=== PATIENT | female | born 1955 | race Caucasian/White ===

== ENCOUNTER 2020-05-09 14:17 | Inpatient (IN) | payer OTHER, SELFPAY ==
--- NOTE | 2020-05-09 | CT_ITS ---
EXAMINATION: CT ABDOMEN AND PELVIS WITHOUT CONTRAST CLINICAL INFORMATION: Left lower quadrant pain COMPARISON: Report only MRI lumbar spine 03/02/2007 TECHNIQUE: Multidetector volumetric imaging was performed from the superior aspect of the liver through the pubic symphysis. Sagittal and coronal reformatted images were obtained on the technologist's workstation. This CT examination was performed using dose optimization techniques as appropriate, variously including the following: *Automated exposure control *Adjustment of mA and/or kV according to patient size (this includes techniques or standardized protocols for targeted exams where dose is matched to indication/reason for exam; i.e. extremities or head) *Use of iterative reconstruction technique DLP: 511 mGy-cm FINDINGS: LUNG BASES: The visualized lung bases are unremarkable. LIVER, GALLBLADDER, AND BILIARY TREE: The liver is normal in size, shape, and attenuation. No focal hepatic lesion or biliary ductal dilatation is present. The gallbladder is unremarkable with no evidence of radiopaque gallstones, gallbladder wall thickening, or obvious pericholecystic inflammatory changes. PANCREAS: Unremarkable. SPLEEN: Unremarkable. ADRENAL GLANDS: Unremarkable. KIDNEYS AND URETERS: The kidneys are normal in size, shape, and attenuation. No hydronephrosis, hydroureter, or calculi seen. No perinephric stranding. BLADDER: Empty and cannot be evaluated. GASTROINTESTINAL TRACT: The small and large bowel are unremarkable. The appendix is none seen but there is no evidence of appendicitis. ABDOMINAL WALL: No significant hernia is appreciated. LYMPH NODES: No retroperitoneal lymphadenopathy. VASCULAR: Aortoiliac iliac calcific atherosclerotic plaque is present. No aneurysm is seen. PELVIC VISCERA: Patient is status post hysterectomy. An abnormal adnexal mass is not seen. No free intraperitoneal fluid is present OSSEOUS STRUCTURES: Minimal spondylitic changes present in the spine. There is a compression fracture involving the superior endplate of L2 most likely chronic. This was not described on the 2006 MRI report. No bony destructive lesions are seen. IMPRESSION: Negative study. Cause for the left lower quadrant pain has not been found. Incidental note made of hysterectomy and compression fracture superior endplate L2.
[2020-05-09 17:25] VITALS: BP 157/99; PULSE 90; RESP 22; TEMP 36.9; O2SAT 100; BMI 23.4
--- NOTE | 2020-05-09 17:40 | ED.ABDPAIN ---
HPI - Abdominal Pain General Chief Complaint: Abdominal Pain Stated Complaint: diverticulitis,vomiting,diarrhea Time Seen by Provider: 05/09/20 17:30 Source: patient Mode of arrival: ambulatory History of Present Illness HPI narrative: Patient is a 65-year-old female with a history of diverticulitis in the past. Was on Augmentin for full 10 days. Subsequently had continue pain. Was started 1 day later with Cipro and Flagyl. Patient took the medication for about 4 days and then stop because of diarrhea and worsening pain. Presented to the ED 2 days later. The pain is cramping like. It is over the left side. There is no radiation a comes and go without any specific triggers. No coughing or congestion or upper respiratory symptoms. No diaphoresis. No abdominal surgery in the past. Patient had a colonoscopy done back in 2018 it was grossly okay. No evidence of obstruction no evidence of mass. MD elicited complaint: abdominal pain Onset (ago): day(s) Pain Consistency: intermittent Location: LUQ and LLQ Severity: moderate Quality: cramping Migration to: no migration Exacerbating factors: nothing Relieving factors: nothing Related Data Allergies Allergy/AdvReac Type Severity Reaction Status Date / Time Darvocet-N 100 Allergy Intermediate Hives Verified 05/09/20 17:54 propoxyphene [From DARVON] Allergy Intermediate Hives Verified 05/09/20 17:54 Darvocet A500 Allergy Intermediate Hives Uncoded 05/09/20 17:54 Darvocet-N 50 Allergy Intermediate Hives Uncoded 05/09/20 17:54 Review of Systems Review of Systems Yes all other systems are reviewed and are negative Reports system reviewed and no additional complaints, except as documented Cardiovascular: Reports as per HPI Respiratory: Reports as per HPI and Reports no additional respiratory complaints Gastrointestinal: Reports as per HPI Genitourinary: Reports no additional female genitourinary complaints Musculoskeletal: Reports no additional musculoskeletal complaints Reports system reviewed and no additional complaints, except as documented Psychiatric: Reports no additional psychiatric complaints Endocrine: Reports no additional endocrine complaints Hematologic/Lymphatic: Reports no additional hematologic/lymphatic complaints Allergic/Immunologic: Reports no additional allergic/immunologic complaints Physical Exam Vital Signs and I&O and Narrative: Vital Signs and I&O: Vital Signs Temp 98.4 F 05/09/20 17:25 Pulse 80 05/09/20 18:03 Resp 20 05/09/20 18:03 BP 162/97 H 05/09/20 18:03 Pulse Ox 100 05/09/20 18:03 Intake & Output 05/09/20 05/09/20 05/10/20 06:59 18:59 06:59 Weight 69.853 kg Body Mass Index 23.4 Const: General: cooperative Orientation/consciousness: oriented to person, oriented to place and oriented to time HENMT: Head: Yes normal to inspection Ears: hearing grossly normal bilaterally Eyes: General: appearance normal, both eyes and all related structures Neck: Other: No JVD trachea is midline Neck: Yes normal visual inspection Chest: Other: clear bilaterally to auscultation Chest palpation & inspection: normal inspection of the chest Resp: Effort & Inspection: normal respiratory effort Cardio: Jugular venous distension: no JVD Palpation: normal PMI Rate: regular rate Rhythm: regular rhythm Bruits: no abdominal aortic bruits GI: Inspection: Yes normal to inspection Palpation (GI): No Abdominal aortic bruit present Percussion: Yes normal to percussion Auscultation: normal bowel sounds : General: Yes no CVA tenderness Back/Spine/Pelvis: Back: no CVA tenderness Skin: General skin exam: no rashes or lesions noted Neuro: General: oriented to person, oriented to place and oriented to time Extrem: General: Yes normal to inspection Psych: Appearance: grossly normal MDM - Abdominal Pain MDM Narrative Medical decision making narrative: Patient's electrolytes shows an elevated creatinine. Consistent with some mild dehydration. CT scan of the abdomen did not show any acute pathology. No evidence for diverticulitis. No obstruction no abscess no perforation. Will admit patient for further observation and monitoring. Further hydration. Currently in stable condition. [place] [id number] CT Scan Report Signed Patient: Jj Madison [facility]#: [id number] : 6Acct:[id number] Age/Sex: 65 / FADM Date: 05/09/20 Loc: HO.ED Attending Dr: Ordering Physician: LINDA MILLER MD Date of Service: 05/09/20 Procedure(s): CT abdomen pelvis wo con Accession Number(s): [id number] cc: ~ EXAMINATION: CT ABDOMEN AND PELVIS WITHOUT CONTRAST CLINICAL INFORMATION: Left lower quadrant pain COMPARISON: Report only MRI lumbar spine 03/02/2007 TECHNIQUE: Multidetector volumetric imaging was performed from the superior aspect of the liver through the pubic symphysis. Sagittal and coronal reformatted images were obtained on the technologist's workstation. This CT examination was performed using dose optimization techniques as appropriate, variously including the following: *Automated exposure control *Adjustment of mA and/or kV according to patient size (this includes techniques or standardized protocols for targeted exams where dose is matched to indication/reason for exam; i.e. extremities or head) *Use of iterative reconstruction technique DLP: 511 mGy-cm FINDINGS: LUNG BASES: The visualized lung bases are unremarkable. LIVER, GALLBLADDER, AND BILIARY TREE: The liver is normal in size, shape, and attenuation. No focal hepatic lesion or biliary ductal dilatation is present. The gallbladder is unremarkable with no evidence of radiopaque gallstones, gallbladder wall thickening, or obvious pericholecystic inflammatory changes. PANCREAS: Unremarkable. SPLEEN: Unremarkable. ADRENAL GLANDS: Unremarkable. KIDNEYS AND URETERS: The kidneys are normal in size, shape, and attenuation. No hydronephrosis, hydroureter, or calculi seen. No perinephric stranding. BLADDER: Empty and cannot be evaluated. GASTROINTESTINAL TRACT: The small and large bowel are unremarkable. The appendix is none seen but there is no evidence of appendicitis. ABDOMINAL WALL: No significant hernia is appreciated. LYMPH NODES: No retroperitoneal lymphadenopathy. VASCULAR: Aortoiliac iliac calcific atherosclerotic plaque is present. No aneurysm is seen. PELVIC VISCERA: Patient is status post hysterectomy. An abnormal adnexal mass is not seen. No free intraperitoneal fluid is present OSSEOUS STRUCTURES: Minimal spondylitic changes present in the spine. There is a compression fracture involving the superior endplate of L2 most likely chronic. This was not described on the 2006 MRI report. No bony destructive lesions are seen. IMPRESSION: Negative study. Cause for the left lower quadrant pain has not been found. Incidental note made of hysterectomy and compression fracture superior endplate L2. Dictated By:KEVIN CARRERA MD Signed By:<Electronically signed by KEVIN CARRERA MD in OV>05/09/201914 DD/ 99 TD/TT: [employer] Analyst: JACOBO Differential Diagnosis Differential diagnosis: Likely abdominal pain, aortic dissection, acute appendicitis and diverticulitis Medical Records Attestation: I reviewed the patient's medical records. Lab Data Attestation: I reviewed the patient's lab results. Result diagrams: 05/09/20 17:48 05/09/20 17:48 Labs: Lab Results 05/09/20 05/09/20 05/09/20 Range/Units 17:48 17:48 17:48 WBC 6.9 (4.8-10.8) X10*3/uL RBC 4.34 (4.20-5.50) X10*6/uL Hgb 12.7 (12.0-16.0) g/dl Hct 38.8 (37-47) % MCV 89.4 (80-98) fL MCH 29.3 (27.0-33.0) pg MCHC 32.7 (31.0-35.0) g/dl RDW 15.7 (11.0-16.0) % Plt Count 210 (160-400) X10*3/uL MPV 10.9 (9.4-12.3) fL Immature Gran % (Auto) 0.7 H (0.0-0.4) % Neut % (Auto) 53.8 (45-73) % Lymph % (Auto) 28.1 (20-40) % [place] % (Auto) 14.7 H (2-11) % Eos % (Auto) 2.3 (0-4) % Baso % (Auto) 0.4 (0-2) % Neut # (Auto) 3.7 (2.0-8.3) X10*3/uL Lymph # (Auto) 1.9 (1.2-4.9) X10*3/uL [place] # (Auto) 1.0 (0.1-1.2) X10*3/uL Eos # (Auto) 0.2 (0.0-0.4) X10*3/uL Baso # (Auto) 0.0 (0.0-0.2) X10*3/uL Abs Immat Gran (auto) 0.05 H (0.00-0.03) X10*3/uL Absolute Nucleated RBC 0.000 (0.0-0.012) X10*3/uL Nucleated RBC % (auto) 0.0 (0.0-0.2) /100WBC Hold Blue Top SEE NOTE Sodium 139 (135-145) mmol/L Potassium 4.1 (3.3-5.1) mmol/l Chloride 107 (96-108) mmol/L Carbon Dioxide 21 L (22-29) mmol/L Anion Gap 15 (12-20) BUN 31 H (9-16) mg/dL Creatinine 2.05 H (0.5-1.4) mg/dL Estim Creat Clear Calc 28.0 Estimated GFR 24 Random Glucose 139 H (60-115) mg/dL Calcium 9.6 (8.4-10.2) mg/dL Total Bilirubin 0.6 (0.0-1.0) mg/dL AST 222 H (5-31) U/L ALT 157 H (0-31) U/L Alkaline Phosphatase 108 (39-117) U/L Total Protein 6.8 (6.5-8.0) g/dL Albumin 4.2 (3.5-5.0) g/dL Lipase 42 (8-78) U/L Discharge Plan Discharge Clinical Impression: Acute dehydration, Acute renal insufficiency Patient Disposition: Admitted As Inpatient [facility] Past Medical History Attestation statement: The following information was validated with the patient. Medical History (Updated 05/09/20 @ 19:40 by Linda Miller MD) Hypertension Irritable bowel syndrome Ovarian cyst Surgical History (Updated 05/09/20 @ 17:31 by Mitzy Corrales) History of adenoidectomy History of hysterectomy History of tonsillectomy Hx of appendectomy S/P removal of ovarian cyst Social History Social History Alcohol intake: current Alcohol intake frequency: a few times a month Alcohol type: wine Smoking Status: Former smoker Smoked in Last 30 Days: No Use of substances other than those prescribed or required for medical reasons: No Advance Directives: No Advance Directives Information Provided: No
[2020-05-09 17:53] LABS: MANUAL DIFF FLAG NO
[2020-05-09] MEDS: 0.9 % Sodium Chloride 1,000 ML 999 ML IVCONT (17:55)
[2020-05-09] MEDS: ondansetron HCL 4 MG/2 ML VIAL IVPUSH (17:55)
[2020-05-09 17:58] LABS: Basophils Percent Auto 0.4 % (0-2); Eosinophils Absolute Auto 0.2 X10*3/uL (0.0-0.4); Eosinophils Percent Auto 2.3 % (0-4); Hematocrit 38.8 % (37-47); Hemoglobin 12.7 g/dl (12.0-16.0); Imm Gran Abs Auto 0.05 X10*3/uL (0.00-0.03); Imm Gran Pct Auto 0.7 % (0.0-0.4); Lymphocytes Absolute Auto 1.9 X10*3/uL (1.2-4.9); Lymphocytes Percent Auto 28.1 % (20-40); Mean Corpuscular HGB Conc 32.7 g/dl (31.0-35.0); Mean Corpuscular Hemoglobin 29.3 pg (27.0-33.0); Mean Corpuscular Volume 89.4 fL (80-98); Mean Platelet Volume 10.9 fL (9.4-12.3); Monocytes Percent Auto 14.7 % (2-11); Neutrophils Absolute Auto 3.7 X10*3/uL (2.0-8.3); Neutrophils Percent Auto 53.8 % (45-73); Platelet Count 210 X10*3/uL (160-400); Red Blood Count 4.34 X10*6/uL (4.20-5.50); Red Cell Distribution Width 15.7 % (11.0-16.0); White Blood Count 6.9 X10*3/uL (4.8-10.8)
[2020-05-09] MEDS: HYDROmorphone HCl 0.5 MG/0.5 ML SYRINGE IVPUSH (17:59)
[2020-05-09 18:03] VITALS: BP 162/97; PULSE 80; RESP 20; O2SAT 100
[2020-05-09 18:30] LABS: Alanine Aminotransferase 157 U/L (0-31); Albumin Level 4.2 g/dL (3.5-5.0); Alkaline Phosphatase 108 U/L (39-117); Anion Gap 15 (12-20); Aspartate Amino Transferase 222 U/L (5-31); Bilirubin Total 0.6 mg/dL (0.0-1.0); Blood Urea Nitrogen 31 mg/dL (9-16); Calcium 9.6 mg/dL (8.4-10.2); Carbon Dioxide 21 mmol/L (22-29); Chloride 107 mmol/L (96-108); Estimated Glomerular Filt Rate 24; Glucose Random 139 mg/dL (60-115); Lipase 42 U/L (8-78); Potassium 4.1 mmol/l (3.3-5.1); Sodium 139 mmol/L (135-145); Total Protein 6.8 g/dL (6.5-8.0)
[2020-05-09 20:30] VITALS: BP 154/74; PULSE 74; RESP 16; TEMP 36.8
[2020-05-09 20:35] VITALS: BP 154/74; PULSE 74; RESP 16; TEMP 36.8
[2020-05-09 20:50] LABS: Glucose Urine UA NEG (NEG); Leukocyte Esterase Urine NEG (NEG); Nitrite Urine NEG (NEG); Urine Blood NEG (NEG); Urine Ketones NEG (NEG); Urine Protein NEG (NEG-TRACE)
[2020-05-09 20:51] LABS: Appearance Urine CLEAR; Color Urine YELLOW
[2020-05-09 21:07] LABS: MANUAL DIFF FLAG NO
[2020-05-09 21:08] LABS: Basophils Percent Auto 0.5 % (0-2); Eosinophils Absolute Auto 0.2 X10*3/uL (0.0-0.4); Eosinophils Percent Auto 2.7 % (0-4); Hematocrit 33.5 % (37-47); Hemoglobin 10.9 g/dl (12.0-16.0); Imm Gran Abs Auto 0.04 X10*3/uL (0.00-0.03); Imm Gran Pct Auto 0.6 % (0.0-0.4); Lymphocytes Absolute Auto 1.8 X10*3/uL (1.2-4.9); Lymphocytes Percent Auto 28.9 % (20-40); Mean Corpuscular HGB Conc 32.5 g/dl (31.0-35.0); Mean Corpuscular Hemoglobin 29.1 pg (27.0-33.0); Mean Corpuscular Volume 89.3 fL (80-98); Mean Platelet Volume 10.8 fL (9.4-12.3); Monocytes Percent Auto 15.8 % (2-11); Neutrophils Absolute Auto 3.2 X10*3/uL (2.0-8.3); Neutrophils Percent Auto 51.5 % (45-73); Platelet Count 172 X10*3/uL (160-400); Red Blood Count 3.75 X10*6/uL (4.20-5.50); Red Cell Distribution Width 15.6 % (11.0-16.0); White Blood Count 6.2 X10*3/uL (4.8-10.8)
[2020-05-09] MEDS: 0.9 % Sodium Chloride 1,000 ML 100 ML IVCONT (21:38)
[2020-05-09] MEDS: metroNIDAZOLE/NS 500 MG/100 ML PIGGYBACK 100 MG IV (21:38)
[2020-05-09] MEDS: Enoxaparin Sodium 30 MG/0.3 ML SYRINGE SUBCUT (21:38)
[2020-05-09 22:44] VITALS: BP 155/69; PULSE 75; RESP 19; TEMP 36.8; O2SAT 99
[2020-05-09] MEDS: levoFLOXacin/D5W 750 MG/150 ML PIGGYBACK 100 MG IV (23:00)
[2020-05-09] MEDS: oxyCODONE HCl Immed Release 5 MG TABLET PO (23:00)
[2020-05-09] MEDS: LORazepam 1 MG TABLET PO (23:25)
[2020-05-09 23:56] VITALS: PULSE 64; RESP 19; TEMP 35.7; O2SAT 100
[2020-05-10] VITALS (11 sets, daily range): BP systolic 130–162; BP diastolic 59–89; PULSE 62–77; RESP 18–20; TEMP 36.1–36.7; O2SAT 94–100
[2020-05-10] MEDS: Morphine Sulfate 4 MG/ML CARTRIDGE 3 MG IVPUSH (01:31)
--- NOTE | 2020-05-10 03:20 | PM.IMHP ---
History of Present Illness Date of Service: 05/09/20 Chief Complaint: Abdominal pain this is a 65-year-old female with past medical history of anxiety, and hypertension who presents to the hospital with complaints of abdominal pain. Patient reports that she was recently diagnosed with diverticulitis and treated with Augmentin in the beginning of April. At that time she finished her antibiotic course, but continued to have pain and her administrative and program specialist started her on what appears to be ciprofloxacin and Flagyl. She took the medication for 4 days but her symptoms continued to persist including abdominal pain, diarrhea, nausea. She stopped taking medication about 2 days ago due to the fact that it was making her feel sick. She continues to have pain that is described to be 8/10, left lower quadrant, nonradiating, associated with nausea and vomiting, ribs somewhat relieved with pain medication received in the ED. Patient reports about 1 episode of diarrhea for the past 3 days, nonbloody, watery. No fever or chills. No urinary symptoms. And no lower extremity edema. Ten point review of system otherwise neg labs on arrival are significant for hemoglobin of 12.7, elevated AST of 222, ALT of 157, otherwise unremarkable. Abdominal pelvic CT with no contrast shows negative study. Cause for the left lower quadrant pain has not been found. Incidental note made of hysterectomy and compression fracture superior endplate L2. Patient also has a BUN of 31 with a creatinine of 2.05, a negative UA. Past medical history: Hypertension, anxiety past surgical history: Hysterectomy, tonsillectomy, adenoidectomy, appendectomy Family history: Denies Social history: Comes from home, denies currently using tobacco, drinks alcohol seldomly. No use of illicit drugs Review of Systems Review of Systems: Yes all other systems are reviewed and are negative Neurologic: Reports system reviewed and no additional complaints, except as documented [facility] [place] Medical History Hypertension Irritable bowel syndrome Ovarian cyst Surgical History History of adenoidectomy History of hysterectomy History of tonsillectomy Hx of appendectomy S/P removal of ovarian cyst Social History Alcohol intake: current Alcohol intake frequency: a few times a month Alcohol type: wine Smoking Status: Former smoker Smoked in Last 30 Days: No Use of substances other than those prescribed or required for medical reasons: No Advance Directives: No Advance Directives Information Provided: No Meds Allergies Allergy/AdvReac Type Severity Reaction Status Date / Time Darvocet-N 100 Allergy Intermediate Hives Verified 05/09/20 17:54 propoxyphene [From DARVON] Allergy Intermediate Hives Verified 05/09/20 17:54 Darvocet A500 Allergy Intermediate Hives Uncoded 05/09/20 17:54 Darvocet-N 50 Allergy Intermediate Hives Uncoded 05/09/20 17:54 Home Medications Medication Instructions Recorded Confirmed Type hydrochlorothiazide 1 tab PO DAILY 05/09/20 05/09/20 History lorazepam 1 tab PO BEDTIME 05/09/20 05/09/20 History metoprolol tartrate 1 tab PO DAILY 05/09/20 05/09/20 History omeprazole 1 cap PO DAILY 05/09/20 05/09/20 History Physical Exam Vital Signs and Narrative: Vital Signs: Last Vital Signs Temp 96.3 F L 05/09/20 23:56 Pulse 64 05/09/20 23:56 Resp 19 05/09/20 23:56 BP 155/69 H 05/09/20 22:44 Pulse Ox 100 05/09/20 23:56 Body Mass Index 23.4 Const: General: cooperative and no acute distress Orientation/consciousness: patient oriented x3 Eyes: General: appearance normal, both eyes and all related structures Pupils: Equal, round and reactive pupils present Resp: Effort & Inspection: normal respiratory effort, able to speak in complete sentences and abnormal respiratory pattern Auscultation: clear to auscultation bilaterally Cardio: Rate: regular rate Rhythm: regular rhythm GI: Other: right lower quadrant tenderness, no rebound, no guarding Palpation (GI): Soft to palpation Auscultation: normal bowel sounds Skin: General skin exam: no rashes or lesions noted Neuro: General: patient oriented x3 Cranial nerves: Yes Equal, round and reactive pupils present Cognition (Neuro): normal cognition Extrem: General: Yes normal to inspection and Yes no pedal edema Results Labs Labs: Laboratory Tests 05/09/20 05/09/20 05/09/20 17:48 17:48 17:48 WBC 6.9 RBC 4.34 Hgb 12.7 Hct 38.8 MCV 89.4 MCH 29.3 MCHC 32.7 RDW 15.7 Plt Count 210 MPV 10.9 Immature Gran % (Auto) 0.7 H Neut % (Auto) 53.8 Lymph % (Auto) 28.1 [place] % (Auto) 14.7 H Eos % (Auto) 2.3 Baso % (Auto) 0.4 Neut # (Auto) 3.7 Lymph # (Auto) 1.9 [place] # (Auto) 1.0 Eos # (Auto) 0.2 Baso # (Auto) 0.0 Abs Immat Gran (auto) 0.05 H Absolute Nucleated RBC 0.000 Nucleated RBC % (auto) 0.0 Hold Blue Top SEE NOTE Sodium 139 Potassium 4.1 Chloride 107 Carbon Dioxide 21 L Anion Gap 15 BUN 31 H Creatinine 2.05 H Estim Creat Clear Calc 28.0 Estimated GFR 24 Random Glucose 139 H Calcium 9.6 Total Bilirubin 0.6 AST 222 H ALT 157 H Alkaline Phosphatase 108 Total Protein 6.8 Albumin 4.2 Lipase 42 Urine Color Urine Appearance Urine pH Ur Specific [place] Urine Protein Urine Glucose (UA) Urine Ketones Urine Blood Urine Nitrite Ur Leukocyte Esterase 05/09/20 05/09/20 20:42 21:02 WBC 6.2 RBC 3.75 L Hgb 10.9 L Hct 33.5 L MCV 89.3 MCH 29.1 MCHC 32.5 RDW 15.6 Plt Count 172 MPV 10.8 Immature Gran % (Auto) 0.6 H Neut % (Auto) 51.5 Lymph % (Auto) 28.9 [place] % (Auto) 15.8 H Eos % (Auto) 2.7 Baso % (Auto) 0.5 Neut # (Auto) 3.2 Lymph # (Auto) 1.8 [place] # (Auto) 1.0 Eos # (Auto) 0.2 Baso # (Auto) 0.0 Abs Immat Gran (auto) 0.04 H Absolute Nucleated RBC 0.000 Nucleated RBC % (auto) 0.0 Hold Blue Top Sodium Potassium Chloride Carbon Dioxide Anion Gap BUN Creatinine Estim Creat Clear Calc Estimated GFR Random Glucose Calcium Total Bilirubin AST ALT Alkaline Phosphatase Total Protein Albumin Lipase Urine Color YELLOW Urine Appearance CLEAR Urine pH 5.0 Ur Specific [place] 1.010 Urine Protein NEG Urine Glucose (UA) NEG Urine Ketones NEG Urine Blood NEG Urine Nitrite NEG Ur Leukocyte Esterase NEG Assessment and Plan (1) Diverticulitis: Status: Acute - patient was treated with 2 different courses of antibiotics including Augmentin with no improvement of her symptoms followed by Cipro and Flagyl per patient. CT at this times not showing any evidence of diverticulitis although CT is done without any contrast Due to DIVINA - given her significant left lower quadrant abdominal pain, will continue levofloxacin and Flagyl - will obtain stool culture - [facility] Medicaid - unlikely to have C diff as patient has about 1 episode of diarrhea daily therefore will not send for C diff (2) Abdominal pain: Status: Acute most likely secondary to acute diverticulitis versus IBS pain medication (3) Acute renal insufficiency: Status: Acute it appears the patient has a baseline creatinine function of 1.7, presented to the hospital with a creatinine of 2.05 an elevated BUN of 31. Most likely secondary to dehydration in the setting of diarrhea and vomiting. - Will start patient on IV fluid - follow BMP (4) Irritable bowel syndrome: Status: Acute abdominal pain may be also related to IBS although reports that she has had IV as for many years and these symptoms are different supportive measures (5) Hypertension: Status: Acute stable - hold hydrochlorothiazide in the setting of DIVINA - monitor
[2020-05-10] MEDS: oxyCODONE HCl Immed Release 5 MG TABLET PO ×3 (05:13→20:07)
[2020-05-10] MEDS: metroNIDAZOLE/NS 500 MG/100 ML PIGGYBACK 100 MG IV ×3 (05:14→22:37)
[2020-05-10 08:55] LABS: MANUAL DIFF FLAG NO
[2020-05-10 09:13] LABS: Basophils Percent Auto 0.5 % (0-2); Eosinophils Absolute Auto 0.2 X10*3/uL (0.0-0.4); Eosinophils Percent Auto 3.9 % (0-4); Hematocrit 31.3 % (37-47); Hemoglobin 10.3 g/dl (12.0-16.0); Imm Gran Abs Auto 0.04 X10*3/uL (0.00-0.03); Imm Gran Pct Auto 0.7 % (0.0-0.4); Lymphocytes Absolute Auto 1.9 X10*3/uL (1.2-4.9); Lymphocytes Percent Auto 32.7 % (20-40); Mean Corpuscular HGB Conc 32.9 g/dl (31.0-35.0); Mean Corpuscular Hemoglobin 29.5 pg (27.0-33.0); Mean Corpuscular Volume 89.7 fL (80-98); Mean Platelet Volume 11.2 fL (9.4-12.3); Monocytes Absolute Auto 0.8 X10*3/uL (0.1-1.2); Monocytes Percent Auto 14.9 % (2-11); Neutrophils Absolute Auto 2.7 X10*3/uL (2.0-8.3); Neutrophils Percent Auto 47.3 % (45-73); Platelet Count 163 X10*3/uL (160-400); Red Blood Count 3.49 X10*6/uL (4.20-5.50); Red Cell Distribution Width 15.7 % (11.0-16.0); White Blood Count 5.7 X10*3/uL (4.8-10.8)
[2020-05-10] MEDS: Metoprolol Tartrate 25 MG TABLET PO (09:39)
[2020-05-10] MEDS: Omeprazole 20 MG CAPSULE.DR PO (09:40)
[2020-05-10] MEDS: 0.9 % Sodium Chloride 1,000 ML 100 ML IVCONT ×2 (09:40→20:01)
--- NOTE | 2020-05-10 10:14 | MHC.CM.PN ---
PATIENT LIVES WITH HER SPOUSE AND IS FULLY INDEPENDENT WITH ALL ADLS. NO DME OR VNA SERVICES. SHE IS HOPING TO BE ABLE TO RETURN HOME WITH NO SERVICES. HCP IS SPOUSE AND A COPY IS ON FILE AT HER PRIMARY CARE PHYSICIAN'S OFFICE. COPY REQUESTED. CASE MANAGEMENT FOLLOWING FOR DISCHARGE NEEDS.
--- NOTE | 2020-05-10 13:05 | HO.PM.IMPN ---
Subjective Subjective Date of Service: 05/10/20 Interval History: patient seen and examined at bedside patient reporting abdominal pain Constitutional Constitutional: Reports weakness Gastrointestinal Gastrointestinal: Reports abdominal pain and Reports diarrhea Neurologic Neurologic: Reports weakness Physical Exam Vital Signs and I&O and Narrative: Vital Signs and I&O: Vital Signs Temp 98.1 F 05/10/20 12:00 Pulse 63 05/10/20 12:00 Resp 19 05/10/20 12:00 BP 143/74 H 05/10/20 12:00 Pulse Ox 100 05/10/20 12:00 Intake & Output 05/09/20 05/10/20 05/10/20 18:59 06:59 18:59 Intake Total 1790 / 1790 1000 / 1000 Balance 1790 / 1790 1000 / 1000 Weight 69.853 kg Intake: Intake, Oral Cora unt 440 / 440 Intake, IV Amoun t 1350 / 1350 1000 / 1000 levoFLOXacin/D 5W 750 mg In 150 150 / 150 ml @ 100 mls/h r IV Q48H [facility] Rx# :[id number] metroNIDAZOLE/ NS 500 mg In 100 200 / 200 ml @ 100 mls/h r IV Q8H [facility] Rx#: [id number] 0.9 % Sodium C hloride 1,000 ml 1000 / 1000 1000 / 1000 @ 100 mls/hr I VCONT .Q10H [facility] Rx#:[id number] Other: Number of Unmeas ured Voids 3 Body Mass Index 23.4 Const: General: cooperative and no acute distress Orientation/consciousness: oriented to person, oriented to place, oriented to time and patient oriented x3 HENMT: Head: Yes normal to inspection Ears: hearing grossly normal bilaterally Eyes: General: appearance normal, both eyes and all related structures Pupils: Equal, round and reactive pupils present Neck: Other: No JVD trachea is midline Neck: Yes normal visual inspection Chest: Other: clear bilaterally to auscultation Chest palpation & inspection: normal inspection of the chest Resp: Effort & Inspection: normal respiratory effort, able to speak in complete sentences and abnormal respiratory pattern Auscultation: clear to auscultation bilaterally Cardio: Jugular venous distension: no JVD Palpation: normal PMI Rate: regular rate Rhythm: regular rhythm Bruits: no abdominal aortic bruits GI: Other: right lower quadrant tenderness, no rebound, no guarding Inspection: Yes normal to inspection Palpation (GI): No Abdominal aortic bruit present and Soft to palpation Percussion: Yes normal to percussion Auscultation: normal bowel sounds : General: Yes no CVA tenderness Back/Spine/Pelvis: Back: no CVA tenderness Skin: General skin exam: no rashes or lesions noted Neuro: General: oriented to person, oriented to place, oriented to time and patient oriented x3 Cranial nerves: Yes Equal, round and reactive pupils present Cognition (Neuro): normal cognition Extrem: General: Yes normal to inspection and Yes no pedal edema Psych: Appearance: grossly normal Objective Data Current Medications Generic Name Dose Route Start Last Admin Trade Name Freq PRN Reason Stop Dose Admin Acetaminophen 650 mg 05/09/20 20:18 Acetaminophen 650 Mg Supp.Rect AK Q6H PRN Pain, Mild (Pain Scale 1-3) Enoxaparin Sodium 30 mg 05/09/20 22:00 05/09/20 21:38 Enoxaparin Sodium 30 Mg/0.3 Ml Syringe SUBCUT 30 mg Q24H RAQUEL Administration Sodium Chloride 1,000 mls @ 100 mls/hr 05/09/20 20:30 05/10/20 09:40 Ns IVCONT 100 mls/hr .Q10H RAQUEL Administration Metronidazole 500 mg in 100 mls @ 100 mls/hr 05/09/20 21:00 05/10/20 06:43 Flagyl IV Infused Q8H [facility]QUEL Infusion Levofloxacin 750 mg in 150 mls @ 100 mls/hr 05/09/20 22:00 05/10/20 00:46 Levaquin IV Infused Q48H [facility] Infusion Lorazepam 1 mg 05/09/20 23:00 05/09/20 23:25 Lorazepam 1 Mg Tablet PO 1 mg BEDTIME RAQUEL Administration Metoprolol Tartrate 25 mg 05/10/20 09:00 05/10/20 09:39 Metoprolol Tartrate 25 Mg Tablet PO 25 mg DAILY RAQUEL Administration Protocol Omeprazole 20 mg 05/10/20 09:00 05/10/20 09:40 Omeprazole 20 Mg Capsule.Dr PO 20 mg DAILY RAQUEL Administration Oxycodone HCl 5 mg 05/09/20 20:20 05/10/20 10:57 Oxycodone Hcl Immed Release 5 Mg Tablet PO 5 mg Q6H PRN Administration Pain, Severe (Pain Scale 7-10) Sodium Chloride 2 ml 05/10/20 00:00 05/10/20 09:41 0.9 % Sodium Chloride Flush 3 Ml Syringe IVFLUSH Not Given [facility] Labs CBC & Chem 7: 05/10/20 08:20 05/09/20 17:48 Labs: Laboratory Results - last 24 hr 05/09/20 05/09/20 05/09/20 17:48 17:48 17:48 MCV 89.4 MCH 29.3 MCHC 32.7 RDW 15.7 Plt Count 210 MPV 10.9 Immature Gran % (Auto) 0.7 H Neut % (Auto) 53.8 Lymph % (Auto) 28.1 Heard % (Auto) 14.7 H Eos % (Auto) 2.3 Baso % (Auto) 0.4 Neut # (Auto) 3.7 Lymph # (Auto) 1.9 [place] # (Auto) 1.0 Eos # (Auto) 0.2 Baso # (Auto) 0.0 Abs Immat Gran (auto) 0.05 H Absolute Nucleated RBC 0.000 Nucleated RBC % (auto) 0.0 Hold Blue Top SEE NOTE Anion Gap 15 Estim Creat Clear Calc 28.0 Estimated GFR 24 Random Glucose 139 H Calcium 9.6 Total Bilirubin 0.6 AST 222 H ALT 157 H Alkaline Phosphatase 108 Total Protein 6.8 Albumin 4.2 Lipase 42 Urine Color Urine Appearance Urine pH Ur Specific [place] Urine Protein Urine Glucose (UA) Urine Ketones Urine Blood Urine Nitrite Ur Leukocyte Esterase 05/09/20 05/09/20 05/10/20 20:42 21:02 08:20 MCV 89.3 89.7 MCH 29.1 29.5 MCHC 32.5 32.9 RDW 15.6 15.7 Plt Count 172 163 MPV 10.8 11.2 Immature Gran % (Auto) 0.6 H 0.7 H Neut % (Auto) 51.5 47.3 Lymph % (Auto) 28.9 32.7 [place] % (Auto) 15.8 H 14.9 H Eos % (Auto) 2.7 3.9 Baso % (Auto) 0.5 0.5 Neut # (Auto) 3.2 2.7 Lymph # (Auto) 1.8 1.9 [place]ard # (Auto) 1.0 0.8 Eos # (Auto) 0.2 0.2 Baso # (Auto) 0.0 0.0 Abs Immat Gran (auto) 0.04 H 0.04 H Absolute Nucleated RBC 0.000 0.000 Nucleated RBC % (auto) 0.0 0.0 Hold Blue Top Anion Gap Estim Creat Clear Calc Estimated GFR Random Glucose Calcium Total Bilirubin AST ALT Alkaline Phosphatase Total Protein Albumin Lipase Urine Color YELLOW Urine Appearance CLEAR Urine pH 5.0 Ur Specific [place] 1.010 Urine Protein NEG Urine Glucose (UA) NEG Urine Ketones NEG Urine Blood NEG Urine Nitrite NEG Ur Leukocyte Esterase NEG Assessment and Plan (1) Diverticulitis: Status: Acute (2) Acute renal insufficiency: Status: Acute (3) Acute dehydration: Status: Acute (4) Irritable bowel syndrome: Status: Acute (5) Hypertension: Status: Acute (6) Abdominal pain: Status: Acute Assessment and Plan: Diverticulitis - patient was treated with 2 different courses of antibiotics including Augmentin with no improvement of her symptoms followed by Cipro and Flagyl per patient. continue levofloxacin and Flagyl - supportive management continue clear liquids gastroenterology consult Acute kidney injury baseline creatinine function of 1.7, presented to the hospital with a creatinine of 2.05 an elevated BUN of 31 likely secondary to dehydration in the setting of diarrhea and vomiting. continue IV fluid follow BMP hold hydrochlorothiazide in the setting of DIVINA DVT prophylaxis Lovenox
[2020-05-10] MEDS: Dicyclomine HCl 10 MG CAPSULE 20 MG PO (22:34)
[2020-05-10] MEDS: Zolpidem Tartrate 5 MG TABLET PO (22:35)
[2020-05-10] MEDS: LORazepam 1 MG TABLET PO (22:36)
[2020-05-11 03:39] VITALS: BP 151/74; PULSE 70; RESP 19; TEMP 36.1; O2SAT 99
[2020-05-11] MEDS: oxyCODONE HCl Immed Release 5 MG TABLET PO ×2 (04:30→10:29)
--- NOTE | 2020-05-11 04:45 | CONS_ITS ---
DATE OF SERVICE: 05/10/2020 REASON FOR CONSULTATION: Abdominal pain and diarrhea. HISTORY OF PRESENT ILLNESS: This has been obtained from the patient and the medical record. The patient is a 65-year-old female, well known to me from previous office visits with an underlying history of chronic irritable bowel syndrome and diarrhea. She underwent a completely normal colonoscopy in 2017, that was negative for any polyps and no inflammatory bowel disease. Biopsies throughout the colon were negative for microscopic colitis. She had similar evaluations in 2006. She has been on Lomotil for many, many years. She did have negative laboratories for celiac disease in the past as well. The patient describes that she was diagnosed with a COVID infection at the end of March. She denies any particular respiratory compromise and did have a cough. She was not hospitalized for that. In early April, she began having episodes of left-sided abdominal pain for which she underwent a CAT scan at [facility] that described some very minimal wall thickening of the sigmoid colon and minimal surrounding fat. Based on that, she was treated with Augmentin for possible diverticulitis. She describes having finished that course of antibiotics with only mild improvement in her symptoms. Things were fairly stable until last week when she developed again recurrent left-sided abdominal pain that she describes as quite severe. She was started on Cipro and Flagyl at that point for again presumed diverticulitis. She had to stop the antibiotics after about 4 days due to some vomiting. Due to worsening pain, she came to the ER yesterday and was admitted. She has been afebrile here in the hospital. She has not noticed any hematochezia, melena, hematemesis, no coffee-grounds emesis. She denies any jaundice. She denies any urinary symptoms. Prior to April, she was not having any particular GI symptoms other than her chronic irritable bowel syndrome for which she was using Lomotil between 2 and 4 times daily with good relief. She does not have any previous history of chronic abdominal pain or diverticulitis. Since admission here, she still is having some discomfort, but thinks she is feeling somewhat better. She has been tolerating some food. She has had no vomiting. She denies any known family history of colorectal cancer. She has a nephew with Crohn disease. She does drink wine on the weekends, but denies daily alcohol use. She has not been on any new medications aside from the recent course of antibiotics. MEDICATIONS: At home included: 1. Hydrochlorothiazide. 2. Lorazepam. 3. Metoprolol. 4. Lomotil. 5. She was recently started on omeprazole by her ENT physician. Her medications here in the hospital include: 1. IV Levaquin. 2. IV Flagyl. 3. Lovenox. 4. Acetaminophen. 5. Lorazepam. 6. Omeprazole. 7. Oxycodone. PAST MEDICAL HISTORY: Irritable bowel syndrome with diarrhea. Hypertension. Anxiety. She denies history of PR, diabetes, stroke, lung disease, or renal disease. PAST SURGICAL HISTORY: Surgeries have included complete hysterectomy, appendectomy, and laparoscopy for endometriosis. PAST FAMILY HISTORY: As above. SOCIAL HISTORY: She does not smoke. Alcohol as above. 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 She is . REVIEW OF SYSTEMS: CONSTITUTIONAL: She has been feeling frustrated and mildly anorectic. SKIN: No rash, no pruritus. CARDIAC: No chest pain. PULMONARY: No cough. No hemoptysis. GI: As above. URINARY: No dysuria, no hematuria. NEUROLOGIC: No headache or seizures. PHYSICAL EXAMINATION: GENERAL: The patient is a pleasant, alert, comfortable-appearing female, in no distress. She has been afebrile. SKIN: Warm and dry. Anicteric sclerae. NECK: Supple. CHEST: Clear. CARDIAC: Normal S1 and S2. ABDOMEN: Soft, nondistended. Normal bowel sounds. With distraction, her abdominal exam is completely benign. She does have some tenderness in the left side otherwise. There is no mass, rebound, or guarding. EXTREMITIES: Without edema. LABORATORIES: Her CAT scan of the abdomen and pelvis is described as completely normal. Her liver profile revealed AST 222, ALT 157, total bilirubin 0.6, alkaline phosphatase 108, albumin 4.2. Her CBC from this morning showed hemoglobin 10.3, MCV 90, white blood cell count 5.7, platelet count 162,000. Normal electrolytes. BUN 31, creatinine 2.05. IMPRESSION: Given the patient's clinical history including that of the negative CAT scan presently, very minimal findings on the original CAT scan in early April, and a benign abdominal exam, I do not think diverticulitis is playing a significant, if any, role in her presentation. I do suspect, she has a component of some intestinal spasm in relation to the irritable bowel syndrome. As such, I would recommend a trial of dicyclomine before meals. I think her antibiotics can be stopped by tomorrow. I will continue her diet as tolerated and observe her. Her elevated LFTs do need further evaluation. The CAT scan of the abdomen did include a normal-appearing liver. The AST and ALT are in the ratio of possible alcohol-induced elevations, and I did review this with her. I did advise her to avoid alcohol completely. I shall repeat a liver profile tomorrow along with a PT and INR. I shall also check hepatitis serologies and a complete liver workup at this point. I do notice that she is anemic, and I shall check iron studies, B12 and folate levels. I should also repeat celiac disease laboratories. If stable she can be discharged and I will follow her up in the office. I do not think a repeat colonoscopy is required at this point. This has all been discussed with the patient in detail. MD ALO Ortega/ELDON / [id number] MTDD
[2020-05-11] MEDS: Acetaminophen 325 MG TABLET 650 MG PO (06:36)
[2020-05-11] MEDS: Dicyclomine HCl 10 MG CAPSULE 20 MG PO ×2 (06:36→11:09)
[2020-05-11] MEDS: metroNIDAZOLE/NS 500 MG/100 ML PIGGYBACK 100 MG IV (06:50)
[2020-05-11 07:08] LABS: MANUAL DIFF FLAG NO
[2020-05-11 07:18] LABS: Basophils Percent Auto 0.3 % (0-2); Eosinophils Absolute Auto 0.2 X10*3/uL (0.0-0.4); Eosinophils Percent Auto 3.3 % (0-4); Hematocrit 31.8 % (37-47); Hemoglobin 10.3 g/dl (12.0-16.0); Imm Gran Abs Auto 0.04 X10*3/uL (0.00-0.03); Imm Gran Pct Auto 0.7 % (0.0-0.4); Lymphocytes Absolute Auto 1.7 X10*3/uL (1.2-4.9); Mean Corpuscular HGB Conc 32.4 g/dl (31.0-35.0); Mean Corpuscular Hemoglobin 29.2 pg (27.0-33.0); Mean Corpuscular Volume 90.1 fL (80-98); Mean Platelet Volume 11.2 fL (9.4-12.3); Monocytes Absolute Auto 0.8 X10*3/uL (0.1-1.2); Monocytes Percent Auto 13.8 % (2-11); Neutrophils Percent Auto 51.9 % (45-73); Platelet Count 171 X10*3/uL (160-400); Red Blood Count 3.53 X10*6/uL (4.20-5.50); Red Cell Distribution Width 15.9 % (11.0-16.0); White Blood Count 5.8 X10*3/uL (4.8-10.8)
[2020-05-11 07:22] LABS: Prothrombin Time 12.3 SEC (10.8-13.0)
[2020-05-11] MEDS: 0.9 % Sodium Chloride 1,000 ML 100 ML IVCONT (07:30)
[2020-05-11 08:00] VITALS: BP 147/68; PULSE 66; RESP 19; TEMP 36.7; O2SAT 99
[2020-05-11 08:08] LABS: Alanine Aminotransferase 73 U/L (0-31); Aspartate Amino Transferase 56 U/L (5-31); Bilirubin Direct 0.2 mg/dL (0.0-0.5); Bilirubin Total 0.4 mg/dL (0.0-1.0)
[2020-05-11 08:10] LABS: Creatinine Clr Calc Pharmacy 43.4; Estimated Glomerular Filt Rate 41; Glucose Fasting 93 mg/dL (60-99); Iron 81 mcg/dL (30-160); Percent Iron Saturation 42 % (15-50); Total Iron Binding Capacity 195 mcg/dL (228-428); Unsaturated Iron Binding 114 ug/dL
[2020-05-11 08:22] LABS: Albumin Level 3.2 g/dL (3.5-5.0); Alkaline Phosphatase 71 U/L (39-117); Anion Gap 9 (12-20); Blood Urea Nitrogen 13 mg/dL (9-16); Calcium 8.2 mg/dL (8.4-10.2); Carbon Dioxide 22 mmol/L (22-29); Chloride 115 mmol/L (96-108); Potassium 3.8 mmol/l (3.3-5.1); Sodium 142 mmol/L (135-145)
[2020-05-11 08:26] VITALS: PULSE 66
[2020-05-11] MEDS: Metoprolol Tartrate 25 MG TABLET PO (08:26)
[2020-05-11] MEDS: Omeprazole 20 MG CAPSULE.DR PO (08:26)
--- NOTE | 2020-05-11 11:18 | MHC.CM.PN ---
PATIENT IS RETURNING HOME WITH NO SERVICES. SPOUSE TO TRANSPORT. RN AWARE.
--- NOTE | 2020-05-11 11:52 | P.DS_ITS ---
DS: Providers Provider Date of admission: 05/09/20 20:18 Primary care physician: Thierno Velasquez MD Consults: 05/10/20 13:07 Consult to Gastroenterology Routine Consulting Provider: Haja Smalls Reason for consultation: diverticulitis DS: Diagnosis Discharge Diagnosis (1) Diverticulitis: Status: Acute (2) Acute renal insufficiency: Status: Acute (3) Acute dehydration: Status: Acute (4) Irritable bowel syndrome: Status: Acute (5) Hypertension: Status: Acute (6) Abdominal pain: Status: Acute DS: Summary Hospital Course Hospital Course: 65-year-old female admitted with possible colitis , patient was started on Levaquin and Flagyl, gastroenterology was consulted, Gastroenterology reconciled colitis less likely given CT abdomen sh ows no acute abnormality and no fever and no leukocytosis, reconciled likely irritable bowel syndrome and recommended to hold antibiotic and start dicyclomine, patient's abdominal pain improved patient tolerated regular diet patient was also found to have elevated LFTs likely secondary to alcohol intake, repeat LFTs were trending down , hepatitis panel was pending, patient was stable patient was discharged home on dicyclomine and patient will follow up Gastroenterology Dr. Herbert as outpatient for further workup Time Spent with Patient Time attestation: Total time spent providing and/or coordinating discharge services: Physical Exam Vital Signs and I&O and Narrative: Vital Signs and I&O: Vital Signs Temp 98.1 F 05/11/20 08:00 Pulse 66 05/11/20 08:26 Resp 19 05/11/20 08:00 BP 147/68 H 05/11/20 08:00 Pulse Ox 99 05/11/20 08:00 Intake & Output 05/10/20 05/11/20 05/11/20 18:59 06:59 18:59 Intake Total 1580 / 3680 2100 / 3680 0 / 0 Output Total 4 / 4 Balance 1580 / 3676 2096 / 3676 0 / 0 Urine Output (Aver age ml/kg/hr) 0.00 0.00 Intake: Intake, Oral Cora unt 480 / 480 Intake, IV Amoun t 1100 / 3200 2100 / 3200 0 / 0 metroNIDAZOLE/ NS 500 mg In 100 100 / 200 100 / 200 0 / 0 ml @ 100 mls/h r IV Q8H [facility] Rx#: [id number] 0.9 % Sodium C hloride 1,000 ml 1000 / 3000 2000 / 3000 @ 100 mls/hr I VCONT .Q10H [facility] Rx#:[id number] Output: Output, Urine Am ount Other: Meal Refused No No NPO No Breakfast % Eate n 100% 75% Lunch % Eaten 100% 75% Dinner % Eaten 100% 75% Number of Unmeas ured Voids 2 Urine Bathroom Body Mass Index 23.4 Const: General: cooperative and no acute distress Orientation/consciousness: oriented to person, oriented to place, oriented to time and patient oriented x3 HENMT: Head: Yes normal to inspection Ears: hearing grossly normal bilaterally Eyes: General: appearance normal, both eyes and all related structures Pupils: Equal, round and reactive pupils present Neck: Other: No JVD trachea is midline Neck: Yes normal visual inspection Chest: Other: clear bilaterally to auscultation Chest palpation & inspection: normal inspection of the chest Resp: Effort & Inspection: normal respiratory effort, able to speak in complete sentences and abnormal respiratory pattern Auscultation: clear to auscultation bilaterally Cardio: Jugular venous distension: no JVD Palpation: normal PMI Rate: regular rate Rhythm: regular rhythm Bruits: no abdominal aortic bruits GI: Other: right lower quadrant tenderness, no rebound, no guarding Inspection: Yes normal to inspection Palpation (GI): No Abdominal aortic bruit present and Soft to palpation Percussion: Yes normal to percussion Auscultation: normal bowel sounds : General: Yes no CVA tenderness Back/Spine/Pelvis: Back: no CVA tenderness Skin: General skin exam: no rashes or lesions noted Neuro: General: oriented to person, oriented to place, oriented to time and patient oriented x3 Cranial nerves: Yes Equal, round and reactive pupils present Cognition (Neuro): normal cognition Extrem: General: Yes normal to inspection and Yes no pedal edema Psych: Appearance: grossly normal DS: Data Data Completed and Pending Labs on day of discharge: Labs from last 24 hours 05/11/20 05/11/20 05/11/20 06:41 06:41 06:41 WBC RBC Hgb Hct MCV MCH MCHC RDW Plt Count MPV Immature Gran % (Auto) Neut % (Auto) Lymph % (Auto) [place] % (Auto) Eos % (Auto) Baso % (Auto) Neut # (Auto) Lymph # (Auto) [place] # (Auto) Eos # (Auto) Baso # (Auto) Abs Immat Gran (auto) Absolute Nucleated RBC Nucleated RBC % (auto) PT 12.3 INR 1.0 Sodium 142 Potassium 3.8 Chloride 115 H Carbon Dioxide 22 Anion Gap 9 L BUN 13 D Creatinine 1.32 Estim Creat Clear Calc 43.4 Estimated GFR 41 Fasting Glucose 93 Calcium 8.2 L Iron 81 TIBC 195 L % Saturation 42 Unsat Iron Binding 114 Total Bilirubin 0.4 Direct Bilirubin 0.2 AST 56 H ALT 73 H Alkaline Phosphatase 71 D Total Protein 5.0 L D Albumin 3.2 L D 05/11/20 06:41 WBC 5.8 RBC 3.53 L Hgb 10.3 L Hct 31.8 L MCV 90.1 MCH 29.2 MCHC 32.4 RDW 15.9 Plt Count 171 MPV 11.2 Immature Gran % (Auto) 0.7 H Neut % (Auto) 51.9 Lymph % (Auto) 30.0 [place] % (Auto) 13.8 H Eos % (Auto) 3.3 Baso % (Auto) 0.3 Neut # (Auto) 3.0 Lymph # (Auto) 1.7 [place] # (Auto) 0.8 Eos # (Auto) 0.2 Baso # (Auto) 0.0 Abs Immat Gran (auto) 0.04 H Absolute Nucleated RBC 0.000 Nucleated RBC % (auto) 0.0 PT INR Sodium Potassium Chloride Carbon Dioxide Anion Gap BUN Creatinine Estim Creat Clear Calc Estimated GFR Fasting Glucose Calcium Iron TIBC % Saturation Unsat Iron Binding Total Bilirubin Direct Bilirubin AST ALT Alkaline Phosphatase Total Protein Albumin Discharge Plan Discharge Anticipated Discharge Date/Time: 05/11/20 10:33 Patient Disposition: Home, Self-Care Referrals: Thierno Velasquez MD [Primary Care Provider] - Discharge Medications: New dicyclomine 10 mg Capsule 20 mg PO TIDAC Qty: 30 RF: 0 Continued omeprazole 20 mg capsule,delayed release(DR/EC) 1 cap PO DAILY RF: 0 lorazepam 1 mg tablet 1 tab PO BEDTIME RF: 0 metoprolol tartrate 25 mg tablet 1 tab PO DAILY RF: 0 Discontinued hydrochlorothiazide 25 mg tablet 1 tab PO DAILY RF: 0 Discharge Orders: Discharge Order (Routine); Ordered 05/11/20 Ordered By: Jeremiah Ramos Activity on Discharge: As tolerated Discharge Date/Time: 05/11/20 13:14 Other Ambulatory Orders: Basic Metabolic Panel Random (Routine) Timeframe: 1 Day Facility: [facility] - Location: Laboratory Ordered By: Jeremiah Ramos Visit Report Forms: Patient Portal Discharge page Care Plan Goals: See discharge instru Health Concerns: see discharge instructions Plan of Treatment: see discharge instructions
[2020-05-11 12:00] VITALS: BP 135/63; PULSE 58; RESP 18; TEMP 36.8; O2SAT 100
[2020-05-13 08:10] LABS: HBS Num1 16.41 mIU/mL (0-7.99); ~HepC Num1 0.07 S/CO (0.00-0.79); ~Hepatitis B Surface Antibody REACTIVE (Nonreactive); ~Hepatitis C Antibody Nonreactive (Nonreactive)
[2020-05-13 08:11] LABS: Hepatitis B Core Antibody Nonreactive (Nonreactive); Hepatitis B Surface Antigen Negative (Negative)
[2020-05-13 09:20] LABS: Folate 7.2 ng/mL (> or = 4.0); Vitamin B12 319 pg/mL (200-900)
[2020-05-13 15:26] LABS: Mitochondrial Antibodies NEGATIVE (NEGATIVE)
[2020-05-14 15:26] LABS: Transglutaminase Ab IgG 1 U/mL; Transglutaminase IgA 1 U/mL
[2020-05-14 15:51] LABS: Gliadin Deamidated IgA Ab 3 Units; Gliadin Deamidated IgG Ab 1 Units
[2020-05-15 08:51] LABS: HBc Num1 0.05 S/CO (0.00-0.79); Hepatitis A Antibody IgM 0.54 Index (0-0.79); ~Hepatitis A Antibody IgM Nonreactive (Nonreactive)
[2020-05-15 23:17] LABS: Smooth Muscle Antibody <20 U (<20)
[2020-05-16 13:02] LABS: Endomysial IgA Antibody Negative (Negative)
== END 2020-05-11 13:14 | disposition home or self-care (01) | DRG 254 ==
LOC: HO.ED 20:18 → HO.S3 20:30
PROVIDERS: Internal Medicine; Admitting Provider Internal Medicine; Emergency Provider Emergency Medicine Emergency Medical Services; PCP Internal Medicine; Visit Provider Internal Medicine
DX: K58.9 Irritable bowel syndrome, unspecified (principal); N17.9 Acute kidney failure, unspecified; K57.92 Diverticulitis of intestine, part unspecified, without perforation or abscess without bleeding; F41.9 Anxiety disorder, unspecified; I10 Essential (primary) hypertension; E86.0 Dehydration; Z87.891 Personal history of nicotine dependence; Z79.899 Other long term (current) drug therapy
CPT/HCPCS: 36415; 74176; 80048; 80053; 80076; 81003; 82607; 82746; 83516; 83540; 83690; 85025; 85610; 86038; 86039; 86255; 86256; 86704; 86706; 86709; 86803; 87045; 87046; 87077; 87340; 96361; 96374; 99284; 99285; J1650; J1956; J2270

== ENCOUNTER 2020-05-13 11:34 | Outpatient (REF) | payer OTHER, SELFPAY ==
[2020-05-13 12:42] LABS: Anion Gap 11 (12-20); Blood Urea Nitrogen 13 mg/dL (9-16); Calcium 8.6 mg/dL (8.4-10.2); Carbon Dioxide 24 mmol/L (22-29); Chloride 110 mmol/L (96-108); Estimated Glomerular Filt Rate 38; Glucose Random 98 mg/dL (60-115); Potassium 3.7 mmol/l (3.3-5.1); Sodium 141 mmol/L (135-145)
== END 2020-05-13 11:35 | disposition home or self-care (01) ==
LOC: HO.LAB 11:34
PROVIDERS: Absent Provider Internal Medicine; PCP Internal Medicine; Visit Provider Internal Medicine
DX: Z20.828 Contact with and (suspected) exposure to other viral communicable diseases (principal)
CPT/HCPCS: 36415; 80048; 87635

== ENCOUNTER 2020-06-14 10:05 | Outpatient (REF) | payer OTHER, SELFPAY ==
[2020-06-14 11:40] LABS: Alanine Aminotransferase 46 U/L (0-31); Albumin Level 4.2 g/dL (3.5-5.0); Alkaline Phosphatase 103 U/L (39-117); Aspartate Amino Transferase 43 U/L (5-31); Bilirubin Direct 0.3 mg/dL (0.0-0.5); Bilirubin Total 0.6 mg/dL (0.0-1.0); Total Protein 6.6 g/dL (6.5-8.0)
== END 2020-06-14 10:06 | disposition home or self-care (01) ==
LOC: HO.LAB 10:05
PROVIDERS: PCP Internal Medicine; Visit Provider Internal Medicine
DX: R79.89 Other specified abnormal findings of blood chemistry (principal)
CPT/HCPCS: 80076

== ENCOUNTER 2020-12-11 09:15 | Outpatient (REF) | payer OTHER, SELFPAY ==
[2020-12-11 11:00] LABS: Alanine Aminotransferase 16 U/L (0-31); Albumin Level 3.9 g/dL (3.5-5.0); Alkaline Phosphatase 98 U/L (39-117); Aspartate Amino Transferase 16 U/L (5-31); Bilirubin Direct 0.2 mg/dL (0.0-0.5); Bilirubin Total 0.5 mg/dL (0.0-1.0); Total Protein 6.2 g/dL (6.5-8.0)
== END 2020-12-11 09:16 | disposition home or self-care (01) ==
LOC: HO.LAB 09:15
PROVIDERS: PCP Internal Medicine; Visit Provider Internal Medicine
DX: R79.89 Other specified abnormal findings of blood chemistry (principal)
CPT/HCPCS: 36415; 80076

== ENCOUNTER → 2024-06-09 11:46 | Outpatient (BNV) | payer MEDICARE, SELFPAY | PROVIDERS: Emergency Provider Emergency Medicine Emergency Medical Services; PCP Internal Medicine; Visit Provider Internal Medicine | DX: R07.9 Chest pain, unspecified (principal) | CPT/HCPCS: 93010 ==

== ENCOUNTER 2024-06-09 11:48 | Emergency (ER) | payer MEDICARE, SELFPAY ==
--- NOTE | 2024-06-09 | ECG_ITS ---
Test Reason : chest pain Blood Pressure : / mmHG Vent. Rate : 066 BPM Atrial Rate : 066 BPM P-R Int : 148 ms QRS Dur : 082 ms QT Int : 414 ms P-R-T Axes : 005 029 036 degrees QTc Int : 434 ms Normal sinus rhythm Normal ECG When compared with ECG of 07-SEP-2008 13:39, No significant change was found Referred By: Generic ED Physician Electronically Signed By:JESICA ROSARIO
--- NOTE | ~2024-06-09 | XR_ITS ---
EXAMINATION: XR CHEST CLINICAL INFORMATION: Substernal chest pain. COMPARISON: 09/11/2009. TECHNIQUE: 2 views of the chest were obtained. FINDINGS: Mild pulmonary hyperinflation and hyperlucency. Trace parenchymal scarring in the anterior left lower lobe abutting the major fissure. Lungs otherwise clear. No pneumothorax, consolidation, or effusion. Cardiac, hilar, and mediastinal contours appear normal. Mildly prominent vessels in the hilar regions, similar from the prior exam. No discrete suspicious or acute osseous abnormalities. XR/XR chest 2V IMPRESSION: No active pulmonary disease. Electronically signed by: Jesse Hook MD 06/09/2024 03:19 PM EDT
--- NOTE | ~2024-06-09 | CT_ITS ---
EXAMINATION: CT ANGIOGRAM CHEST CLINICAL INFORMATION: Pleuritic chest pain. Elevated d-dimer. COMPARISON: None available. TECHNIQUE: Multiple axial images were obtained through the chest after the administration of 65 mL of Omnipaque 350 intravenous contrast. Extensive vascular post-processing including two-dimensional and three-dimensional reformatted images were created and reviewed on an independent workstation. This CT examination was performed using dose optimization techniques as appropriate, variously including the following: *Automated exposure control *Adjustment of mA and/or kV according to patient size (this includes techniques or standardized protocols for targeted exams where dose is matched to indication/reason for exam; i.e. extremities or head) *Use of iterative reconstruction technique DLP: 260 mGy-cm FINDINGS: QUALITY OF STUDY/CONTRAST BOLUS: Satisfactory. CHEST: CHEST WALL: No acute abnormality. AXILLA: No axillary lymphadenopathy. PULMONARY ARTERIES: No pulmonary embolism. MEDIASTINUM: Heterogeneous thyroid gland. Prominent right hilar and mediastinal lymph nodes. Great vessels are of normal caliber. Heart size is normal. No pericardial effusion. CORONARY ARTERY CALCIFICATION: Mild. PLEURA: There is no pleural effusion. LUNGS: Bilateral and multifocal groundglass opacities in the bronchovascular distribution. No suspicious pulmonary nodule. Central airways are patent. UPPER ABDOMEN: Unremarkable. OSSEOUS STRUCTURES: No destructive bone lesions. CT/CT angio chest PE protocol IMPRESSION: No evidence of pulmonary embolus. Bilateral multifocal groundglass opacities in a peribronchovascular distribution. This likely represents an acute infectious or inflammatory process. Prominent right hilar and mediastinal lymph nodes are possibly on a reactive basis. VTE: negative Electronically signed by: Tolu Fink MD 06/09/2024 04:54 PM EDT
[2024-06-09 11:56] VITALS: BP 175/77; PULSE 65; RESP 18; TEMP 36.8; O2SAT 100; BMI 23.1
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
[2024-06-09 12:12] LABS: MANUAL DIFF FLAG NO
[2024-06-09 12:14] LABS: Basophils Percent Auto 0.5 % (0-2); Eosinophils Absolute Auto 0.2 X10*3/uL (0.0-0.4); Eosinophils Percent Auto 2.2 % (0-4); Hematocrit 35.3 % (37.0-47.0); Hemoglobin 11.5 g/dl (12.0-16.0); Imm Gran Abs Auto 0.03 X10*3/uL (0.00-0.03); Imm Gran Pct Auto 0.4 % (0.0-0.4); Lymphocytes Absolute Auto 1.8 X10*3/uL (1.2-4.9); Lymphocytes Percent Auto 22.1 % (20-40); Mean Corpuscular HGB Conc 32.6 g/dl (31.0-35.0); Mean Corpuscular Volume 92.2 fL (80.0-98.0); Monocytes Percent Auto 12.7 % (2-11); Neutrophils Percent Auto 62.1 % (45-73); Platelet Count 191 X10*3/uL (160-400); Red Blood Count 3.83 X10*6/uL (4.20-5.50); Red Cell Distribution Width 16.2 % (11.0-16.0); White Blood Count 8.1 X10*3/uL (4.8-10.8)
[2024-06-09 12:21] LABS: INTERNATIONAL NORM RATIO 0.9 (0.9-1.1); Prothrombin Time 10.3 SEC (10.9-12.4)
[2024-06-09 12:28] LABS: Alanine Aminotransferase 37 U/L (0-31); Albumin Level 3.8 g/dL (3.5-5.0); Alkaline Phosphatase 115 U/L (39-117); Anion Gap 9 (12-20); Aspartate Amino Transferase 43 U/L (5-31); Bilirubin Total 0.4 mg/dL (0.0-1.0); Blood Urea Nitrogen 21 mg/dL (9-16); Calcium 9.6 mg/dL (8.4-10.2); Carbon Dioxide 22 mmol/L (22-29); Chloride 115 mmol/L (96-108); Estimated Glomerular Filt Rate 35; Glucose Random 87 mg/dL (60-115); Lipase 29 U/L (8-78); Magnesium 1.6 mg/dL (1.6-2.6); Potassium 4.2 mmol/L (3.3-5.1); Sodium 142 mmol/L (135-145); Total Protein 6.4 g/dL (6.5-8.0)
[2024-06-09 12:36] LABS: Troponin-I High Sensitivity < 2.7 ng/L (<3.5-17.0)
[2024-06-09 12:51] LABS: Influenza A PCR NEGATIVE (Negative); Influenza B PCR NEGATIVE (Negative); Resp Syncy Virus RNA Qual PCR NEGATIVE (Negative); SARS COV2 PCR INHOUSE NEGATIVE (Negative)
[2024-06-09 14:48] LABS: D Dimer High Sensitivity 253 NG/ML
[2024-06-09 15:06] VITALS: BP 182/78; PULSE 63; RESP 16; O2SAT 96
[2024-06-09] MEDS: Morphine Sulfate 4 MG/ML CARTRIDGE IVPUSH ×2 (15:09→16:36)
[2024-06-09] MEDS: ondansetron HCL 4 MG/2 ML VIAL IVPUSH (15:09)
[2024-06-09 15:29] LABS: Troponin-I High Sensitivity < 2.7 ng/L (<3.5-17.0)
[2024-06-09] MEDS: iohexoL 350 MG/ML 100 ML INFUS..BTL IV (16:15)
[2024-06-09 16:30] VITALS: BP 171/84; PULSE 70; RESP 10; TEMP 36.1; O2SAT 100
[2024-06-09] MEDS: 0.9 % Sodium Chloride 1,000 ML 999 ML IV (16:36)
[2024-06-09 16:41] VITALS: BP 173/79; PULSE 67; RESP 16; O2SAT 96
[2024-06-09] MEDS: predniSONE 20 MG TABLET 60 MG PO (17:52)
[2024-06-09] MEDS: Amoxicillin 500 MG CAPSULE 1000 MG PO (17:52)
[2024-06-09] MEDS: Doxycycline Monohydrate 100 MG CAPSULE PO (17:52)
[2024-06-09 18:04] VITALS: BP 162/78; PULSE 69; RESP 18; TEMP 36.9; O2SAT 96
== END 2024-06-09 18:05 | disposition home or self-care (01) ==
PROVIDERS: Physician Assistant Medical; Emergency Provider Emergency Medicine Emergency Medical Services; PCP Internal Medicine
DX: J18.9 Pneumonia, unspecified organism (principal); R07.89 Other chest pain; R07.81 Pleurodynia; R06.02 Shortness of breath; I10 Essential (primary) hypertension; Z79.899 Other long term (current) drug therapy; Z03.818 Encounter for observation for suspected exposure to other biological agents ruled out
CPT/HCPCS: 0241U; 36415; 71046; 71275; 80053; 83690; 83735; 84484; 85025; 85379; 85610; 93005; 96374; 96375; 96376; 99284; J2270; J2405; Q9967

== ENCOUNTER → 2024-06-09 11:59 | Outpatient (BNV) | payer MEDICARE, SELFPAY | PROVIDERS: Emergency Provider Emergency Medicine Emergency Medical Services; PCP Internal Medicine; Visit Provider Radiology Diagnostic Radiology | DX: R07.9 Chest pain, unspecified (principal) | CPT/HCPCS: 71046 ==

== ENCOUNTER 2024-11-16 07:30 | Emergency (ER) | payer MEDICARE, SELFPAY ==
--- NOTE | ~2024-11-16 | XR_ITS ---
EXAMINATION: XR PELVIS 1-2 VIEWS HISTORY: fell on buttock, missing chair 3 days ago, pain COMPARISON: There are no prior studies for comparison. FINDINGS: A single AP view of the pelvis is submitted. Osseous mineralization is normal. There is no fracture or dislocation. The hip and sacroiliac joint spaces are maintained. The soft tissues are unremarkable. XR/XR pelvis 1-2V IMPRESSION: No evidence of fracture of the pelvis. Electronically signed by: Juan Church MD 11/16/2024 09:06 AM EDT
[2024-11-16 07:33] VITALS: BP 134/78; PULSE 81; RESP 16; TEMP 36.1; O2SAT 99; BMI 21.8
--- OUTSIDE RECORDS SUMMARY | 2024-11-16 08:19 | XMS_ITS | Clinical Summary ---
Author Organization [facility] Address [address] [place] [address] Phone Care Team Providers Care Stove Polisher Name Role Phone Thierno Oliver MD Primary Care Provider [phone] Social History Tobacco Use Types Packs/Day Years Used Date Smoking Tobacco: Never Assessed Comments Unknown Sex and Gender Information Value Date Recorded Sex Assigned at Not on file Legal Sex Female 11:39 PM EST Gender Identity Not on file Sexual Orientation Not on file Plan of Treatment Upcoming Encounters Date Type Department Care Team (Late st Contact Info) Description 06/12/2025 9:00 AM EST Appointment [facility] [address] [address] Health Maintenance Due Date Last Done Comments DTaP,Tdap,and Td Vaccines (1 - Tdap) 1975 Pneumococcal Vaccine: 50+ Years (1 of 1 - PCV) 2006 Zoster Vaccines (1 of 2) 2006 Colorectal Cancer Screening: Colonoscopy 07/12/2022 Depression Screening 07/12/2022 Falls Risk Assessment 07/12/2022 Hepatitis C Screening 07/12/2022 Medicare Annual Wellness Visit 07/12/2022 Social Influencers of Health Screening 07/12/2022 COVID-19 Vaccine ( - season) 2024 Influenza Vaccine (Season Ended) 2025 Breast Cancer Screening 06/08/2026 06/08/20 24, 06/07/2023, 06/02/2022, Additional history exists RSV Immunization Adult Patients (1 - 1-dose 75+ series) 2031 Osteoporosis Screening (Bone Density Screening) 05/22/2031 05/22/2021 HIB Vaccines Aged Out No longer eligi ble based on patient's age to complete this topic HPV Vaccines Aged Out No longer eligi ble based on patient's age to complete this topic Hepatitis A Vaccines Aged Out No long er eligible based on patient's age to complete this topic Hepatitis B Vaccines Aged Out No long er eligible based on patient's age to complete this topic IPV Vaccines Aged Out No longer eligi ble based on patient's age to complete this topic MMR Vaccines Aged Out No longer eligi ble based on patient's age to complete this topic Meningococcal ACWY Vaccine Aged Out N o longer eligible based on patient's age to complete this topic Meningococcal B Vaccine Aged Out No l onger eligible based on patient's age to complete this topic RSV Immunization Patients Under 20 months Aged Out No longer eligible based on patient's age to complete this topic Varicella Vaccines Aged Out No longer eligible based on patient's age to complete this topic Procedures Procedure Name Priority Date/Time Associated Diagnosis Comments [facility] SCREENING DIGITAL Routine 06/08/2024 10:52 AM EDT [facility] DEXA AXIAL SKELETON Routine 05/22/2021 2:06 PM EDT Other specified disorders of bone density and structure, multiple sites from Last 3 Months or Most Recently Relevant to Health Maintenance Results * [facility] SCREENING DIGITAL (06/08/2024 10:52 AM EDT) Anatomical Region Laterality Modality Mammography 06/08/2024 10:0 5 AM EDT Narrative 06/08/2024 10:52 AM EDT [facility] Diagnostic Imaging Department [address] [place], [place] [address] Patient: ??CABRERA JACOBO ?/Age/Sex: 1955 - - Unit#: ??[id number] ? Location/Status: ??SPDIMAM/REG CLI ? Mnemonic/Ordering Site: ??DIGSC/SPMAM Ordering Physician: ??THIERNO OLIVER MD [facility] Screening Digital - 06/08/24 - 1022 Report Status:Signed EXAM: ??SCREENING MAMMOGRAPHY, BILATERAL HISTORY: ??SCREENING. ??Family history of breast cancer. COMPARISON: ??06/07/2023, 06/02/2022, 05/22/2021, 04/22/2020 TECHNIQUE: Synthesized CC and MLO projections of each breast. ??Tomosynthesis of each breast in the CC and MLO projections. ADDITIONAL IMAGING: None Computer-aided detection was employed with the iCAD ??profound AI 3-D. TISSUE DENSITY: There are scattered areas of fibroglandular density. (BI-RADS category B) FINDINGS: RIGHT BREAST: No suspicious mass. No suspicious calcification. No distortion. ?? No additional suspicious right breast findings LEFT BREAST: No suspicious mass. No suspicious calcification. No distortion. ?? No additional suspicious left breast findings IMPRESSION: No mammographic evidence of malignancy. No suspicious interval change. A negative mammogram in the presence of a clinically suspicious palpable abnormality does not preclude the possibility of malignancy or alter the indications for biopsy. ASSESSMENT: BI-RADS 1: NEGATIVE RECOMMENDATION(S): 1: Routine screening mammogram BILATERAL in 1 year. Dictating Physician: ??Pebbles ROJAS BRET MD Electronically Signed by: ??Pebbles ROJAS BRET MD Dic Date/Time: ??06/08/24 1045 Sign date/Time: ??06/08/24 1052 Procedure Note Arnold Rojas MD - 06/10/2024 [facility] Diagnostic Imaging Department [address] [place] [address] Patient: CABRERA JACOBO /Age/Sex: 1955 69 - F Unit#: [id number] Location/Status: SPDIMAM/REG CLI Mnemonic/Ordering Site: [facility] Ordering Physician: THIERNO OLIVER MD [facility] Screening Digital - 06/08/24 - 1022 Report Status:Signed EXAM: SCREENING MAMMOGRAPHY, BILATERAL HISTORY: SCREENING. Family history of breast cancer. COMPARISON: 06/07/2023, 06/02/2022, 05/22/2021, 04/22/2020 TECHNIQUE: Synthesized CC and MLO projections of each breast.Tomosynthesis of each breast in the CC and MLO projections. ADDITIONAL IMAGING: None Computer-aided detection was employed with the iCAD profound AI 3-D. TISSUE DENSITY: There are scattered areas of fibroglandular density.(BI-RADS category B) FINDINGS: RIGHT BREAST: No suspicious mass. No suspicious calcification. No distortion. Noadditional suspicious right breast findings LEFT BREAST: No suspicious mass. No suspicious calcification. No distortion. Noadditional suspicious left breast findings IMPRESSION: No mammographic evidence of malignancy. No suspicious interval change. A negative mammogram in the presence of a clinically suspicious palpable abnormality does not preclude the possibility of malignancy or alter the indications for biopsy. ASSESSMENT: BI-RADS 1: NEGATIVE RECOMMENDATION(S): 1: Routine screening mammogram BILATERAL in 1 year. Dictating Physician: Pebbles ROJAS BRET MD Electronically Signed by: Pebbles ROJAS BRET MD Dic Date/Time: 06/08/24 1045 Sign date/Time: 06/08/24 1052 Thierno Oliver MD IMG BI PROCEDURES Final Result * [facility] DEXA AXIAL SKELETON (05/22/2021 2:06 PM EDT) Anatomical Region Laterality Modality Mammography 05/22/2021 1:04 PM EDT Narrative 05/22/2021 2:06 PM EDT [facility] Diagnostic Imaging Department [address] [place], [place] [address] Patient: ??CABRERA JACOBO ?/Age/Sex: 1955 - 66 - F Unit#: ??[id number] ? Location/Status: ??SPDIMAM/REG CLI ? Mnemonic/Ordering Site: ??MAMDEXAAX/SPMAM Ordering Physician: ??DANAY RIVERA MD [facility] Dexa Axial Skeleton - 05/22/21 - [facility] Dexa Axial Skeleton INDICATION: POSTMENOPAUSAL Technique: Bone densitometry was performed utilizing dual energy x-ray absorptiometry (DEXA). The lumbar spine is evaluated in the AP projection at L1 and L2. L3 and L4 were omitted because of endplate sclerosis. The proximal femora are evaluated in the AP projection bilaterally. COMPARISON: 02/24/2016 FINDINGS: AP spine: Bone mineral density: 1.147 gm/cm2 T-score: -0.1 Right femoral neck: Bone mineral density: 0.846 gm/cm2 T-score: -1.4 IMPRESSION: Findings suggesting osteopenia, placing the patient at risk for fracture. Compared with the prior exam there is been a statistically significant 10.3% interval decrease in total mean hip bone mineral density The FRAX result suggests a 10 year probability of major osteoporotic fracture of 14.5 % and hip fracture of 1.5%. 10 year probability of osteoporotic fracture may be lower than FRAX estimate if patient has received treatment. [id number] Dictating Physician: ??AUDELIA PABLO MD Electronically Signed by: ??AUDELIA PABLO MD Dic Date/Time: ??05/22/211404 Sign date/Time: ??05/22/21 140 Procedure Note Audelia Pablo MD - 07/29/2022 [facility] Diagnostic Imaging Department [address] [place] [address] Patient: CABRERA JACOBO Tammy /Age/Sex: 1955 - 66 - F Unit#: [id number] Location/Status: SPDIMA/REG CLI [facility] Ordering Physician: DANAY RIVERA MD [facility] Dexa Axial Skeleton - 05/22/21 - [facility] Dexa Axial Skeleton INDICATION: POSTMENOPAUSAL Technique: Bone densitometry was performed utilizing dual energy x-ray absorptiometry (DEXA). The lumbar spine is evaluated in the AP projectionat L1 and L2. L3 and L4 were omitted because of endplate sclerosis. Theproximal femora are evaluated in the AP projection bilaterally. COMPARISON: 02/24/2016 FINDINGS: AP spine: Bone mineral density: 1.147 gm/cm2 T-score: -0.1 Right femoral neck: Bone mineral density: 0.846 gm/cm2 T-score: -1.4 IMPRESSION: Findings suggesting osteopenia, placing the patient at risk forfracture. Compared with the prior exam there is been a statistically etcfndksvmq31.3% interval decrease in total mean hip bone mineral density The FRAX result suggests a 10 year probability of major osteoporoticfracture of 14.5 % and hip fracture of 1.5%. 10 year probability of osteoporotic fracture may be lower than FRAXestimate if patient has received treatment. [id number] Dictating Physician: AUDELIA PABLO MD Electronically Signed by: AUDELIA PABLO MD Dic Date/Time: 05/22/211404 Sign date/Time: 05/22/211405 Danay Rivera MD IMG BI PROCEDURES Final Result from Last 3 Months or Most Recently Relevant to Health Maintenance Insurance MEDICARE MEDEX Care Teams Stove Polisher Relationship Specialty Start Date End Date Thierno Oliver MD [address] [place] [phone] PCP - General Internal Medicine 06/12/24
--- OUTSIDE RECORDS SUMMARY | 2024-11-16 08:19 | XMS_ITS ---
Author Organization [facility] Address [address] [place] [address] Care Team Providers Care Tail Sawyer Name Role Phone Thierno Velasquez Primary Care Provider Fern Mullins [phone] Encounters Encounter Location Date Provider Diagnosis [address] [address] 07/27/2024 Fern Anderson Plan Of Treatment Next Appt Details Provider Name:Fern coats, 11/27/2024 02:15:00 PM, [address] [place] [address], [phone], Progress Notes * Jj JACOBO MDOB: [birth year] (69 yo F)Acc No.[id number]:07/27/2024 Progress Note Patient:?Jj JACOBO Tammy Provider:?Fern Anderson DPM :1955???Age:69 Y???Sex:Female D ate:07/27/2024 Address:[address] [place] [address] [place] Pcp:Thierno Velasquez Subjective: * Chief Complaints: * ??? * Medical History:? Objective: * Vitals:? Assessment: Plan: * Treatment: * Images: * The named appointment provid er may or may not be the originator of this progress note, and it is not deemed complete until electronically signed by the appointment provider. Sign off status: Pending * Provider:?Fern Anderson DPM Date:?1 09/27/2023 Generated for Christie moreau/Gilberto/Luis Eduardoitting on:?11/16/2024 08:18 AM EDT
--- OUTSIDE RECORDS SUMMARY | 2024-11-16 08:19 | XMS_ITS | Patient Health Record ---
Author Organization [facility] Address [address] [place] [address] Care Team Providers Care Feller Seam Operator Name Role Phone Thierno Velasquez Primary Care Provider Fern Mullins Unavailable [phone] Hoang Yuen Unavailable [phone] Allergies Allergen (clinical drug ingredient) Drug/Non Drug Allergy documented on EMR Reaction Allergy Type Onset Date Status ibuprofen Advil kidney issues Drug Allergy Act samuel Aleve kidney issues Drug Allergy Act samuel sulfamethoxazole / trimethoprim Bactrim large rashes Drug Allergy Active Motrin kidney issues Drug Allergy Act samuel darvocet Unknown Drug Allergy Active Reason For Referral No Information Medications Medication SIG (Take, Route, Frequency, Duration) Notes Start Date End Date Status Metoprolol Tartrate 50 MG 1 tablet with food Orally Twice a day Active hydroCHLOROthiazide 25 MG 1 tablet Orall y Once a day Not-Taking Atenolol 25 MG 1 tablet Orally Once a day Not-Taking LORazepam 1 MG 1 tablet at bedtime as needed Orally Once a day Active Lomotil 2.5-0.025 MG 2 Orally 3 times a day Active Physical Therapy . .dx:achilles tendinitis right with need for us and iontophoresis . 2-3x/week for 3-4 weeks 01/15/2014 Not-Taking Problems Problem Type SNOMED Code ICD Code Onset Dates Problem Status W/U Status Risk Notes Problem Disorder of joint of ankle and/or foot (118610460) Arthritis - Degenerative (719.97) Active confirmed Problem Acquired deformity of joint of big toe (disorder) (959636159) Hallux Limitus (735.8) Active confirmed Problem Achilles bursitis (021677443) Achilles Tendonitis Bursitis (726.71) Active confirmed Problem Pain in limb (08549170) Pain in Limb (729.5) Active confirmed Problem Acquired hammer toe of right foot (8116694805454452) Other hammer toe(s) (acquired), right foot (M20.41) Active confirmed Problem Localized, primary osteoarthritis of the ankle and/or foot (711160886) Arthritis of joint of lesser toe, right (M19.071) Active confirmed Vital Signs Blood pressure diastolic 80 mm Hg 05/16/2024 Height 5 ft 8 in in 05/16/2024 Blood pressure systolic 130 mm Hg 05/16/2024 Weight 144 lbs 05/16/2024 BMI 21.89 kg/m2 05/16/2024 Encounters Encounter Location Date Provider Diagnosis [address] [address] 05/16/2024 Fern Anderson Pain in right toe(s) M79.674 ; Other hammer toe(s) (acquired), right foot M20.41 ; Arthritis of joint of lesser toe, right M19.071 and Subluxation of metatarsophalangeal joint of toe, initial encounter S93.149A [address] [address] 07/24/2024 Fern Anderson [address] [address] 07/25/2024 Fernrobinson Anderson [address] [address] 09/06/2024 Fern Anderson Assessments Encounter Date Diagnosis (ICD Code) Assessment Notes Treatment Notes Treatment Clinical Notes Section Notes 05/16/2024 Pain in right toe(s) (ICD-10 - M79.674) 05/16/2024 Other hammer toe(s) (acquired), right foot (ICD-10 - M20.41) 05/16/2024 Arthritis of joint o f lesser toe, right (ICD-10 - M19.071) 05/16/2024 Subluxation of metatarsophalangeal joint of toe, initial encounter (ICD-10 - S93.149A) Plan Of Treatment Pending Test Test Name Order Date X ray : Foot, right 2V 01/15/2014 X ray : Foot, right 3V 05/16/2024 [id number] Destruction, 1-14 07/30/2014 Next Appt Details Provider Name:Fern coats, 11/27/2024 02:15:00 PM, [address] [place] [address], [phone], Insurance Providers Payer Name Payer Address Payer Phone Subscriber Number Group Number Insured Name Patient Relationship to Insured Coverage Start Date Coverage End Date Medicare National Govt Sv[employer] [address] [place] [address] [id number] Jj Madison Self - patient is the insured [employer] [address] [place] [address] [id number] Jj Madison Self - patient is the insured Medical (General) History Medical History History ICD Code High blood pressure Chicken pox Back pain covid-19 Surgical History Surgery Date(Month/Year) appendectomy tonsillectomy hysterectomy section
--- OUTSIDE RECORDS SUMMARY | 2024-11-16 08:19 | XMS_ITS ---
Author Organization [facility] Address [address] [place] [address] Care Team Providers Care Chocolate Finisher Name Role Phone Thierno Velasquez Primary Care Provider Fern Mullins [phone] REASON FOR VISIT r/s Encounters Encounter Location Date Provider Diagnosis [address] [address] 09/06/2024 Fern Anderson Plan Of Treatment Next Appt Details Provider Name:Fern coats, 11/27/2024 02:15:00 PM, [address] [place] [address], [phone], Progress Notes * Jj JACOBO MDOB: [birth year] (69 yo F)Acc No.[id number]:09/06/2024 Patient:?Jj JACOBO :1955???Age:69 Y???Sex:Female Address:[address] [place] [address] * true * Date:? Generated for Printi ng/Fajasong/eTransmitting on:?11/16/2024 08:18 AM EDT
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
--- OUTSIDE RECORDS SUMMARY | 2024-11-16 08:20 | XMS_ITS ---
Author Organization [facility] Address [address] [place] [phone] Care Team Providers Care Forest Examiner Name Role Phone Thierno Velasquez MD Primary Care Provider UnavailJuan Cardenas [phone] Encounters Encounter Location Date Provider Diagnosis [facility] [address] [place] [phone] 04/27/2024 Juan Herbert Plan Of Treatment No Information Progress Notes * CABRERA JACOBO MDOB: [birth year] (69 yo F)Acc No.[id number]:04/27/2024 Patient:?CABRERA JACOBO :1955???Age:69 Y???Sex:Female Address:[address] [place] [address] * true * Date:? Generated for Christie moreau/Gilberto/eTransmitting on:?11/16/2024 08:20 AM EDT
--- OUTSIDE RECORDS SUMMARY | 2024-11-16 08:20 | XMS_ITS ---
Author Organization [facility] Address [address] [place] [address] Care Team Providers Care Certified Medical Dosimetrist Name Role Phone Thierno Velasquez Primary Care Provider Fern Mullins Unavailable [phone] Allergies Allergen (clinical drug ingredient) Drug/Non Drug [...] . 2-3x/week for 3-4 weeks 01/15/2014 Not-Taking Metoprolol Tartrate 50 MG 1 tablet with food Orally Twice a day Active Encounters Encounter Location Date Provider Diagnosis [facility] [address] [place] [address] 09/07/2024 Fern Anderson Plan Of Treatment Next Appt Details Provider Name:Fern coats, 11/27/2024 02:15:00 PM, [address] [place], [address], Progress Notes * Jj JACOBO OB: [birth year] (69 yo F)Acc No.[id number]:09/07/2024 Progress Note Patient:?Jj JACOBO Provider:?Fern Anderson DPM :1955???Age:69 Y???Sex:Female D ate:09/07/2024 Address:[address] [place], [place] [id number] Pcp:Thierno Velasquez Subjective: * Chief Complaints: * ??? * Medical History:?High blood pressure, Chicken pox, Back pain, Covid-19. * Medications:?Taking Metoprol ol Tartrate 50 MG Tablet 1 tablet with [...] 1 tablet Orally Once a day * Allergies:?darvocet, Advil: kidney issues, Aleve: kidney issues, Motrin: kidney issues, Bactrim: large rashes. Objective: * Vitals:? Assessment: Plan: * Treatment: * Images: * The named appointment provid er may or may not be the originator of this progress note, and it is not deemed complete until electronically signed by the appointment provider. Sign off status: Pending * Provider:?Fern Anderson DPM Date:?0 09/07/2024 Generated for Christie moreau/Gilberto/Nikky on:?11/16/2024 08:20 AM EDT
--- OUTSIDE RECORDS SUMMARY | 2024-11-16 08:20 | XMS_ITS ---
Author Organization [facility] Address [address] [place] [address] Care Team Providers Care Education And Outreach Coordinator Name Role Phone Thierno Velasquez MD Primary Care Provider Juan Haq [phone] REASON FOR VISIT needs lomotil r/f Medications Medication SIG (Take, Route, Frequency, Duration) Notes Start Date End Date Status Diphenoxylate-Atropine 2.5-0.025 MG TAKE 2 TABLETS BY MOUTH THREE TIMES DAILY FOR DIARRHEA Orally Three times every day for diarrhea for 30 days 06/29/2024 Active Encounters Encounter Location Date Provider Diagnosis [facility] [address] [place] [phone] 06/29/2024 Juan Herbert Plan Of Treatment Medication Medication Name Sig Start Date Stop Date Notes Diphenoxylate-Atropine 2.5-0.025 MG TAKE 2 TABLETS BY MOUTH THREE TIMES DAILY FOR DIARRHEA Orally Three times every day for diarrhea for 30 days 06/29/2024 Progress Notes * CABRERA JACOBO MDOB: [birth year] (69 yo F)Acc No.[id number]:06/29/2024 Patient:?CABRERA JACOBO :1955???Age:69 Y???Sex:Female Address:[address] [place] [address] * Refills? Refill Diphenoxylate-Atropine Tablet, 2.5-0.025 MG, Orally, 180 Tablet, TAKE 2 TABLETS BY MOUTH THREE TIMES DAILY FOR DIARRHEA, Three times every day for diarrhea, 30 days, Refills=5 * true * Date:? Generated for Christie moreau/Gilberto/Luis Eduardoitting on:?11/16/2024 08:19 AM EDT
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
--- NOTE | 2024-11-16 08:22 | ED.FALL ---
HPI - Fall General Chief Complaint: Fall Stated Complaint: fall Time Seen by Provider: 11/16/24 08:03 Source: patient Mode of arrival: ambulatory Limitations: no limitations History of Present Illness ED Provider: Alesia Glass PA-C HPI Narrative: Patient seeks medical attention in emergency department today for evaluation of right-sided posterior/external pelvic pain. Three days ago she was attempting to sit down in a chair she muscles saw on the edge according to her account and it caused her to miss the chair falling on her buttocks. She did not hit or fall completely to the ground. She denies any head trauma or associated neck pain. She reports every time that she tries to walk or lay on it directly it hurts her.Patient denies personal history of cancer, IVDU, fevers, chills, night sweats, unintentional wt loss, saddle anesthesia, and change/loss in bladder/ bowel function. Patient had tramadol at home and took this she reports no effect whatsoever she does not want to take Tylenol or Motrin she is requesting stronger pain medication. She denies any pain radiating into her lower extremities. No head trauma or loss of consciousness. She denies any visual changes dizziness or headaches. No abdominal discomfort or shortness of breath no respiratory symptoms. Three years ago she states that she fractured her lower back she is not sure if it ever healed she has not this. Denies any pain with range of motion of her limbs when she is lying down flat. She is able tolerate p.o. fluids and void regularly. 850 am: Patient has nurse attempted to give Valium to help for both and anxiolytics as well as a pain reduce her as she has underlying anxiety due to her pain. She has refused anything but our narcotic medication screaming at nurse and myself. Has ride home. We had a calm conversation regards to pain receptors in addressing multiple concerns all at once. Compromise to give her immediate release morphine tablets instead. Imaging pending. Related Data Home Medications ?Medication ?Instructions ?Recorded ?Confirmed lorazepam 1 mg tablet 1 tab PO BEDTIME 05/09/20 05/09/20 metoprolol tartrate 25 mg tablet 1 tab PO DAILY 05/09/20 05/09/20 omeprazole 20 mg capsule,delayed 1 cap PO DAILY 05/09/20 05/09/20 release Previous Rx's ?Medication ?Instructions ?Recorded dicyclomine 10 mg capsule 20 mg (2 x 10 mg) PO TIDAC #30 caps 05/11/20 amoxicillin 500 mg capsule 1,000 mg (2 x 500 mg) PO TID 5 06/09/24 days #30 caps doxycycline hyclate 100 mg tablet 100 mg PO Q12H 5 days #10 tabs 06/09/24 morphine 15 mg immediate release 15 mg PO Q8H PRN pain #10 tabs 06/09/24 tablet prednisone 20 mg tablet 60 mg (3 x 20 mg) PO DAILY 5 days 06/09/24 #15 tabs Allergies Allergy/AdvReac Type Severity Reaction Status Date / Time Darvocet-N 100 Allergy Intermediate Hives Verified 06/09/24 11:58 propoxyphene [From DARVON] Allergy Intermediate Hives Verified 06/09/24 11:58 sulfamethoxazole Allergy Rash Verified 11/16/24 07:35 [From Bactrim] trimethoprim [From Bactrim] Allergy Rash Verified 11/16/24 07:35 Darvocet A500 Allergy Intermediate Hives Uncoded 06/09/24 11:58 Darvocet-N 50 Allergy Intermediate Hives Uncoded 06/09/24 11:58 PMFSH Past Medical History Medical History Hypertension Irritable bowel syndrome Ovarian cyst Surgical History History of adenoidectomy History of hysterectomy History of tonsillectomy Hx of appendectomy S/P removal of ovarian cyst Social History Social History Alcohol intake: current Alcohol intake frequency: a few times a month Alcohol type: wine Comment: still has headaches Advance Directives: Yes Advance Directives Information Provided: Yes Advance Directives on File: No service: No Current occupational status: previously employed Physical Exam Vital Signs: Vital Signs: Last Vital Signs Temp 97.7 F 11/16/24 09:40 Pulse 60 11/16/24 09:40 Resp 18 11/16/24 09:40 BP 160/80 H 11/16/24 09:40 Pulse Ox 100 11/16/24 09:40 O2 Del Method Room Air 11/16/24 09:40 BMI result Body Mass Index 21.8 Medications Administered Discontinued Medications Generic Name Dose Route Start Last Admin Trade Name David PRN Reason Stop Dose Admin Morphine Sulfate 15 mg 11/16/24 08:49 11/16/24 08:52 Morphine Sulfate Immed Release 15 Mg Tablet PO 11/16/24 08:50 15 mg ONCE ONE Administration Medical Decision Making Medical Decision Making MDM Narrative: Patient presents to ED today for evaluation of right-sided pelvic pain over her iliac crest . MICHELLE is slip and fall directly onto her bottom. This is not work related. H and P as above. Patient is afebrile with stable vitals and well-appearing. ?History and physical as stated above. ?Patient is neurovascular intact . ?X-rays were obtained to further evaluate. At this time no evidence of NVC to warrant further work up/ intervention or consult. They show no acute fractures. ?Patient's symptoms are consistent with a contusion of pelvis. Patient declined non opiate analgesics.?Discussed icing it, elevating and alternating ibuprofen and Tylenol for discomfort. Advised her on the use of Tylenol with tramadol for synergistic effect. She refused to leave the ED without Rx opiate. ?Discussed that there is no significant improvement in the next 1 to 2 weeks to follow-up with an ?orthopedic clinic, information given. Discussed symptomatic treatment with the patient. ?Discussed return precautions. ?Patient verbalized understanding of the above plan and is in agreement with the above plan. ?The patient was discharged home in stable condition with return precautions. Based on patient's behavior and presentation, a concern exists for medication seeking behavior. She has established care with pain management, but I gave her our pain mgt resources just in case. She demonstrated verbal understanding of plan and agreed she ambulated out without any difficulty. Differential Diagnosis Differential Diagnoses: The differential diagnosis associated with the presentation includes Pelvic fracture, hematoma, neurovascular compromise Admission/Observation Consideration of admission/observation: Escalation of care including admission/observation considered Patient would have been admitted to the hospital had her work up had any findings where hospital admission was appropriate and if her clinical presentation warranted hospital admission. Lab Data Patient is not on any anticoagulations labs were not indicated today Independent Interpretation I performed an independent interpretation of an: Plain X-Ray Interpretation: No evidence of fracture or dislocation or pelvic instability Radiology Impression Discussion of test interpretation with radiology: I have reviewed the radiologist's reading. Tests considered The following testing was considered but not selected: See MDM, CT scan of the pelvis not indicated nontender except for over the iliac crest. Low clinical suspicion for occult fracture at this time we will follow up outpatient with Orthopedics Prescription Management I considered prescription management with: Pain Medication Chronic Conditions Patient?s care impacted by: Hypertension Discharge Plan Discharge Clinical Impression: Contusion of pelvis Patient Disposition: Home, Self-Care Instructions: Contusion in Adults (ED) Additional Instructions: You were evaluated for lower back pain of your pelvis imaging so no fracture Your symptoms are consistent with a lower back strain BACK CARE Use Motrin/Advil (ibuprofen) 600 mg every 6 hours. Take this with food. Take this regularly for the next 3-5 days and then as needed. you already have home dose of both morphine as well as tramadol you can take Tylenol synergistically with these. do not take NSAIDs at the same time his tramadol. In addition, You can use Tylenol (acetaminophen) 650 mg every 6 hrs as needed for pain. Do not take more than 3000 mg in one day! Use intermittent heat 4 or 5 times a day, 20 minutes at a time, for a few days. You may use topical therapy such as IcyHot with Lidocaine or Aspercream with Lidocaine, both of which are available over the counter. Do not perform any heavy lifting. Go immediately to the Emergency Department if you develop any increased or uncontrolled pain, numbness, tingling, or weakness of the extremities, difficulty urinating or passing stools. Please see your doctor or an orthopedist if not improving over the next 1-2 weeks. Prescriptions: No Action omeprazole 20 mg capsule,delayed release(DR/EC) 1 cap PO DAILY lorazepam 1 mg tablet 1 tab PO BEDTIME metoprolol tartrate 25 mg tablet 1 tab PO DAILY dicyclomine 10 mg Capsule 20 mg PO TIDAC Qty: 30 0RF amoxicillin 500 mg capsule 1,000 mg PO TID 5 Days Qty: 30 0RF doxycycline hyclate 100 mg tablet 100 mg PO Q12H 5 Days Qty: 10 0RF prednisone 20 mg tablet 60 mg PO DAILY 5 Days Qty: 15 0RF morphine 15 mg tablet 15 mg PO Q8H PRN (Reason: pain) Qty: 10 0RF Rx Instructions: Partial Fill upon patient request. Referrals: [facility] Orthopedic Surgeons [Provider Group] - 1 week [facility] Pain Management [Provider Group] - 1 week Interventions: ED Discharge Assessment Last Done: 11/16/24 09:40 Discharge Date/Time: 11/16/24 09:41 Print Language: Choose Not To Answer
[2024-11-16] MEDS: Morphine Sulfate Immed Release 15 MG TABLET PO (08:52)
--- NOTE | 2024-11-16 09:00 | PC.NURSE ---
Pt was offered valium, pt got very upset stating why are they giving me a muscle relaxer, I need pain medicine, I'm not a drug addict. tearful and stressed. PA notified. medication changed to morphine, PA spoke to patient.
[2024-11-16 09:40] VITALS: BP 160/80; PULSE 60; RESP 18; TEMP 36.5; O2SAT 100
== END 2024-11-16 09:41 | disposition home or self-care (01) ==
PROVIDERS: Emergency Provider Emergency Medicine; PCP Internal Medicine
DX: R10.2 Pelvic and perineal pain (principal); Z79.899 Other long term (current) drug therapy
CPT/HCPCS: 72170; 99283

== ENCOUNTER → 2024-11-16 08:20 | Outpatient (BNV) | payer MEDICARE, SELFPAY | PROVIDERS: Emergency Provider Emergency Medicine; PCP Internal Medicine; Visit Provider Radiology Diagnostic Radiology | DX: S30.91XA Unspecified superficial injury of lower back and pelvis, initial encounter (principal) | CPT/HCPCS: 72170 ==

== ENCOUNTER 2024-11-24 09:20 | Outpatient (AMB) | payer MEDICARE, SELFPAY ==
--- NOTE | 2024-11-24 09:47 | A.SPINEOV_ITS ---
Intake Visit Reasons: chronic back pain Intake Note: Ms. Madison is here today c/o low back pain. MRI done @ [facility]. (disc here) Shoe Planner Required: No Allergies Darvocet-N 100 Allergy (Intermediate, Verified 06/09/24 11:58) Hives propoxyphene [From DARVON] Allergy (Intermediate, Verified 06/09/24 11:58) Hives sulfamethoxazole [From Bactrim] Allergy (Verified 11/16/24 07:35) Rash trimethoprim [From Bactrim] Allergy (Verified 11/16/24 07:35) Rash Darvocet A500 Allergy (Intermediate, Uncoded 06/09/24 11:58) Hives Darvocet-N 50 Allergy (Intermediate, Uncoded 06/09/24 11:58) Hives Assessment & Plan Assessment & Plan (1) Back pain due to injury: Code(s): M54.9 - Dorsalgia, unspecified Category: Medical Plan Dear colleague On 11/24/2024, I saw Jj Madison, self-referred patient for severe right-sided back pain. HPI: This 69-year-old female had a fall that resulted in severe back pain. The symptoms resolved. She had an MRI done on 10/27/2024 for mild but ongoing pain on the right side of the back. She had a 2nd fall after the MRI was done in his now complaining of severe right-sided back pain. She has to lift her right leg up when she goes in the car or in and out of bed. Her sleeps interrupted due to severe pain. She can not walk and can not stand for prolonged period of time due to the pain. PMH: Hypertension Medications: Metoprolol, lorazepam, omeprazole Allergies: Bactrim, amoxicillin Social history: Physical Exam: Pleasant female in obvious agony. He has pain on palpation over the right SI joint region. There is no pain on palpation over the spine. Axial loading produces pain on the right side. They leg raise is negative. Hip exam is normal. Radiological Studies: MRI done at [facility] on 10/27/2024 shows an old mild L2 compression fracture and mild L4-5 degenerative disc disease. No significant nerve compression. Impression/Plan: This patient is suffering from severe right-sided back pain. Differential diagnosis is sacroiliitis or a new compression fracture. I would like to order an MRI of the lumbar spine for comparison and to guide me in clinical decision-making. The patient will return after the MRIs done. Thank you for allowing me to participate in your patients care. total time spent was 50 minutes in counseling ,coordination of plan, personal review of imaging, surgical decision making and subsequent plan Esteban Pickering MD, PhD Spine Fellowship Trained Neurosurgeon Director, [facility] Orders: Orders MR lumbar spine wo con Today M54.9 - Dorsalgia, unspecified Coding Level of Care Code New Pt Level 4 (11881) Diagnoses Back pain due to injury M54.9
--- OUTSIDE RECORDS SUMMARY | 2024-11-24 09:48 | XMS_ITS ---
Author Organization [facility] Address [address] [place] [address] Care Team Providers Care Flatwork Finisher Name Role Phone Thierno Velasquez Primary Care Provider Fern Mullins [phone] REASON FOR VISIT r/s Encounters Encounter Location Date Provider Diagnosis [address] [phone] 09/06/2024 Fern Anderson Plan Of Treatment Next Appt Details Provider Name:Fern coats, 11/27/2024 02:15:00 PM, [address] [place] [address], [phone], Progress Notes * Jj JACOBO MDOB: [birth year] (69 yo F)Acc No.[id number]:09/06/2024 Patient:?Jj JACOBO :1955???Age:69 Y???Sex:Female Address:[address] [place] [id number] * true * Date:? Generated for Printi ng/Fajasong/eTransmitting on:?11/24/2024 09:48 AM EDT
--- OUTSIDE RECORDS SUMMARY | 2024-11-24 09:48 | XMS_ITS | Data Portability ---
Author Organization [place] [facility], Allergy Address [address] [place] [phone] Care Team Providers Care Assistant Finance Director Name Role Phone LUCIA OLIVER Primary Care Provider Assessment Encounter Date Assessment Date Assessment LastModified [...] tissu e No observ ation record ed. [email or web address] [facility] [address], [place], [address], 06/07/2024 14:33:22 Result Notes None recorded. Problems Name Problem SNOMED Code Status Onset Date Resolution Date Notes Provider Name and Address Organization Details Recorded Time Gastroeso phageal reflux disease without esophagit is 496028376 Active 2019 Esophagea l reflux NOS; Note: Date Diagnosed : 05/08/2020 2:21 PM (K21.9) Not Available [facility] 4 02:52:25 Impacted cerumen of bilateral ears 07861052218 11920 Active 2021 Impacted cerumen, bilateral ; Note: Date Diagnosed : 09/29/2021 11:39 AM (H61.23) Not Available [facility] 4 02:52:29 Sensorine ural hearing loss of bilateral ears 521914423 Active 2021 Sensorine ural hearing loss, bilateral ; Note: Date Diagnosed : 09/29/2021 10:09 AM (H90.3) Note: Date Diagnosed : 09/29/2021 10:09 AM (H90.3) Not Available [facility] 4 01:11:15 Sensorine ural hearing loss 39180166 Active 2019 Sensorine ural hearing loss, unilatera l, left ear, with unrestric yeni hearing on the contralat eral side; Note: Date Diagnosed : 0 10:59 AM (H90.42) Not Available [facility] 4 02:52:27 Allergic rhinitis caused by pollen 50839398 Active 2019 Allergic rhinitis due to pollen; Note: Date Diagnosed : 05/08/2020 2:21 PM (J30.1) Not Available [facility] 4 02:52:28 Cough 47955138 Active 2019 Cough; Note: Date Diagnosed : 05/08/2020 2:21 PM (R05) Not Available [facility] 4 02:52:27 Dizziness and giddiness 322100865 Active 2023 Dizziness and giddiness ; Note: Date Diagnosed : 11/16/2023 2:08 PM (R42) Not Available [facility] 4 02:52:25 Thyroid nodule 462164097 Active 2023 NATE ROD MD [address] [facility], [place], [address] , [place] [facility] 4 09:06:07 Problem Notes None recorded. Procedures Surgical History None recorded. Imaging Results Imaging Date Name Status LastModified by Organiz ation Details LastModified Time 03/07/2024 US, head + neck, soft tissue completed [email or web address] [facility] [address], [place], [address], 06/07/2024 14:33:22 Procedure Notes None recorded. Medical Equipment None Reported. Allergies Allergen ID Allergen Name Allergen Category Reaction Reaction Severity Criticality Documentation Date Start Date Code Code System Note Provider Name and Address Organization Details Recorded Time 041227 Acetamino phen / Propoxyph tasha medicatio n hives Not available Not available 12/21/2023 08908 RxNorm React ion: other react ion, Hives ; Not Available [facility] 4 01:19:08 Medications Name Sig [...] mg tablet 07/01 completed Medicati on ID: [id number] B rand Name: metronid azole Se nd Method: E-Prescr ibed Sub s Allowed: subs OK Medic ationGen ericName : metronid azole Not Available Not Available Not Available ciproflox acin 500 mg tablet 07/01 completed Medicati on ID: [id number] B rand Name: ciproflo xacin HCl Send [...] before meals 2020 active Medicati on ID: [id number] D uration Value: 30 Prescri bed By Name: Casey Hernandez MD Brand Name: omeprazo le Send Method: E-Prescr ibed Sub s Allowed: subs OK [facility] : [facility] Not Available Not Available Not Available codeine 10 mg-guaife nesin 100 mg/5 mL oral liquid TAKE 5 ML BY MOUTH EVERY 8 HOURS NEEDED FOR COUGH 06/28 completed Not Available Not Available Not Available hydrochlo rothiazid e 25 mg tablet 06/28 completed Medicati on ID: [id number] B rand Name: hydrochl orothiaz clarisa Send Method: E-Prescr ibed Sub s Allowed: subs OK [facility] hydrochl orothiaz clarisa Not [...] mg capsule 2019 active Medicati on ID: [id number] B rand Name: dicyclom ine Send Method: E-Prescr ibed Sub s Allowed: subs [place] [facility] dicyclom ine Not Available Not Available Not Available escitalop veena 10 mg tablet TAKE 1 TABLET BY MOUTH DAILY active Not Available Not Available No t Available metoprolo l tartrate 25 mg tablet 06/28 completed Medicati on ID: [id number] B rand Name: metoprol ol tartrate Send Method: E-Prescr ibed Sub s Allowed: subs OK Medic ationGen ericName : metoprol ol tartrate Not Available Not Available Not Available Lomotil active Not Available Not Avail able Not Available Vitals Date Recorded Body height Body mass index (BMI) Body weight Provider Name and Address Organization Details Last Updated DateTime 06/28/2024 172.72 cm 21.9 kg/m2 29832.3 g Naheed Geiger [facility] 06/28/2024 08:48:47 Social History None recorded. Functional Status None recorded. Mental Status None recorded. Family History Nothing Reported. Medical History No medical history recorded. Gynecological HistoryNo gynecological history recorded. Obstetrics History GPAL:G 0 P 0 0 0 0 Past Encounters Encounter ID Performer Location Encounter Start Date Encounter Closed Date Diagnosis/Indication Diagnosis SNOMED-CT Code Diagnosis ICD10 Code Diagnosis Note [id number] NATE ROD MD [facility] [address] [phone] 06/28/2024 08:26:36 06/28/2024 09:09:59 Thyroid nodule 916586125 E04.1 Health Concerns Section Related Observation LastModified by Organization Detai ls LastModified Time None Recorded Concern Status LastModified by Organization Details LastModified Time None Recorded Advance Directives Directive None Recorded Payers Encounter Date Sequence Insurance Name Policy Number Policy Cabrales Covered Member ID Cabrales Member ID Guarantor Name 06/28/2024 1 [place] [employer] Jj Madison [id number] 1 Jj Madison 06/28/2024 2 [place] [id number] Jj Madison [id number] Jj Madison Notes Date Note Type [...] #1: 0.4cm Tirads 5 NATE ROD MD [address] [place] [address], [phone], [facility] - [facility] 06/28/2024 10:48:13 OBGyn Episode No OBEpisode recorded.
--- OUTSIDE RECORDS SUMMARY | 2024-11-24 09:48 | XMS_ITS | Encounter Summary ---
Author Organization [facility], Address [address] [place] [address] Phone Care Team Providers Care Monument Setter Helper Name Role Phone Thierno Velasquez MD Primary Care Provider Encounter Details Date Type Department Care Team (Late st Contact Info) Description 10/03/2024 Documentation Only [facility], [address] [place] [address] Opal Vazquez [address] [place] [phone] Social History Tobacco Use Types Packs/Day Years Used Date Smoking Tobacco: Never Alcohol Use Standard Drinks/Week Comments Yes 0 (1 standard drink = 0.6 oz pure alcohol) Alcoholic Drinks/day: Occasional social drink Comments Unknown Sex and Gender Information Value Date Recorded Sex Assigned at Not on file Legal Sex Female 4:33 PM EST Gender Identity Not on file Sexual Orientation Not on file documented as of this encounter Plan of Treatment Upcoming Encounters Date Type Department Care Team (Late st Contact Info) Description 02/27/2025 4:00 PM EDT Office Visit [facility] [address] [place] [address] Jovan Jha MD [address] [place] [address] [place] [address] documented as of this encounter Visit Diagnoses Not on filedocumented in this encounter Care Teams Monument Setter Helper Relationship Specialty Start Date End Date Thierno Velasquez MD [facility] [place] PCP - General 06/13/19 documented as of this encounter
--- OUTSIDE RECORDS SUMMARY | 2024-11-24 09:48 | XMS_ITS | Clinical Summary ---
Author Organization [facility] Address [address] [place] [address] Phone Care Team Providers Care Film Splicer Name Role Phone Thierno Oliver MD Primary Care Provider [phone] Social History Tobacco Use Types Packs/Day Years [...] AM EST [facility]ointment [facility] [address] [address] Health Maintenance Due Date Last [...] Procedure Name Priority Date/Time Associated Diagnosis Comments [facility] SCREENING DIGITAL Routine 06/08/2024 10:52 AM EDT [facility] DEXA AXIAL SKELETON Routine 05/22/2021 2:06 PM EDT Other specified disorders of bone density and structure, multiple sites from Last 3 Months or Most Recently Relevant to Health Maintenance Results * [facility] SCREENING DIGITAL (06/08/2024 10:52 AM EDT) Anatomical Region Laterality Modality Mammography 06/08/2024 10:0 5 AM EDT Narrative 06/08/2024 10:52 AM EDT [facility] Diagnostic Imaging Department [address] [place], [place] [id number] Patient: ??CABRERA JACOBO ?/Age/Sex: 1955 - - Unit#: ??[id number] ? Location/Status: ??SPDIMAM/REG CLI ? Mnemonic/Ordering Site: [...] Procedure Note Arnold Rojas MD - 06/10/2024 [facility] Diagnostic Imaging Department [address] [place] [address] Patient: CABRERA JACOBO /Age/Sex: 1955 69 - F Unit#: [id number] Location/Status: SPDIMAM/REG CLI Mnemonic/Ordering Site: [facility] Ordering Physician: THIERNO OLIVER MD [...] MD IMG BI PROCEDURES Final Result * [facility] DEXA AXIAL SKELETON (05/22/2021 2:06 PM EDT) Anatomical Region Laterality Modality Mammography 05/22/2021 1:04 PM EDT Narrative 05/22/2021 2:06 PM EDT [facility] Diagnostic Imaging Department [address] [place], [place] [address] Patient: ??CABRERA JACOBO ?/Age/Sex: 1955 - 66 - F Unit#: ??[id number] ? Location/Status: ??SPDIMAM/REG CLI ? Mnemonic/Ordering Site: ??[facility]/SPMAM Ordering Physician: ??DANAY RIVERA MD [facility] Dexa Axial Skeleton - 05/22/21 - [facility] Dexa Axial Skeleton INDICATION: POSTMENOPAUSAL Technique: Bone [...] FRAX estimate if patient has received treatment. [id number] Dictating Physician: ??AUDELIA PABLO MD Electronically Signed by: ??AUDELIA PABLO MD Dic Date/Time: ??05/22/211404 Sign date/Time: ??05/22/21 140 Procedure Note Audelia Pablo MD - 07/29/2022 [facility] Diagnostic Imaging Department [address] [place] [address] Patient: CABRERA JACOBO Tammy /Age/Sex: 1955 - 66 - F Unit#: [id number] Location/Status: SPDIMA/REG CLI Mnemonic[facility] Ordering Physician: DANAY RIVERA MD [facility] Dexa Axial Skeleton - 05/22/21 - [facility] Dexa Axial Skeleton INDICATION: POSTMENOPAUSAL Technique: Bone [...] prior exam there is been a statistically infmsqxhbux19.3% interval decrease in total mean hip bone mineral density The FRAX result suggests a 10 year probability of major osteoporoticfracture of 14.5 % and hip fracture of 1.5%. 10 year probability of osteoporotic fracture may be lower than FRAXestimate if patient has received treatment. [id number] Dictating Physician: AUDELIA PABLO MD Electronically Signed by: AUDELIA PABLO MD Dic Date/Time: 05/22/211404 Sign date/Time: 05/22/211405 Danay Rivera MD IMG BI PROCEDURES Final Result from Last 3 Months or Most Recently Relevant to Health Maintenance Insurance MEDICARE MEDEX Care Teams Film Splicer Relationship Specialty Start Date End Date Thierno Oliver MD [address] [place] [phone] PCP - General Internal Medicine 06/12/24
--- OUTSIDE RECORDS SUMMARY | 2024-11-24 09:48 | XMS_ITS ---
Author Organization [facility] Address [address] [place] [address] Care Team Providers Care Edi Analyst Name Role Phone Thierno Velasquez MD Primary Care Provider Juan Haq [phone] REASON FOR VISIT needs lomotil r/f Medications Medication SIG (Take, Route, Frequency, Duration) Notes Start Date End Date Status Diphenoxylate-Atropine 2.5-0.025 MG TAKE 2 TABLETS BY MOUTH THREE TIMES DAILY FOR DIARRHEA Orally Three times every day for diarrhea for 30 days 06/29/2024 Active Encounters Encounter Location Date Provider Diagnosis [facility] [address] [place] [address] 06/29/2024 Juan Herbert Plan Of Treatment Medication Medication Name Sig Start Date Stop Date Notes Diphenoxylate-Atropine 2.5-0.025 MG TAKE 2 TABLETS BY MOUTH THREE TIMES DAILY FOR DIARRHEA Orally Three times every day for diarrhea for 30 days 06/29/2024 Progress Notes * CABRERA JACOBO MDOB: [birth year] (69 yo F)Acc No.[id number]:06/29/2024 Patient:?CABRERA JACOBO :1955???Age:69 Y???Sex:Female Address:[address] [place] [address] * Refills? Refill Diphenoxylate-Atropine Tablet, 2.5-0.025 MG, Orally, 180 Tablet, TAKE 2 TABLETS BY MOUTH THREE TIMES DAILY FOR DIARRHEA, Three times every day for diarrhea, 30 days, Refills=5 * true * Date:? Generated for Christie moreau/Gilberto/Luis Eduardoitting on:?11/24/2024 09:48 AM EDT
--- OUTSIDE RECORDS SUMMARY | 2024-11-24 09:48 | XMS_ITS | Encounter Summary ---
Author Organization [facility], Address [address] [place] [address] Phone Care Team Providers Care Acetylene Torch Solderer Name Role Phone Thierno Velasquez MD Primary Care Provider [phone] Encounter Details Date Type Department Care Team (Late Contact Info) Description 04/03/2024 Documentation Only [facility], [address] [place] [address] Isa Villatoro [address] [place] [phone] Social History Tobacco Use Types Packs/Day Years [...] Visit [facility] - [facility] [place] [facility] [address] [place] [address] Jovan Jha MD [address] [place] [address] [place] [address] documented as of this encounter Visit Diagnoses Not on filedocumented in this encounter Care Teams Acetylene Torch Solderer Relationship Specialty Start Date End Date Thierno Velasquez MD [facility] [place] PCP - General 06/13/19 documented as of this encounter
--- OUTSIDE RECORDS SUMMARY | 2024-11-24 09:48 | XMS_ITS ---
Author Organization [facility] Address [address] [place] [address] Care Team Providers Care Quiller Machine Fixer Name Role Phone Thierno Velasquez Primary Care Provider Fern Mullins [phone] Encounters Encounter Location Date Provider Diagnosis [address] [address] 07/27/2024 Fern Anderson Plan Of Treatment Next Appt Details Provider Name:Fern coats, 11/27/2024 02:15:00 PM, [address] [place] [address], [phone], Progress Notes * Jj JACOBO MDOB: [birth year] (69 yo F)Acc No.[id number]:07/27/2024 Progress Note Patient:?Jj JACOBO Provider:?Fern Anderson DPM :1955???Age:69 Y???Sex:Female D ate:07/27/2024 Address:[address] [place] [address] [place] Pcp:Thierno Velasquez Subjective: * Chief Complaints: * [...] Date:?1 09/27/2023 Generated for Christie moreau/Gilberto/Luis Eduardoitting on:?11/24/2024 09:48 AM EDT
--- OUTSIDE RECORDS SUMMARY | 2024-11-24 09:48 | XMS_ITS | Patient Health Record ---
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) Active confirmed Problem Achilles bursitis (948140185) Achilles Tendonitis Bursitis (726.71) Active confirmed Problem Pain in limb (82130711) Pain in Limb (729.5) Active confirmed Problem Acquired hammer toe of right foot (1188994634444796) Other hammer toe(s) (acquired), right foot (M20.41) Active confirmed Problem Localized, primary osteoarthritis of the ankle and/or foot (754042820) Arthritis of joint of lesser toe, right (M19.071) Active confirmed Vital Signs Blood pressure diastolic 80 mm Hg 05/16/2024 Height 5 ft 8 in in 05/16/2024 Blood pressure systolic 130 mm Hg 05/16/2024 Weight 144 lbs 05/16/2024 BMI 21.89 kg/m2 05/16/2024 Encounters Encounter Location Date Provider Diagnosis [address] [address] 05/16/2024 Fern Anderson Pain in right toe(s) M79.674 ; Other hammer toe(s) (acquired), right foot M20.41 ; Arthritis of joint of lesser toe, right M19.071 and Subluxation of metatarsophalangeal joint of toe, initial encounter S93.149A [address] [address] 07/24/2024 Fern Anderson [address] [address] 07/25/2024 Fernrobinson Anderson [address] [address] 09/06/2024 Fern Anderson Assessments Encounter Date Diagnosis [...] X ray : Foot, right 3V 05/16/2024 [address]1015-Eaeh Destruction, 1-14 07/30/2014 Next Appt Details Provider Name:Fern coats, 11/27/2024 02:15:00 PM, [address] [place] [address], [phone], Insurance Providers Payer Name Payer Address Payer Phone Subscriber Number Group Number Insured Name Patient Relationship to Insured Coverage Start Date Coverage End Date Medicare National Govt S[employer] [address] [place] [address] [id number] Jj Madison Self - patient is the insured Med[employer] Blue Shield [address] [place] [address] [phone] [id number] Jj Madison Self - patient is the insured Medical (General) History Medical History History ICD Code High blood pressure Chicken pox Back pain covid-19 Surgical History Surgery Date(Month/Year) appendectomy tonsillectomy hysterectomy section
--- OUTSIDE RECORDS SUMMARY | 2024-11-24 09:48 | XMS_ITS | Encounter Summary ---
Author Organization [facility], Address [address] [place] [address] Phone Care Team Providers Care Tie Up Worker Name Role Phone Thierno Velasquez MD Primary Care Provider [phone] Encounter Details Date Type Department Care Team (Late Contact Info) Description 02/16/2023 Documentation Only [facility], [address] [place] [address] Jovan Jha MD [address] [place] [address] [place] [address] Social History Tobacco Use Types Packs/Day Years [...] Visit [facility] - [facility] [address] [place] [address] Jovan Jha MD [address] [place] [address] [place] [address] documented as of this encounter Visit Diagnoses Not on filedocumented in this encounter Care Teams Tie Up Worker Relationship Specialty Start Date End Date Thierno Velasquez MD [facility] [place], [place] PCP - General 06/13/19 documented as of this encounter
--- OUTSIDE RECORDS SUMMARY | 2024-11-24 09:49 | XMS_ITS ---
Author Organization [facility] Address [address] [place] [address] Care Team Providers Care Restaurant Recruiter Name Role Phone Thierno Velasquez Primary Care Provider Fern Mullins Unavailable [phone] Allergies Allergen (clinical drug ingredient) Drug/Non Drug [...] Active Encounters Encounter Location Date Provider Diagnosis [facility] [address] [place] [address] 09/07/2024 Fern Anderson Plan Of Treatment Next Appt Details Provider Name:Fern coats, 11/27/2024 02:15:00 PM, [address] [place], [address], Progress Notes * Jj JACOBO OB: [birth year] (69 yo F)Acc No.[id number]:09/07/2024 Progress Note Patient:?Jj JACOBO Provider:?Fern Anderson DPM :1955???Age:69 Y???Sex:Female D ate:09/07/2024 Address:[address] [place], [place] [phone] Pcp:Thierno Velasquez Subjective: * Chief Complaints: * [...] DPM Date:?0 09/07/2024 Generated for Christie moreau/Gilberto/Nikky on:?11/24/2024 09:49 AM EDT
--- OUTSIDE RECORDS SUMMARY | 2024-11-24 09:49 | XMS_ITS | Encounter Summary ---
Author Organization [facility], Address [address] [place] [address] Phone Care Team Providers Care Air Dispatcher Name Role Phone Thierno Velasquez MD Primary Care Provider [phone] Encounter Details Date Type Department Care Team (Late st Contact Info) Description 09/19/2024 Documentation Only [facility], [address] [place] [address] Opal Vazquez [address] [place] [phone] Social History Tobacco Use Types Packs/Day Years [...] Visit [facility] - [facility] [place] [facility] [address] [place] [address] Jovan Jha MD [address] [place] [address] [place] [address] documented as of this encounter Visit Diagnoses Not on filedocumented in this encounter Care Teams Air Dispatcher Relationship Specialty Start Date End Date Thierno Velasquez MD [facility] [place] PCP - General 06/13/19 documented as of this encounter
--- OUTSIDE RECORDS SUMMARY | 2024-11-24 09:49 | XMS_ITS | Patient Health Record ---
Author Organization [facility] Address [address] [place] [address] Care Team Providers Care Track Maintainer Name Role Phone Thierno Velasquez MD Primary Care Provider Juan Haq [phone] Allergies Allergen (clinical drug ingredient) Drug/Non Drug [...] Problem Status W/U Status Risk Notes Problem 1553868 Diverticulitis o f large intestine without perforation or abscess without bleeding (K57.32) Active confirmed Problem 669663776 Encounter for screening for malignant neoplasm of colon (Z12.11) Active confirmed Problem 948381752 Irritable bowel syndrome with diarrhea (K58.0) Active confirmed Problem 474649922 Diverticulitis (K57.92) Active confirmed Problem 455300680 Elevated liver function tests (R79.89) Active confirmed Problem Left lower quadrant pain (977677458) Left lower quadrant abdominal pain (R10.32) Active confirmed Vital Signs Blood pressure diastolic 001 mm Hg 08/31/2024 Height 67.5 in 08/31/2024 Blood pressure systolic 001 mm Hg 08/31/2024 Weight 143 lbs 08/31/2024 BMI 22.06 kg/m2 08/31/2024 Encounters Encounter Location Date Provider Diagnosis [facility] [address] [place] [address] 08/31/2024 Juan Herbert Irritable bowel syndrome with diarrhea K58.0 and Encounter for screening for malignant neoplasm of colon Z12.11 [facility] [address] [place] [address] 12/27/2023 Juan Herbert [facility] [address] [place] [address] 04/27/2024 Juan Herbert [facility] [address] [place] [address] 06/29/2024 Juan Herbert Assessments Encounter Date Diagnosis [...] Test Test Name Order Date LIVER PROFILE 05/12/2020 LIVER PROFILE 06/19/2020 CELIAC PANEL #10 02/16/2018 Future Test Test Name Order Date COLONOSCOPY 02/16/2018 Insurance Providers Payer Name Payer Address Payer Phone Subscriber Number Group Number Insured Name Patient Relationship to Insured Coverage Start Date Coverage End Date MEDICARE OF [place] [address] [place] [address] [id number] CABRERA JACOBO Self - patient is the insured MEDEX ATTN CLAIMS [address] [place] [phone] [id number] CABRERA JACOBO Self - patient is the insured Medical (General) History Medical History History ICD Code IBS with predominantly diarr hea--uses Lomotil TID--negative labs for celiac disease in 2006 and in 05/2020 Denies LA,DM,CVA,Lung disease,renal dise ase HTN Colonoscopy in 2006 was negative--normal biopsies from TI and colon Neg. colonoscopy in 04/2018--neg. colon b iopsies for microscopic colitis Very mild changes of possibl e Sigmoid diverticulitis on the CT scan in 04/2020 at [facility]-treated with outpt Augmentin with some improvement. She was subsequently admitted to [facility] in early May for left sided abdominal pain--her CT scan at that time was normal. She was treated with a brief course of antibiotics but did seem to improve with the addition of dicyclomine. Elevated LFT's in Fall 2019 during her admission at [facility]- AST was 222 and the ALT was [...] Stress and anxiety Surgical History Surgery Date(Month/Year) [facility] Laparoscopy for endometriosis
--- OUTSIDE RECORDS SUMMARY | 2024-11-24 09:49 | XMS_ITS | Clinical Summary ---
Author Organization [facility], Address [address] [facility] [address] [place] [address] Phone Care Team Providers Care Station Cook Name Role Phone Thierno Velasquez MD Primary Care Provider [phone] Allergies Active Allergy Reactions Criticality Noted Date Comments Amoxicillin-Pot Clavulanate 03/21/2024 Ibuprofen Other (see comments) 02/22/2020 Other reaction(s): SEVERE GI UPSET Propoxyphene 06/29/2020 hives Medications metoprolol succinate XL (TOPROL-XL) 50 MG 24 hr tablet Take 1 tablet by mouth 1 (one) time each day Active LORazepam (ATIVAN) 1 MG tablet Take 1 tablet by mouth at bed time Active diphenoxylate-a tropine (Lomotil) 2.5-0.025 MG per tablet Take 2 tablets by mouth 3 (three) times a day Active omeprazole (PriLOSEC) [address] capsule Take 20 mg by mouth 1 (one) time each day Do not crush or chew. Active dicyclomine (BENTYL) 10 MG capsule Take 10 mg by mouth 4 (four) times a day (before meals and nightly) Active escitalopram (LEXAPRO) 10 MG tablet Take 10 mg by mouth 1 (one) time each day 01/31/2024 Active traMADol (ULTRAM) 50 MG tablet Take 50 mg by mouth 08/13/2023 Active Active Problems Problem Noted Date Diagnosed Date Chronic kidney disease stage 3B 02/16/2023 Overview (02/16/2023): Per chart review meeting GFR criteria Hyperkalemia 02/17/2022 Essential (primary) hypertension 03/05/2020 Stage 3b chronic kidney disease 02/22/2020 Overview (08/12/2020): Update for Diagnosis Load Resolved Problems Problem Noted Date Diagnosed Date Resolved Date Urinary tract infection 10/15/2020 11/0 04/2021 Hyperlipidemia 02/22/2020 06/17/2021 Serum creatinine above reference range 02/22/2020 06/17/2021 Chronic kidney disease due to hypertension 02/22/2020 06/17/2021 Encounters Date Type Department Care Team Description 10/03/2024 Documentation Only [facility] [address] [place] [address] George, Opal 10/03/2024 Documentation Only [facility] [address] [place] [address] George, Opal 10/03/2024 Documentation Only [facility] [address] [place] [address] George, Opal 10/02/2024 Office Communication [facility] - [address] [place] [address] Lubna Valentin 09/19/2024 2:00 PM EST Office Visit [facility] - [place] [address] [place] [address] Jovan Jha MD Stage 3b chronic kidney disease (HCC) (Primary Dx); Essential (primary) hypertension 09/19/2024 Documentation Only [facility] [address] [place] [address] George, Opal 09/19/2024 Documentation Only [facility] [address] [place] [address] George, Opal 09/19/2024 Documentation Only [facility] [address] [place] [address] Opal Vazquez 09/19/2024 Documentation Only [facility], [address] [place] [address] Opal Vazquez 09/19/2024 Documentation Only [facility], [address] [place] [phone] Opal Vazquez from Last 3 Months Immunizations Immunization Administration Dates Next Due Influenza Whole 05/08/2020 Influenza, MDCK, PF, Quadrivalent 05/08/2020 Influenza, Unspecified 05/24/2021,2018,05/01/2019, 8,03/09/2018,08/08/2017,06/17/2017, 016,05/22/2013 Jon SARS-COV-2 07/29/2021,11/13/2020 Shingrix 07/27/2018,05/25/2018 Tdap 08/09/2015 Zoster 06/25/2016 Family History Medical History Relation Comments Cancer Mother Cancer of ovary / lung Hypertension Mother Cancer Sibling Cancer of breast Relation Status Comments Father Unknown Mother Unknown Sibling Social History Tobacco Use Types Packs/Day Years Used Date Smoking Tobacco: Never Alcohol Use Standard Drinks/Week Comments Yes 0 (1 standard drink = 0.6 oz pure alcohol) Alcoholic Drinks/day: Occasional social drink Comments Unknown Sex and Gender Information Value Date Recorded Sex Assigned at Not on file Legal Sex Female 4:33 PM EST Gender Identity Not on file Sexual Orientation Not on file Last Filed Vital Signs Vital Sign Reading Time Taken Comments Blood Pressure 112/68 03/16/2019 12:02 PM EDT Pulse 74 03/16/2019 12:02 PM EDT Temperature - - Respiratory Rate 16 03/16/2019 12:02 PM EDT Oxygen Saturation - - Inhaled Oxygen Concentration - - Weight 70.8 kg (156 lb) 03/16/2019 12:02 PM EDT Height 171 cm (5' 7.32 ) 03/16/2019 12:02 PM EDT Body Mass Index 24.2 03/16/2019 12:02 PM EDT Plan of Treatment Upcoming Encounters Date Type Department Care Team (Late st Contact Info) Description 02/27/2025 4:00 PM EDT Office Visit [facility] [place] [address] [place] [address] Jovan Jha MD [address] [facility] [place] [address] Health Maintenance Due Date Last Done Comments Breast Cancer Screening 1955 Pneumococcal Vaccine: 50+ Years (1 of 2 - PCV) 1975 Colorectal Cancer Screening: Annual FOBT 2005 Colorectal Cancer Screening: Colonoscopy 2005 Colorectal Cancer Screening: Sigmoidoscopy 2005 Influenza Vaccine (Season Ended) 2025 05/24/2021, 05/08/2020, 05/08/2020, Additional history exists Hepatitis B Vaccine Aged Out No longe r eligible based on patient's age to complete this topic Procedures Procedure Name Priority Date/Time Associated Diagnosis Comments RENAL FUNCTION PANEL Routine 09/18/2024 9:35 AM EST from Last 3 Months Results * (ABNORMAL) Renal Function Panel (09/18/2024 9:35 AM EST) Glucose 86 70 - 99 mg/dL [facility] BUN 23 8 - 27 mg/dL [facility] Creatinine 1.59(H) 0.57 - 1.00 mg/dL [facility] eGFR CKD-EPI CR 2020 35(L) >59 mL/min/1.7 3 [facility] BUN/Creatinine Ratio 14 12 - 28 [facility] Sodium 142 134 - 144 mmol/L [facility] Potassium 4.3 3.5 - 5.2 mmol/L [facility] Chloride 106 96 - 106 mmol/L [facility] Bicarbonate (CO2) 20 20 - 29 mmol/L [facility] Calcium 9.4 8.7 - 10.3 mg/dL [facility] Albumin 4.3 3.9 - 4.9 g/dL [facility] Phosphorus 3.1 3.0 - 4.3 mg/dL [facility] 09/18/2024 9:35 AM EST 09/18/2024 Jovan Jha MD LAB BLOOD ORDERABLES Final Resul t [facility] [address] [place] [address] from Last 3 Months Insurance Medicare [facility] Care Teams Station Cook Relationship Specialty Start Date End Date Thierno Velasquez MD [facility] [place] [facility] - General 06/13/19
--- OUTSIDE RECORDS SUMMARY | 2024-11-24 09:49 | XMS_ITS | Encounter Summary ---
Author Organization [facility], Address [address] [place] [address] Phone Care Team Providers Care Commercial Loan Reviewer Name Role Phone Thierno Velasquez MD Primary Care Provider [phone] Encounter Details Date Type Department Care Team (Late st Contact Info) Description 09/19/2024 Documentation Only [facility], [address] [place] [address] Opal Vazquez [address] [place] [phone] Social History Tobacco Use Types Packs/Day Years [...] Visit [facility] - [facility] Lacho [facility] Jesus Bert [address] [place] [address] Jovan Jha MD [address] [place] [address] [place] [address] documented as of this encounter Visit Diagnoses Not on filedocumented in this encounter Care Teams Commercial Loan Reviewer Relationship Specialty Start Date End Date Thierno Velasquez MD [facility] [place] PCP - General 06/13/19 documented as of this encounter
--- OUTSIDE RECORDS SUMMARY | 2024-11-24 09:49 | XMS_ITS | Encounter Summary ---
Author Organization [facility], Address [address] [place] [address] Phone Care Team Providers Care Field Marketing Team Leader Name Role Phone Thierno Velasquez MD Primary Care Provider [phone] Encounter Details Date Type Department Care Team (Late st Contact Info) Description 10/03/2024 Documentation Only [facility], [address] [place] [address] Opal Vazquez [address] [place] [phone] Social History Tobacco Use Types Packs/Day Years [...] Visit [facility] [place] - [facility] Lacho [facility] Jesus Bert [address] [place] [address] Jovan Jha MD [address] [place] [address] [place] [address] documented as of this encounter Visit Diagnoses Not on filedocumented in this encounter Care Teams Field Marketing Team Leader Relationship Specialty Start Date End Date Thierno Velasquez MD [facility] [place] PCP - General 06/13/19 documented as of this encounter
--- OUTSIDE RECORDS SUMMARY | 2024-11-24 09:49 | XMS_ITS | Encounter Summary ---
Author Organization [facility], Address [address] [place] [address] Phone Care Team Providers Care Receiving Room Clerk Name Role Phone Thierno Velasquez MD Primary Care Provider [phone] Encounter Details Date Type Department Care Team (Late st Contact Info) Description 09/19/2024 Documentation Only [facility], [address] [place] [address] Opal Vazquez [address] [place] [phone] Social History Tobacco Use Types Packs/Day Years [...] Visit [facility] - [facility] Lacho [facility] Jesus Bert [address] [place] [address] Jovan Jha MD [address] [place] [address] [place] [address] documented as of this encounter Visit Diagnoses Not on filedocumented in this encounter Care Teams Receiving Room Clerk Relationship Specialty Start Date End Date Thierno Velasquez MD [facility] [place] PCP - General 06/13/19 documented as of this encounter
--- OUTSIDE RECORDS SUMMARY | 2024-11-24 09:49 | XMS_ITS | Encounter Summary ---
Author Organization [facility], Address [address] [place] [address] Phone Care Team Providers Care Transplant Nurse Practitioner Name Role Phone Thierno Velasquez MD Primary Care Provider [phone] Encounter Details Date Type Department Care Team (Late st Contact Info) Description 10/03/2024 Documentation Only [facility] [place], [address] [place] [place] [address] Opal Vazquez [address] [place] [phone] Social History Tobacco Use Types Packs/Day Years [...] Visit [facility] - [facility] Lacho [facility] Jesus [address] [place] [address] Jovan Jha MD [address] [place] [address] [place] [address] documented as of this encounter Visit Diagnoses Not on filedocumented in this encounter Care Teams Transplant Nurse Practitioner Relationship Specialty Start Date End Date Thierno Velasquez MD [facility] [place] PCP - General 06/13/19 documented as of this encounter
--- OUTSIDE RECORDS SUMMARY | 2024-11-24 09:49 | XMS_ITS | Encounter Summary ---
Author Organization [facility] [place], Address [address] [place] [address] Phone Care Team Providers Care Change Control Specialist Name Role Phone Thierno Velasquez MD Primary Care Provider [phone] Encounter Details Date Type Department Care Team (Late st Contact Info) Description 09/19/2024 Documentation Only [facility], [address] [place] [address] Opal Vazquez [address] [place] [phone] Social History Tobacco Use Types Packs/Day Years [...] Visit [facility] [place] - [facility] Lacho [facility] Jesus Bert [address] [place] [address] Jovan Jha MD [address] [place] [address] [place] [address] documented as of this encounter Visit Diagnoses Not on filedocumented in this encounter Care Teams Change Control Specialist Relationship Specialty Start Date End Date Thierno Velasquez MD [facility] [place] PCP - General 06/13/19 documented as of this encounter
--- OUTSIDE RECORDS SUMMARY | 2024-11-24 09:49 | XMS_ITS | Encounter Summary ---
Author Organization [facility] [place], Address [address] [place] [address] Phone Care Team Providers Care Artificial Log Machine Operator Name Role Phone Thierno Velasquez MD Primary Care Provider [phone] Encounter Details Date Type Department Care Team (Late Contact Info) Description 04/20/2024 Documentation Only [facility], [address] [place] [address] [place] [address] [place] [phone] Social History Tobacco Use Types Packs/Day Years [...] Visit [facility] [place] - [facility] L[address] [facility] [address] [place] [address] Jovan Jha MD [address] [place] [address] [place] [address] documented as of this encounter Visit Diagnoses Not on filedocumented in this encounter Care Teams Artificial Log Machine Operator Relationship Specialty Start Date End Date Thierno Velasquez MD [facility] [place] PCP - General 06/13/19 documented as of this encounter
--- OUTSIDE RECORDS SUMMARY | 2024-11-24 09:49 | XMS_ITS ---
Author Organization [facility] Address [address] [place] [address] Care Team Providers Care Aircraft Maintenance Engineer Name Role Phone Thierno Velasquez MD Primary Care Provider UnavailJuan Cardenas [phone] Encounters Encounter Location Date Provider Diagnosis [facility] [address] [place] [address] 04/27/2024 Juan Herbert Plan Of Treatment No Information Progress Notes * CABRERA JACOBO MDOB: [birth year] (69 yo F)Acc No.[id number]:04/27/2024 Patient:?CABRERA JACOBO :1955???Age:69 Y???Sex:Female Address:[address] [place] [address] * true * Date:? Generated for Christie moreau/Gilberto/eTransmitting on:?11/24/2024 09:49 AM EDT
--- OUTSIDE RECORDS SUMMARY | 2024-11-24 09:49 | XMS_ITS | Encounter Summary ---
Author Organization [facility] [place], Address [address] [place] [address] Phone Care Team Providers Care Systems Engineering Manager Name Role Phone Thierno Velasquez MD Primary Care Provider [phone] Encounter Details Date Type Department Care Team (Late st Contact Info) Description 09/19/2024 Documentation Only [facility], [address] [place] [address] Opal Vazquez [address] [place] [phone] Social History Tobacco Use Types Packs/Day Years [...] Visit [facility] [place] - [facility] Lacho [facility] Jesus Bert [address] [place] [address] Jovan Jha MD [address] [place] [address] [place] [address] documented as of this encounter Visit Diagnoses Not on filedocumented in this encounter Care Teams Systems Engineering Manager Relationship Specialty Start Date End Date Thierno Velasquez MD [facility] [place] PCP - General 06/13/19 documented as of this encounter
--- OUTSIDE RECORDS SUMMARY | 2024-11-24 09:50 | XMS_ITS ---
Author Organization [facility] Address [address] [place] [address] Care Team Providers Care Burn Out Scarfing Operator Name Role Phone Thierno Velasquez MD Primary Care Provider Juan Haq [phone] Allergies Allergen (clinical drug ingredient) Drug/Non Drug [...] 08/31/2024 Encounters Encounter Location Date Provider Diagnosis [facility] [address] [facility] [address] [place] [address] 08/31/2024 Juan Herbert Irritable bowel syndrome with [...] CABRERA JACOBO MDOB: [birth year] (69 yo F)Acc No.[id number]:08/31/2024 Progress Notes Patient:?CABRERA JACOBO Provider:?Juan Herbert MD :1955???Age:69 Y???Sex:Female D ate:08/31/2024 Address:[address] [place], [place] [address] Pcp:Thierno Velasquez MD Subjective: * Chief Complaints: [...] (0 point),?Points?3,?Interpretation?Positive.?Miscellaneous:?Marital status: . 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 ???No smoking. She describes a previous history [...] Procedure Codes:?3017F COLOR ECTAL CA SCREEN DOC [id number] TOBACCO [id number] BP SCR NOT PRFRM REC REASON NOS * Preventive Medicine:? ??Urinary Incontinence:?Urinary Incontinence?Assessment:?Absent,?Plan of care documented:?No, reason not specified.? ??Screenings:?Fall Risk Screening?Fall Risk Assessment:?No falls in the past year,?Screening:?No falls in the past year,?Plan of Care:?Not documented, no reason specified.? * Follow Up:?prn * * Sign off status: Completed true * Provider:?Juan Herbert MD Date:? 025 Generated for Christie moreau/Gilberto/Luis Eduardoitting on:?11/24/2024 09:49 AM EDT History and Physical Notes * [...]
== END 2024-11-24 10:21 | disposition home or self-care (01) ==
LOC: HO.HNS 09:20
PROVIDERS: PCP Internal Medicine; Referring Provider Internal Medicine; Visit Provider Neurological Surgery
DX: M54.9 Dorsalgia, unspecified (principal)
CPT/HCPCS: 99204

== ENCOUNTER → 2024-11-24 09:20 | Outpatient (BNVA) | payer MEDICARE, SELFPAY | PROVIDERS: PCP Internal Medicine; Referring Provider Internal Medicine; Visit Provider Neurological Surgery | DX: M54.9 Dorsalgia, unspecified (principal) | CPT/HCPCS: 99202 ==

== ENCOUNTER → 2024-11-29 07:13 | Outpatient (BNV) | payer MEDICARE, SELFPAY | PROVIDERS: PCP Internal Medicine; Visit Provider Radiology Diagnostic Radiology | DX: M48.062 Spinal stenosis, lumbar region with neurogenic claudication (principal); S32.010A Wedge compression fracture of first lumbar vertebra, initial encounter for closed fracture | CPT/HCPCS: 72148 ==

== ENCOUNTER 2024-11-29 07:18 | Outpatient (REF) | payer MEDICARE, SELFPAY ==
--- NOTE | ~2024-11-29 | MR_ITS ---
EXAMINATION: MR LUMBAR SPINE WITHOUT CONTRAST CLINICAL INFORMATION: Dorsalgia, unspecified. COMPARISON: March 02, 2007 demonstrated mild spondylosis L4-5. TECHNIQUE: MRI of the lumbar spine was obtained using routine sequences without contrast. FINDINGS: Last rib-bearing vertebra labeled T12. Bone marrow inhomogeneity throughout the axial skeleton and the partially included bony pelvis. There is hyperintense bone marrow STIR signal involving the vertebral body and to a lesser extent pedicles of L1 with a 40% volume loss of the anterior superior endplate. No retropulsion.. There is mild hyperintense bone marrow STIR signal in the anterior inferior endplate of T11 and anterior superior endplate of T12. Multilevel marginal osteophyte formation and disc desiccation. There is a grade 1 retrolisthesis L2-3 and L4-5. There is a grade 1 anterolisthesis L3-4. The conus medullaris ends at inferior endplate of L1 with normal signal. T11-12: No disc herniation. No neuroforamina stenosis. T12-L1: Broad-based disc bulging. Facet joint and ligamentum flavum hypertrophy. No compression upon neural elements. L1-2: Broad-based disc bulging. Facet joint and ligamentum flavum hypertrophy. Reduced AP diameter of the thecal sac and the neural foramina. No compression upon neural elements. L2-3: Broad-based disc bulging. Facet joint and ligamentum flavum hypertrophy. Reduced AP diameter of the thecal sac abutting the L3 nerve roots on the lateral recesses. L3-4: Broad-based disc bulging. Facet joint and ligamentum flavum hypertrophy. Reduced AP diameter of the thecal sac abutting the L4 nerve roots on the lateral recesses. No neuroforamina stenosis. L4-5: Broad-based disc bulging. Facet joint and ligamentum flavum hypertrophy. Central spinal canal stenosis encroaching the L5 nerve roots on the lateral recesses and the neural elements of the thecal sac. Bilateral neuroforamina narrowing, left greater than the right side. L5-S1: Broad-based disc bulging. Facet joint hypertrophy. No compression upon neural elements. Fatty atrophy of the lower lumbar muscles from L3 to sacrum. No prevertebral compartment hematoma or masses. Bilateral multifocal different sizes hyperintense T2 cystic lesions throughout the kidneys. There is renal cortical thinning involving mostly the left kidney. No hydronephrosis. MR/MR lumbar spine wo con IMPRESSION: Acute compression fracture deformity representing 40% volume loss at L1 without retropulsion. Consider osteoporosis versus a lymphoproliferative disorder versus malignancy. Multilevel lumbar spondylosis resulting in central spinal canal stenosis encroaching posterior compressing the neural elements of the thecal sac at L4-5. Electronically signed by: Stu Brdaley MD 11/29/2024 08:11 AM EDT
== END 2024-11-29 07:19 | disposition home or self-care (01) ==
LOC: HO.MRI 07:18
PROVIDERS: PCP Internal Medicine; Visit Provider Neurological Surgery
DX: M54.9 Dorsalgia, unspecified (principal)
CPT/HCPCS: 72148

== ENCOUNTER 2024-12-15 12:49 | Outpatient (AMB) | payer MEDICARE, SELFPAY ==
--- OUTSIDE RECORDS SUMMARY | 2024-12-15 12:54 | XMS_ITS | Encounter Summary ---
Author Organization [facility], Address [address] [place] [address] Phone Care Team Providers Care Honing Machine Try Out Setter Name Role Phone Thierno Velasquez MD Primary Care Provider [phone] Encounter Details Date Type Department Care Team (Late st Contact Info) Description 09/19/2024 Documentation Only [facility], [address] [place] [address] Opal Vazquez [address] [place] [phone] Social History Tobacco Use Types Packs/Day Years [...] Visit [facility] - [facility] Lacho [facility] Jesus Bert [address] [place] [address] Jovan Jha MD [address] [place] [address] [place] [address] documented as of this encounter Visit Diagnoses Not on filedocumented in this encounter Care Teams Honing Machine Try Out Setter Relationship Specialty Start Date End Date Thierno Velasquez MD [facility] [place] PCP - General 06/13/19 documented as of this encounter
--- OUTSIDE RECORDS SUMMARY | 2024-12-15 12:54 | XMS_ITS | Data Portability ---
Author Organization [place] [facility] Address [address] [place] [address] Care Team Providers Care Foam Rubber Mixer Name Role Phone LUCIA OLIVER Primary Care [...] tissu e No observ ation record ed. [email or web address] [facility] [address], [place], [address], 06/07/2024 14:33:22 Result Notes None recorded. Problems Name Problem SNOMED Code Status Onset Date Resolution Date Notes Provider Name and Address Organization Details Recorded Time Gastroeso phageal reflux disease without esophagit is 022455285 Active 2019 Esophagea l reflux NOS; Note: Date Diagnosed : 05/08/2020 2:21 PM (K21.9) Not Available [facility] 4 02:52:25 Impacted cerumen of bilateral ears 85548240342 98677 Active 2021 Impacted cerumen, bilateral ; Note: Date Diagnosed : 09/29/2021 11:39 AM (H61.23) Not Available [facility] 4 02:52:29 Sensorine ural hearing loss of bilateral ears 165739470 Active 2021 Sensorine ural hearing loss, bilateral ; Note: Date Diagnosed : 09/29/2021 10:09 AM (H90.3) Note: Date Diagnosed : 09/29/2021 10:09 AM (H90.3) Not Available [facility] 4 01:11:15 Sensorine ural hearing loss 58126619 Active 2019 Sensorine ural hearing loss, unilatera l, left ear, with unrestric yeni hearing on the contralat eral side; Note: Date Diagnosed : 0 10:59 AM (H90.42) Not Available [facility] 4 02:52:27 Allergic rhinitis caused by pollen 95575434 Active 2019 Allergic rhinitis due to pollen; Note: Date Diagnosed : 05/08/2020 2:21 PM (J30.1) Not Available [facility] 4 02:52:28 Cough 00563920 Active 2019 Cough; Note: Date Diagnosed : 05/08/2020 2:21 PM (R05) Not Available [facility] 4 02:52:27 Dizziness and giddiness 753858919 Active 2023 Dizziness and giddiness ; Note: Date Diagnosed : 11/16/2023 2:08 PM (R42) Not Available [facility] 4 02:52:25 Thyroid nodule 752861161 Active 2023 NATE ROD MD [address] [facility], [place], [address] , [place] [facility] 4 09:06:07 Problem Notes None recorded. Procedures Surgical History None recorded. Imaging Results Imaging Date Name Status LastModified by Organiz ation Details LastModified Time 03/07/2024 US, head + neck, soft tissue completed [id number] [facility] [address], [place], [address], 06/07/2024 14:33:22 Procedure Notes None recorded. Medical Equipment None Reported. Allergies Allergen ID Allergen Name Allergen Category Reaction Reaction Severity Criticality Documentation Date Start Date Code Code System Note Provider Name and Address Organization Details Recorded Time 954077 Acetamino phen / Propoxyph tasha medicatio n hives Not available Not available 12/21/2023 88862 RxNorm React ion: other react ion, Hives ; Not Available [facility] 4 01:19:08 Medications Name Sig Start Date [...] mg tablet 07/01 completed Medicati on ID: 065249 B rand Name: metronid azole Se nd Method: E-Prescr ibed Sub s Allowed: subs OK Medic ationGen ericName : metronid azole Not Available Not Available Not Available ciproflox acin 500 mg tablet 07/01 completed Medicati on ID: 889483 B rand Name: ciproflo xacin HCl Send [...] before meals 2020 active Medicati on ID: 127912 D uration Value: 30 Prescri bed By Name: Casey Hernandez MD Brand Name: omeprazo le Send Method: E-Prescr ibed Sub s Allowed: subs OK [facility] omepraz[facility] Not Available Not Available Not Available codeine 10 mg-guaife nesin 100 mg/5 mL oral liquid TAKE 5 ML BY MOUTH EVERY 8 HOURS NEEDED FOR COUGH 06/28 completed Not Available Not Available Not Available hydrochlo rothiazid e 25 mg tablet 06/28 completed Medicati on ID: 801888 B rand Name: hydrochl orothiaz clarisa Send Method: E-Prescr ibed Sub s Allowed: subs OK [facility] : hydrochl orothiaz clarisa Not Available [...] mg capsule 2019 active Medicati on ID: 699341 B rand Name: dicyclom ine Send Method: E-Prescr ibed Sub s Allowed: subs OK [facility] : dicyclom ine Not Available Not Available Not Available escitalop veena 10 mg tablet TAKE 1 TABLET BY MOUTH DAILY active Not Available Not Available No t Available metoprolo l tartrate 25 mg tablet 06/28 completed Medicati on ID: [id number] B rand Name: metoprol ol tartrate Send Method: E-Prescr ibed Sub s Allowed: subs OK Medic ationGen ericName : metoprol ol tartrate Not Available Not Available Not Available Lomotil active Not Available Not Avail able Not Available Vitals Date Recorded Body height Body mass index (BMI) Body weight Provider Name and Address Organization Details Last Updated DateTime 06/28/2024 172.72 cm 21.9 kg/m2 44248.3 g Naheed Geiger [facility] 06/28/2024 08:48:47 Social History None recorded. Functional Status None recorded. Mental Status None recorded. Family History Nothing Reported. Medical History No medical history recorded. Gynecological HistoryNo gynecological history recorded. Obstetrics History GPAL:G 0 P 0 0 0 0 Past Encounters Encounter ID Performer Location Encounter Start Date Encounter Closed Date Diagnosis/Indication Diagnosis SNOMED-CT Code Diagnosis ICD10 Code Diagnosis Note [id number] NATE ROD MD [facility] [address] [phone] 06/28/2024 08:26:36 06/28/2024 09:09:59 Thyroid nodule 972284141 E04.1 Health Concerns Section Related Observation LastModified by Organization Detai ls LastModified Time None Recorded Concern Status LastModified by Organization Details LastModified Time None Recorded Advance Directives Directive None Recorded Payers Insurance Date Sequence Insurance Name Policy Number Policy Cabrales Covered Member ID Cabrales Member ID Guarantor Name 06/28/2024 1 [place] [employer] Jj Madison [id number] Jj Madison 07/26/2024 2 [place] [id number] Jj Madison [id number] Jj Madison Notes Date Note Type [...] #1: 0.4cm Tirads 5 NATE ROD MD [address] [place] [address], [id number], [facility] 06/28/2024 10:48:13 OBGyn Episode No OBEpisode recorded.
--- OUTSIDE RECORDS SUMMARY | 2024-12-15 12:54 | XMS_ITS | Encounter Summary ---
Author Organization [facility] [place], Address [address] [place] [address] Phone Care Team Providers Care Building Maintenance Custodian Name Role Phone Thierno Velasquez MD Primary Care Provider [phone] Encounter Details Date Type Department Care Team (Late Contact Info) Description 04/03/2024 Documentation Only [facility] [place], [address] [place] [address] Isa Villatoro [address] [place] [phone] Social History Tobacco Use Types Packs/Day Years [...] Visit [facility] [place] - [facility] Lacho [facility] [address] [place] [address] Jovan Jha MD [address] [place] [address] [place] [address] documented as of this encounter Visit Diagnoses Not on filedocumented in this encounter Care Teams Building Maintenance Custodian Relationship Specialty Start Date End Date Thierno Velasquez MD [facility] [place] PCP - General 06/13/19 documented as of this encounter
--- OUTSIDE RECORDS SUMMARY | 2024-12-15 12:54 | XMS_ITS | Encounter Summary ---
Author Organization [facility], Address [address] [place] [address] Phone Care Team Providers Care Medical Territory Manager Name Role Phone Thierno Velasquez MD Primary Care Provider [phone] Encounter Details Date Type Department Care Team (Late st Contact Info) Description 10/03/2024 Documentation Only [facility], [address] [place] [address] Opal Vazquez [address] [place] [phone] Social History Tobacco Use Types Packs/Day Years [...] Visit [facility] [place] - [facility] Lacho [facility] Jesus [address] [place] [address] Jovan Jha MD [address] [place] [address] [place] [address] documented as of this encounter Visit Diagnoses Not on filedocumented in this encounter Care Teams Medical Territory Manager Relationship Specialty Start Date End Date Thierno Velasquez MD [facility] [place] PCP - General 06/13/19 documented as of this encounter
--- OUTSIDE RECORDS SUMMARY | 2024-12-15 12:54 | XMS_ITS | Encounter Summary ---
Author Organization [facility], Address [address] [place] [address] Phone Care Team Providers Care Food Broker Name Role Phone Thierno Velasquez MD Primary Care Provider [phone] Encounter Details Date Type Department Care Team (Late Contact Info) Description 02/16/2023 Documentation Only [facility], [address] [place] [address] Jovan Jha MD [address] [place] [address] Dr. [place] [address] Social History Tobacco Use Types [...] Visit [facility] - [facility] [address] [place] [address] Jovan Jha MD [address] [place] [address] [place] [address] documented as of this encounter Visit Diagnoses Not on filedocumented in this encounter Care Teams Food Broker Relationship Specialty Start Date End Date Thierno Velasquez MD [facility] [place] PCP - General 06/13/19 documented as of this encounter
--- OUTSIDE RECORDS SUMMARY | 2024-12-15 12:54 | XMS_ITS | Encounter Summary ---
Author Organization [facility], Address [address] [place] [address] Phone Care Team Providers Care Tile Designer Name Role Phone Thierno Velasquez MD Primary Care Provider [phone] Encounter Details Date Type Department Care Team (Late st Contact Info) Description 10/03/2024 Documentation Only [facility], [address] [place] [address] Opal Vazquez [address] [place] [phone] Social History Tobacco Use Types Packs/Day Years [...] Visit [facility] - [facility] [place] [facility] Jesus Bert [address] [place] [phone] Jovan Jha MD [address] [place] [address] [place] [address] documented as of this encounter Visit Diagnoses Not on filedocumented in this encounter Care Teams Tile Designer Relationship Specialty Start Date End Date Thierno Velasquez MD [facility] [place] PCP - General 06/13/19 documented as of this encounter
--- OUTSIDE RECORDS SUMMARY | 2024-12-15 12:54 | XMS_ITS | Encounter Summary ---
Author Organization [facility], Address [address] [place] [address] Phone Care Team Providers Care Uke Operator Name Role Phone Thierno Velasquez MD Primary Care Provider [phone] Encounter Details Date Type Department Care Team (Late Contact Info) Description 04/20/2024 Documentation Only [facility], [address] [place] [address] [place] [address] [place] [phone] Social History Tobacco Use Types Packs/Day Years [...] Visit [facility] - [facility] [address] [facility] [address] [place] [address] Jovan Jha MD [address] [place] [address] [place] [address] documented as of this encounter Visit Diagnoses Not on filedocumented in this encounter Care Teams Uke Operator Relationship Specialty Start Date End Date Thierno Velasquez MD [facility] [place] PCP - General 06/13/19 documented as of this encounter
--- OUTSIDE RECORDS SUMMARY | 2024-12-15 12:54 | XMS_ITS | Encounter Summary ---
Author Organization [facility], Address [address] [place] [address] Phone Care Team Providers Care Environmental Field Technician Name Role Phone Thierno Velasquez MD Primary Care Provider [phone] Encounter Details Date Type Department Care Team (Late st Contact Info) Description 09/19/2024 Documentation Only [facility], [address] [place] [address] Opal Vazquez [address] [place] [phone] Social History Tobacco Use Types Packs/Day Years [...] Visit [facility] - [facility] [place] [facility] Jesus Bert [address] [place] [address] Jovan Jha MD [address] [place] [address] [place] [address] documented as of this encounter Visit Diagnoses Not on filedocumented in this encounter Care Teams Environmental Field Technician Relationship Specialty Start Date End Date Thierno Velasquez MD [facility] [place] PCP - General 06/13/19 documented as of this encounter
--- OUTSIDE RECORDS SUMMARY | 2024-12-15 12:54 | XMS_ITS | Continuity of Care Document ---
Author Organization [facility] lt Address [address] [place] [address]- Care Team Providers Care Crown And Bridge Technician Name Role Phone Ron LEE, Thierno Cervantes Primary Care Physician Encounter [facility] Date(s): 11/13/24 - 12/13/24 [facility] [address] [place] [address]- Encounter Type: Triage Allergies, Adverse Reactions, Alerts Substance Criticality Severity Reaction Reaction Severity Status Motrin SEVERE GI UPSET Acti ve Augmentin Active Darvocet A500 1 Acti ve Bactrim DS rash Active 1hives Immunizations Given and Recorded Vaccine Date Status Refusal Reason influenza virus vaccine, inactivated 05/10/23 George rded influenza virus vaccine, inactivated 06/09/22 Give n influenza virus vaccine, inactivated 05/24/21 George rded influenza virus vaccine, inactivated 05/01/19 George rded influenza virus vaccine, inactivated 05/25/18 George rded influenza virus vaccine, inactivated 03/09/18 George rded influenza virus vaccine, inactivated 1 08/08/17 Re corded influenza virus vaccine, inactivated 06/17/17 George rded influenza virus vaccine, inactivated 06/25/16 George rded influenza virus vaccine, inactivated 05/22/13 George rded pneumococcal 20-valent conjugate vaccine 2 01/22/23 Given SARS-CoV-2 (COVID-19) Ad26 vaccine 07/29/21 Record ed SARS-CoV-2 (COVID-19) Ad26 vaccine 11/13/20 Record ed Influenza Virus Vaccine (oldterm) 05/08/20 Recorde d zoster vaccine, inactivated 07/27/18 Recorded zoster vaccine, inactivated 05/25/18 Recorded Zoster Vaccine Live 06/25/16 Recorded tetanus/diphtheria/pertussis, acel(Tdap) 3 08/09/15 Recorded 1Location History: DR PABLO 2Result Comment: [facility]-[id number] 3Location History: DR PABLO Medications calcitonin 200 iu/inh nasal spray 1 sprays, Nares, Both, Daily, # 3.7 mL, 0 Refills, Maintenance, 11/21/24 2:49:00 PM EDT, [place], [id number], Partial fill upon patient request if the prescription is for a schedule II opioid drug., 174, cm, 11/20/24 12:37:00 EDT, Height, 65.9, kg, 04/11/24 9:00:00 EDT, Dry Weight Start Date: 11/21/24 Status: Ordered Quantity: 3.7 Unit: mL Repeat number: 1 lidocaine 5% topical film See Instructions, apply to back twice daily. Remove patch after 12 hours., # 30 patch, 0 Refills, Maintenance, 11/17/24 1:23:00 PM EDT, [facility] #[id number], Partial fill upon patient request if the prescription is for a schedule II opioid drug., apply to back twice daily. Remove patch after 12 hours., 174, cm, 09/18/24 8:52:00 EST, Height, 65.9, kg, 04/11/24 9:00:00 EDT, Dry Weight Start Date: 11/17/24 Status: Ordered Quantity: 30.0 Unit: patch Repeat number: 1 LORazepam 1 mg oral tablet 1 tablet = 1 mg, By Mouth, Daily, # 28 tablet, 2 Refills, Maintenance, 12/06/24 5:09:00 PM EDT, [facility] #[id number], Partial fill upon patient request if the prescription is for a schedule II opioid drug., 174, cm, 11/22/24 10:36:00 EDT, Height, 65.9, kg, 04/11/24 9:00:00 EDT, Dry Weight Start Date: 12/06/24 Status: Ordered Quantity: 28.0 Unit: tablet Repeat number: 3 metoprolol 50 mg oral tablet, extended release 50 mg, 1, tablet, By Mouth, Daily, # 90 tablet, Refills 3, Tot. Refills 3, Maintenance, 08/11/24 7:38:00 AM EST, Route to Pharmacy Electronically, [facility] #[id number], Partial fill upon patientrequest if the prescription is for a schedule II opioid drug., 174, cm, 06/13/24 10:51:00 EST, Height, 65.9, kg, 04/11/24 9:00:00 EDT, Dry Weight Start Date: 08/11/24 Status: Ordered Quantity: 90.0 Unit: tablet Repeat number: 4 omeprazole 20 mg oral enteric coated capsule 1 capsule = 20 mg, By Mouth, Daily, # 30 capsule, 0 Refills, Maintenance, 05/14/20 10:17:00 AM EDT, EC Capsule Start Date: 05/14/20 Status: Ordered Quantity: 30.0 Unit: capsule Repeat number: 1 oxyCODONE 15 mg oral tablet 1 tablet = 15 mg, By Mouth, 2 times a day, # 14 tablet, 0 Refills, Maintenance, 11/24/24 1:40:00 PM EDT, [facility] #[id number], Partial fill upon patient request if the prescription is for a schedule II opioid drug., 174, cm, 11/22/24 10:36:00 EDT, Height, 65.9, kg, 04/11/24 9:00:00 EDT, Dry Weight Start Date: 11/24/24 Status: Ordered Quantity: 14.0 Unit: tablet Repeat number: 1 oxyCODONE 15 mg oral tablet 1 tablet = 15 mg, By Mouth, 2 times a day, # 10 tablet, 0 Refills, Maintenance, 11/20/24 1:00:00 PM EDT, [facility] #[id number], Partial fill upon patient request if the prescription is for a schedule II opioid drug., 174, cm, 11/20/24 12:37:00 EDT, Height, 65.9, kg, 04/11/24 9:00:00 EDT, Dry Weight Start Date: 11/20/24 Status: Ordered Quantity: 10.0 Unit: tablet Repeat number: 1 traMADol 50 mg oral tablet 2 tablet = 100 mg, By Mouth, Every 12 hours, PRN for pain, # 120 tablet, 1 Refills, Maintenance, 11/13/24 10:20:00 AM EDT, [place], [facility] #[id number], Partial fill upon patient request if the prescription is for a schedule II opioid drug., 174, cm, 09/18/24 8:52:00 EST, Height, 65.9, kg, 04/11/24 9:00:00 EDT, Dry Weight Start Date: 11/13/24 Status: Ordered Quantity: 120.0 Unit: tablet Repeat number: 2 Problem List Condition Confirmation Course Effective Dates Status H ealth Status Informant Abdominal pain Confirmed Active Allergic rhinitis Confirmed Active Atrophic vaginitis Confirmed Active Chronic cough Confirmed Active Chronic kidney disease, stage 3b 1 Confirmed Active Compression fracture of L3 vertebra with delayed healing Confirmed Active COVID-19 virus infection Confirmed Active Diverticulitis Confirmed Active Dermatitis Confirmed Active GERD (gastroesophageal reflux disease) Confirmed Active H/O Malignant melanoma Confirmed Active History of colonoscopy Confirmed Active HTN (hypertension) Confirmed Active Insomnia Confirmed Active IBS (irritable bowel syndrome) Confirmed Active Martínez's disease 2 Confirmed Active Pain in left knee Confirmed Active Liver function test abnormality 3 Confirmed Active Actinic keratoses Confirmed Active Osteopenia Confirmed Active Weakness of pelvic floor Confirmed Active Peptic ulcer disease Confirmed Active Recurrent UTI Confirmed Active 1Per chart review meeting GFR criteria 2HEADACHE 3INCREASSED LFT Social History Social History Type Response Smoking Status Never (less than 100 in lifetime) entered on: 07/06/18 Sex Female Sex Representation Female (finding) Patient Care team information Care Team Personnel Name: Opal Vazquez Position: [facility] Outreach Member Role: Lifetime Consulting Physician Name: Thierno Velasquez MD Position: [facility] Physician - Primary Care Member Role: PCP Address: [address] [place] [id number] Telecom: Care Team Related Persons Name: BARON DONNELL Insurance Providers Guarantor name: CABRERA JACOBO Health Plan Information #: 1 Payer: MEDICARE PART B OUTPT Member Number: NA Policy Number: NA Group Number: NA Health Plan Information #: 2 Payer: MEDEX Member Number: NA Policy Number: NA Group Number: NA
--- OUTSIDE RECORDS SUMMARY | 2024-12-15 12:54 | XMS_ITS | Encounter Summary ---
Author Organization [facility], Address [address] [place] [address] Phone Care Team Providers Care Clinical Appeals Specialist Name Role Phone Thierno Velasquez MD Primary Care Provider [phone] Encounter Details Date Type Department Care Team (Late st Contact Info) Description 09/19/2024 Documentation Only [facility], [address] [place] [address] Opal Vazquez [address] [place] [phone] Social History Tobacco Use Types Packs/Day Years [...] [facility] - [facility] Jesus Bert [address] [place] [address] Jovan Jha MD [address] [place] [address] [place] [address] documented as of this encounter Visit Diagnoses Not on filedocumented in this encounter Care Teams Clinical Appeals Specialist Relationship Specialty Start Date End Date Thierno Velasquez MD [facility] [place] PCP - General 06/13/19 documented as of this encounter
--- OUTSIDE RECORDS SUMMARY | 2024-12-15 12:54 | XMS_ITS | Encounter Summary ---
Author Organization [facility], Address [address] [place] [address] Phone Care Team Providers Care Bankruptcy Assistant Name Role Phone Thierno Velasquez MD Primary Care Provider [phone] Encounter Details Date Type Department Care Team (Late st Contact Info) Description 10/03/2024 Documentation Only [facility], [address] [place] [address] Opal Vazquez [address] [place] [phone] Social History Tobacco Use Types Packs/Day Years [...] Visit [facility] - [facility] [place] Jesus Bert [address] [place] [address] Jovan Jha MD [address] [place] [address] [place] [address] documented as of this encounter Visit Diagnoses Not on filedocumented in this encounter Care Teams Bankruptcy Assistant Relationship Specialty Start Date End Date Thierno Velasquez MD [facility] [place] PCP - General 06/13/19 documented as of this encounter
--- OUTSIDE RECORDS SUMMARY | 2024-12-15 12:54 | XMS_ITS | Encounter Summary ---
Author Organization [facility], Address [address] [place] [address] Phone Care Team Providers Care Batch Plant Supervisor Name Role Phone Thierno Velasquez MD Primary Care Provider [phone] Encounter Details Date Type Department Care Team (Late st Contact Info) Description 09/19/2024 Documentation Only [facility], [address] [place] [address] Opal Vazquez [address] [place] [phone] Social History Tobacco Use Types Packs/Day Years [...] Visit [facility] - [facility] [place] [facility] Jesus Bert [address] [place] [address] Jovan Jha MD [address] [place] [address] [place] [address] documented as of this encounter Visit Diagnoses Not on filedocumented in this encounter Care Teams Batch Plant Supervisor Relationship Specialty Start Date End Date Thierno Velasquez MD [facility] [place] PCP - General 06/13/19 documented as of this encounter
--- OUTSIDE RECORDS SUMMARY | 2024-12-15 12:54 | XMS_ITS | Clinical Summary ---
Author Organization [facility] Address [address] [place] [address] Phone Care Team Providers Care Bearing Ring Assembler Name Role Phone Thierno Oliver MD Primary Care Provider [phone] Social History Tobacco Use Types Packs/Day Years [...] AM EST Appointment [facility] [address] [address] Health Maintenance Due Date Last [...] Procedure Name Priority Date/Time Associated Diagnosis Comments [facility] SCREENING DIGITAL Routine 06/08/2024 10:52 AM EDT [facility] DEXA AXIAL SKELETON Routine 05/22/2021 2:06 PM EDT Other specified disorders of bone density and structure, multiple sites from Last 3 Months or Most Recently Relevant to Health Maintenance Results * [facility] SCREENING DIGITAL (06/08/2024 10:52 AM EDT) Anatomical Region Laterality Modality Mammography 06/08/2024 10:0 5 AM EDT Narrative 06/08/2024 10:52 AM EDT [facility] Diagnostic Imaging Department [address] [place], [place] [id number] Patient: ??CABRERA JACOBO ?/Age/Sex: 1955 - - Unit#: ??[id number] ? Location/Status: ??SPDIMAM/REG CLI ? Mnemonic/Ordering Site: [...] Sign date/Time: ??06/08/24 1052 Procedure Note Arnold Rojsa MD - 06/10/2024 [facility] Diagnostic Imaging Department [address] [place] [address] Patient: CABRERA JACOBO /Age/Sex: 1955 69 - F Unit#: [id number] Location/Status: SPDIMAM/REG CLI Mnemonic/Ordering Site: [facility] Ordering Physician: THIERNO OLIVER MD Froy [...] MD IMG BI PROCEDURES Final Result * [facility] DEXA AXIAL SKELETON (05/22/2021 2:06 PM EDT) Anatomical Region Laterality Modality Mammography 05/22/2021 1:04 PM EDT Narrative 05/22/2021 2:06 PM EDT [facility] Diagnostic Imaging Department [address] [place], [place] [address] Patient: ??CABRERA JACOBO ?/Age/Sex: 1955 - 66 - F Unit#: ??[id number] ? Location/Status: ??SPDIMAM/REG CLI ? Mnemonic/Ordering Site: ??MAMDEXAAX/SPMAM Ordering Physician: ??DANAY RIVERA MD [facility] Dexa Axial Skeleton - 05/22/21 - [facility] Dexa Axial Skeleton INDICATION: POSTMENOPAUSAL [...] FRAX estimate if patient has received treatment. [id number] Dictating Physician: ??AUDELIA PABLO MD Electronically Signed by: ??AUDELIA PABLO MD Dic Date/Time: ??05/22/211404 Sign date/Time: ??05/22/21 140 Procedure Note Audelia Pablo MD - 07/29/2022 [facility] Diagnostic Imaging Department [address] [place] [id number] Patient: CABRERA JACOBO Tammy /Age/Sex: 1955 - 66 - F Unit#: [id number] Location/Status: SPDIMA/REG CLI Mnemonic[facility] Ordering Physician: DANAY RIVERA MD [facility] Dexa Axial Skeleton - 05/22/21 - [facility] Dexa Axial Skeleton INDICATION: POSTMENOPAUSAL [...] prior exam there is been a statistically nnnmtrucjil63.3% interval decrease in total mean hip bone mineral density The FRAX result suggests a 10 year probability of major osteoporoticfracture of 14.5 % and hip fracture of 1.5%. 10 year probability of osteoporotic fracture may be lower than FRAXestimate if patient has received treatment. [id number] Dictating Physician: AUDELIA PABLO MD Electronically Signed by: AUDELIA PABLO MD Dic Date/Time: 05/22/211404 Sign date/Time: 05/22/211405 Danay Rivera MD IMG BI PROCEDURES Final Result from Last 3 Months or Most Recently Relevant to Health Maintenance Insurance MEDICARE MEDEX Care Teams Bearing Ring Assembler Relationship Specialty Start Date End Date Thierno Oliver MD [address] [place] [phone] PCP - General Internal Medicine 06/12/24
--- OUTSIDE RECORDS SUMMARY | 2024-12-15 12:54 | XMS_ITS | Clinical Summary ---
Author Organization [facility], Address [address] [facility] [address] 1 [place] [address] Phone Care Team Providers Care Command Post Craftsman Name Role Phone Thierno Velasquez MD Primary Care Provider [phone] Allergies Active Allergy Reactions Criticality Noted Date [...] Only [facility] [address] [place] [address] George, Opal 10/03/2024 Documentation Only [facility] [address] [place] [address] George, Opal 10/03/2024 Documentation Only [facility] [address] [place] [address] George, Opal 10/02/2024 Office Communication [facility] - [address] [place] [address] Lubna Valentin 09/19/2024 2:00 PM EST Office Visit [facility] [place] - [place] [address] [place] [address] Jovan Jha MD Stage 3b chronic kidney disease (HCC) (Primary Dx); Essential (primary) hypertension 09/19/2024 Documentation Only [facility] [address] [place] [address] George, Opal 09/19/2024 Documentation Only [facility] [address] [place] [address] George, Opal 09/19/2024 Documentation Only [facility] [address] [place] [address] Opal Vazquez 09/19/2024 Documentation Only [facility] [place], [address] [place] [address] Opal Vazquez 09/19/2024 Documentation Only [facility] [place], [address] [place] [address] Opal Vazquez from Last 3 Months Immunizations [...] Visit [facility] [place] - [facility] [place] [address] Bert [address] [facility] [place] [address] Jovan Jha MD [address] [facility] [place] [address] Health Maintenance Due Date Last Done [...] Glucose 86 70 - 99 mg/dL [facility] BUN 23 8 - 27 mg/dL [facility] Creatinine 1.59(H) 0.57 - 1.00 mg/dL [facility] eGFR CKD-EPI CR 2020 35(L) >59 mL/min/1.7 3 [facility] BUN/Creatinine Ratio 14 12 - 28 [facility] Sodium 142 134 - 144 mmol/L [facility] Potassium 4.3 3.5 - 5.2 mmol/L [facility] Chloride 106 96 - 106 mmol/L [facility] Bicarbonate (CO2) 20 20 - 29 mmol/L [facility] Calcium 9.4 8.7 - 10.3 mg/dL [facility] Albumin 4.3 3.9 - 4.9 g/dL [facility] Phosphorus 3.1 3.0 - 4.3 mg/dL [facility] 09/18/2024 9:35 AM EST 09/18/2024 Jovan Jha MD LAB BLOOD ORDERABLES Final Resul t [facility] [address] [place] [address] from Last 3 Months Insurance Medicare [facility] Care Teams Command Post Craftsman Relationship Specialty Start Date End Date Thierno Velasquez MD [facility] [place] [facility] - General 06/13/19
--- OUTSIDE RECORDS SUMMARY | 2024-12-15 12:54 | XMS_ITS | Encounter Summary ---
Author Organization [facility], Address [address] [place] [address] Phone Care Team Providers Care Yardage Control Operator Forming Name Role Phone Thierno Velasquez MD Primary Care Provider [phone] Encounter Details Date Type Department Care Team (Late st Contact Info) Description 09/19/2024 Documentation Only [facility], [address] [place] [address] Opal Vazquez [address] [place] [phone] Social History Tobacco Use Types Packs/Day Years [...] Visit [facility] [place] - [facility] [place] [facility] Jesus Bert [address] [place] [address] Jovan Jha MD [address] [place] [address] [place] [address] documented as of this encounter Visit Diagnoses Not on filedocumented in this encounter Care Teams Yardage Control Operator Forming Relationship Specialty Start Date End Date Thierno Velasquez MD [facility] [place] PCP - General 06/13/19 documented as of this encounter
--- NOTE | 2024-12-15 13:25 | HO.SPINEOV ---
Intake Visit Reasons: Discuss MRI Results and possible surgery Intake Note: Ms. Madison is here today to discuss her MRI results and possible surgical options. Hand Spray Operator Required: No Allergies Darvocet-N 100 Allergy (Intermediate, Verified 06/09/24 11:58) Hives propoxyphene [From DARVON] Allergy (Intermediate, Verified 06/09/24 11:58) Hives sulfamethoxazole [From Bactrim] Allergy (Verified 11/16/24 07:35) Rash trimethoprim [From Bactrim] Allergy (Verified 11/16/24 07:35) Rash Darvocet A500 Allergy (Intermediate, Uncoded 06/09/24 11:58) Hives Darvocet-N 50 Allergy (Intermediate, Uncoded 06/09/24 11:58) Hives Assessment & Plan Assessment & Plan (1) Compression fracture of L1 lumbar vertebra: Code(s): S32.010A - Wedge compression fracture of first lumbar vertebra, initial encounter for closed fracture Category: Medical Qualifiers: Fracture healing: with routine healing Plan: Dear colleague, On 12/15/2024, I saw for follow-up Jj Madison. She presented with severe right-sided back pain that prompted an MRI. The MRI was done on 11/29/2024 and shows an acute L1 compression fracture. In the meantime, the pain has significantly improved. I reviewed the MRI imaging with the patient and showed her fracture. A standing x-ray today shows a 20% height loss. No clinically relevant deformity. I told her to avoid strenuous activities for 3 months until the fracture is healed. She is clinically progressing as expected and therefore does not need an intervention such as kyphoplasty. She will return to my office as needed. I spent 20 minutes in his consult to review imaging and discussing plan of care. Esteban Pickering MD, PhD Spine Fellowship Trained Neurosurgeon Director, [facility] [employer] Orders: Orders XR lumbar spine 2-3V Today S32.010A - Wedge compression fracture of first lumbar vertebra, initial encounter for closed fracture Coding Level of Care Code Est Pt Level 3 (91238) Diagnoses Compression fracture of L1 lumbar vertebra S32.010A Fracture healing: with routine healing
== END 2024-12-15 14:19 | disposition home or self-care (01) ==
LOC: HO.HNS 12:49
PROVIDERS: PCP Internal Medicine; Visit Provider Neurological Surgery
DX: S32.010A Wedge compression fracture of first lumbar vertebra, initial encounter for closed fracture (principal)
CPT/HCPCS: 99213

== ENCOUNTER 2024-12-15 12:49 | Outpatient (REF) | payer MEDICARE, SELFPAY ==
--- NOTE | ~2024-12-15 | XR_ITS ---
EXAMINATION: XR LUMBOSACRAL SPINE CLINICAL INFORMATION: S32.010A - Wedge compression fracture of first lumbar vertebra, initial ... COMPARISON: Correlated to MRI dated November 29, 2024 demonstrated 40% volume loss with a compression fracture at L1. TECHNIQUE: AP and lateral views, lumbar spine. FINDINGS: There is a superior endplate compression deformity with mild sclerosis resulting in 40% volume loss without retropulsion at L1. Superior endplate compression deformity representing 20% volume loss without retropulsion at L2. Multilevel marginal osteophyte formation and endplate sclerosis. No gross malalignment. S-shaped curvature of the thoracolumbar spine. Vascular calcifications, aorta. XR/XR lumbar spine 2-3V IMPRESSION: Subacute compression fracture at L1. Subacute to old compression fracture at L2. Electronically signed by: Stu Bradley MD 12/15/2024 02:29 PM EDT
--- OUTSIDE RECORDS SUMMARY | 2024-12-15 13:39 | XMS_ITS | Patient Health Record ---
Author Organization [facility] [place] Address [address] [place] [address] Care Team Providers Care Parts Counterman Name Role Phone Thierno Velasquez Primary Care Provider Fern Mullins Unavailable [phone] Hoang Yuen Unavailable [phone] Allergies Allergen (clinical drug ingredient) Drug/Non Drug [...] Duration) Notes Start Date End Date Status Vitamin D Active Atenolol 25 MG 1 tablet Orally Once a day Not-Taking Metoprolol Tartrate 50 MG 1 tablet with food Orally Twice a day Active Augmentin Active Nasal [place] Active hydroCHLOROthiazide 25 MG 1 tablet Orall y Once a day Not-Taking Physical Therapy . .dx:achilles tendinitis right with need for us and iontophoresis . 2-3x/week for 3-4 weeks 01/15/2014 Not-Taking Lomotil 2.5-0.025 MG 2 Orally 3 times a day Active LORazepam 1 MG 1 tablet at bedtime as needed Orally Once a day Active Social History Tobacco Use: Social History Observation Description Date Details (start date - stop date) Never Smoker NA - NA Tobacco Control (Standard) Question Answer Notes Tobacco use: Nonsmoker Additional Findings: Tobacco non-user Current no nsmoker AUDIT-C (Standard) Question Answer Notes Did you have a drink containing alcohol in the p ast year? No Points 0 Interpretation Negative Problems Problem Type SNOMED Code ICD Code Onset Dates Problem Status W/U Status Risk Notes Problem Disorder of joint of ankle and/or foot (775339321) Arthritis - Degenerative (719.97) Active confirmed Problem Acquired deformity of joint of big toe (disorder) (020913918) Hallux Limitus (735.8) Active confirmed Problem Achilles bursitis (199800576) Achilles Tendonitis Bursitis (726.71) Active confirmed Problem Pain in limb (29932871) Pain in Limb (729.5) Active confirmed Problem Acquired hammer toe of right foot (9965186060614836) Other hammer toe(s) (acquired), right foot (M20.41) Active confirmed Problem Localized, primary osteoarthritis of the ankle and/or foot (524116618) Arthritis of joint of lesser toe, right (M19.071) Active confirmed Vital Signs Blood pressure diastolic 70 mm Hg 11/27/2024 Height 5 ft 8 in in 11/27/2024 Blood pressure systolic 130 mm Hg 11/27/2024 Weight 144 lbs 11/27/2024 BMI 21.89 kg/m2 11/27/2024 Encounters Encounter Location Date Provider Diagnosis [address] [address] 05/16/2024 Fern Anderson Pain in right toe(s) M79.674 ; Other hammer toe(s) (acquired), right foot M20.41 ; Arthritis of joint of lesser toe, right M19.071 and Subluxation of metatarsophalangeal joint of toe, initial encounter S93.149A [address] [address] 11/27/2024 Fern Anderson Pain in right toe(s) M79.674 ; Other hammer toe(s) (acquired), right foot M20.41 ; Arthritis of joint of lesser toe, right M19.071 and Subluxation of metatarsophalangeal joint of toe, initial encounter S93.149A [address] [address] 07/24/2024 Fern Anderson [address] [address] 07/25/2024 Fern Anderson [facility] [address] [place] [address] 09/06/2024 Fern Anderson [facility] [address] [place] [address] 11/27/2024 Fern Anderson Assessments Encounter Date Diagnosis (ICD Code) Assessment Notes Treatment Notes Treatment Clinical Notes Section Notes 05/16/2024 Pain in right toe(s) (ICD-10 - M79.674) 11/27/2024 Pain in right toe(s) (ICD-10 - M79.674) 11/27/2024 Other hammer toe(s) (acquired), right foot (ICD-10 - M20.41) 05/16/2024 Other hammer toe(s) (acquired), right foot (ICD-10 - M20.41) 05/16/2024 Arthritis of joint o f lesser toe, right (ICD-10 - M19.071) 11/27/2024 Arthritis of joint o f lesser toe, right (ICD-10 - M19.071) 11/27/2024 Subluxation of metatarsophalangeal joint of toe, initial encounter (ICD-10 - S93.149A) 05/16/2024 Subluxation of metatarsophalangeal joint of toe, initial encounter (ICD-10 - S93.149A) Plan Of Treatment Pending Test Test Name Order Date X ray : Foot, right 2V 01/15/2014 X ray : Foot, right 3V 05/16/2024 [id number] Destruction, 1-14 07/30/2014 Insurance Providers Payer Name Payer Address Payer Phone Subscriber Number Group Number Insured Name Patient Relationship to Insured Coverage Start Date Coverage End Date Medicare [employer] [address] [place] [address] [id number] Jj Madison Self - patient is the insured [employer] [address] [place] [address] [phone] [id number] Jj Madison Self - patient is the insured Medical (General) History Medical History History ICD Code High blood pressure Chicken pox Back pain covid-19 Surgical History Surgery Date(Month/Year) appendectomy tonsillectomy hysterectomy section
--- OUTSIDE RECORDS SUMMARY | 2024-12-15 13:39 | XMS_ITS | Encounter Summary ---
Author Organization [facility], Address [address] [place] [address] Phone Care Team Providers Care Diagnostic Medical Sonographer Name Role Phone Thierno Velasquez MD Primary Care Provider [phone] Encounter Details Date Type Department Care Team (Late Contact Info) Description 04/03/2024 Documentation Only [facility], [address] [place] [address] Isa Villatoro [address] [place] [phone] Social History Tobacco Use Types Packs/Day Years [...] Visit [facility] - [facility] [address] [place] [address] Jovan Jha MD [address] [place] [address] [place] [address] documented as of this encounter Visit Diagnoses Not on filedocumented in this encounter Care Teams Diagnostic Medical Sonographer Relationship Specialty Start Date End Date Thierno Velasquez MD [facility] [place] PCP - General 06/13/19 documented as of this encounter
--- OUTSIDE RECORDS SUMMARY | 2024-12-15 13:39 | XMS_ITS ---
Author Organization [facility] Address [address] [place] [address] Care Team Providers Care Clam Digger Name Role Phone Thierno Velasquez Primary Care Provider Fern Mullins [phone] REASON FOR VISIT sx booking process Encounters Encounter Location Date Provider Diagnosis [facility] [address] [place] [address] 11/27/2024 Fern Anderson Plan Of Treatment No Information Progress Notes * Jj JACOBO MDOB: [birth year] (69 yo F)Acc No.[id number]:11/27/2024 Patient:?DONNELLDenzelJj M :1955???Age:69 Y???Sex:Female Address:[address] [place] [id number] * true * Date:? Generated for Lianei lizzeth/Gilberto/eTransmitting on:?12/15/2024 01:39 PM EDT
--- OUTSIDE RECORDS SUMMARY | 2024-12-15 13:40 | XMS_ITS | Encounter Summary ---
Author Organization [facility], Address [address] [place] [address] Phone Care Team Providers Care Scoop Operator Name Role Phone Thierno Velasquez MD Primary Care Provider [phone] Encounter Details Date Type Department Care Team (Late Contact Info) Description 02/16/2023 Documentation Only [facility], [address] [place] [address] Jovan Jha MD [address] [place] [address] [place] [address] Social History Tobacco Use Types [...] Visit [facility] - [facility] [address] [place] [address] Jovan Jha MD [address] [place] [address] [place] [address] documented as of this encounter Visit Diagnoses Not on filedocumented in this encounter Care Teams Scoop Operator Relationship Specialty Start Date End Date Thierno Velasquez MD [facility] [place] PCP - General 06/13/19 documented as of this encounter
--- OUTSIDE RECORDS SUMMARY | 2024-12-15 13:40 | XMS_ITS ---
[facility] Organization [facility] Address [address] [place] [address] Care Team Providers Care Molding Engineer Name Role Phone Thierno Velasquez Primary Care Provider Fern Mullins Unavailable [phone] Allergies Allergen (clinical drug ingredient) Drug/Non Drug Allergy documented on EMR Reaction Allergy Type Onset Date Status ibuprofen Advil kidney issues Drug Allergy Act samuel Aleve kidney issues Drug Allergy Act samuel sulfamethoxazole / trimethoprim Bactrim large rashes Drug Allergy Active Motrin kidney issues Drug Allergy Act samuel darvocet Unknown Drug Allergy Active REASON FOR VISIT Painful Toe(s) Medications Medication SIG (Take, Route, Frequency, Duration) Notes Start Date End Date Status Vitamin D Active Atenolol 25 MG 1 tablet Orally Once a day Not-Taking Augmentin Active Nasal Escalon Active hydroCHLOROthiazide 25 MG 1 tablet Orall y Once a day Not-Taking Metoprolol Tartrate 50 MG 1 tablet with food Orally Twice a day Active Physical Therapy . .dx:achilles [...] ast year? No Points 0 Interpretation Negative Vital Signs Height 5 ft 8 in in 11/27/2024 Weight 144 lbs 11/27/2024 BMI 21.89 kg/m2 11/27/2024 Blood pressure systolic 130 mm Hg 11/28/19 25 Blood pressure diastolic 70 mm Hg 025 Encounters Encounter Location Date Provider Diagnosis [facility] [place] [address] [place] [address] 11/27/2024 Fern Anderson Pain in right toe(s) M79.674 ; Other hammer toe(s) (acquired), right foot M20.41 ; Arthritis of joint of lesser toe, right M19.071 and Subluxation of metatarsophalangeal joint of toe, initial encounter S93.149A Assessments Encounter Date Diagnosis (ICD Code) Assessment Notes Treatment Notes Treatment Clinical Notes Section Notes 11/27/2024 Pain in right toe(s) (ICD-10 - M79.674) 11/27/2024 Other hammer toe(s) (acquired), right foot (ICD-10 - M20.41) 11/27/2024 Arthritis of joint o f lesser toe, right (ICD-10 - M19.071) 11/27/2024 Subluxation of metatarsophalangeal joint of toe, initial encounter (ICD-10 - S93.149A) Plan Of Treatment Next Appt Details Follow Up: prn, Reason: Pre op Procedure Notes * Category Sub-Category Detail Notes Keratoma Treatment Parring or Cutting o f Benign Hyperkeratotic Lesion(s) 2 Lesions - The Benign hyperkeratotic lesions, as described above were pared, and/or cut utilizing a sterile 15 blade, tissue nippers, and/or dremel Progress Notes * Jj JACOBO MDOB: [birth year] (69 yo F)Acc No.[id number]:11/27/2024 Progress Note Patient:?Jj JACOBO Provider:?Fern Anderson DPM :1955???Age:69 Y???Sex:Female D ate:11/27/2024 Address:[address] [place], [place] [id number] Pcp:Thierno Velasquez Subjective: * Chief Complaints: * ???Painful Toe(s) * HPI: ???Toe pain:?Nature:?tenderness.?Location:?Right foot, second toe.?Duration:?several months.?Course:?worse.?Aggravated by:?any pressure, shoes.?Treatments:?rest/alter normal daily activity, change in shoes, spacers, toe splinting.?Misc:?Patient state the second toe rubbing the hallux has become intolerable. She used multiple spacers, changed shoes, and began wearing off the shelf orthotics.? * ROS:?General/Constitutional:?Nausea?denies.?Vomiting?denies.?Hunger Thirst?denies.?Loss appetite?denies.?Chills?denies.?Fatigue?denies.?Fever?denies.?Night Sweats?denies.?Unexplained weight loss?denies.?Unexplained weight gain?denies.?HEENTM:?Dentures?denies.?Dizziness?denies.?Glasses/contacts?admits.?Retinopathy?de nies.?Blurred/double vision?denies.?TMJ?denies.?Discharge/drainage?denies.?Implants?denies.?Sore throat?denies.?Dental implants?admits.?Hard of hearing ?denies.?Difficulty chewing/swallowing/speaking?denies.?Nose bleeds?denies.?Sore mouth?denies.?Respiratory:?On Oxygen?denies.?Pneumonia/pleurisy?denies.?Bronchitis?denies.?Emphysema?denies.?C oughing?denies.?Cough blood?denies.?Shortness of breath?denies.?Wheezing?denies.?Cardiovascular:?Pacemaker?denies.?MVP?denies.?WPW?denies.?CHF?denies.?Heart attack?denies.?Septal defect?denies.?Rapid beat?denies.?Chest pain ?denies.?Atrial Fib.?denies.?Murmur/Palpitations?denies.?Gastrointestinal:?Hemorrhoids?denies.?Stomach/Abdominal pain?denies.?Dark blood stool?denies.?Irritable bowel ?denies.?Constipation?denies.?Diarrhea?admits.?Hematology:?Swelling?denies.?Clots?denies.?Varicose Veins?denies.?Bruising?denies.?Bleeding problem?denies.?Genitourinary:?Blood urine?denies.?Frequent/Painfu/urination/bladder control?denies.?Kidney stones?denies.?Infection (UTI)?denies.?Nephropathy?denies.?sex trans dis (STD)?denies.?Prostate?denies.?Musculoskeletal:?Hammertoes?admits.?Bunions?denies.?Back Pain?denies.?Muscle Cramps/ Resting?denies.?Muscle cramps / walking?denies.?Generalized aches and pains?denies.?Weakness?denies.?Integ.:?Zendejas?denies.?Scars?denies.?Corns/calluses?admits.?Ingrown nails?denies.?Painful nails?denies.?Open Sores?denies.?Rashes?denies.?Neurologic:?Difficulty sleeping?denies.?Brain disorder?denies.?Numbness?denies.?Balance trouble?denies.?Confusion?denies.?Fainting/blackouts?denies.?Tingling?denies.?Tr emors?denies.? * Medical History:? * Surgical History:?appendecto my tonsillectomy hysterectomy section * Hospitalization/Major Diagno stic Procedure:?Denies Past Hospitalization * Family History:?Mother: dece ased, diagnosed with Unspecified essential hypertension.?Father: , diagnosed with Other malignant neoplasm of unspecified site.?Siblings: foot problems, cancer, diagnosed with Unspecified essential hypertension.? * Social History:?Tobacco Use:?Tobacco Control (Standard)?Tobacco use:?Nonsmoker ?Additional Findings: Tobacco non-user?Current nonsmoker ???Drugs/Alcohol:?Drugs?Have you used drugs other than those for medical reasons in the past 12 months??No ???Miscellaneous:?Caffeine: yes, Soda, frequency:. ?Children: yes, 2 (twins). ?Exercise: no. ?Marital status: . 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 ???Drug/Alcohol:?AUDIT-C (Standard)?Did you have a drink containing alcohol in the past year??No ?Points?0 ?Interpretation?Negative * Medications:?TakingVitamin D Nasal Escalon Augmentin Metoprolol Tartrate 50 MG Tablet 1 tablet with food Orally Twice a day LORazepam 1 MG Tablet 1 tablet at bedtime as needed Orally Once a day Lomotil 2.5-0.025 MG Tablet 2 Orally 3 times a day Taking Vitamin D Taking Nasal Escalon Taking Augmentin Taking Metoprolol Tartrate 50 MG Tablet 1 tablet with food Orally Twice a day Taking LORazepam 1 MG Tablet 1 tablet at bedtime as needed Orally Once a day Taking Lomotil 2.5-0.025 MG Tablet 2 Orally 3 times a day Not-Taking/PRNPhysical Therapy . . .dx:achilles tendinitis right with need for us and iontophoresis . 2-3x/week hydroCHLOROthiazide 25 MG Tablet 1 tablet Orally Once a day Atenolol 25 MG Tablet 1 tablet Orally Once a day Medication List reviewed and reconciled with the patientNot-Taking/PRN Physical Therapy . . .dx:achilles tendinitis right with need for us and iontophoresis . 2-3x/week Not-Taking/PRN hydroCHLOROthiazide 25 MG Tablet 1 tablet Orally Once a day Not-Taking/PRN Atenolol 25 MG Tablet 1 tablet Orally Once a day Medication List reviewed and reconciled with the patient * Allergies:?darvocetAdvil: ki dnmikey issuesAleve: kidney issuesMotrin: kidney issuesBactrim: large rashesyes[Allergies Verified] Objective: * Vitals:?Ht:5 ft 8 in, Wt:144 , BMI:21.89, Shoe size:10, BP:130/70mm Hg, Ht-cm: 172.72 cm, Wt-k.32 kg. * Examination: ???General Examination: ?GENERAL APPEARANCE:?Reveals a pleasant, alert, well nourished, well- developed, well hydrated individual, who demonstrates proper attention to hygiene/body habitus, and is in no acute distress , Pt serves as own historian for office visit today.?Orthopedic: ?MUSCLE STRENGTH:?5/5 all groups in a symmetrical fashion , B/L.?DIGITAL DEFORMITIES:?Digital contracture, PIPJ, 2-5 B/L, incompl-reducible with WB, or to push-up test,?Elongated 2nd toe(s) B/L.?Hammer Toes: ?INSPECTION:?callus/ bursal formation over the distal interphalangeal joint of second digit, medially as digit is abutting the proximal phalanx of the hallux. Callus/ bursa is tender to the touch. No underlying ulceration upon debridement.? Hyperkeratotic lesion to the lateral aspect of the hallucal proximal phalanx, upon debridement, no underlying ulceration.?Vascular: ?DORSALIS PEDIS PULSE:?2/4 , B/L.?POSTERIOR TIBIAL PULSE:?2/4 , B/L.?CAPILLARY REFILL:?< 3 seconds , all digits B/L.?TEMPERATURE GRADIENT:?within normal limits.?EDEMA:?none.?Neurological: ?SENSORY:?Neurological exam reveals intact sensorium, pain sensation normal, vibration sensation intact, pinprick sensation is normal in the lower extremities, Pt denies, anesthesia, burning, paresthesia, tingling, B/L.?MOTOR STRENGTH:?motor is grossly normal .? Assessment: * Assessment: 1.?Pain in right toe(s) - M7 9.674 (Primary)???2.?Other hammer toe(s) (acquired), right foot - M20.41???3.?Arthritis of joint of lesser toe, right - M19.071???4.?Subluxation of metatarsophalangeal joint of toe, initial encounter - S93.149A??? Plan: * Treatment: * Procedures:?Keratoma Treatment:?Parring or Cutting of Benign Hyperkeratotic Lesion(s)?2 Lesions - The Benign hyperkeratotic lesions, as described above were pared, and/or cut utilizing a sterile 15 blade, tissue nippers, and/or dremel .? * Procedure Codes:? * Preventive Medicine:? ??Counseling:?Discussion:?-13: Office or other outpatient visit for the evaluation and management of an established patient, which required a medically appropriate history and/or examination and LOW level of DECISION MAKING for: 1 STABLE ACUTE UNCOMPLICATED PROBLEM, 2 OR MORE MINOR PROBLEMS, OR 1 STABLE CHRONIC PROBLEM, THAT POSE(S) A LOW RISK FOR MORBIDITY/MORTALITY. The visit on the day of the encounter encompassed interpreting the data and educating the patient as to the nature of their condition, treatment options available according to their individual PMH, meds, allergies, and overall health/living conditions, as well as any potential risks or complications that may occur from a failure to adhere to, and participate in, the recommended course of therapy. The discussion included a complete verbal, and/or written explanation of the examination results, any x-rays taken, the proposed diagnosis, and outline of the treatment plan. A schedule for future care needs was also explained. The patient verbalized an understanding of the instructions at this time and agreed to be an active participant in their treatment. If the patient should think of any questions or concerns after the visit, I have encouraged the patient to call the office.?Digital Surgery:?Digital surgery was discussed with the patient, including the risks of surgery(below), vs not having surgery (persistent pain, deformity, risk for skin ulceration/infection, loss of toe), the potential surg complications, the anesthesia, and the usual post-op course. No guarentees were given. We discussed the potential procedure complications including, but not limited to: pain, swelling, bleeding, scarring, numbness, infection, delayed/non healing, floppy/unstable/shorthened toe, recurrence, failure of the procedure, overcorrection leading to plantarflexed/downward positioned toe, recurrence, need for further surgery, as well as the possibility for loss of the toe itself. We discussed the use of local anesthesia, and the usual post-op course for healing. No guarentees were given. The patient verbally indicated a full understanding of the above conversation, and any other of their questions were answered to their satisfaction. Alternatives to the procedure were also discussed, including conservative care. I also discussed the usual post-operative course and gave no guarantees regarding outcome. We specifically discussed an exostosis excision of the middle phalanx as the hammertoe itself does not cause her any pain and would require a larger incision/recovery time. , The patient would like to procede with surgical treatment , The patient will obtain preoperative labs as well as medical clearance for surgery and anesthesia, The patient was made aware to stop any/all blood thinning meds (including fish oil and any OTC ASA) at least a week prior to surg, The Pt was made aware of the fact that driving may not be able to be performed during a portion of the post-op period , The patient was also made aware not to utilize any smoking tobacco products at least a month prior to surgery and for three months post procedure in order to facilitate bone and soft tissue healing.?Digital Treatment:?HT- I explained to the patient the possible etiologies of Hammertoes, including genetics/foot type/shoegear/activity level/exercise routine and the risks/benefits of all the different treatment options for their pain including: No treatment at all, Rest, Ice, New/supportive/wider/deeper Shoegear, Digital Padding/Strapping/Taping/Bracing/Gel protective sleeves, Foot/Ankle AFO Bracing, Stretching exercises, Deep Tissue Massage, Arch support/shoe inserts with splay metatarsal padding, and Custom orthoses. I insisted that any digital devices be removed daily and not worn overnight for safety. The patient is to carefully examine the toes daily for any skin irritation while using any splinting or padding device. The advantages and disadvantages of each option were discussed and the patients questions re: shoegear, padding, custom vs prefabricated inserts, activity level, and consistency in home treatment regimens for optimal success were answered to their verbally confirmed satisfaction.?Shoe Gear Counseling:?The patient and I reviewed the types of shoes they should be wearing. My recommendation included obtaining a well-fitted shoe with a good supportive, non-foldable nor twistable sole, plenty of toe/room for the forefoot, and proper arch support. Based on todays examination, I recommended the patient look for new shoes, by having their feet professionally measured. We discussed that generally the best time of the day for a shoe fitting is the afternoon. Different shoes types and brands to best match the patients occupation and vocation were discussed. Specific brand selection will be up to the patient, their individual foot condition/deformities, and fit. The patient and I reviewed the standard new shoe break in period by wearing them for a few hours a day while checking for redness or sores as wear time is increased. The patient verbally confirmed to understanding the information discussed.? * Follow Up:?prn (Reason: Pre op) * Images: * Sign off status: Completed true * Provider:?Fern Anderson DPM Date:?0 11/27/2024 Generated for Christie moreau/Gilberto/Nikky on:?12/15/2024 01:39 PM EDT History and Physical Notes * HPI (History of Present Illness) Category Sub-Category Detail Notes Category Not es Toe pain Nature: tenderness Location: Right foot, second t oe Duration: several months Course: worse Aggravated by: any pressure, shoes Treatments: rest/alter normal da jarod activity, change in shoes, spacers, toe splinting Misc: Patient state the se cond toe rubbing the hallux has become intolerable. She used multiple spacers, changed shoes, and began wearing off the shelf orthotics Examination Category Sub-Category Detail Notes Category Not es Hammer Toes INSPECTION: callus/ bursal f ormation over the distal interphalangeal joint of second digit, medially as digit is abutting the proximal phalanx of the hallux. Callus/ bursa is tender to the touch. No underlying ulceration upon debridement. Hyperkeratotic lesion to the lateral aspect of the hallucal proximal phalanx, upon debridement, no underlying ulceration Neurological MOTOR STRENGTH: motor is grossly normal SENSORY: Neurological exam re veals intact sensorium, pain sensation normal, vibration sensation intact, pinprick sensation is normal in the lower extremities, Pt denies, anesthesia, burning, paresthesia, tingling, B/L Orthopedic DIGITAL DEFORMITIES: Digital con tracture, PIPJ, 2-5 B/L, incompl- reducible with WB, or to push-up test, Elongated 2nd toe(s) B/L MUSCLE STRENGTH: 5/5 all groups in a symmetrical fashion , B/L Vascular DORSALIS PEDIS PULSE: 2/4 , B/L EDEMA: none CAPILLARY REFILL: < 3 seconds , all di gits B/L TEMPERATURE GRADIENT: within normal limi ts POSTERIOR TIBIAL PULSE: 2/4 , B/L General Examination GENERAL APPEARANCE: Reveals a pleasant, alert, well nourished, well-developed, well hydrated individual, who demonstrates proper attention to hygiene/body habitus, and is in no acute distress , Pt serves as own historian for office visit today
--- OUTSIDE RECORDS SUMMARY | 2024-12-15 13:40 | XMS_ITS | Encounter Summary ---
Author Organization [facility], Address [address] [place] [address] Phone Care Team Providers Care Emergency Service Restorer Name Role Phone Thierno Velasquez MD Primary Care Provider [phone] Encounter Details Date Type Department Care Team (Late st Contact Info) Description 10/03/2024 Documentation Only [facility], [address] [place] [address] Opal Vazquez [address] [place] [phone] Social History Tobacco Use Types Packs/Day Years [...] Visit [facility] - [facility] [address] [place] [address] Jovan Jha MD [address] [place] [address] [place] [address] documented as of this encounter Visit Diagnoses Not on filedocumented in this encounter Care Teams Emergency Service Restorer Relationship Specialty Start Date End Date Thierno Velasquez MD [facility] [place] PCP - General 06/13/19 documented as of this encounter
--- OUTSIDE RECORDS SUMMARY | 2024-12-15 13:41 | XMS_ITS | Encounter Summary ---
Author Organization [facility], Address [address] [place] [address] Phone Care Team Providers Care Examination Supervisor Name Role Phone Thierno Velasquez MD Primary Care Provider [phone] Encounter Details Date Type Department Care Team (Late st Contact Info) Description 09/19/2024 Documentation Only [facility], [address] [place] [address] Opal Vazquez [address] [place] [phone] Social History Tobacco Use Types Packs/Day Years [...] Visit [facility] - [facility] [address] [place] [address] Jovan Jha MD [address] [place] [address] [place] [address] documented as of this encounter Visit Diagnoses Not on filedocumented in this encounter Care Teams Examination Supervisor Relationship Specialty Start Date End Date Thierno Velasquez MD [facility] [place] PCP - General 06/13/19 documented as of this encounter
--- OUTSIDE RECORDS SUMMARY | 2024-12-15 13:41 | XMS_ITS | Encounter Summary ---
Author Organization [facility], Address [address] [place] [address] Phone Care Team Providers Care Pump Rebuilder Name Role Phone Thierno Velasquez MD Primary Care Provider [phone] Encounter Details Date Type Department Care Team (Late st Contact Info) Description 09/19/2024 Documentation Only [facility], [address] [place] [address] Opal Vazquez [address] [place] [phone] Social History Tobacco Use Types Packs/Day Years [...] Visit [facility] - [facility] [address] [place] [address] Jovan Jha MD [address] [place] [address] [place] [address] documented as of this encounter Visit Diagnoses Not on filedocumented in this encounter Care Teams Pump Rebuilder Relationship Specialty Start Date End Date Thierno Velasquez MD [facility] [place] PCP - General 06/13/19 documented as of this encounter
--- OUTSIDE RECORDS SUMMARY | 2024-12-15 13:41 | XMS_ITS | Encounter Summary ---
Author Organization [facility], Address [address] [place] [address] Phone Care Team Providers Care Senior Architectural Designer Name Role Phone Thierno Velasquez MD Primary Care Provider [phone] Encounter Details Date Type Department Care Team (Late st Contact Info) Description 10/03/2024 Documentation Only [facility], [address] [place] [address] Opal Vazquez [address] [place] [phone] Social History Tobacco Use Types Packs/Day Years [...] Visit [facility] - [facility] [address] [place] [address] Jovan Jha MD [address] [place] [address] [place] [address] documented as of this encounter Visit Diagnoses Not on filedocumented in this encounter Care Teams Senior Architectural Designer Relationship Specialty Start Date End Date Thierno Velasquez MD [facility] [place] PCP - General 06/13/19 documented as of this encounter
--- OUTSIDE RECORDS SUMMARY | 2024-12-15 13:41 | XMS_ITS | Encounter Summary ---
Author Organization [facility], Address [address] [place] [address] Phone Care Team Providers Care Metals Sales Representative Name Role Phone Thierno Velasquez MD Primary Care Provider [phone] Encounter Details Date Type Department Care Team (Late st Contact Info) Description 09/19/2024 Documentation Only [facility], [address] [place] [address] Opal Vazquez [address] [place] [phone] Social History Tobacco Use Types Packs/Day Years [...] Visit [facility] - [facility] [address] [place] [address] Jovan Jha MD [address] [place] [address] [place] [address] documented as of this encounter Visit Diagnoses Not on filedocumented in this encounter Care Teams Metals Sales Representative Relationship Specialty Start Date End Date Thierno Velasquez MD [facility] [place] PCP - General 06/13/19 documented as of this encounter
--- OUTSIDE RECORDS SUMMARY | 2024-12-15 13:41 | XMS_ITS | Clinical Summary ---
Author Organization [facility], Address [address] [facility] [address] [place] [address] Phone Care Team Providers Care Visitor Use Assistant Name Role Phone Thierno Velasquez MD Primary Care Provider [phone] Allergies Active Allergy Reactions Criticality Noted Date [...] Only [facility] [address] [place] [address] George, Opal 10/03/2024 Documentation Only [facility] [address] [place] [address] George, Opal 10/03/2024 Documentation Only [facility] [address] [place] [address] George, Opal 10/02/2024 Office Communication [facility] - [address] [place] [address] Lubna Valentin 09/19/2024 2:00 PM EST Office Visit [facility] - [place] [address] [place] [address] Jovan Jha MD Stage 3b chronic kidney disease (HCC) (Primary Dx); Essential (primary) hypertension 09/19/2024 Documentation Only [facility] [address] [place] [address] George, Opal 09/19/2024 Documentation Only [facility] [address] [place] [address] George, Opal 09/19/2024 Documentation Only [facility] [address] [place] [address] Opal Vazquez 09/19/2024 Documentation Only [facility], [address] [place] [address] Opal Vazquez 09/19/2024 Documentation Only [facility], [address] [place] [phone] Opal Vazquez from Last 3 Months Immunizations [...] Visit [facility] - [facility] [place] [address] [facility] [place] [address] Jovan Jha MD [address] [place] [address] Health Maintenance Due Date Last Done [...] Glucose 86 70 - 99 mg/dL [facility] BUN 23 8 - 27 mg/dL [facility] Creatinine 1.59(H) 0.57 - 1.00 mg/dL [facility] eGFR CKD-EPI CR 2020 35(L) >59 mL/min/1.7 3 [facility] BUN/Creatinine Ratio 14 12 - 28 [facility] Sodium 142 134 - 144 mmol/L [facility] Potassium 4.3 3.5 - 5.2 mmol/L [facility] Chloride 106 96 - 106 mmol/L [facility] Bicarbonate (CO2) 20 20 - 29 mmol/L [facility] Calcium 9.4 8.7 - 10.3 mg/dL [facility] Albumin 4.3 3.9 - 4.9 g/dL [facility] Phosphorus 3.1 3.0 - 4.3 mg/dL [facility] 09/18/2024 9:35 AM EST 09/18/2024 Jovan Jha MD LAB BLOOD ORDERABLES Final Resul t [facility] [address] [place] [address] from Last 3 Months Insurance Medicare [facility] Care Teams Visitor Use Assistant Relationship Specialty Start Date End Date Thierno Velasquez MD [facility] [place] [place] [facility] - General 06/13/19
--- OUTSIDE RECORDS SUMMARY | 2024-12-15 13:41 | XMS_ITS | Encounter Summary ---
Author Organization [facility], Address [address] [place] [address] Phone Care Team Providers Care Mother Repairer Name Role Phone Thierno Velasquez MD Primary Care Provider [phone] Encounter Details Date Type Department Care Team (Late st Contact Info) Description 09/19/2024 Documentation Only [facility], [address] [place] [address] Opal Vazquez [address] [place] [phone] Social History Tobacco Use Types Packs/Day Years [...] Visit [facility] - [facility] [place] [facility] [address] [place] [address] Jovan Jha MD [address] [place] [address] [place] [address] documented as of this encounter Visit Diagnoses Not on filedocumented in this encounter Care Teams Mother Repairer Relationship Specialty Start Date End Date Thierno Velasquez MD [facility] [place] PCP - General 06/13/19 documented as of this encounter
--- OUTSIDE RECORDS SUMMARY | 2024-12-15 13:41 | XMS_ITS | Encounter Summary ---
Author Organization [facility], Address [address] [place] [address] Phone Care Team Providers Care Loan Underwriter Name Role Phone Thierno Velasquez MD Primary Care Provider [phone] Encounter Details Date Type Department Care Team (Late st Contact Info) Description 10/03/2024 Documentation Only [facility], [address] [place] [place] [address] Opal Vazquez [address] [place] [phone] Social History Tobacco Use Types Packs/Day Years [...] Visit [facility] - [facility] [place] [facility] [address] [place] [address] Jovan Jha MD [address] [place] [address] [place] [address] documented as of this encounter Visit Diagnoses Not on filedocumented in this encounter Care Teams Loan Underwriter Relationship Specialty Start Date End Date Thierno Velasquez MD [facility] [place] PCP - General 06/13/19 documented as of this encounter
--- OUTSIDE RECORDS SUMMARY | 2024-12-15 13:41 | XMS_ITS | Encounter Summary ---
Author Organization [facility], Address [address] [place] [address] Phone Care Team Providers Care Furrier Apprentice Name Role Phone Thierno Velasquez MD Primary Care Provider [phone] Encounter Details Date Type Department Care Team (Late Contact Info) Description 04/20/2024 Documentation Only [facility], [address] [place] [address] [place] [address] [place] [phone] Social History Tobacco Use Types Packs/Day Years [...] Visit [facility] - [facility] [address] [facility] [address] [place] [address] Jovan Jha MD [address] [place] [address] [place] [address] documented as of this encounter Visit Diagnoses Not on filedocumented in this encounter Care Teams Furrier Apprentice Relationship Specialty Start Date End Date Thierno Velasquez MD [facility] [place] PCP - General 06/13/19 documented as of this encounter
--- OUTSIDE RECORDS SUMMARY | 2024-12-15 13:41 | XMS_ITS | Encounter Summary ---
Author Organization [facility] [place], Address [address] [place] [address] Phone Care Team Providers Care Roofing Laborer Name Role Phone Thierno Velasquez MD Primary Care Provider Encounter Details Date Type Department Care Team (Late st Contact Info) Description 09/19/2024 Documentation Only [facility] [place], [address] [place] [address] Opal Vazquez [address] [place] [phone] Social History Tobacco Use Types Packs/Day Years [...] Visit [facility] [place] - [facility] [place] [facility] [address] [place] [address] Jovan Jha MD [address] [place] [address] [place] [address] documented as of this encounter Visit Diagnoses Not on filedocumented in this encounter Care Teams Roofing Laborer Relationship Specialty Start Date End Date Thierno Velasquez MD [facility] [place] PCP - General 06/13/19 documented as of this encounter
--- OUTSIDE RECORDS SUMMARY | 2024-12-15 13:41 | XMS_ITS ---
Author Organization [facility] Address [address] [place] [address] Care Team Providers Care Label Tacker Name Role Phone Thierno Velasquez Primary Care Provider Fern Mullins [phone] Allergies Allergen (clinical drug ingredient) Drug/Non Drug [...] Active Encounters Encounter Location Date Provider Diagnosis [facility] [address] [place] [address] 09/07/2024 Fern Anderson Plan Of Treatment No Information Progress Notes * Jj JACOBO MDOB: [birth year] (69 yo F)Acc No.[id number]:09/07/2024 Progress Note Patient:?DONNELL Jj Munoz Provider:?Fern Anderson DPM :1955???Age:69 Y???Sex:Female D ate:09/07/2024 Address:[address] [id number] Pcp:Thierno Velasquez Subjective: * Chief Complaints: * [...] Anderson DPM Date:?0 09/07/2024 Generated for Christie moreau/Gilberto/Bradleysmitting on:?12/15/2024 01:41 PM EDT
--- OUTSIDE RECORDS SUMMARY | 2024-12-15 13:41 | XMS_ITS | Patient Health Record ---
Author Organization [facility] Address [address] [place] [address] Care Team Providers Care Flour Broker Name Role Phone Thierno Velasquez MD Primary Care Provider Juan Haq [phone] Allergies Allergen (clinical drug ingredient) Drug/Non Drug [...] Problem Status W/U Status Risk Notes Problem [id number] Diverticulitis o f large intestine without perforation or abscess without bleeding (K57.32) Active confirmed Problem 133011346 Encounter for screening for malignant neoplasm of colon (Z12.11) Active confirmed Problem 398197490 Irritable bowel syndrome with diarrhea (K58.0) Active confirmed Problem 869570535 Diverticulitis (K57.92) Active confirmed Problem 947177666 Elevated liver function tests (R79.89) Active confirmed Problem Left lower quadrant pain (407979762) Left lower quadrant abdominal pain (R10.32) Active confirmed Vital Signs Blood pressure diastolic 001 mm Hg 08/31/2024 Height 67.5 in 08/31/2024 Blood pressure systolic 001 mm Hg 08/31/2024 Weight 143 lbs 08/31/2024 BMI 22.06 kg/m2 08/31/2024 Encounters Encounter Location Date [facility] [address] [place] [address] 08/31/2024 Juan Herbert Irritable bowel syndrome with diarrhea K58.0 and Encounter for screening for malignant neoplasm of colon Z12.11 [facility] [address] [place] [address] 12/27/2023 Juan Herbert [facility] [address] [place] [address] 04/27/2024 Juan Herbert [facility] [address] [place] [address] 06/29/2024 Juan Herbert Assessments Encounter Date Diagnosis [...] Date MEDICARE OF [place] [address] [place] [address] [id number] CABRERA JACOBO Self - patient is the insured [employer] ATT[employer] CLAIMS [address] [place] [address] [id number] CABRERA JACOBO Self - patient is the insured Medical (General) History Medical History History ICD Code IBS with predominantly diarr hea--uses Lomotil TID--negative labs for celiac disease in 2006 and in 05/2020 Denies AR,DM,CVA,Lung disease,renal dise ase HTN Colonoscopy in 2006 was negative--normal biopsies from TI and colon Neg. colonoscopy in 04/2018--neg. colon b iopsies for microscopic colitis Very mild changes of possibl e Sigmoid diverticulitis on the CT scan in 04/2020 at [facility]-treated with outpt Augmentin with some improvement. She was subsequently admitted to [facility] in early May for left sided abdominal pain--her CT scan at that time was normal. She was treated with a brief course of antibiotics but did seem to improve with the addition of dicyclomine. Elevated LFT's in Fall 2019 during her admission at [facility]- AST was 222 and the ALT was [...] Stress and anxiety Surgical History Surgery Date(Month/Year) [facility] Laparoscopy for endometriosis
--- OUTSIDE RECORDS SUMMARY | 2024-12-15 13:42 | XMS_ITS ---
Author Organization [facility] Address [address] [place] [address] Care Team Providers Care Application Assistant Name Role Phone Thierno Velasquez MD Primary Care Provider Juan Haq [phone] Allergies Allergen (clinical drug ingredient) Drug/Non Drug [...] 08/31/2024 Encounters Encounter Location Date Provider Diagnosis [facility] [address] [facility] [address] [place] [address] 08/31/2024 Juan Herbert Irritable bowel syndrome with [...] CABRERA JACOBO MDOB: [birth year] (69 yo F)Acc No.[id number]:08/31/2024 Progress Notes Patient:?CABRERA JACOBO Provider:?Juan Herbert MD :1955???Age:69 Y???Sex:Female D ate:08/31/2024 Address:[address] [place], [place] [id number] Pcp:Thierno Velasquez MD Subjective: * Chief Complaints: [...] (0 point),?Points?3,?Interpretation?Positive.?Miscellaneous:?Marital status: . 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 ???No smoking. She describes a previous history [...] Procedure Codes:?3017F COLOR ECTAL CA SCREEN DOC [id number] TOBACCO [id number] BP SCR NOT PRFRM REC REASON NOS * Preventive Medicine:? ??Urinary Incontinence:?Urinary Incontinence?Assessment:?Absent,?Plan of care documented:?No, reason not specified.? ??Screenings:?Fall Risk Screening?Fall Risk Assessment:?No falls in the past year,?Screening:?No falls in the past year,?Plan of Care:?Not documented, no reason specified.? * Follow Up:?prn * * Sign off status: Completed true * Provider:?Juan Herbert MD Date:? 025 Generated for Christie moreau/Gilberto/Luis Eduardoitting on:?12/15/2024 01:42 PM EDT History and Physical Notes * [...]
== END 2024-12-15 12:50 | disposition home or self-care (01) ==
LOC: HO.HOSX 12:49
PROVIDERS: PCP Internal Medicine; Visit Provider Neurological Surgery
DX: S32.010A Wedge compression fracture of first lumbar vertebra, initial encounter for closed fracture (principal)
CPT/HCPCS: 72100; 99212

== ENCOUNTER → 2024-12-15 14:02 | Outpatient (BNV) | payer MEDICARE, SELFPAY | PROVIDERS: PCP Internal Medicine; Visit Provider Radiology Diagnostic Radiology | DX: S32.010A Wedge compression fracture of first lumbar vertebra, initial encounter for closed fracture (principal) | CPT/HCPCS: 72100 ==

== ENCOUNTER 2025-06-01 14:59 | Inpatient (IN) | payer MEDICARE, SELFPAY ==
--- OUTSIDE RECORDS SUMMARY | 2020-06-29 13:25 | XMS_ITS | Encounter Summary ---
Author Organization [facility] Address [address] [place] [phone] Phone Care Team Providers Care Tube Room Supervisor Name Role Phone Thierno Velasquez MD Primary Care Provider + Encounter Details Date Type Department Care Team (Late st Contact Info) Description 06/29/2020 12:25 PM EST Hospital Encounter [facility] [address] [place] [phone] Jus Ocasio PA [address] [place] [phone] [email or web address] Social History Tobacco Use Types Packs/Day [...] indeterminate superior endplate compression deformity of the [id number]. 2.No displaced fracture or traumatic malalignment. ATTESTATION: Toño, Zi Rachel as teaching physician, have reviewed theimages for this case and if necessary edited the report originally createdby Kuldeep Cortez. us Jus REAVES IMG XR SPINE Final Resul t documented in this encounter Visit Diagnoses Not on filedocumented in this encounter Care Teams Tube Room Supervisor Relationship Specialty Start Date End Date Thierno Velasquez MD PCP - General Internal Medicine 06/29/20 documented as of this encounter Additional Source Comments The information contained in this document represents components of the legal health record. It is not the complete legal health record.[facility]
--- OUTSIDE RECORDS SUMMARY | 2020-06-29 13:30 | XMS_ITS | Encounter Summary ---
Author Organization [facility] Address [address] [place] [phone] Phone Care Team Providers Care Registration Rep Name Role Phone Thierno Velasquez MD Primary Care Provider + Encounter Details Date Type Department Care Team (Late st Contact Info) Description 06/29/2020 12:30 PM EST Hospital Encounter [facility] [address] [place] [phone] Jus Ocasio PA [address] [place] [phone] [email or web address] Social History Tobacco Use Types Packs/Day [...] on filedocumented in this encounter Care Teams Registration Rep Relationship Specialty Start Date End Date Thierno Vleasquez MD PCP - General Internal Medicine 06/29/20 documented as of this encounter Additional Source Comments The information contained in this document represents components of the legal health record. It is not the complete legal health record.[facility]
--- OUTSIDE RECORDS SUMMARY | 2024-04-27 05:00 | XMS_ITS ---
Author Organization [facility] Address [address] [place] [phone] Care Team Providers Care Office Technology Instructor Name Role Phone Ron LEE, Thierno Primary Care Provider Juan Haq [phone] REASON FOR VISIT Patient presents today for IBS Encounters Encounter Location Date Provider Diagnosis [facility] [address] [place] [phone] 04/27/2024 Juan Herbert Plan Of Treatment No Information Progress Notes * CABRERA JACOBO MDOB: [birth year] (70 yo F)Acc No.[id number]:04/27/2024 Progress Notes Patient: CABRERA PRESLEY Provider: Pancho Herbert MD :1955 A ge:69 Y S ex:Female Date:04/27/2024 Address:[address] [place], [place] [phone] Pcp:Thierno Vleasquez MD Subjective: * Chief Complaints: * 1 . Patient presents today for IBS. * Medical History: Objective: * Vitals: Assessment: Plan: * Treatment: * * The named appointment provid er may or may not be the originator of this progress note, and it is not deemed complete until electronically signed by the appointment provider. Sign off status: Pending * Provider: Pancho Herbert MD Date: 0 04/27/2024 Generated for Printi ng/Faxing/eTransmitting on: 05:35 PM EDT
--- OUTSIDE RECORDS SUMMARY | 2024-06-26 10:00 | XMS_ITS ---
Author Organization [facility] Address [address] [place] [address] Care Team Providers Care Research And Development Director Name Role Phone Thierno Velasquez Primary Care Provider UnavailFern Matos Unavailable [phone] Hoang Yuen Unavailable [phone] REASON FOR VISIT r/s for sooner apt Encounters Encounter Location Date Provider Diagnosis [facility] [address] [place] [address] 06/26/2024 Hoang Yuen Plan Of Treatment No Information Progress Notes * Jj JACOBO MDOB: [birth year] (70 yo F)Acc No.[id number]:06/26/2024 Progress Notes Patient: Jj PRESLEY Provider: Juanjo Yuen DPM :1955 A ge:69 Y S ex:Female Date:06/26/2024 Address:[address] [place], [place] [id number] Pcp:Thierno Velasquez Subjective: * Chief Complaints: * [...] Date: 08/26/2023 Generated for Christie moreau/Gilberto/eTransmitting on: 05:35 PM EDT
--- OUTSIDE RECORDS SUMMARY | 2024-07-24 05:15 | XMS_ITS ---
Author Organization [facility] Address [address] [place] [address] Care Team Providers Care Assembly Riveter Name Role Phone Thierno Velasquez Primary Care Provider Fern Mullins [phone] Encounters Encounter Location Date Provider Diagnosis [address] [address] 07/24/2024 Fern Anderson Plan Of Treatment No Information Progress Notes * Denzel JACOBOele MDOB: [birth year] (70 yo F)Acc No.[id number]:07/24/2024 Progress Note Patient: Jj PRESLEY Provider: Charles Anderson DPM :1955 A ge:69 Y S ex:Female Date:07/24/2024 Address:[address] [place], [place] [id number] Pcp:Thierno Velasquez Subjective: * Chief Complaints: * * Medical History: Objective: * Vitals: Assessment: Plan: * Treatment: * Images: * The named appointment provid er may or may not be the originator of this progress note, and it is not deemed complete until electronically signed by the appointment provider. Sign off status: Pending * Provider: Charles Anderson DPM Date: 09/24/2023 Generated for Christie ng/Fajasong/eTransmitting on: 05:34 PM EDT
--- OUTSIDE RECORDS SUMMARY | 2024-07-27 12:00 | XMS_ITS ---
Author Organization [facility] Address [address] [place] [address] Care Team Providers Care Editor City Name Role Phone Thierno Velasquez Primary Care Provider Fern Mullins [phone] Encounters Encounter Location Date Provider Diagnosis [address] [address] 07/27/2024 Fern Anderson Plan Of Treatment No Information Progress Notes * Denzel JACOBOele MDOB: [birth year] (70 yo F)Acc No.[id number]:07/27/2024 Progress Note Patient: Jj PRESLEY Provider: Charles Anderson DPM :1955 A ge:69 Y S ex:Female Date:07/27/2024 Address:[address] [place], [place] [phone] Pcp:Thierno Velasquez Subjective: * Chief Complaints: * * Medical History: Objective: * Vitals: Assessment: Plan: * Treatment: * Images: * The named appointment provid er may or may not be the originator of this progress note, and it is not deemed complete until electronically signed by the appointment provider. Sign off status: Pending * Provider: Charles Anderson DPM Date: 09/27/2023 Generated for Christie ng/Fajasong/eTransmitting on: 05:34 PM EDT
--- OUTSIDE RECORDS SUMMARY | 2024-09-07 06:45 | XMS_ITS ---
Author Organization [facility] Address [address] [place] [address] Care Team Providers Care Electric Clock Mechanic Name Role Phone Thierno Velasquez Primary Care Provider Fern Mullins [phone] Allergies Allergen (clinical drug ingredient) Drug/Non Drug [...] Active Encounters Encounter Location Date Provider Diagnosis [facility] [address] [place] [address] 09/07/2024 Fern Anderson Plan Of Treatment No Information Progress Notes * Jj JACOBO MDOB: [birth year] (70 yo F)Acc No.[id number]:09/07/2024 Progress Note Patient: Jj PRESLEY Provider: Charles Anderson DPM :1955 A ge:69 Y S ex:Female Date:09/07/2024 Address:[address] [facility] Pcp:Thierno Velasquez Subjective: * Chief Complaints: * [...] 0 09/07/2024 Generated for Christie moreau/Gilberto/Nikky on: 05:35 PM EDT
--- NOTE | ~2025-06-01 | CT_ITS ---
CLINICAL HISTORY: LLQ tenderness Exam: Contrast-enhanced CT abdomen and pelvis with multiplanar reformats. Comparison: None. Findings: CT abdomen: Lung bases are clear. Liver is free of gross focal lesions and ductal dilatation. Gallbladder is unremarkable. Spleen is unremarkable. Pancreas and adrenal glands appear unremarkable. Kidneys reveal a small left renal mid to lower pole cyst measuring up to 16 mm (4; 219, -5 Hounsfield units), and right renal mid to upper pole cyst measuring 14 mm (4; 206, 0 Hounsfield units). Kidneys otherwise unremarkable. No urolithiasis or hydroureteronephrosis. No free intraperitoneal fluid or retroperitoneal masses or adenopathy. Abdominal aorta is normal caliber with [id number] calcific atherosclerosis. Bowel loops reveal no abnormal wall thickening or distention. The appendix is not definitively delineated, however, there is no CT evidence of appendicitis. No significant diverticular disease. CT pelvis: Uterus is surgically absent. Urinary bladder is nondistended. No pelvic masses, fluid or adenopathy. Osseous structures reveal no destructive osseous lesions. There are remote appearing anterior compression deformities at L1 and L2, without fracture lines or paravertebral stranding to suggest acute/subacute fractures. Impression: 1. No acute abnormality or CT explanation for left lower quadrant tenderness. Specifically, no CT evidence of diverticulitis. This document has been electronically signed by: Karan Romero MD on 06/01/2025 18:50:50
--- NOTE | 2025-06-01 15:22 | ED.ABDPAIN ---
HPI - Abdominal Pain General Chief Complaint: Abdominal Pain Stated Complaint: L Lower ABD Pain, Diarrhea Time Seen by Provider: 06/01/25 17:51 Source: patient, RN notes reviewed, old records reviewed and other ([facility] records) Mode of arrival: ambulatory Limitations: no limitations History of Present Illness ED Provider: Girish HPI narrative: Patient is a 70-year-old female with history of CKD stage IIIB, IBS, diverticulitis, GERD, HTN, malignant melanoma, insomnia, peptic ulcer disease presenting to the emergency department with complaint of left-sided abdominal pain for the past few weeks which suddenly worsened today. She reports that she has been having diarrhea but this is not abnormal for her IBS. Reports nausea with 1 episode of vomiting. Reports emesis was nonbloody, nonbilious. Denies fevers. Denies dysuria, frequency or other urinary symptoms. States she thinks she was admitted for diverticulitis in the past. Denies hematochezia or melena. Does report recent 6 lb weight loss. Reports decreased p.o. intake due to pain and nausea. MD elicited complaint: abdominal pain Related Data Home Medications ?Medication ?Instructions ?Recorded ?Confirmed lorazepam 1 mg tablet 1 tab PO BEDTIME 05/09/20 05/09/20 metoprolol tartrate 25 mg tablet 1 tab PO DAILY 05/09/20 05/09/20 omeprazole 20 mg capsule,delayed 1 cap PO DAILY 05/09/20 05/09/20 release Previous Rx's ?Medication ?Instructions ?Recorded dicyclomine 10 mg capsule 20 mg (2 x 10 mg) PO TIDAC #30 caps 05/11/20 amoxicillin 500 mg capsule 1,000 mg (2 x 500 mg) PO TID 5 06/09/24 days #30 caps doxycycline hyclate 100 mg tablet 100 mg PO Q12H 5 days #10 tabs 06/09/24 morphine 15 mg immediate release 15 mg PO Q8H PRN pain #10 tabs 06/09/24 tablet prednisone 20 mg tablet 60 mg (3 x 20 mg) PO DAILY 5 days 06/09/24 #15 tabs Allergies Allergy/AdvReac Type Severity Reaction Status Date / Time Darvocet-N 100 Allergy Intermediate Hives Verified 06/01/25 15:28 propoxyphene (From DARVON) Allergy Intermediate Hives Verified 06/01/25 15:28 sulfamethoxazole (From Allergy Rash Verified 06/01/25 15:28 Bactrim) trimethoprim (From Bactrim) Allergy Rash Verified 06/01/25 15:28 ibuprofen AdvReac Unknown Verified 06/01/25 15:29 Darvocet A500 Allergy Intermediate Hives Uncoded 06/09/24 11:58 Darvocet-N 50 Allergy Intermediate Hives Uncoded 06/09/24 11:58 Review of Systems Review of Systems as per hpi Yes all other systems are reviewed and are negative Constitutional: Reports as per HPI [facility] Past Medical History Medical History Hypertension Irritable bowel syndrome Ovarian cyst Surgical History History of adenoidectomy History of hysterectomy History of tonsillectomy Hx of appendectomy S/P removal of ovarian cyst Social History Social History Alcohol intake: current Alcohol intake frequency: holidays/special occasions only Alcohol type: wine Comment: still has headaches Smoked in Last 30 Days: No Use of substances other than those prescribed or required for medical reasons: No Advance Directives: Yes Advance Directives Information Provided: Yes Advance Directives on File: No service: No Current occupational status: previously employed Physical Exam ED Vital Signs: Vital Signs - 24 hr 06/01/25 15:26 06/01/25 17:32 06/01/25 18:49 Temperature 97.8 F 98.4 F Pulse Rate 64 64 Respiratory Rate 18 14 14 Blood Pressure 187/85 H 172/91 H Pulse Oximetry 100 97 Oxygen Delivery Method Room Air Room Air 06/01/25 20:49 Temperature 98.4 F Pulse Rate 60 Respiratory Rate 18 Blood Pressure 193/85 H Pulse Oximetry 98 Oxygen Delivery Method Room Air BMI result Body Mass Index 20.7 Vital signs have been reviewed and appear to be correct. Blood pressure normal. Heart rate normal. Respiratory rate normal. Temperature normal. Oxygen saturation normal. Const General: cooperative, healthy appearing and no acute distress Orientation/consciousness: oriented to person, oriented to place, oriented to time and patient oriented x3 Limitations: no limitations HENMT Head: Yes normocephalic and Yes atraumatic Ears: external ears normal General nose exam: Normal external nose present Face and sinus: Yes face symmetric Mouth: oropharynx normal and moist mucous membranes Throat: Yes uvula midline Eyes Pupils: Equal, round and reactive pupils present Neck Neck: Yes normal visual inspection and Yes supple Resp Effort & Inspection: normal respiratory effort and able to speak in complete sentences Auscultation: clear to auscultation bilaterally Cardio Rate: regular rate Rhythm: regular rhythm Heart sounds: S1 normal heart sound present and S2 normal heart sound present GI Palpation (GI): Soft to palpation, Tenderness to palpation present (GI) in the LLQ and in the LUQ, no guarding and No Rebound tenderness present Auscultation: normoactive bowel sounds General: Yes no CVA tenderness Back/Spine/Pelvis Back: no CVA tenderness Skin General skin exam: elasticity normal and turgor normal Neuro General: oriented to person, oriented to place, oriented to time, patient oriented x3, moves all extremities, no focal motor deficits and CN's II-XI intact bilaterally Cranial nerves: Yes Equal, round and reactive pupils present Cognition (Neuro): normal cognition Extrem General: Yes full ROM, Yes no pedal edema and Yes no calf tenderness Psych Mental Status: mental status grossly normal Affect: Anxious affect present Thought process: Normal thought process present Course Course Course Narrative: Juliana Diaz FOLDER STITCHER OPERATOR 06/01 1525 This is a rapid medical exam. Deferred additional HPI, ROS, PE to primary provider. 70 yo female with history of CKD, IBS here with left sided abdominal pain, diarrhea. Will obtain labs, UA VSS Medical Decision Making Medical Decision Making MDM Narrative: Patient is a 70-year-old female with history of CKD stage IIIB, IBS, diverticulitis, GERD, HTN, malignant melanoma, insomnia, peptic ulcer disease presenting to the emergency department with complaint of left-sided abdominal pain for the past few weeks which suddenly worsened today. On exam patient is awake, A+Ox3, VS WNL, afebrile, normal neurological exam without focal deficits, physical exam findings as above. Given reported symptoms and physical exam findings, initial differential includes but is not limited to diverticulitis, abscess, perforation, IBS, UTI/pyelonephritis, obstructing ureteral calculi. Labs notable for elevated BUN/creatinine, elevated alk phos, . Non constrast CT A/P notable for no evidence of diverticulitis, abscess, perforation. My interpretation is in agreement with the radiologist's interpretation. Case discussed with Dr. Arcos who also examined patient. He recommends repeat CMP, VBG and lactic. Repeat labs without significant change, normal lactic, VBG unremarkable. Lab Data 06/01/25 15:35 06/01/25 20:13 Labs: Lab Results 06/01/25 06/01/25 06/01/25 Range/Units 15:34 15:35 17:42 WBC 6.9 (4.8-10.8) X10*3/uL RBC 3.90 L (4.20-5.50) X10*6/uL Hgb 11.6 L (12.0-16.0) g/dl Hct 36.1 L (37.0-47.0) % MCV 92.6 (80.0-98.0) fL MCH 29.7 (27.0-33.0) pg MCHC 32.1 (31.0-35.0) g/dl RDW 16.6 H (11.0-16.0) % Plt Count 181 (160-400) X10*3/uL MPV 11.1 (9.4-12.3) fL Immature Gran % (Auto) 1.5 H (0.0-0.4) % Neut % (Auto) 49.6 (45-73) % Lymph % (Auto) 35.0 (20-40) % [place] % (Auto) 11.6 H (2-11) % Eos % (Auto) 1.9 (0-4) % Baso % (Auto) 0.4 (0-2) % Lymph # (Auto) 2.4 (1.2-4.9) X10*3/uL [place] # (Auto) 0.8 (0.1-1.2) X10*3/uL Eos # (Auto) 0.1 (0.0-0.4) X10*3/uL Baso # (Auto) 0.0 (0.0-0.2) X10*3/uL Abs Immat Gran (auto) 0.10 H (0.00-0.03) X10*3/uL Absolute Neuts (auto) 3.4 (2.0-8.3) x10*3/uL Absolute Nucleated RBC 0.000 (0.0-0.012) X10*3/uL Nucleated RBC % (auto) 0.0 (0.0-0.2) /100WBC VBG pH (7.32-7.43) VBG pCO2 mmHg VBG pO2 mmHg VBG HCO3 (22-26) mmol/L VBG O2 Saturation % VBG Base Excess mmol/L Sodium 140 (135-145) mmol/L Potassium 4.5 (3.3-5.1) mmol/L Chloride 112 H (96-108) mmol/L Carbon Dioxide 18 L (22-29) mmol/L Anion Gap 15 (12-20) BUN 23 H (9-16) mg/dL Creatinine 2.52 H (0.5-1.4) mg/dL Estim Creat Clear Calc 20.5 Estimated GFR 19 Random Glucose 72 (60-115) mg/dL Lactic Acid (0.5-2.0) mmol/L Calcium 8.8 D (8.4-10.2) mg/dL Total Bilirubin 0.4 (0.0-1.0) mg/dL Direct Bilirubin 0.1 (0.0-0.5) mg/dL AST 45 H (5-31) U/L ALT 89 H (0-31) U/L Alkaline Phosphatase 397 H (39-117) U/L Total Protein 6.3 L (6.5-8.0) g/dL Albumin 3.6 (3.5-5.0) g/dL Lipase 24 (8-78) U/L Urine Color Yellow Urine Appearance Clear Urine pH 5.5 (5.0-9.0) Ur Specific [place] 1.010 (1.005-1.025) Urine Protein Negative (Neg-Trace) mg/dL Urine Glucose (UA) Negative (Negative) mg/dL Urine Ketones Negative (Negative) mg/dL Urine Blood Negative (Negative) Urine Nitrite Negative (Negative) Ur Leukocyte Esterase Trace H (Negative) Urine RBC 0-2 (0-2) /HPF Urine WBC 0-5 (0-5) /HPF Ur Squamous Epith Cells 0-2 (0-2) /HPF Urine Bacteria None Seen (None Seen) Hyaline Casts 0-2 (0-2) /LPF 06/01/25 06/01/25 Range/Units 20:13 20:19 WBC (4.8-10.8) X10*3/uL RBC (4.20-5.50) X10*6/uL Hgb (12.0-16.0) g/dl Hct (37.0-47.0) % MCV (80.0-98.0) fL MCH (27.0-33.0) pg MCHC (31.0-35.0) g/dl RDW (11.0-16.0) % Plt Count (160-400) X10*3/uL MPV (9.4-12.3) fL Immature Gran % (Auto) (0.0-0.4) % Neut % (Auto) (45-73) % Lymph % (Auto) (20-40) % [place] % (Auto) (2-11) % Eos % (Auto) (0-4) % Baso % (Auto) (0-2) % Lymph # (Auto) (1.2-4.9) X10*3/uL [place] # (Auto) (0.1-1.2) X10*3/uL Eos # (Auto) (0.0-0.4) X10*3/uL Baso # (Auto) (0.0-0.2) X10*3/uL Abs Immat Gran (auto) (0.00-0.03) X10*3/uL Absolute Neuts (auto) (2.0-8.3) x10*3/uL Absolute Nucleated RBC (0.0-0.012) X10*3/uL Nucleated RBC % (auto) (0.0-0.2) /100WBC VBG pH 7.39 (7.32-7.43) VBG pCO2 34 mmHg VBG pO2 37 mmHg VBG HCO3 21 L (22-26) mmol/L VBG O2 Saturation 51.0 % VBG Base Excess -2.9 mmol/L Sodium 141 (135-145) mmol/L Potassium 4.6 (3.3-5.1) mmol/L Chloride 113 H (96-108) mmol/L Carbon Dioxide 18 L (22-29) mmol/L Anion Gap 15 (12-20) BUN 24 H (9-16) mg/dL Creatinine 2.27 H (0.5-1.4) mg/dL Estim Creat Clear Calc 22.8 Estimated GFR 21 Random Glucose 76 (60-115) mg/dL Lactic Acid 1.0 (0.5-2.0) mmol/L Calcium 9.0 (8.4-10.2) mg/dL Total Bilirubin 0.5 (0.0-1.0) mg/dL Direct Bilirubin (0.0-0.5) mg/dL AST 43 H (5-31) U/L ALT 77 H (0-31) U/L Alkaline Phosphatase 356 H (39-117) U/L Total Protein 5.8 L (6.5-8.0) g/dL Albumin 3.4 L (3.5-5.0) g/dL Lipase (8-78) U/L Urine Color Urine Appearance Urine pH (5.0-9.0) Ur Specific [place] (1.005-1.025) Urine Protein (Neg-Trace) mg/dL Urine Glucose (UA) (Negative) mg/dL Urine Ketones (Negative) mg/dL Urine Blood (Negative) Urine Nitrite (Negative) Ur Leukocyte Esterase (Negative) Urine RBC (0-2) /HPF Urine WBC (0-5) /HPF Ur Squamous Epith Cells (0-2) /HPF Urine Bacteria (None Seen) Hyaline Casts (0-2) /LPF Medications Administered Discontinued Medications Generic Name Dose Route Start Last Admin Trade Name Freq PRN Reason Stop Dose Admin Lactated Ringer's 1,000 mls @ 999 mls/hr 06/01/25 18:00 06/01/25 19:08 Lr IV 06/01/25 19:00 Infused .Q1H1M RAQUEL Infusion Morphine Sulfate 5 mg 06/01/25 18:18 06/01/25 18:49 Morphine Sulfate 10 Mg/Ml Cartridge IVPUSH 06/01/25 18:19 5 mg ONCE ONE Administration Protocol Ondansetron HCl 4 mg 06/01/25 18:18 06/01/25 18:49 Ondansetron Hcl 4 Mg/2 Ml Vial IVPUSH 06/01/25 18:19 4 mg ONCE ONE Administration Discharge Plan Discharge Clinical Impression: DIVINA (acute kidney injury), Intractable abdominal pain Patient Disposition: Admitted As Inpatient
[2025-06-01 15:26] VITALS: BP 187/85; PULSE 64; RESP 18; TEMP 36.6; O2SAT 100; BMI 20.7
[2025-06-01 15:39] LABS: MANUAL DIFF FLAG NO
[2025-06-01 15:40] LABS: Hematocrit 36.1 % (37.0-47.0); Hemoglobin 11.6 g/dl (12.0-16.0); Imm Gran Abs Auto 0.10 X10*3/uL (0.00-0.03); Imm Gran Pct Auto 1.5 % (0.0-0.4); Lymphocytes Absolute Auto 2.4 X10*3/uL (1.2-4.9); Mean Corpuscular HGB Conc 32.1 g/dl (31.0-35.0); Mean Corpuscular Hemoglobin 29.7 pg (27.0-33.0); Mean Corpuscular Volume 92.6 fL (80.0-98.0); NRBC Abs Auto 0.000 X10*3/uL (0.0-0.012); NRBC Pct Auto 0.0 /100WBC (0.0-0.2); Platelet Count 181 X10*3/uL (160-400); Red Blood Count 3.90 X10*6/uL (4.20-5.50); White Blood Count 6.9 X10*3/uL (4.8-10.8)
[2025-06-01 16:00] LABS: Alanine Aminotransferase 89 U/L (0-31); Albumin Level 3.6 g/dL (3.5-5.0); Alkaline Phosphatase 397 U/L (39-117); Anion Gap 15 (12-20); Aspartate Amino Transferase 45 U/L (5-31); Blood Urea Nitrogen 23 mg/dL (9-16); Calcium 8.8 mg/dL (8.4-10.2); Carbon Dioxide 18 mmol/L (22-29); Chloride 112 mmol/L (96-108); Creatinine Clr Calc Pharmacy 20.5; Estimated Glomerular Filt Rate 19; Lipase 24 U/L (8-78); Potassium 4.5 mmol/L (3.3-5.1); Sodium 140 mmol/L (135-145); Total Protein 6.3 g/dL (6.5-8.0)
[2025-06-01 17:32] VITALS: BP 172/91; PULSE 64; RESP 14; TEMP 36.9; O2SAT 97
--- OUTSIDE RECORDS SUMMARY | 2025-06-01 17:34 | XMS_ITS | Clinical Summary ---
Author Organization [facility] Address [address] [place] [id number] Phone Care Team Providers Care Learning Disabilities Specialist Name Role Phone Thierno Velasqeuz MD Primary Care Provider + Allergies Active Allergy Reactions Criticality Noted Date Comments Amoxicillin-Pot Clavulanate Diarrhea 02/08/20 24 Propoxyphene N-Acetaminophen 020 Ibuprofen Other (See Comments) 02/22/2020 Medications metoprolol tartrate (LOPRESSOR) 25 MG tablet Take 25 mg by mouth 2 (two) times a day. 05/24/2020 Active omeprazole (PRILOSEC) 20 MG capsule TK 1 C PO QD 1 HOUR B MEALS 05/08/2020 Active LORazepam (ATIVAN) 1 MG tablet TK 1 T PO D HS 06/03/2020 Active escitalopram oxalate (LEXAPRO) 10 MG tablet Take 10 mg by mouth. 01/31/2024 Active estradioL (ESTRACE) 0.01 % (0.1 mg/gram) vaginal cream Place 1 g vaginally. 02/14/2024 Active metoprolol succinate (TOPROL-XL) 50 MG 24 hr tablet Take 50 mg by mouth daily. Active traMADoL (ULTRAM) 50 mg tablet Take 50 mg by mouth. 08/13/2023 Active Active Problems Problem Noted Date Diagnosed Date Actinic keratoses 05/16/2023 05/16/2023 Allergic rhinitis 05/16/2023 05/16/2023 Chronic cough 05/16/2023 05/16/2023 Focal choroiditis and chorioretinitis, juxtapapi llary 05/16/2023 05/16/2023 Overview (05/16/2023): HEADACHE Eczema 05/16/2023 05/16/2023 Diverticulitis 05/16/2023 05/16/2023 Compression fracture of L3 vertebra with delayed healing 05/16/2023 05/16/2023 GERD (gastroesophageal reflux disease) 3 05/16/2023 H/O Malignant melanoma 05/16/2023 Osteopenia 05/16/2023 05/16/2023 IBS (irritable bowel syndrome) 05/16/2023 1 Peptic ulcer disease 05/16/2023 05/16/2023 Essential (primary) hypertension 03/05/2020 05/16/2023 Stage 3b chronic kidney disease 02/22/2020 05/16/2023 Overview (05/16/2023): Update for Diagnosis Load Per chart review meeting GFR criteria Per chart review meeting GFR criteria Immunizations Immunization Administration Dates Next Due INFLUENZA, SPLIT VIRUS, TRIVALENT PF 06/25/2016 INFLUENZA, SPLIT VIRUS, TRIV ALENT W/ PRESERVATIVE IM 03/09/2018,05/22/2013 Influenza Quadrivalent Adjuv anted Preservative Free IM 05/24/2021 Influenza Quadrivalent MDCK Preservative Free IM 05/08/2020,05/01/2019,06/17/2017 Influenza Quadrivalent Preservative Free IM 05/09 Tdap 08/09/2015 Zoster live 06/25/2016 Zoster recombinant 07/27/2018,05/25/2018 Social History Tobacco Use Types Packs/Day Years Used Date Smoking Tobacco: Never Smokeless Tobacco: Never Tobacco Cessation:Counseling Given: Not Answered Education Answer Date Recorded Are you interested [...] Sign Reading Time Taken Comments Blood Pressure 139/84 03/30/2024 12:57 PM EDT Pulse 68 03/30/2024 12:57 PM EDT Temperature 36.7 C (98 F) 03/30/2024 12:57 PM EDT Respiratory Rate 18 03/30/2024 12:57 PM EDT Oxygen Saturation 99% 03/30/2024 12:57 PM EDT Inhaled Oxygen Concentration - - Weight 70.3 kg (155 lb) 05/16/2023 10:45 AM EDT Height 172.7 cm (5' 8 ) 05/16/2023 10:45 AM EDT Body Mass Index 23.57 05/16/2023 10:45 AM EDT Plan of Treatment Health Maintenance Due Date Last Done Comments LIPID PANEL 1956 DEPRESSION SCREENING 1968 HEPATITIS C SCREENING 1974 MAMMOGRAM 1996 COLOGUARD 2001 COLONOSCOPY 2001 COLORECTAL CANCER SCREENING 2001 FIT TEST 2001 FOBT 2001 SIGMOIDOSCOPY 2001 VIRTUAL COLONOSCOPY 2001 PNEUMOCOCCAL VACCINES (50+ years) (1 of 1 - PCV) 2006 OSTEOPOROSIS SCREENING INITIAL (ONE-TIME) 2021 BLOOD PRESSURE 09/30/2024 03/30/2024 INFLUENZA VACCINE (#1) 2025 , 05/08/2020, 05/01/2019, Additional history exists COVID-19 VACCINE (2 - season) 2025 11/13/2020 Adult Td,Tdap Booster 08/09/2025 08/09/2015 RSV VACCINE (1 - 1-dose 75+ series) 2031 ZOSTER VACCINES Completed 07/27/2018, 05/09, 06/25/2016 SMOKING STATUS SCREENING (Once After 26 Yrs) Completed 03/30/2024 HEPATITIS A VACCINES Aged Out No long er eligible based on patient's age to complete this topic HIB VACCINES Aged Out No longer eligi ble based on patient's age to complete this topic MENINGOCOCCAL VACCINES (ACWY) Aged Out No longer eligible based on patient's age to complete this topic MENINGOCOCCAL VACCINES (B) Aged Out N o longer eligible based on patient's age to complete this topic Medical Devices Not on file Insurance [facility] Member Subscriber Plan / Payer (Ef fective 2019-Present) Name:Jj Madison Relation to Subscriber:Self Name:Jj Madison Payer ID:Not on file Type:O Address: [address] MEDEX SUPPLEMENT MEDICARE PART A & B [facility] H[facility] [employer] MEDEX SUPPLEMENT MEDICARE PART A & B [facility] HMO [facility] HMO [facility] Address: [address] [address] [facility] Address: [address] [address] [employer] MEDEX SUPPLEMENT MEDICARE PART A & B [address] [place], [place] [id number] [facility] Address: [address] [address] [facility] Address: [address] [address] [employer] MEDEX SUPPLEMENT MEDICARE PART A & B [facility] HMO [facility] Address: [address] [place] [address] MEDEX SUPPLEMENT MEDICARE PART A & B [facility] HMO [facility] Address: [facility] [address] [place] [address] [employer] [employer] MEDEX SUPPLEMENT MEDICARE PART A & B Care Teams Learning Disabilities Specialist Relationship Specialty Start Date End Date Thierno Velasquez MD PCP - General Internal Medicine 06/29/20 Additional Source Comments The information contained in this document represents components of the legal health record. It is not the complete legal health record.[facility]
--- OUTSIDE RECORDS SUMMARY | 2025-06-01 17:34 | XMS_ITS | Encounter Summary ---
Author Organization [facility], Address [address] [place] [address] Phone Care Team Providers Care Recruiting Internship Name Role Phone Thierno Velasquez MD Primary Care Provider [phone] Encounter Details Date Type Department Care Team (Late st Contact Info) Description 09/19/2024 Documentation Only [facility], [address] [address] Opal Vazquez [address] [place] [phone] Social History Tobacco Use Types Packs/Day Years [...] Care Team (Late st Contact Info) Description 09/04/2025 2:30 PM EST Office Visit [facility] - [facility] [address] [place] [address] Jovan Jha MD [address] [place] [address] [place] [address] documented as of this encounter Visit Diagnoses Not on filedocumented in this encounter Care Teams Recruiting Internship Relationship Specialty Start Date End Date Thierno Velasquez MD [facility] [address] PCP - General 06/13/19 documented as of this encounter
--- OUTSIDE RECORDS SUMMARY | 2025-06-01 17:34 | XMS_ITS | Encounter Summary ---
Author Organization [facility], Address [address] [place] [address] Phone Care Team Providers Care Break Out Man Name Role Phone Thierno Velasquez MD Primary Care Provider [phone] Encounter Details Date Type Department Care Team (Late st Contact Info) Description 09/19/2024 Documentation Only [facility], [address] [address] Opal Vazquez [address] [place] [phone] Social History Tobacco Use Types Packs/Day Years [...] Visit [facility] - [facility] [address] [place] [address] Jovan Jha MD [address] [place] [address] [place] [address] documented as of this encounter Visit Diagnoses Not on filedocumented in this encounter Care Teams Break Out Man Relationship Specialty Start Date End Date Thierno Velasquez MD [facility] [place] PCP - General 06/13/19 documented as of this encounter
--- OUTSIDE RECORDS SUMMARY | 2025-06-01 17:34 | XMS_ITS | Clinical Summary ---
Author Organization [facility] Address [address] [place] [address] Phone Care Team Providers Care Binding Cementer French Cord Name Role Phone Thierno Oliver MD Primary Care Provider [phone] Social History Tobacco Use Types Packs/Day Years [...] AM EST Appointment [facility] [address] [address] Health Maintenance Due Date Last Done Comments Colorectal Cancer Screening: Colonoscopy 1955 DTaP,Tdap,and Td Vaccines (1 - Tdap) 1975 Pneumococcal Vaccine: 50+ Years (1 of 1 - PCV) 2006 Zoster Vaccines (1 of 2) 2006 Falls Risk Assessment 07/12/2022 Hepatitis C Screening 07/12/2022 Medicare Annual Wellness Visit 07/12/2022 Social Influencers of Health Screening 07/12/2022 Depression Screening 08/09/2024 COVID-19 Vaccine ( - season) 2025 Influenza Vaccine (#1) 2025 Breast Cancer Screening 06/08/2026 06/08/20 24, [...] Procedure Name Priority Date/Time Associated Diagnosis Comments [facility] SCREENING DIGITAL Routine 06/08/2024 10:52 AM EDT [facility] DEXA AXIAL SKELETON Routine 05/22/2021 2:06 PM EDT Other specified disorders of bone density and structure, multiple sites from Last 3 Months or Most Recently Relevant to Health Maintenance Results * [facility] SCREENING DIGITAL (06/08/2024 10:52 AM EDT) Anatomical Region Laterality Modality Mammography 06/08/2024 10:0 5 AM EDT Narrative 06/08/2024 10:[address] [facility] Diagnostic Imaging Department [address] [place], [place] [address] Patient: CABRERA JACOBO D.O.B./Age/Sex: 1955 - 69 - F Unit#: [id number] [facility] Ordering Physician: THIERNO OLIVER MD [place] Screening Digital - 06/08/24 - 1022 Report Status:Signed EXAM: SCREENING MAMMOGRAPHY, BILATERAL HISTORY: SCREENING. Family history of breast cancer. COMPARISON: 06/07/2023, 06/02/2022, 05/22/2021, 04/22/2020 TECHNIQUE: Synthesized CC and MLO projections of each breast. Tomosynthesis of each breast in the CC and MLO projections. ADDITIONAL IMAGING: None Computer-aided detection was employed with the [employer] AI 3-D. TISSUE DENSITY: There are scattered areas of fibroglandular density. (BI-RADS category B) FINDINGS: RIGHT BREAST: No suspicious mass. No suspicious calcification. No distortion. No additional suspicious right breast findings LEFT BREAST: No suspicious mass. No suspicious calcification. No distortion. No additional suspicious left breast findings IMPRESSION: [...] Date/Time: 06/08/24 1045 Sign date/Time: 06/08/24 1052 Procedure Note Arnold Rojas MD - 06/10/2024 [facility] Diagnostic Imaging Department [address] [place] [address] Patient: CABRERA JACOBO /Age/Sex: 1955 69 - F Unit#: [id number] Location/Status: SPDIMAM/REG CLI Mnemonic/Ordering Site: [facility] Ordering Physician: THIERNO OLIVER MD [facility] Screening Digital - 06/08/24 - 1022 Report Status:Signed EXAM: SCREENING MAMMOGRAPHY, BILATERAL HISTORY: SCREENING. Family history of breast cancer. COMPARISON: 06/07/2023, 06/02/2022, 05/22/2021, 04/22/2020 TECHNIQUE: Synthesized CC and MLO projections of each breast.Tomosynthesis of each breast in the CC and MLO projections. ADDITIONAL IMAGING: None Computer-aided detection was employed with the [employer] AI 3-D. TISSUE DENSITY: There are scattered [...] MD IMG BI PROCEDURES Final Result * [facility] DEXA AXIAL SKELETON (05/22/2021 2:06 PM EDT) Anatomical Region Laterality Modality Mammography 05/22/2021 1:04 PM EDT Narrative 05/22/2021 2:[address] [facility] Diagnostic Imaging Department [address] [place] [address] Patient: CABRERA JACOBO Tammy /Age/Sex: 1955 - 66 - F Unit#: [id number] Location/Status: SPDIMA/REG CLI Mnemonic[facility] Ordering Physician: DANAY RIVERA MD [facility] Dexa Axial Skeleton - 05/22/21 - [facility] Dexa Axial Skeleton INDICATION: POSTMENOPAUSAL Technique: [...] FRAX estimate if patient has received treatment. [id number] Dictating Physician: AUDELIA PABLO MD Electronically Signed by: AUDELIA PABLO MD Dic Date/Time: 05/22/21 140 Sign date/Time: 05/22/211405 Procedure Note Audelia Pablo MD - 07/29/2022 [facility] Diagnostic Imaging Department [address] [place], [place] [address] Patient: CABRERA JACOBO Tammy /Age/Sex: 1955 - 66 - F Unit#: [id number] Location/Status: [facility] CLI Mnemonic[facility] Ordering Physician: DANAY RIVERA MD [facility] Dexa Axial Skeleton - 05/22/21 - [facility] Dexa Axial Skeleton INDICATION: POSTMENOPAUSAL Technique: [...] prior exam there is been a statistically bvusbvqrdxi20.3% interval decrease in total mean hip bone mineral density The FRAX result suggests a 10 year probability of major osteoporoticfracture of 14.5 % and hip fracture of 1.5%. 10 year probability of osteoporotic fracture may be lower than FRAXestimate if patient has received treatment. [id number] Dictating Physician: AUDELIA PABLO MD Electronically Signed by: AUDELIA PABLO MD Dic Date/Time: 05/22/21 140 Sign date/Time: 05/22/211405 Danay Rivera MD IMG BI PROCEDURES Final Result from Last 3 Months or Most Recently Relevant to Health Maintenance Insurance MEDICARE MEDEX Care Teams Binding Cementer French Cord Relationship Specialty Start Date End Date Thierno Oliver MD [address] [place] [id number] PCP - General Internal Medicine 06/12/24
--- OUTSIDE RECORDS SUMMARY | 2025-06-01 17:34 | XMS_ITS | Encounter Summary ---
Author Organization [facility], Address [address] [place] [address] Phone Care Team Providers Care Ballistics Tester Name Role Phone Thierno Velasquez MD Primary Care Provider [phone] Encounter Details Date Type Department Care Team (Late st Contact Info) Description 10/03/2024 Documentation Only [facility], [address] [address] Opal Vazquez [address] [place] [phone] Social History Tobacco Use Types Packs/Day Years [...] Visit [facility] - [facility] L[address] [facility] [address] [place] [address] Jovan Jha MD [address] [place] [address] [place] [address] documented as of this encounter Visit Diagnoses Not on filedocumented in this encounter Care Teams Ballistics Tester Relationship Specialty Start Date End Date Thierno Velasquez MD [facility] [place] PCP - General 06/13/19 documented as of this encounter
--- OUTSIDE RECORDS SUMMARY | 2025-06-01 17:34 | XMS_ITS | Patient Health Record ---
Author Organization [facility] Address [address] [place] [address] Care Team Providers Care Jailer Name Role Phone Thierno Velasquez MD Primary Care Provider Juan Haq [phone] Allergies Allergen (clinical drug ingredient) Drug/Non Drug [...] DIARRHEA Orally Three times every day for diarrhea; Duration: 30 days 01/21/2025 Active Cholestyramine 4 GM/DOSE 1 scoop Orally [...] Problem Status W/U Status Risk Notes Problem Diverticulitis of colon (141158215) Diverticulitis of large intestine without perforation or abscess without bleeding (K57.32) Active confirmed Problem Screening for malignant neoplasm of colon (183079167) Encounter for screening for malignant neoplasm of colon (Z12.11) Active confirmed Problem Irritable bowel syndrome with diarrhea (060421160) Irritable bowel syndrome with diarrhea (K58.0) Active confirmed Problem Diverticulitis (96006059) Diverticulitis (K57.92) Active confirmed Problem Elevated liver enzymes level (599492491) Elevated liver function tests (R79.89) Active confirmed Problem Left lower quadrant pain (811844992) Left lower quadrant abdominal pain (R10.32) Active confirmed Vital Signs Blood pressure diastolic 001 mm Hg 08/31/2024 Height 67.5 in 08/31/2024 Blood pressure systolic 001 mm Hg 08/31/2024 Weight 143 lbs 08/31/2024 BMI 22.06 kg/m2 08/31/2024 Encounters Encounter Location Date Provider Diagnosis [facility] [address] [place] [address] 08/31/2024 Juan Herbert Irritable bowel syndrome with diarrhea K58.0 and Encounter for screening for malignant neoplasm of colon Z12.11 [facility] [address] [place] [address] 06/29/2024 Juan Herbert [facility] [address] [place] [address] 01/19/2025 Juan Herbert [facility] [address] [place] [address] 05/22/2025 Juan Herbert Assessments Encounter Date Diagnosis (ICD [...] Date MEDICARE OF [place] [address] [place] [address] [id number] CABRERA JACOBO Self - patient is the insured MED[employer] ATTN CLAIMS [address] [place] [address] [id number] CABRERA JACOBO Self - patient is the insured Medical (General) History Medical History History ICD Code IBS with predominantly diarr hea--uses Lomotil TID--negative labs for celiac disease in 2006 and in 05/2020 Denies TX,DM,CVA,Lung disease,renal dise ase HTN Colonoscopy in 2006 was negative--normal biopsies from TI and colon Neg. colonoscopy in 04/2018--neg. colon b iopsies for microscopic colitis Very mild changes of possibl e Sigmoid diverticulitis on the CT scan in 04/2020 at [facility]-treated with outpt Augmentin with some improvement. She was subsequently admitted to [facility] in early May for left sided abdominal pain--her CT scan at that time was normal. She was treated with a brief course of antibiotics but did seem to improve with the addition of dicyclomine. Elevated LFT's in Fall 2019 during her admission at [facility]- AST was 222 and [...] Stress and anxiety Surgical History Surgery Date(Month/Year) NOÉ Tavia Laparoscopy for endometriosis
--- OUTSIDE RECORDS SUMMARY | 2025-06-01 17:34 | XMS_ITS | Encounter Summary ---
Author Organization [facility], Address [address] [place] [address] Phone Care Team Providers Care Principal Account Clerk Name Role Phone Thierno Velasquez MD Primary Care Provider [phone] Encounter Details Date Type Department Care Team (Late st Contact Info) Description 10/03/2024 Documentation Only [facility], [address] [place] [address] Opal Vazquez [address] [place] [phone] Social History Tobacco Use Types Packs/Day Years [...] Visit [facility] - [facility] Lacho [facility] [address] [place] [address] Jovan Jha MD [address] [place] [address] [place] [address] documented as of this encounter Visit Diagnoses Not on filedocumented in this encounter Care Teams Principal Account Clerk Relationship Specialty Start Date End Date Thierno Velasquez MD [facility] [place] PCP - General 06/13/19 documented as of this encounter
--- OUTSIDE RECORDS SUMMARY | 2025-06-01 17:34 | XMS_ITS | Encounter Summary ---
Author Organization [facility], Address [address] [place] [address] Phone Care Team Providers Care Finished Cigar Maker Name Role Phone Thierno Velasquez MD Primary Care Provider [phone] Encounter Details Date Type Department Care Team (Late st Contact Info) Description 09/19/2024 Documentation Only [facility], [address] [place] [address] Opal Vazquez [address] [place] [phone] Social History Tobacco Use Types Packs/Day Years [...] Visit [facility] - [facility] Lacho [facility] [address] [place] [address] Jovan Jha MD [address] [place] [address] [place] [address] documented as of this encounter Visit Diagnoses Not on filedocumented in this encounter Care Teams Finished Cigar Maker Relationship Specialty Start Date End Date Thierno Velasquez MD [facility] [place] PCP - General 06/13/19 documented as of this encounter
--- OUTSIDE RECORDS SUMMARY | 2025-06-01 17:34 | XMS_ITS | Encounter Summary ---
Author Organization [facility], Address [address] [place] [address] Phone Care Team Providers Care Lodge Sales Associate Name Role Phone Thierno Velasquez MD Primary Care Provider Encounter Details Date Type Department Care Team (Late st Contact Info) Description 09/19/2024 Documentation Only [facility], [address] [place] [place] [address] Opal Vazquez [address] [place] [phone] Social History Tobacco Use Types Packs/Day Years [...] Visit [facility] - [facility] [address]acho [facility] [address] [place] [address] Jovan Jha MD [address] [place] [address] [place] [address] documented as of this encounter Visit Diagnoses Not on filedocumented in this encounter Care Teams Lodge Sales Associate Relationship Specialty Start Date End Date Thierno Velasquez MD [facility] [place] PCP - General 06/13/19 documented as of this encounter
--- OUTSIDE RECORDS SUMMARY | 2025-06-01 17:34 | XMS_ITS | Encounter Summary ---
Author Organization [facility], Address [address] [place] [address] Phone Care Team Providers Care Offal Baler Name Role Phone Thierno Velasquez MD Primary Care Provider [phone] Encounter Details Date Type Department Care Team (Late Contact Info) Description 04/20/2024 Documentation Only [facility], [address] [place] [address] [place] [address] [place] [phone] Social History Tobacco Use Types Packs/Day Years [...] Visit [facility] - [facility] [address] [place] [address] Jovan Jha MD [address] [place] [address] [place] [address] documented as of this encounter Visit Diagnoses Not on filedocumented in this encounter Care Teams Offal Baler Relationship Specialty Start Date End Date Thierno Velasquez MD [facility] [place] PCP - General 06/13/19 documented as of this encounter
--- OUTSIDE RECORDS SUMMARY | 2025-06-01 17:34 | XMS_ITS | Encounter Summary ---
Author Organization [facility], Address [address] [place] [address] Phone Care Team Providers Care Ladle Liner Name Role Phone Thierno Velasquez MD Primary Care Provider [phone] Encounter Details Date Type Department Care Team (Late st Contact Info) Description 09/19/2024 Documentation Only [facility], [address] [place] [address] Opal Vazquez [address] [place] [phone] Social History Tobacco Use Types Packs/Day Years [...] Visit [facility] - [facility] [address] [place] [address] Jovan Jha MD [address] [place] [address] [place] [address] documented as of this encounter Visit Diagnoses Not on filedocumented in this encounter Care Teams Ladle Liner Relationship Specialty Start Date End Date Thierno Velasquez MD [facility] [place] PCP - General 06/13/19 documented as of this encounter
--- OUTSIDE RECORDS SUMMARY | 2025-06-01 17:35 | XMS_ITS | Clinical Summary ---
Author Organization [facility], Address [address] [facility] [address] [place] [address] Phone Care Team Providers Care Cordwood Cutter Helper Name Role Phone Thierno Velasquez MD Primary Care Provider [phone] Allergies Active Allergy Reactions Criticality Noted Date [...] Active Problems Problem Noted Date Diagnosed Date Prerenal azotemia 02/27/2025 Chronic kidney disease stage 3B 02/16/2023 Overview [...] Encounters Date Type Department Care Team Description 03/26/2025 Orders Only [facility], - Nicole Dos Santos [address] [place] [address] Jovan Jha MD from Last 3 Months Immunizations Immunization Administration [...] Visit [facility] - [facility] [place] [address] [facility] [place] [address] Jovan Jha MD [address] [facility] [place] [address] Health Maintenance Due Date Last Done Comments Breast Cancer Screening 1955 Pneumococcal Vaccine: 50+ Years (1 of 2 - PCV) 1975 Colorectal Cancer Screening: Annual FOBT 2005 Colorectal Cancer Screening: Colonoscopy 2005 Colorectal Cancer Screening: Sigmoidoscopy 2005 Influenza Vaccine (#1) 2025 , 05/08/2020, 05/08/2020, Additional history exists Hepatitis B Vaccine Aged Out No longe r eligible based on patient's age to complete this topic Procedures Procedure Name Priority Date/Time Associated Diagnosis Comments RENAL FUNCTION PANEL Routine 03/19/2025 10:24 AM EDT Stage 3b chronic kidney disease (HCC) from Last 3 Months Results * (ABNORMAL) Renal Function Panel (03/19/2025 10:24 AM EDT) Glucose 85 70 - 99 mg/dL [facility] BUN 24 8 - 27 mg/dL [facility] Creatinine 1.81(H) 0.57 - 1.00 mg/dL [facility] eGFR CKD-EPI CR 2020 30(L) >59 mL/min/1.7 3 [facility] BUN/Creatinine Ratio 13 12 - 28 [facility] Sodium 142 134 - 144 mmol/L [facility] Potassium 5.0 3.5 - 5.2 mmol/L [facility] Chloride 106 96 - 106 mmol/L [facility] Bicarbonate (CO2) 18(L) 20 - 29 mmol/L [facility] Calcium 9.6 8.7 - 10.3 mg/dL [facility] Albumin 4.4 3.9 - 4.9 g/dL [facility] Phosphorus 3.7 3.0 - 4.3 mg/dL [facility] Blood Venous blood / Unknown 03/19/2025 10:24 AM EDT 03/19/2025 us Jovan Jha MD LAB BLOOD ORDERABLES Final Resul t [facility] [address] [place] [address] from Last 3 Months Insurance Medicare [facility] Care Teams Cordwood Cutter Helper Relationship Specialty Start Date End Date Thierno Velasquez MD [facility] [place] PCP - General 06/13/19
--- OUTSIDE RECORDS SUMMARY | 2025-06-01 17:35 | XMS_ITS | Data Portability ---
Author Organization [place] - [facility], Allergy Address [address] [place] [address] Care Team Providers Care Pc Network Technician Name Role Phone LUCIA OLIVER Primary Care Provider [phone] Assessment Encounter Date Assessment Date Assessment LastModified [...] Details Last Modified Time Details Appointments None recorded. Lab None recorded. Referral None recorded. Procedures None recorded. Surgeries None recorded. Imaging US, thyroid 024 025 [id number] [facility] [place], [address], [place], [address], 13:30:03 Medication Orders None recorded. Patient TargetsNo targets recorded. Patient InstructionsNo instructions recorded. Reason for Referral None Reported. Results Created Date Observation Date Name Description Value Unit Range Abnormal Flag Note LastModifiedBy Organization Detail LastModifiedTime 05/31/20 24 03/07/2024 US, head + neck, soft tissu e No observ ation record ed. [email or web address] [facility] [address], [place], [address], 06/07/2024 14:33:22 Result Notes None recorded. Problems Name Problem SNOMED Code Status Onset Date Resolution Date Notes Provider Name and Address Organization Details Recorded Time Gastroeso phageal reflux disease without esophagit is 713510350 Active 2019 Esophagea l reflux NOS; Note: Date Diagnosed : 05/08/2020 2:21 PM (K21.9) Not Available [facility] 4 02:52:25 Allergic rhinitis caused by pollen 08754973 Active 2019 Allergic rhinitis due to pollen; Note: Date Diagnosed : 05/08/2020 2:21 PM (J30.1) Not Available [facility] 4 02:52:28 Cough 30678786 Active 2019 Cough; Note: Date Diagnosed : 05/08/2020 2:21 PM (R05) Not Available [facility] 4 02:52:27 Sensorine ural hearing loss 76133448 Active 2019 Sensorine ural hearing loss, unilatera l, left ear, with unrestric yeni hearing on the contralat eral side; Note: Date Diagnosed : 0 10:59 AM (H90.42) Not Available [facility] 4 02:52:27 Impacted cerumen of bilateral ears 57136048973 91167 Active 2021 Impacted cerumen, bilateral ; Note: Date Diagnosed : 09/29/2021 11:39 AM (H61.23) Not Available [facility] 4 02:52:29 Sensorine ural hearing loss of bilateral ears 334141419 Active 2021 Sensorine ural hearing loss, bilateral ; Note: Date Diagnosed : 09/29/2021 10:09 AM (H90.3) Note: Date Diagnosed : 09/29/2021 10:09 AM (H90.3) Not Available [facility] 4 01:11:15 Dizziness and giddiness 174886628 Active 2023 Dizziness and giddiness ; Note: Date Diagnosed : 11/16/2023 2:08 PM (R42) Not Available [facility] 4 02:52:25 Thyroid nodule 129978462 Active 2023 NATE ROD MD [address] [place] [address], [facility] [place], [address] , [facility] - [facility] 4 09:06:07 Problem Notes None recorded. Medical Equipment None Reported. Allergies Allergen ID Allergen Name Allergen Category Reaction Reaction Severity Criticality Documentation Date Start Date Code Code System Note Provider Name and Address Organization Details Recorded Time 718544 Acetamino phen / Propoxyph tasha medicatio n hives Not available Not available 12/21/2023 06500 RxNorm React ion: other react ion, Hives ; Not Available [facility] 4 01:19:08 Medications Name Sig [...] mg tablet 07/01 completed Medicati on ID: [id number] B rand Name: metronid azole Se nd Method: E-Prescr ibed Sub s Allowed: subs OK Medic ationGen ericName : metronid azole Not Available Not Available Not Available ciproflox acin 500 mg tablet 07/01 completed Medicati on ID: 008632 B rand Name: ciproflo xacin HCl Send [...] before meals 2020 active Medicati on ID: [id number] D uration Value: 30 Prescri bed By Name: Casey Hernandez MD Brand Name: omeprazo le Send Method: E-Prescr ibed Sub s Allowed: subs OK Medic ationGen ericName : omeprazo le Not Available Not Available Not Available codeine 10 mg-guaife nesin 100 mg/5 mL oral liquid TAKE 5 ML BY MOUTH EVERY 8 HOURS NEEDED FOR COUGH 06/28 completed Not Available Not Available Not Available hydrochlo rothiazid e 25 mg tablet 06/28 completed Medicati on ID: 356409 B rand Name: hydrochl orothiaz clarisa Send Method: E-Prescr ibed Sub s Allowed: subs OK Medic ationGen ericName : hydrochl orothiaz clarisa Not Available [...] mg capsule 2019 active Medicati on ID: 704377 B rand Name: dicyclom ine Send Method: E-Prescr ibed Sub s Allowed: subs OK Medic ationGen ericName : dicyclom ine Not Available Not Available Not Available escitalop veena 10 mg tablet TAKE 1 TABLET BY MOUTH DAILY active Not Available Not Available No t Available metoprolo l tartrate 25 mg tablet 06/28 completed Medicati on ID: [id number] B rand Name: metoprol ol tartrate Send Method: E-Prescr ibed Sub s Allowed: subs OK Medic ationGen ericName : metoprol ol tartrate Not Available Not Available Not Available Lomotil active Not Available Not Avail able Not Available Vitals Date Recorded Body height Body mass index (BMI) Body weight Provider Name and Address Organization Details Last Updated DateTime 06/28/2024 172.72 cm 21.9 kg/m2 86381.3 g Naheed Geiger [facility] 06/28/2024 08:48:47 Social History None recorded. Functional Status None recorded. Mental Status None recorded. Family History Nothing Reported. Medical History No medical history recorded. Gynecological HistoryNo gynecological history recorded. Obstetrics History GPAL:G 0 P 0 0 0 0 Past Encounters Encounter ID Performer Location Encounter Start Date Encounter Closed Date Diagnosis/Indication Diagnosis SNOMED-CT Code Diagnosis ICD10 Code Diagnosis IMO Codes Diagnosis Note [id number] NATE ROD MD [facility] [address] [address] 06/28/2024 08:26:36 06/28/2024 09:09:59 Thyroid nodule 525550112 E04.1 Health Concerns Section Related Observation LastModified by Organization Detai ls LastModified Time None Recorded Concern Status LastModified by Organization Details LastModified Time None Recorded Advance Directives Directive None Recorded Payers Insurance Date Sequence Insurance Name Policy Number Policy Cabrales Covered Member ID Cabrales Member ID Guarantor Name 06/28/2024 1 [place] [employer] Jj Madison [id number] Jj Madison 07/26/2024 2 [place] [id number] Jj Madison [id number] Jj Madison Notes Date Note Type Note Provider Name and Address Organization Details Recorded Time 06/28/2024 text/html ROS as noted in the HPI This is a 69-year-old woman who presents [...] #1: 0.4cm Tirads 5 NATE ROD MD [address] [place] [address], [place], [address], [place] [facility] 06/28/2024 10:48:13 OBGyn Episode No OBEpisode recorded.
--- OUTSIDE RECORDS SUMMARY | 2025-06-01 17:35 | XMS_ITS | Encounter Summary ---
Author Organization [facility], Address [address] [place] [address] Phone Care Team Providers Care Linux Systems Administrator Name Role Phone Thierno Velasquez MD Primary Care Provider [phone] Encounter Details Date Type Department Care Team (Late st Contact Info) Description 10/03/2024 Documentation Only [facility], [address] [place] [address] Opal Vazquez [address] [place] [phone] Social History Tobacco Use Types Packs/Day Years [...] Visit [facility] - [facility] [place] [facility] [address] [place] [address] Jovan Jha MD [address] [place] [address] [place] [address] documented as of this encounter Visit Diagnoses Not on filedocumented in this encounter Care Teams Linux Systems Administrator Relationship Specialty Start Date End Date Thierno Velasquez MD [facility] [place] PCP - General 06/13/19 documented as of this encounter
--- OUTSIDE RECORDS SUMMARY | 2025-06-01 17:35 | XMS_ITS | Encounter Summary ---
Author Organization [facility], Address [address] [place] [address] Phone Care Team Providers Care Full Decator Operator Name Role Phone Thierno Velasquez MD Primary Care Provider [phone] Encounter Details Date Type Department Care Team (Late Contact Info) Description 04/03/2024 Documentation Only [facility], [address] [place] [address] Isa Villatoro [address] [place] [phone] Social History Tobacco Use Types Packs/Day Years [...] Visit [facility] - [facility] [place] [facility] [address] [facility] [place] [address] Jovan Jha MD [address] [place] [address] [place] [address] documented as of this encounter Visit Diagnoses Not on filedocumented in this encounter Care Teams Full Decator Operator Relationship Specialty Start Date End Date Thierno Velasquez MD [facility] [place] PCP - General 06/13/19 documented as of this encounter
--- OUTSIDE RECORDS SUMMARY | 2025-06-01 17:36 | XMS_ITS | Encounter Summary ---
Author Organization [facility], Address [address] [place] [address] Phone Care Team Providers Care Shading Painter Name Role Phone Thierno Velasquez MD Primary Care Provider [phone] Encounter Details Date Type Department Care Team (Late Contact Info) Description 02/16/2023 Documentation Only [facility], [address] [place] [place] [phone] Jovan Jha MD [address] [place] [address] [place] [address] Social History Tobacco Use Types [...] Visit [facility] - [facility] [place] [facility] [address] [place] [address] Jovan Jha MD [address] [place] [address] [place] [address] documented as of this encounter Visit Diagnoses Not on filedocumented in this encounter Care Teams Shading Painter Relationship Specialty Start Date End Date Thierno Velasquez MD [facility] [place] PCP - General 06/13/19 documented as of this encounter
--- OUTSIDE RECORDS SUMMARY | 2025-06-01 17:36 | XMS_ITS | Patient Health Record ---
Author Organization [facility] Address [address] [place] [address] Care Team Providers Care Rod Buster Helper Name Role Phone Thierno Velasquez Primary Care Provider Fern Mullins Unavailable [phone] Hoang Yuen Unavailable [phone] Allergies Allergen (clinical drug ingredient) Drug/Non Drug [...] Twice a day Active Augmentin Active Nasal Johnson Active hydroCHLOROthiazide 25 MG 1 tablet Orall y Once a day Not-Taking Physical Therapy . .dx:achilles tendinitis right with need for us and iontophoresis . 2-3x/week; Duration: 3-4 weeks 01/15/2014 Not-Taking Lomotil 2.5-0.025 MG [...] Disorder of joint of ankle and/or foot (343096103) Arthritis - Degenerative (719.97) Active confirmed Problem Acquired deformity of joint of big toe (disorder) (226662158) Hallux Limitus (735.8) Active confirmed Problem Achilles bursitis (083097471) Achilles Tendonitis Bursitis (726.71) Active confirmed Problem Pain in limb (52244330) Pain in Limb (729.5) Active confirmed Problem Acquired hammer toe of right foot (1050111150856306) Other hammer toe(s) (acquired), right foot (M20.41) Active confirmed Problem Localized, primary osteoarthritis of the ankle and/or foot (771198537) Arthritis of joint of lesser toe, right (M19.071) Active confirmed Vital Signs Blood pressure diastolic 70 mm Hg 11/27/2024 Height 5 ft 8 in in 11/27/2024 Blood pressure systolic 130 mm Hg 11/27/2024 Weight 144 lbs 11/27/2024 BMI 21.89 kg/m2 11/27/2024 Encounters Encounter Location Date Provider Diagnosis [address] [address] 11/27/2024 Fern Anderson Pain in right toe(s) M79.674 ; Other hammer toe(s) (acquired), right foot M20.41 ; Arthritis of joint of lesser toe, right M19.071 and Subluxation of metatarsophalangeal joint of toe, [facility] [address] 07/24/2024 Fern Anderson [address] [address] 07/25/2024 Fern Anderson [address] [address] 09/06/2024 Fern Anderson [address] [address] 11/27/2024 Fern Anderson Assessments Encounter Date Diagnosis [...] X ray : Foot, right 3V 05/16/2024 [address]oud Destruction, 1-14 07/30/2014 Insurance Providers Payer Name Payer Address Payer Phone Subscriber Number Group Number Insured Name Patient Relationship to Insured Coverage Start Date Coverage End Date Medicare National [employer] [address] [facility] [place] [address] [id number] Jj Madison Self - patient is the insured [employer] [address] [place] [address] [id number] Jj Madison Self - patient is the insured Medical (General) History Medical History History ICD Code High blood pressure Chicken pox Back pain covid-19 Surgical History Surgery Date(Month/Year) appendectomy tonsillectomy hysterectomy section
[2025-06-01 17:53] LABS: Appearance Urine Clear; Glucose Urine UA Negative (Negative); PH 5.5 (5.0-9.0); Specific Gravity - Urine 1.010 (1.005-1.025); UMIC TRIGGER UACC YES
[2025-06-01] MEDS: Lactated Ringers 1,000 ML 999 ML IV (18:02)
[2025-06-01 18:49] VITALS: RESP 14
--- NOTE | 2025-06-01 19:35 | PC.NURSE ---
spoke with patient- sts that pain has improved to 4/10- pt sts that she is not leaving until someone finds out what is wrong with me allowed pt to vent frustrations. pt goes on the say that there is something wrong, i dont want to be here, but I'm at my breaking point. SAMANTHA Preciado notified via [employer].
--- NOTE | 2025-06-01 20:08 | PC.NURSE ---
t/w was informed by staff nurse icu resource team that pt is disgusted and hasn't been seen for hours . t/w last rounded on pt at 1935, where pt reported improvement in pain to 4/10. Pt demanding to see provider. FLASH OVEN OPERATOR notified.
[2025-06-01 20:23] LABS: VBG HCO3 21 mmol/L (22-26); VBG O2 % Saturation 51.0 %
[2025-06-01 20:24] LABS: Venous Blood Gas Refer to POC result
[2025-06-01 20:34] LABS: Alanine Aminotransferase 77 U/L (0-31); Albumin Level 3.4 g/dL (3.5-5.0); Alkaline Phosphatase 356 U/L (39-117); Anion Gap 15 (12-20); Aspartate Amino Transferase 43 U/L (5-31); Blood Urea Nitrogen 24 mg/dL (9-16); Calcium 9.0 mg/dL (8.4-10.2); Carbon Dioxide 18 mmol/L (22-29); Chloride 113 mmol/L (96-108); Creatinine Clr Calc Pharmacy 22.8; Estimated Glomerular Filt Rate 21; Potassium 4.6 mmol/L (3.3-5.1); Sodium 141 mmol/L (135-145); Total Protein 5.8 g/dL (6.5-8.0)
[2025-06-01 20:49] VITALS: BP 193/85; PULSE 60; RESP 18; TEMP 36.9; O2SAT 98
--- NOTE | 2025-06-01 21:30 | PHA.MEDREC ---
Addendum entered by Aimee Salinas RPh 06/01/25 21:47: MED REC REVIEWED BY [facility] Original Note: Pharmacy Consult ? Medication Reconciliation Pharmacy has completed the medication reconciliation. Spoke with pt and she confirmed her medications. Pt no longer taking Escitalopram and states she only took 3 doses and starting experiencing weird side effects and stopped that med.
--- NOTE | 2025-06-01 21:48 | PM.IMHP ---
History of Present Illness Date of Service: 06/01/25 Attending physician on admission: Senthil Peña Chief Complaint: abd pain Patient is a 70-year-old female with a past medical history significant for IBS-D, hypertension, compression fracture, CKD 3B, diverticulosis, GERD, melanoma and PUD, who presented to the ED due to 9/10 left-sided abdominal pain for the past few weeks that has been worsening. Patient reports that her pain has improved slightly since arriving in his now 7/10. At 1 point her pain was down to 4/10. She is unable to describe the pain as sharp, burning, dull but reports this is constant. She has had associated nausea and 1 episode of bilious vomiting. She denies any blood in the stool reports baseline IBS however reports that she has had significant a more diarrhea and has been withholding food because of it. She has lost about 6 lb in the past week. She also reports that she is not hydrating as well. She feels fatigued and is very concerned about her pain and weight loss. The pain is on the entire left side of her abdomen, does not radiate to the back, does not worsen with lying down. No history of pancreatitis and denies frequent alcohol use. Review of Systems Constitutional: Constitutional: Denies body ache(s), Denies chills, Reports fatigue, Denies fever(s) and Denies headache(s) Eyes: Eyes: Denies change in vision ENT: Denies headache(s), Denies nasal congestion and Denies sore throat Cardiovascular: Cardiovascular: Denies chest pain, Denies rapid heart rate, Denies leg edema, Denies lightheadedness and Denies dyspnea Respiratory: Respiratory: Denies chest congestion, Denies cough, Denies dyspnea and Denies wheezing Gastrointestinal: Gastrointestinal: Reports as per HPI Genitourinary: Genitourinary: Denies difficulty voiding, Denies dysuria and Denies urinary urgency Musculoskeletal: Musculoskeletal: Denies myalgias Integumentary/Breasts: Skin/Breast: Denies rash Neurologic: Denies confusion and Denies headache(s) Psychiatric: Psychiatric: Denies confusion Endocrine: Endocrine: Reports fatigue Hematologic/Lymphatic: Hematologic/Lymphatic: Denies easy bleeding and Denies easy bruising Allergic/Immunologic: Allergic/Immunologic: Denies wheezing [facility] Medical History (Updated 06/01/25 @ 22:13 by Agnieszka Quijano PA-C) Melanoma PUD (peptic ulcer disease) GERD (gastroesophageal reflux disease) Diverticulosis Stage 3b chronic kidney disease (CKD) Compression fracture of L1 lumbar vertebra Ovarian cyst Irritable bowel syndrome Hypertension Functional capacity: independent ambulation Surgical History History of hysterectomy S/P removal of ovarian cyst Hx of appendectomy History of adenoidectomy History of tonsillectomy Social History Alcohol intake: current Alcohol intake frequency: holidays/special occasions only Alcohol type: wine Comment: still has headaches Smoked in Last 30 Days: No Use of substances other than those prescribed or required for medical reasons: No Advance Directives: Yes Advance Directives Information Provided: Yes Advance Directives on File: No service: No Current occupational status: previously employed Narrative: Social occasional alcohol, no tobacco Meds Allergies Allergy/AdvReac Type Severity Reaction Status Date / Time Darvocet-N 100 Allergy Intermediate Hives Verified 06/01/25 15:28 propoxyphene (From DARVON) Allergy Intermediate Hives Verified 06/01/25 15:28 sulfamethoxazole (From Allergy Rash Verified 06/01/25 15:28 Bactrim) trimethoprim (From Bactrim) Allergy Rash Verified 06/01/25 15:28 ibuprofen AdvReac Unknown Verified 06/01/25 15:29 Darvocet A500 Allergy Intermediate Hives Uncoded 06/09/24 11:58 Darvocet-N 50 Allergy Intermediate Hives Uncoded 06/09/24 11:58 Active Medications: Current Medications Acetaminophen (Acetaminophen 325 Mg Tablet) 650 mg PO Q6H PRN PRN Reason: Pain, Mild 1-3,fever,headache Calcium Carbonate (Calcium Carbonate 750 Mg Tab.Chew) 750 mg PO Q4H PRN PRN Reason: Heartburn Enoxaparin Sodium (Enoxaparin Sodium 30 Mg/0.3 Ml Syringe) 30 mg SUBCUT Q24H RAQUEL Hydromorphone HCl (Hydromorphone Hcl 1 Mg/Ml Syringe) 0.5 mg IVPUSH Q4H PRN; Protocol PRN Reason: Pain, Severe (Pain Scale 7-10) Lactated Ringer's (Lr) 1,000 mls @ 100 mls/hr IVCONT .Q10H [facility] Magnesium Hydroxide (Milk Of Magnesia 30 Ml Oral.Susp) 30 ml PO DAILY PRN PRN Reason: Constipation Melatonin (Melatonin 3 Mg Tablet) 6 mg PO BEDTIME PRN PRN Reason: Insomnia Ondansetron HCl (Ondansetron Hcl 4 Mg/2 Ml Vial) 4 mg IVPUSH Q8H PRN PRN Reason: Nausea and Vomiting Oxycodone HCl (Oxycodone Hcl Immed Release 5 Mg Tablet) 5 mg PO Q6H PRN PRN Reason: Pain, Moderate(Pain Scale 4-6) Sodium Chloride (0.9 % Sodium Chloride Flush 3 Ml Syringe) 3 ml IVFLUSH QSHIFT [facility] Home Medications ?Medication ?Instructions ?Recorded ?Confirmed ?Last Taken ?Type lorazepam 1 mg tablet 1 tab PO BEDTIME 05/09/20 06/01/25 05/31/25 History omeprazole 20 mg capsule,delayed 20 mg PO DAILY@0630 PRN Acid Reflux 05/09/20 06/01/25 05/09/20 History release calcitonin (salmon) 200 1 spray intranasal DAILY 06/01/25 06/01/25 06/01/25 History unit/actuation nasal spray cholecalciferol (vitamin D3) 25 25 mcg PO DAILY 06/01/25 06/01/25 06/01/25 History mcg (1,000 unit) tablet (Vitamin D3) diphenoxylate-atropine 2.5 2 tab PO TID diarrhea 06/01/25 06/01/25 06/01/25 History mg-0.025 mg tablet metoprolol succinate 50 mg 50 mg PO DAILY 06/01/25 06/01/25 06/01/25 History tablet,extended release 24 hr tramadol 50 mg tablet 100 mg PO Q12H PRN pain 06/01/25 06/01/25 06/01/25 History Physical Exam Vital Signs and Narrative: Vital Signs: Last Vital Signs Temp 98.4 F 06/01/25 20:49 Pulse 60 06/01/25 20:49 Resp 18 06/01/25 20:49 BP 193/85 H 06/01/25 20:49 Pulse Ox 98 06/01/25 20:49 O2 Del Method Room Air 06/01/25 20:49 BMI result Body Mass Index 20.7 General: AOx3, no acute distress Resp: CTA bilaterally CVS: S1, S2, RRR GI: hypoactive BS, tender L side, more in LUQ, no distention Skin: Warm, dry Neuro: Cranial nerves II-XII grossly intact bilaterally. Motor grossly intact bilaterally Extremities: No pitting edema Psych: Appropriate affect Const: General: No confusion Orientation/consciousness: No confusion Neuro: General: No confusion Results Labs 06/01/25 15:35 06/01/25 20:13 Labs: Laboratory Results - last 24 hr 06/01/25 06/01/25 06/01/25 15:34 15:35 17:42 MCV 92.6 MCH 29.7 MCHC 32.1 RDW 16.6 H Plt Count 181 MPV 11.1 Immature Gran % (Auto) 1.5 H Neut % (Auto) 49.6 Lymph % (Auto) 35.0 [place] % (Auto) 11.6 H Eos % (Auto) 1.9 Baso % (Auto) 0.4 Lymph # (Auto) 2.4 [place] # (Auto) 0.8 Eos # (Auto) 0.1 Baso # (Auto) 0.0 Abs Immat Gran (auto) 0.10 H Absolute Neuts (auto) 3.4 Absolute Nucleated RBC 0.000 Nucleated RBC % (auto) 0.0 VBG pH VBG pCO2 VBG pO2 VBG HCO3 VBG O2 Saturation VBG Base Excess Anion Gap 15 Estim Creat Clear Calc 20.5 Estimated GFR 19 Random Glucose 72 Lactic Acid Calcium 8.8 D Total Bilirubin 0.4 Direct Bilirubin 0.1 AST 45 H ALT 89 H Alkaline Phosphatase 397 H Total Protein 6.3 L Albumin 3.6 Lipase 24 Urine Color Yellow Urine Appearance Clear Urine pH 5.5 Ur Specific [place] 1.010 Urine Protein Negative Urine Glucose (UA) Negative Urine Ketones Negative Urine Blood Negative Urine Nitrite Negative Ur Leukocyte Esterase Trace H Urine RBC 0-2 Urine WBC 0-5 Ur Squamous Epith Cells 0-2 Urine Bacteria None Seen Hyaline Casts 0-2 06/01/25 06/01/25 20:13 20:19 MCV MCH MCHC RDW Plt Count MPV Immature Gran % (Auto) Neut % (Auto) Lymph % (Auto) [place] % (Auto) Eos % (Auto) Baso % (Auto) Lymph # (Auto) [place] # (Auto) Eos # (Auto) Baso # (Auto) Abs Immat Gran (auto) Absolute Neuts (auto) Absolute Nucleated RBC Nucleated RBC % (auto) VBG pH 7.39 VBG pCO2 34 VBG pO2 37 VBG HCO3 21 L VBG O2 Saturation 51.0 VBG Base Excess -2.9 Anion Gap 15 Estim Creat Clear Calc 22.8 Estimated GFR 21 Random Glucose 76 Lactic Acid 1.0 Calcium 9.0 Total Bilirubin 0.5 Direct Bilirubin AST 43 H ALT 77 H Alkaline Phosphatase 356 H Total Protein 5.8 L Albumin 3.4 L Lipase Urine Color Urine Appearance Urine pH Ur Specific [place] Urine Protein Urine Glucose (UA) Urine Ketones Urine Blood Urine Nitrite Ur Leukocyte Esterase Urine RBC Urine WBC Ur Squamous Epith Cells Urine Bacteria Hyaline Casts Assessment and Plan (1) Intractable abdominal pain: Status: Acute (2) Diarrhea: Status: Acute (3) Weight loss, unintentional: Status: Acute (4) Elevated alkaline phosphatase level: Status: Acute (5) Acute kidney injury superimposed on CKD: Status: Acute Plan Patient is a 70-year-old female with a past medical history significant for IBS-D, hypertension, compression fracture, CKD 3B, diverticulosis, GERD, melanoma and PUD, who presented to the ED due to 9/10 left-sided abdominal pain for the past few weeks that has been worsening. Intractable abdominal pain with diarrhea, unintentional weight loss and elevated alk-phos - cdiff and GI panel - pain management - MRI abdomen with and without contrast in a.m. - GI consult, Dr. Herbert pt - follow CBC and CMP - NPO after midnight for MRI, clear liquid diet after DIVINA on CKD 3B, likely due to dehydration - IVF - monitor cr - avoid nephrotoxins when possible HTN - metoprolol GERD - PPI IBS-D, significantly worse than baseline per pt - hold lomotil pending stool testing full code VTE prophy: lovenox Patient with a terminal pain with diarrhea, unintentional weight loss and elevated Altace, complicated by DIVINA on CKD, likely secondary to dehydration, requiring admission for at least 2 midnight stay for further evaluation, pain management and IV fluids. Quality Stroke Does the patient have a stroke diagnosis?: No VTE Prior VTE?: No VTE Risk Level:: Medical - moderate - high VTE Device Contraindication: Treatment Not Indicated VTE Drug Contraindication: N/A - Med Ordered
[2025-06-01] MEDS: Lactated Ringers 1,000 ML 100 ML IVCONT (22:23)
[2025-06-01 22:37] VITALS: BP 186/69; PULSE 62; RESP 20; O2SAT 98
--- NOTE | 2025-06-01 22:47 | PC.NURSE ---
pt resting comfortably at this time. refused lovenox injection, states she walks and wont be here for long so does not need it. pt medicated per par for pain 03/18.
[2025-06-01 23:34] VITALS: BP 156/79; PULSE 72; RESP 18; O2SAT 97
[2025-06-02] VITALS (7 sets, daily range): BP systolic 129–187; BP diastolic 66–83; PULSE 58–88; RESP 16–20; TEMP 36.3–36.6; O2SAT 96–99
[2025-06-02 06:08] LABS: MANUAL DIFF FLAG NO
[2025-06-02 06:15] LABS: Hematocrit 31.2 % (37.0-47.0); Hemoglobin 9.9 g/dl (12.0-16.0); Imm Gran Abs Auto 0.07 X10*3/uL (0.00-0.03); Imm Gran Pct Auto 1.1 % (0.0-0.4); Lymphocytes Absolute Auto 2.6 X10*3/uL (1.2-4.9); Mean Corpuscular HGB Conc 31.7 g/dl (31.0-35.0); Mean Corpuscular Hemoglobin 29.3 pg (27.0-33.0); Mean Corpuscular Volume 92.3 fL (80.0-98.0); NRBC Abs Auto 0.000 X10*3/uL (0.0-0.012); NRBC Pct Auto 0.0 /100WBC (0.0-0.2); Platelet Count 139 X10*3/uL (160-400); Red Blood Count 3.38 X10*6/uL (4.20-5.50); White Blood Count 6.5 X10*3/uL (4.8-10.8)
[2025-06-02 06:31] LABS: Alanine Aminotransferase 57 U/L (0-31); Albumin Level 2.8 g/dL (3.5-5.0); Alkaline Phosphatase 288 U/L (39-117); Anion Gap 11 (12-20); Aspartate Amino Transferase 30 U/L (5-31); Blood Urea Nitrogen 22 mg/dL (9-16); Calcium 8.3 mg/dL (8.4-10.2); Carbon Dioxide 20 mmol/L (22-29); Chloride 113 mmol/L (96-108); Creatinine Clr Calc Pharmacy 24.3; Estimated Glomerular Filt Rate 23; Potassium 4.4 mmol/L (3.3-5.1); Sodium 140 mmol/L (135-145); Total Protein 4.8 g/dL (6.5-8.0)
--- NOTE | 2025-06-02 07:29 | PM.GICN ---
History of Present Illness Data of Consult Service Date: 06/02/25 Requesting physician: Agnieszka Quijano Primary Care Provider: Thierno Velasquez MD HPI Reason for consult: Intractable abd pain, elevated alk phos, weight loss 70 YF with IBS-D, hypertension, compression fracture, CKD 3B, diverticulosis, GERD, melanoma and PUD, seen at [facility] ED on 06/01/25 with 9/10 left-sided abdominal pain for the past few weeks that has been worsening. After arrival in the ED, patient reported improvement in pain to 7/10 and down to 4/10. Pt has a long hx of IBS with diarrhea and takes Lomotil 2 tab sometimes upt 3 times a day. She was diagnosed with COVID infection in 03/2020 and left sided abd pain started a month later Pt can have intermittent episodes of abd pain (can occur a few times a day and resolve without treatment) Pt denies association of abd pain with meals. Pt notes pain improves when she applies deep pressure to the area of pain and using a heating pad. She is unable to describe the pain as sharp, burning, dull. She has had associated nausea and 1 episode of bilious vomiting on 05/28/25. Pt admitted to a hx of IBS with diarrhea and has noted worsening diarrhea (with upto 5 loose BMs within an hour) and has been withholding food because of it. She denied any blood in the stool Patient denies recent travel, antibiotic use or sick contacts prior to worsening of her diarrhea. Pt denies association of diarrhea with milk products. She takes Omeprazole prn for intermittent heartburn. She has lost about 6 lb in the past week (from 142 to 136 lbs). She also reports that she is not hydrating as well. She feels fatigued and is very concerned about her pain and weight loss. The pain is on the entire left side of her abdomen, does not radiate to the back, does not worsen with lying down. No history of pancreatitis and denies frequent alcohol use. Pt reports she was prescribed Lexipro last week and stopped after 3 days due to side effects. Pt denies smoking and drinks alcohol socially. 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 She lives with her and son and has 3 children FAMILY HISTORY: Pt's Dad had multiple bowel resections and of prostate cancer. Nephew has Crohn's disease 06/01/[address] SCAN SHOWED: 1. No acute abnormality or CT explanation for left lower quadrant tenderness. Specifically, no CT evidence of diverticulitis. PAST GI HISTORY BY REVIEW OF MEDICAL RECORDS: 2020 PATIENT WAS HOSPITALIZED AT [facility] WITH THE ABDOMINAL PAIN AND WAS SEEN BY DR. WEBSTER: The patient describes that she was diagnosed with a COVID infection at the end of March. She denies any particular respiratory compromise and did have a cough. She was not hospitalized for that. In early April, she began having episodes of left-sided abdominal pain for which she underwent a CAT scan at [facility] that described some very minimal wall thickening of the sigmoid colon and minimal surrounding fat. Based on that, she was treated with Augmentin for possible diverticulitis. She describes having finished that course of antibiotics with only mild improvement in her symptoms. Things were fairly stable until last week when she developed again recurrent left-sided abdominal pain that she describes as quite severe. She was started on Cipro and Flagyl at that point for again presumed diverticulitis. She had to stop the antibiotics after about 4 days due to some vomiting. Due to worsening pain, she came to the ER yesterday and was admitted. Prior to April, she was not having any particular GI symptoms other than her chronic irritable bowel syndrome for which she was using Lomotil between 2 and 4 times daily with good relief. She does not have any previous history of chronic abdominal pain or diverticulitis. Since admission here, she still is having some discomfort, but thinks she is feeling somewhat better. She has been tolerating some food. She has had no vomiting. She does drink wine on the weekends, but denies daily alcohol use. She has not been on any new medications aside from the recent course of antibiotics. Serologies for celiac sprue and ep A, B and C were negative in the past. 04/2018 patient had a colonoscopy by Dr. Webster which showed sigmoid diverticulosis and hemorrhoids. Random biopsies were obtained for right and left colon which were normal. [facility] Past Medical History Medical History (Updated 06/02/25 @ 11:34 by Haja Smalls MD) Melanoma PUD (peptic ulcer disease) GERD (gastroesophageal reflux disease) Diverticulosis Stage 3b chronic kidney disease (CKD) Compression fracture of L1 lumbar vertebra Ovarian cyst Irritable bowel syndrome Hypertension Surgical History Surgical History History of hysterectomy S/P removal of ovarian cyst Hx of appendectomy History of adenoidectomy History of tonsillectomy Social History Social History Household Members: Spouse Housing: House Alcohol intake: current Alcohol intake frequency: holidays/special occasions only Alcohol type: wine Comment: still has headaches Patient Tobacco Use Status: Never used Tobacco Advance Directives Date on File: 06/02/25 service: No Current occupational status: previously employed Meds Allergies Allergy/AdvReac Type Severity Reaction Status Date / Time Darvocet-N 100 Allergy Intermediate Hives Verified 06/01/25 15:28 propoxyphene (From DARVON) Allergy Intermediate Hives Verified 06/01/25 15:28 sulfamethoxazole (From Allergy Rash Verified 06/01/25 15:28 Bactrim) trimethoprim (From Bactrim) Allergy Rash Verified 06/01/25 15:28 ibuprofen AdvReac Unknown Verified 06/01/25 15:29 Darvocet A500 Allergy Intermediate Hives Uncoded 06/09/24 11:58 Darvocet-N 50 Allergy Intermediate Hives Uncoded 06/09/24 11:58 Active Medications: Current Medications Acetaminophen (Acetaminophen 325 Mg Tablet) 650 mg PO Q6H PRN PRN Reason: Pain, Mild 1-3,fever,headache Calcium Carbonate (Calcium Carbonate 750 Mg Tab.Chew) 750 mg PO Q4H PRN PRN Reason: Heartburn Enoxaparin Sodium (Enoxaparin Sodium 30 Mg/0.3 Ml Syringe) 30 mg SUBCUT Q24H RAQUEL Last Admin: 06/01/25 22:11 Dose: Not Given Hydromorphone HCl (Hydromorphone Hcl 1 Mg/Ml Syringe) 0.5 mg IVPUSH Q4H PRN; Protocol PRN Reason: Pain, Severe (Pain Scale 7-10) Last Admin: 06/01/25 22:23 Dose: 0.5 mg Lactated Ringer's (Lr) 1,000 mls @ 100 mls/hr IVCONT .Q10H [facility]QU[facility] Last Admin: 06/01/25 22:23 Dose: 100 mls/hr Lorazepam (Lorazepam 1 Mg Tablet) 1 mg PO BEDTIME [facility] Last Admin: 06/01/25 22:23 Dose: 1 mg Magnesium Hydroxide (Milk Of Magnesia 30 Ml Oral.Susp) 30 ml PO DAILY PRN PRN Reason: Constipation Melatonin (Melatonin 3 Mg Tablet) 6 mg PO BEDTIME PRN PRN Reason: Insomnia Last Admin: 06/02/25 00:40 Dose: 6 mg Metoprolol Succinate (Metoprolol Succinate Er 50 Mg Tab.Er.24h) 50 mg PO DAILY [facility]; Protocol Omeprazole (Omeprazole 20 Mg Capsule.Dr) 20 mg PO DAILY@0630 PRN PRN Reason: Acid Reflux Ondansetron HCl (Ondansetron Hcl 4 Mg/2 Ml Vial) 4 mg IVPUSH Q8H PRN PRN Reason: Nausea and Vomiting Oxycodone HCl (Oxycodone Hcl Immed Release 5 Mg Tablet) 5 mg PO Q6H PRN PRN Reason: Pain, Moderate(Pain Scale 4-6) Sodium Chloride (0.9 % Sodium Chloride Flush 3 Ml Syringe) 3 ml IVFLUSH [facility]. [facility] Last Admin: 06/02/25 01:32 Dose: Not Given Vitamin D (Cholecalciferol (Vitamin D3) 25 Mcg Tablet) 25 mcg PO DAILY [facility] Home Medications ?Medication ?Instructions ?Recorded ?Confirmed ?Last Taken ?Type lorazepam 1 mg tablet 1 tab PO BEDTIME 05/09/20 06/01/25 05/31/25 History omeprazole 20 mg capsule,delayed 20 mg PO DAILY@0630 PRN Acid Reflux 05/09/20 06/01/25 05/09/20 History release calcitonin (salmon) 200 1 spray intranasal DAILY 06/01/25 06/01/25 06/01/25 History unit/actuation nasal spray cholecalciferol (vitamin D3) 25 25 mcg PO DAILY 06/01/25 06/01/25 06/01/25 History mcg (1,000 unit) tablet (Vitamin D3) diphenoxylate-atropine 2.5 2 tab PO TID diarrhea 06/01/25 06/01/25 06/01/25 History mg-0.025 mg tablet metoprolol succinate 50 mg 50 mg PO DAILY 06/01/25 06/01/25 06/01/25 History tablet,extended release 24 hr tramadol 50 mg tablet 100 mg PO Q12H PRN pain 06/01/25 06/01/25 06/01/25 History Physical Exam Vital Signs: Vital Signs: Last Vital Signs Temp 98 F 06/02/25 07:06 Pulse 80 06/02/25 07:06 Resp 16 06/02/25 07:06 BP 131/66 06/02/25 07:06 Pulse Ox 99 06/02/25 07:06 O2 Del Method Room Air 06/02/25 07:06 BMI result Body Mass Index 20.7 Const: General: healthy appearing and no acute distress Nutritional Appearance: average body habitus Orientation/consciousness: patient oriented x3 Limitations: no limitations HEENT: Head: Yes normal to inspection Ears: hearing grossly normal bilaterally Mouth: Normal oral and palatal mucosa present Eyes: Sclerae: sclerae normal Pupils: Equal, round and reactive pupils present Neck: Neck: Yes normal visual inspection Chest: Chest palpation & inspection: normal inspection of the chest Resp: Effort & Inspection: normal respiratory effort Auscultation: clear to auscultation bilaterally Cardio: Palpation: normal PMI Rate: regular rate Rhythm: regular rhythm Heart sounds: S1 normal heart sound present, S2 normal heart sound present and no murmurs GI: Palpation (GI): Soft to palpation, nontender and No hepatosplenomegaly present Auscultation: normal bowel sounds Rectal Exam - Female: deferred Skin: General skin exam: no rashes or lesions noted Neuro: General: patient oriented x3, gait normal and moves all extremities Cranial nerves: Yes Equal, round and reactive pupils present Psych: Appearance: grossly normal Mental Status: mental status grossly normal Results Labs 06/02/25 05:40 06/02/25 05:40 Labs: Short CBC 06/01/25 06/02/25 Range/Units 15:35 05:40 WBC 6.9 6.5 (4.8-10.8) X10*3/uL Hgb 11.6 L 9.9 L (12.0-16.0) g/dl Hct 36.1 L 31.2 L (37.0-47.0) % Plt Count 181 139 L (160-400) X10*3/uL BMP 06/01/25 06/01/25 06/02/25 15:34 20:13 05:40 Sodium 140 141 140 Potassium 4.5 4.6 4.4 Chloride 112 H 113 H 113 H Carbon Dioxide 18 L 18 L 20 L BUN 23 H 24 H 22 H Creatinine 2.52 H 2.27 H 2.13 H Calcium 8.8 D 9.0 8.3 L D Liver Function 06/01/25 06/01/25 06/02/25 Range/Units 15:34 20:13 05:40 Total Bilirubin 0.4 0.5 0.5 (0.0-1.0) mg/dL Direct Bilirubin 0.1 (0.0-0.5) mg/dL AST 45 H 43 H 30 (5-31) U/L ALT 89 H 77 H 57 H (0-31) U/L Alkaline Phosphatase 397 H 356 H 288 H (39-117) U/L Albumin 3.6 3.4 L 2.8 L (3.5-5.0) g/dL Urine 06/01/25 Range/Units 17:42 Urine Color Yellow Urine Appearance Clear Urine pH 5.5 (5.0-9.0) Ur Specific [place] 1.010 (1.005-1.025) Urine Protein Negative (Neg-Trace) mg/dL Urine Glucose (UA) Negative (Negative) mg/dL Assessment and Plan (1) Intractable abdominal pain: Status: Acute (2) Irritable bowel syndrome: Status: Acute (3) Elevated LFTs: Status: Acute Plan 70 YF with IBS-D, hypertension, compression fracture, CKD 3B, diverticulosis, GERD, melanoma and PUD admitted to [facility] on 06/01/25 with 9/10 worsening left-sided abdominal pain, diarrhea and wt loss She has lost about 6 lb in the past week. She also reports that she is not hydrating as well. She feels fatigued and is very frustrated due to lack of a clear diagnosis about the source of her pain and weight loss. Labs showed acute on chronic anemia, elevated creatinine and LFTs (AST 45, ALT 89 and AP 397) and normal lipase FU LFTs today improved to AST 30, ALT 57 and AP 288 Left sided abdominal pain and worsening diarrhea - ? viral/bacterial gastroenteritis, IBD, ischemic colitis due to dehydration or referred pain associated with compression L1 fracture Abd CT was negative for diverticulitis. Elevated LFTs with predominent increase in AP - ? viral hepatitis, PBC or related to medications RECOMMENDATIONS: 1. Agree with IV PPI, antiemetics and pain medications 2. Await results of stool cultures and C Diff 3. Check CRP, IBD serologies and fecal calprotectin - order placed 4. Iron studies, Vitamin B12 and folate for evaluation of anemia - order placed. 5. Hep serologies, AMA, ASMA, SPEP and LIVAN for evaluation of elevated LFTs - order placed 6. [place] of Dicyclomine with meals for abdominal pain 6. CT enterography of 06/04/25 if pain does not resolve FU with Dr Webster on 06/04/25 Procedures Date of Service Date of Service: 06/02/25
[2025-06-02] MEDS: Metoprolol Succinate ER 50 MG TAB.ER.24H PO (08:24)
[2025-06-02] MEDS: Lactated Ringers 1,000 ML 100 ML IVCONT ×2 (08:24→17:33)
--- NOTE | 2025-06-02 12:02 | HO.PM.IMPN ---
Subjective Subjective Date of Service: 06/02/25 Interval History: Abdominal pain improved with pain management No nausea and vomiting since last Wednesday and Wednesday Continues to have diarrhea No lightheadedness or dizziness Review of Systems Review of Systems: Yes all other systems are reviewed and are negative Physical Exam Exam: Exam: General: AOx3, no acute distress Resp: CTA bilaterally CVS: S1, S2, RRR GI: +BS, soft, no distention. Left-sided tenderness Skin: Warm, dry Neuro: Cranial nerves II-XII grossly intact bilaterally. Motor grossly intact bilaterally Extremities: No edema Psych: Appropriate affect Vital Signs: Vital Signs: Last Vital Signs Temp 98 F 06/02/25 07:06 Pulse 80 06/02/25 08:24 Resp 16 06/02/25 07:06 BP 131/66 06/02/25 08:24 Pulse Ox 99 06/02/25 07:06 O2 Del Method Room Air 06/02/25 07:06 BMI result Body Mass Index 20.7 Objective Data Active Medications Acetaminophen (Acetaminophen 325 Mg Tablet) 650 mg PO Q6H PRN PRN Reason: Pain, Mild 1-3,fever,headache Calcium Carbonate (Calcium Carbonate 750 Mg Tab.Chew) 750 mg PO Q4H PRN PRN Reason: Heartburn Enoxaparin Sodium (Enoxaparin Sodium 30 Mg/0.3 Ml Syringe) 30 mg SUBCUT Q24H [facility] Last Admin: 06/01/25 22:11 Dose: Not Given Documented By: LEYLA Non-Admin Reason: Patient Refused Hydromorphone HCl (Hydromorphone Hcl 1 Mg/Ml Syringe) 0.5 mg IVPUSH Q4H PRN; Protocol PRN Reason: Pain, Severe (Pain Scale 7-10) Last Admin: 06/02/25 08:24 Dose: 0.5 mg Documented By: ALAN Lactated Ringer's (Lr) 1,000 mls @ 100 mls/hr IVCONT .Q10H [facility]QUEL Last Admin: 06/02/25 08:24 Dose: 100 mls/hr Documented By: ALAN Lorazepam (Lorazepam 1 Mg Tablet) 1 mg PO BEDTIME [facility] Last Admin: 06/01/25 22:23 Dose: 1 mg Documented By: LEYLA Magnesium Hydroxide (Milk Of Magnesia 30 Ml Oral.Susp) 30 ml PO DAILY PRN PRN Reason: Constipation Melatonin (Melatonin 3 Mg Tablet) 6 mg PO BEDTIME PRN PRN Reason: Insomnia Last Admin: 06/02/25 00:40 Dose: 6 mg Documented By: AMALIA Metoprolol Succinate (Metoprolol Succinate Er 50 Mg Tab.Er.24h) 50 mg PO DAILY [facility]; Protocol Last Admin: 06/02/25 08:24 Dose: 50 mg Documented By: ALAN Omeprazole (Omeprazole 20 Mg Capsule.Dr) 20 mg PO DAILY@0630 PRN PRN Reason: Acid Reflux Ondansetron HCl (Ondansetron Hcl 4 Mg/2 Ml Vial) 4 mg IVPUSH Q8H PRN PRN Reason: Nausea and Vomiting Oxycodone HCl (Oxycodone Hcl Immed Release 5 Mg Tablet) 5 mg PO Q6H PRN PRN Reason: Pain, Moderate(Pain Scale 4-6) Sodium Chloride (0.9 % Sodium Chloride Flush 3 Ml Syringe) 3 ml IVFLUSH QSHIFT [facility] Last Admin: 06/02/25 08:17 Dose: Not Given Documented By: ALAN Non-Admin Reason: IV Running Vitamin D (Cholecalciferol (Vitamin D3) 25 Mcg Tablet) 25 mcg PO DAILY [facility] Last Admin: 06/02/25 08:24 Dose: 25 mcg Documented By: ALAN Labs 06/02/25 05:40 06/02/25 05:40 Labs: Laboratory Results - last 24 hr 06/01/25 06/01/25 06/01/25 15:34 15:35 17:42 MCV 92.6 MCH 29.7 MCHC 32.1 RDW 16.6 H Plt Count 181 MPV 11.1 Immature Gran % (Auto) 1.5 H Neut % (Auto) 49.6 Lymph % (Auto) 35.0 [place] % (Auto) 11.6 H Eos % (Auto) 1.9 Baso % (Auto) 0.4 Lymph # (Auto) 2.4 [place] # (Auto) 0.8 Eos # (Auto) 0.1 Baso # (Auto) 0.0 Abs Immat Gran (auto) 0.10 H Absolute Neuts (auto) 3.4 Absolute Nucleated RBC 0.000 Nucleated RBC % (auto) 0.0 VBG pH VBG pCO2 VBG pO2 VBG HCO3 VBG O2 Saturation VBG Base Excess Anion Gap 15 Estim Creat Clear Calc 20.5 Estimated GFR 19 Random Glucose 72 Lactic Acid Calcium 8.8 D Total Bilirubin 0.4 Direct Bilirubin 0.1 AST 45 H ALT 89 H Alkaline Phosphatase 397 H Total Protein 6.3 L Albumin 3.6 Lipase 24 Urine Color Yellow Urine Appearance Clear Urine pH 5.5 Ur Specific [place] 1.010 Urine Protein Negative Urine Glucose (UA) Negative Urine Ketones Negative Urine Blood Negative Urine Nitrite Negative Ur Leukocyte Esterase Trace H Urine RBC 0-2 Urine WBC 0-5 Ur Squamous Epith Cells 0-2 Urine Bacteria None Seen Hyaline Casts 0-2 06/01/25 06/01/25 06/02/25 20:13 20:19 05:40 MCV 92.3 MCH 29.3 MCHC 31.7 RDW 16.6 H Plt Count 139 L MPV 10.8 Immature Gran % (Auto) 1.1 H Neut % (Auto) 45.8 Lymph % (Auto) 40.0 [place] % (Auto) 10.6 Eos % (Auto) 2.0 Baso % (Auto) 0.5 Lymph # (Auto) 2.6 [place] # (Auto) 0.7 Eos # (Auto) 0.1 Baso # (Auto) 0.0 Abs Immat Gran (auto) 0.07 H Absolute Neuts (auto) 3.0 Absolute Nucleated RBC 0.000 Nucleated RBC % (auto) 0.0 VBG pH 7.39 VBG pCO2 34 VBG pO2 37 VBG HCO3 21 L VBG O2 Saturation 51.0 VBG Base Excess -2.9 Anion Gap 15 11 L Estim Creat Clear Calc 22.8 24.3 Estimated GFR 21 23 Random Glucose 76 71 Lactic Acid 1.0 Calcium 9.0 8.3 L D Total Bilirubin 0.5 0.5 Direct Bilirubin AST 43 H 30 ALT 77 H 57 H Alkaline Phosphatase 356 H 288 H Total Protein 5.8 L 4.8 L Albumin 3.4 L 2.8 L Lipase Urine Color Urine Appearance Urine pH Ur Specific [place] Urine Protein Urine Glucose (UA) Urine Ketones Urine Blood Urine Nitrite Ur Leukocyte Esterase Urine RBC Urine WBC Ur Squamous Epith Cells Urine Bacteria Hyaline Casts Assessment and Plan (1) DIVINA (acute kidney injury): Status: Acute Plan Patient is a 70-year-old female with a past medical history significant for IBS-D, hypertension, compression fracture, CKD 3B, diverticulosis, GERD, melanoma and PUD, who presented to the ED due to 9/10 left-sided abdominal pain for the past few weeks that has been worsening. Intractable abdominal pain with diarrhea, unintentional weight loss and elevated alk-phos - unclear etiology: CT of abd/pelvis negative for acute abnormality - LFTs downtrending this morning - pain management - GI consult, Dr. Herbert pt - cdiff and GI panel - CRP, IBD serologies, fecal calprotectin - hep serologies, AMA, ASMA, SPEP, and LIVAN to evaluate for LFTs - CT enterography on 06/04/2025 if pain does not resolve - follow CBC and CMP - full liquid diet for now, advance as tolerated DIVINA on CKD 3B - likely due to dehydration from GI losses and reduced p.o. intake - creatinine improvin.52-->2.13 - IVF - monitor cr - avoid nephrotoxins when possible Anemia - unclear etiology: no active bleeding noted or reported - IV PPI for now - check iron, b12, folate - monitor cbc HTN - metoprolol GERD - PPI IBS-D, significantly worse than baseline per pt - hold lomotil pending stool testing full code VTE prophy: lovenox Pt will require continued hospitalization for treatment of DIVINA with IVF and monitoring of creatinine, as well as symptomatic treatment and additional workup of abdominal pain with analgesics and additional testing.. Quality Stroke Does the patient have a stroke diagnosis?: No VTE Prior VTE?: No VTE Risk Level:: Medical - moderate - high VTE Device Contraindication: Treatment Not Indicated VTE Drug Contraindication: N/A - Med Ordered
--- NOTE | 2025-06-02 14:55 | MHC.CM.PN ---
IMM 06/02/25, EMR REVIEWED PT W/DIVINA/NV, CM MET W/PT WHO REPORTS SHE LIVES W/HER , IS FULLY INDEP W/CARE, DENIES USE OF DME/SERVICE, PT'S GOAL FOR DC IS HOME NO SERVICES. PCP ON FILE VERIFIED, PT REPORTS HER HCP IS , COPY HAS BEEN REQUESTED.
[2025-06-02 16:02] LABS: CDiff Gene PCR NEGATIVE (Negative)
[2025-06-03 03:13] VITALS: BP 159/73; PULSE 63; RESP 16; TEMP 36.2; O2SAT 98
[2025-06-03] MEDS: Lactated Ringers 1,000 ML 100 ML IVCONT ×2 (03:16→13:58)
[2025-06-03 06:23] LABS: MANUAL DIFF FLAG NO
[2025-06-03 06:27] LABS: Hematocrit 29.8 % (37.0-47.0); Hemoglobin 9.5 g/dl (12.0-16.0); Imm Gran Abs Auto 0.04 X10*3/uL (0.00-0.03); Imm Gran Pct Auto 0.8 % (0.0-0.4); Lymphocytes Absolute Auto 1.5 X10*3/uL (1.2-4.9); Mean Corpuscular HGB Conc 31.9 g/dl (31.0-35.0); Mean Corpuscular Hemoglobin 29.7 pg (27.0-33.0); Mean Corpuscular Volume 93.1 fL (80.0-98.0); NRBC Abs Auto 0.000 X10*3/uL (0.0-0.012); NRBC Pct Auto 0.0 /100WBC (0.0-0.2); Platelet Count 140 X10*3/uL (160-400); Red Blood Count 3.20 X10*6/uL (4.20-5.50); White Blood Count 5.0 X10*3/uL (4.8-10.8)
[2025-06-03 06:50] LABS: Alanine Aminotransferase 44 U/L (0-31); Albumin Level 2.7 g/dL (3.5-5.0); Alkaline Phosphatase 266 U/L (39-117); Anion Gap 11 (12-20); Aspartate Amino Transferase 24 U/L (5-31); Blood Urea Nitrogen 15 mg/dL (9-16); Calcium 8.3 mg/dL (8.4-10.2); Carbon Dioxide 23 mmol/L (22-29); Chloride 114 mmol/L (96-108); Creatinine Clr Calc Pharmacy 27.8; Estimated Glomerular Filt Rate 27; Iron 64 mcg/dL (30-160); Percent Iron Saturation 40 % (15-50); Potassium 4.4 mmol/L (3.3-5.1); Sodium 144 mmol/L (135-145); Total Iron Binding Capacity 159 mcg/dL (228-428); Total Protein 4.8 g/dL (6.5-8.0); Unsaturated Iron Binding 95 ug/dL
[2025-06-03 07:04] LABS: Ferritin 513 ng/mL (10-250)
[2025-06-03 07:09] VITALS: BP 148/77; PULSE 64; RESP 15; TEMP 36.6; O2SAT 100
[2025-06-03 07:14] LABS: Folate 7.5 ng/mL (> or = 4.0); Vitamin B12 419 pg/mL (200-900)
[2025-06-03] MEDS: Metoprolol Succinate ER 50 MG TAB.ER.24H PO (08:16)
[2025-06-03 09:51] LABS: E. coli EAEC Not Detected (Not Detect.); E. coli EPEC Not Detected (Not Detect.); E. coli ETEC Not Detected (Not Detect.); E. coli STEC Not Detected (Not Detect.); Shigella sp./EIEC Not Detected (Not Detect.)
--- NOTE | 2025-06-03 11:34 | P.PNIM_ITS ---
Subjective Subjective Date of Service: 06/03/25 Interval History: When episode of diarrhea yesterday [place] better overnight and tolerated solid diet this morning However diarrhea and abdominal pain returned before lunch Pt tested positive for norovirus Will scale back diet to clears and put on precautions Review of Systems Review of Systems: Yes all other systems are reviewed and are negative Physical Exam 2 Exam: Exam: General: AOx3, looks uncomfortable Resp: CTA bilaterally CVS: S1, S2, RRR GI: +BS, no distention. Diffuse abd tenderness Skin: Warm, dry Neuro: Cranial nerves II-XII grossly intact bilaterally. Motor grossly intact bilaterally Extremities: No edema Psych: Appropriate affect Vital Signs: Vital Signs: Last Vital Signs Temp 97.9 F 06/03/25 07:09 Pulse 64 06/03/25 07:09 Resp 15 06/03/25 07:09 BP 148/77 H 06/03/25 07:09 Pulse Ox 100 06/03/25 07:09 O2 Del Method Room Air 06/03/25 07:09 BMI result Body Mass Index 20.7 Objective Data Active Medications Acetaminophen (Acetaminophen 325 Mg Tablet) 650 mg PO Q6H PRN PRN Reason: Pain, Mild 1-3,fever,headache Calcium Carbonate (Calcium Carbonate 750 Mg Tab.Chew) 750 mg PO Q4H PRN PRN Reason: Heartburn Dicyclomine HCl (Dicyclomine Hcl 10 Mg Capsule) 10 mg PO QIDACHS [facility] Last Admin: 06/03/25 11:01 Dose: 10 mg Documented By: DANNY Enoxaparin Sodium (Enoxaparin Sodium 30 Mg/0.3 Ml Syringe) 30 mg SUBCUT Q24H [facility] Last Admin: 06/02/25 21:00 Dose: Not Given Documented By: AMALIA Non-Admin Reason: Patient Refused Hydromorphone HCl (Hydromorphone Hcl 1 Mg/Ml Syringe) 0.5 mg IVPUSH Q4H PRN; Protocol PRN Reason: Pain, Severe (Pain Scale 7-10) Last Admin: 06/03/25 11:01 Dose: 0.5 mg Documented By: DANNY Lactated Ringer's (Lr) 1,000 mls @ 75 mls/hr IVCONT .[id number] [facility] Last Admin: 06/03/25 03:16 Dose: 100 mls/hr Documented By: AMALIA Lorazepam (Lorazepam 1 Mg Tablet) 1 mg PO BEDTIME [facility] Last Admin: 06/02/25 20:55 Dose: 1 mg Documented By: AMALIA Magnesium Hydroxide (Milk Of Magnesia 30 Ml Oral.Susp) 30 ml PO DAILY PRN PRN Reason: Constipation Melatonin (Melatonin 3 Mg Tablet) 6 mg PO BEDTIME PRN PRN Reason: Insomnia Last Admin: 06/02/25 20:57 Dose: 6 mg Documented By: AMALIA Metoprolol Succinate (Metoprolol Succinate Er 50 Mg Tab.Er.24h) 50 mg PO DAILY [facility]; Protocol Last Admin: 06/03/25 08:16 Dose: 50 mg Documented By: DANNY Omeprazole (Omeprazole 20 Mg Capsule.Dr) 20 mg PO DAILY@0630 PRN PRN Reason: Acid Reflux Ondansetron HCl (Ondansetron Hcl 4 Mg/2 Ml Vial) 4 mg IVPUSH Q8H PRN PRN Reason: Nausea and Vomiting Last Admin: 06/03/25 11:01 Dose: 4 mg Documented By: DANNY Oxycodone HCl (Oxycodone Hcl Immed Release 5 Mg Tablet) 5 mg PO Q6H PRN PRN Reason: Pain, Moderate(Pain Scale 4-6) Sodium Chloride (0.9 % Sodium Chloride Flush 3 Ml Syringe) 3 ml IVFLUSH QSHIFT [facility] Last Admin: 06/03/25 08:17 Dose: Not Given Documented By: DANNY Non-Admin Reason: IV Running Vitamin D (Cholecalciferol (Vitamin D3) 25 Mcg Tablet) 25 mcg PO DAILY [facility] Last Admin: 06/03/25 08:16 Dose: 25 mcg Documented By: DANNY Labs 06/03/25 05:36 06/03/25 05:36 Labs: Laboratory Results - last 24 hr 06/02/25 06/03/25 13:30 05:36 MCV 93.1 MCH 29.7 MCHC 31.9 RDW 16.5 H Plt Count 140 L MPV 10.6 Immature Gran % (Auto) 0.8 H Neut % (Auto) 55.9 Lymph % (Auto) 29.2 [place] % (Auto) 11.3 H Eos % (Auto) 2.4 Baso % (Auto) 0.4 Lymph # (Auto) 1.5 [place] # (Auto) 0.6 Eos # (Auto) 0.1 Baso # (Auto) 0.0 Abs Immat Gran (auto) 0.04 H Absolute Neuts (auto) 2.8 Absolute Nucleated RBC 0.000 Nucleated RBC % (auto) 0.0 Anion Gap 11 L Estim Creat Clear Calc 27.8 Estimated GFR 27 Random Glucose 92 Calcium 8.3 L Iron 64 TIBC 159 L % Saturation 40 Unsat Iron Binding 95 Ferritin 513 H Total Bilirubin 0.5 AST 24 ALT 44 H Alkaline Phosphatase 266 H C-Reactive Protein 0.39 Total Protein 4.8 L Albumin 2.7 L Vitamin B12 419 Folate 7.5 Stl C. cayetanensis PCR Not Detected Stool Rotavirus A PCR Not Detected Stl Adenov F 40/41 PCR Not Detected Stool Astrovirus (PCR) Not Detected Stool Campylobacter PCR Not Detected Stool Cryptosporidium PCR Not Detected Stl Sh Tox Pr E STEC PCR Not Detected Stool E coli O157 PCR Not applicable Stl Enterotoxigenic E PCR Not Detected Stool EPEC (PCR) Not Detected Stool EAEC (PCR) Not Detected Stl E. histolytica PCR Not Detected Stool Giardia Lamblia PCR Not Detected Stl P. shigelloides PCR Not Detected Stool Salmonella PCR Not Detected Stool Sapovirus (PCR) Not Detected Stl Shigella/EIEC PCR Not Detected St Y.enterocolitica PCR Not Detected Stool Vibrio (PCR) Not Detected Stl Vibrio cholerae PCR Not Detected Stl Norovirus GI/GII PCR Detected A C. difficile Tox B Gene NEGATIVE Assessment and Plan (1) Gastroenteritis due to norovirus: Status: Acute (2) DIVINA (acute kidney injury): Status: Acute Plan Patient is a 70-year-old female with a past medical history significant for IBS- D, hypertension, compression fracture, CKD 3B, diverticulosis, GERD, melanoma and PUD, who presented to the ED due to 9/10 left-sided abdominal pain for the past few weeks that has been worsening. Acute gastroenteritis secondary to norovirus - pt with intractable abdominal pain with diarrhea; stool studies today positive for norovirus - CT of abd/pelvis negative for acute abnormality - LFTs downtrending - pain management - GI consult, Dr. Herbert pt - cdiff negative - CRP, IBD serologies, fecal calprotectin pending; f/u outpatient - hep serologies, AMA, ASMA, SPEP, and LIVAN to evaluate for LFTs; f/u outpatient - does not need CT enterography on 06/04/2025 as source of abd pain and diarrhea now found - follow CBC and CMP - scale diet back to clear liquid diet DIVINA on CKD 3B - likely due to dehydration from GI losses and reduced p.o. intake - creatinine improvin.52-->1.86 - continue IVF for now as pt's diarrhea has returned - monitor cr - avoid nephrotoxins when possible Anemia - unclear etiology: no active bleeding noted or reported - b12 and folate WNL - stable since admission, monitor cbc HTN - metoprolol GERD - PPI IBS-D, significantly worse than baseline per pt - hold lomotil pending stool testing full code VTE prophy: lovenox Pt will require continued hospitalization for treatment of DIVINA with IVF and monitoring of creatinine, as well as symptomatic treatment for norovirus gastroenteritis. Quality Stroke Does the patient have a stroke diagnosis?: No VTE Prior VTE?: No VTE Risk Level:: Medical - moderate - high VTE Device Contraindication: Treatment Not Indicated VTE Drug Contraindication: N/A - Med Ordered
[2025-06-03 15:50] VITALS: BP 143/68; PULSE 70; RESP 18; TEMP 36.6; O2SAT 98
[2025-06-03 19:41] VITALS: PULSE 72; RESP 18; TEMP 36.2; O2SAT 99
[2025-06-03 20:45] VITALS: BP 183/76; PULSE 60
[2025-06-03] MEDS: oxyCODONE HCl Immed Release 5 MG TABLET PO (20:47)
[2025-06-03 21:15] VITALS: BP 121/64; PULSE 69
[2025-06-04] MEDS: 0.9 % Sodium Chloride Flush 3 ML SYRINGE IVFLUSH (02:33)
[2025-06-04] MEDS: Lactated Ringers 1,000 ML 100 ML IVCONT (02:35)
[2025-06-04 03:46] VITALS: BP 123/62; PULSE 63; RESP 16; TEMP 36.4; O2SAT 100
[2025-06-04 03:52] LABS: HBS Num1 10.69 mIU/mL (0-7.99); HBc Num1 0.11 S/CO (0.00-0.79); HBsAGNum1 0.32 S/CO (0.00-0.99); Hepatitis B Surface Antigen Negative (Negative); ~HepC Num1 0.06 S/CO (0.00-0.79); ~Hepatitis C Antibody Nonreactive (Nonreactive)
[2025-06-04 04:38] LABS: HBS Num2 10.04 mIU/mL (0-7.99); HBS Num3 10.23 mIU/mL (0-7.99); ~Hepatitis B Surface Antibody GRAYZONE (Nonreactive)
[2025-06-04 06:12] LABS: MANUAL DIFF FLAG NO
[2025-06-04 06:24] LABS: Hematocrit 30.3 % (37.0-47.0); Hemoglobin 9.7 g/dl (12.0-16.0); Imm Gran Abs Auto 0.04 X10*3/uL (0.00-0.03); Imm Gran Pct Auto 0.7 % (0.0-0.4); Lymphocytes Absolute Auto 1.9 X10*3/uL (1.2-4.9); Mean Corpuscular HGB Conc 32.0 g/dl (31.0-35.0); Mean Corpuscular Hemoglobin 29.7 pg (27.0-33.0); Mean Corpuscular Volume 92.7 fL (80.0-98.0); NRBC Abs Auto 0.000 X10*3/uL (0.0-0.012); NRBC Pct Auto 0.0 /100WBC (0.0-0.2); Platelet Count 133 X10*3/uL (160-400); Red Blood Count 3.27 X10*6/uL (4.20-5.50); White Blood Count 5.8 X10*3/uL (4.8-10.8)
[2025-06-04 06:40] LABS: Alanine Aminotransferase 36 U/L (0-31); Albumin Level 2.7 g/dL (3.5-5.0); Alkaline Phosphatase 230 U/L (39-117); Anion Gap 10 (12-20); Aspartate Amino Transferase 23 U/L (5-31); Blood Urea Nitrogen 12 mg/dL (9-16); Calcium 8.1 mg/dL (8.4-10.2); Carbon Dioxide 24 mmol/L (22-29); Chloride 114 mmol/L (96-108); Creatinine Clr Calc Pharmacy 30.1; Estimated Glomerular Filt Rate 29; Potassium 4.2 mmol/L (3.3-5.1); Sodium 144 mmol/L (135-145); Total Protein 4.6 g/dL (6.5-8.0)
--- NOTE | 2025-06-04 07:35 | HO.PM.IMPN ---
Subjective Subjective Date of Service: 06/04/25 Interval History: When episode of diarrhea yesterday [place] better overnight and tolerated solid diet this morning However diarrhea and abdominal pain returned before lunch Pt tested positive for norovirus Will scale back diet to clears and put on precautions Review of Systems Review of Systems: Yes all other systems are reviewed and are negative Physical Exam Exam: Exam: General: AOx3, looks uncomfortable Resp: CTA bilaterally CVS: S1, S2, RRR GI: +BS, no distention. Diffuse abd tenderness Skin: Warm, dry Neuro: Cranial nerves II-XII grossly intact bilaterally. Motor grossly intact bilaterally Extremities: No edema Psych: Appropriate affect Vital Signs: Vital Signs: Last Vital Signs Temp 97.6 F 06/04/25 03:46 Pulse 63 06/04/25 03:46 Resp 16 06/04/25 03:46 BP 123/62 06/04/25 03:46 Pulse Ox 100 06/04/25 03:46 O2 Del Method Room Air 06/04/25 03:46 BMI result Body Mass Index 20.7 Objective Data Active Medications Acetaminophen (Acetaminophen 325 Mg Tablet) 650 mg PO Q6H PRN PRN Reason: Pain, Mild 1-3,fever,headache Last Admin: 06/04/25 06:30 Dose: 650 mg Documented By: NICOL Calcium Carbonate (Calcium Carbonate 750 Mg Tab.Chew) 750 mg PO Q4H PRN PRN Reason: Heartburn Dicyclomine HCl (Dicyclomine Hcl 10 Mg Capsule) 10 mg PO QIDACHS [facility] Last Admin: 06/04/25 06:33 Dose: 10 mg Documented By: NICOL Enoxaparin Sodium (Enoxaparin Sodium 30 Mg/0.3 Ml Syringe) 30 mg SUBCUT Q24H [facility] Last Admin: 06/03/25 20:50 Dose: Not Given Documented By: MADAI Non-Admin Reason: Patient Refused Hydromorphone HCl (Hydromorphone Hcl 1 Mg/Ml Syringe) 0.5 mg IVPUSH Q4H PRN; Protocol PRN Reason: Pain, Severe (Pain Scale 7-10) Last Admin: 06/03/25 11:01 Dose: 0.5 mg Documented By: DANNY Lactated Ringer's (Lr) 1,000 mls @ 75 mls/hr IVCONT .[id number] [facility] Last Admin: 06/04/25 02:35 Dose: 100 mls/hr Documented By: MADAI Lorazepam (Lorazepam 1 Mg Tablet) 1 mg PO BEDTIME [facility] Last Admin: 06/03/25 20:47 Dose: 1 mg Documented By: MADAI Magnesium Hydroxide (Milk Of Magnesia 30 Ml Oral.Susp) 30 ml PO DAILY PRN PRN Reason: Constipation Melatonin (Melatonin 3 Mg Tablet) 6 mg PO BEDTIME PRN PRN Reason: Insomnia Last Admin: 06/03/25 21:00 Dose: 6 mg Documented By: MADAI Metoprolol Succinate (Metoprolol Succinate Er 50 Mg Tab.Er.24h) 50 mg PO DAILY [facility]; Protocol Last Admin: 06/03/25 08:16 Dose: 50 mg Documented By: DANNY Omeprazole (Omeprazole 20 Mg Capsule.Dr) 20 mg PO DAILY@0630 PRN PRN Reason: Acid Reflux Ondansetron HCl (Ondansetron Hcl 4 Mg/2 Ml Vial) 4 mg IVPUSH Q8H PRN PRN Reason: Nausea and Vomiting Last Admin: 06/03/25 20:55 Dose: 4 mg Documented By: MADAI Oxycodone HCl (Oxycodone Hcl Immed Release 5 Mg Tablet) 5 mg PO Q6H PRN PRN Reason: Pain, Moderate(Pain Scale 4-6) Last Admin: 06/03/25 20:47 Dose: 5 mg Documented By: MADAI Sodium Chloride (0.9 % Sodium Chloride Flush 3 Ml Syringe) 3 ml IVFLUSH QSHIFT [facility] Last Admin: 06/04/25 02:33 Dose: 3 ml Documented By: MADAI Vitamin D (Cholecalciferol (Vitamin D3) 25 Mcg Tablet) 25 mcg PO DAILY [facility] Last Admin: 06/03/25 08:16 Dose: 25 mcg Documented By: DANNY Labs 06/04/25 05:55 06/04/25 05:55 Labs: Laboratory Results - last 24 hr 06/02/25 06/03/25 06/04/25 13:30 05:36 05:55 MCV 92.7 MCH 29.7 MCHC 32.0 RDW 16.6 H Plt Count 133 L MPV 10.2 Immature Gran % (Auto) 0.7 H Neut % (Auto) 51.7 Lymph % (Auto) 32.8 [place] % (Auto) 11.9 H Eos % (Auto) 2.6 Baso % (Auto) 0.3 Lymph # (Auto) 1.9 [place] # (Auto) 0.7 Eos # (Auto) 0.2 Baso # (Auto) 0.0 Abs Immat Gran (auto) 0.04 H Absolute Neuts (auto) 3.0 Absolute Nucleated RBC 0.000 Nucleated RBC % (auto) 0.0 Anion Gap 10 L Estim Creat Clear Calc 30.1 Estimated GFR 29 Random Glucose 88 Calcium 8.1 L Total Bilirubin 0.4 AST 23 ALT 36 H Alkaline Phosphatase 230 H Total Protein 4.6 L Albumin 2.7 L Stl C. cayetanensis PCR Not Detected Stool Rotavirus A PCR Not Detected Stl Adenov F 40/41 PCR Not Detected Stool Astrovirus (PCR) Not Detected Stool Campylobacter PCR Not Detected Stool Cryptosporidium PCR Not Detected Stl Sh Tox Pr E STEC PCR Not Detected Stool E coli O157 PCR Not applicable Stl Enterotoxigenic E PCR Not Detected Stool EPEC (PCR) Not Detected Stool EAEC (PCR) Not Detected Stl E. histolytica PCR Not Detected Stool Giardia Lamblia PCR Not Detected Stl P. shigelloides PCR Not Detected Stool Salmonella PCR Not Detected Stool Sapovirus (PCR) Not Detected Stl Shigella/EIEC PCR Not Detected St Y.enterocolitica PCR Not Detected Stool Vibrio (PCR) Not Detected Stl Vibrio cholerae PCR Not Detected Stl Norovirus GI/GII PCR Detected A Hep Bs Antigen Negative Hep Bs Antibody GRAYZONE Hep B Core Total Ab Nonreactive Hepatitis C Ab (EIA) Nonreactive Assessment and Plan (1) Gastroenteritis due to norovirus: Status: Acute (2) DIVINA (acute kidney injury): Status: Acute Plan Patient is a 70-year-old female with a past medical history significant for IBS-D, hypertension, compression fracture, CKD 3B, diverticulosis, GERD, melanoma and PUD, who presented to the ED due to 9/10 left-sided abdominal pain for the past few weeks that has been worsening. Acute gastroenteritis secondary to norovirus - pt with intractable abdominal pain with diarrhea; stool studies today positive for norovirus - CT of abd/pelvis negative for acute abnormality - LFTs downtrending - pain management - GI consult, Dr. Herbert pt - cdiff negative - CRP, IBD serologies, fecal calprotectin pending; f/u outpatient - hep serologies, AMA, ASMA, SPEP, and LIVAN to evaluate for LFTs; f/u outpatient - does not need CT enterography on 06/04/2025 as source of abd pain and diarrhea now found - follow CBC and CMP - scale diet back to clear liquid diet DIVINA on CKD 3B - likely due to dehydration from GI losses and reduced p.o. intake - creatinine improvin.52-->1.86 - continue IVF for now as pt's diarrhea has returned - monitor cr - avoid nephrotoxins when possible Anemia - unclear etiology: no active bleeding noted or reported - b12 and folate WNL - stable since admission, monitor cbc HTN - metoprolol GERD - PPI IBS-D, significantly worse than baseline per pt - hold lomotil pending stool testing full code VTE prophy: lovenox Pt will require continued hospitalization for treatment of DIVINA with IVF and monitoring of creatinine, as well as symptomatic treatment for norovirus gastroenteritis. Quality Stroke Does the patient have a stroke diagnosis?: No VTE Prior VTE?: No VTE Risk Level:: Medical - moderate - high VTE Device Contraindication: Treatment Not Indicated VTE Drug Contraindication: N/A - Med Ordered
[2025-06-04 07:40] VITALS: BP 176/79; PULSE 56; RESP 16; TEMP 36.4; O2SAT 97
[2025-06-04 09:11] VITALS: BP 176/79
[2025-06-04] MEDS: Metoprolol Succinate ER 50 MG TAB.ER.24H PO (09:11)
[2025-06-04] MEDS: oxyCODONE HCl Immed Release 5 MG TABLET PO (09:11)
--- NOTE | 2025-06-04 09:42 | PM.DS ---
DS: Providers Provider Date of Service: 06/04/25 Date of admission: 06/01/25 21:04 Date of discharge: 06/04/25 Primary care physician: Thierno Velasquez MD Consults: 06/01/25 22:00 Consult to Gastroenterology Routine Consulting Provider: Mack Corrales Reason for consultation: [place] pt, intractable abd pain, elevated alk phos, weight loss Has provider been notified: No DS: Diagnosis Discharge Diagnosis (1) Gastroenteritis due to norovirus: Status: Acute (2) DIVINA (acute kidney injury): Status: Acute DS: Summary Hospital Course Hospital Course: Admission hpi Chief Complaint: abd pain Patient is a 70-year-old female with a past medical history significant for IBS-D, hypertension, compression fracture, CKD 3B, diverticulosis, GERD, melanoma and PUD, who presented to the ED due to 9/10 left-sided abdominal pain for the past few weeks that has been worsening. Patient reports that her pain has improved slightly since arriving in his now 02/15. At 1 point her pain was down to 4/10. She is unable to describe the pain as sharp, burning, dull but reports this is constant. She has had associated nausea and 1 episode of bilious vomiting. She denies any blood in the stool reports baseline IBS however reports that she has had significant a more diarrhea and has been withholding food because of it. She has lost about 6 lb in the past week. She also reports that she is not hydrating as well. She feels fatigued and is very concerned about her pain and weight loss. The pain is on the entire left side of her abdomen, does not radiate to the back, does not worsen with lying down. No history of pancreatitis and denies frequent alcohol use. hospital course Patient is a 70-year-old female with a past medical history significant for IBS-D, hypertension, compression fracture, CKD 3B, diverticulosis, GERD, melanoma and PUD, who presented to the ED due to 9/10 left-sided abdominal pain for the past few weeks that has been worsening and is found to have acute Norovius associat ed gastroenteritis,/ The intractable abdominal pain has resolved, no diarrhea since yesterday, wants tolerating regular diet. - CT of abd/pelvis negative for acute abnormality - LFTs were mildly elevated but trending down and near normal now. Given that her pain has resolved, tolerating diet and no further diarrhea she will be going home. DIVINA on CKD 3B - likely due to dehydration from GI losses and reduced p.o. intake - creatinine improvin.52-->1.72 which is within her baseline Anemia, likely of chronic disease, outpatient follow up HTN Resume home medications GERD Time Attestation Discharge Coordination Time (in mins): 45 Quality: Safe Use of Opioids Does Pt have an Active Cancer Diagnosis on the Problem List?: No Quality: Stroke Does the patient have a stroke diagnosis?: No Physical Exam Exam: Exam: General: AO X 3, no acute distress Resp: CTA bilateral CVS: S1,S2,RRR GI: +BS, NT, no distention Skin: No rash Neuro: motor grossly intact Psych: appropriate affect Vital Signs: Vital Signs: Last Vital Signs Temp 97.5 F 06/04/25 07:40 Pulse 56 06/04/25 07:40 Resp 16 06/04/25 07:40 BP 176/79 H 06/04/25 09:11 Pulse Ox 97 06/04/25 07:40 O2 Del Method Room Air 06/04/25 07:40 BMI result Body Mass Index 20.7 DS: Data Data Completed and Pending Labs on day of discharge: Laboratory Results - last 24 hr 06/02/25 06/03/25 06/04/25 13:30 05:36 05:55 WBC 5.8 RBC 3.27 L Hgb 9.7 L Hct 30.3 L MCV 92.7 MCH 29.7 MCHC 32.0 RDW 16.6 H Plt Count 133 L MPV 10.2 Immature Gran % (Auto) 0.7 H Neut % (Auto) 51.7 Lymph % (Auto) 32.8 [place] % (Auto) 11.9 H Eos % (Auto) 2.6 Baso % (Auto) 0.3 Lymph # (Auto) 1.9 [place] # (Auto) 0.7 Eos # (Auto) 0.2 Baso # (Auto) 0.0 Abs Immat Gran (auto) 0.04 H Absolute Neuts (auto) 3.0 Absolute Nucleated RBC 0.000 Nucleated RBC % (auto) 0.0 Sodium 144 Potassium 4.2 Chloride 114 H Carbon Dioxide 24 Anion Gap 10 L BUN 12 Creatinine 1.72 H Estim Creat Clear Calc 30.1 Estimated GFR 29 Random Glucose 88 Calcium 8.1 L Total Bilirubin 0.4 AST 23 ALT 36 H Alkaline Phosphatase 230 H Total Protein 4.6 L Albumin 2.7 L Stl C. cayetanensis PCR Not Detected Stool Rotavirus A PCR Not Detected Stl Adenov F 40/41 PCR Not Detected Stool Astrovirus (PCR) Not Detected Stool Campylobacter PCR Not Detected Stool Cryptosporidium PCR Not Detected Stl Sh Tox Pr E STEC PCR Not Detected Stool E coli O157 PCR Not applicable Stl Enterotoxigenic E PCR Not Detected Stool EPEC (PCR) Not Detected Stool EAEC (PCR) Not Detected Stl E. histolytica PCR Not Detected Stool Giardia Lamblia PCR Not Detected Stl P. shigelloides PCR Not Detected Stool Salmonella PCR Not Detected Stool Sapovirus (PCR) Not Detected Stl Shigella/EIEC PCR Not Detected St Y.enterocolitica PCR Not Detected Stool Vibrio (PCR) Not Detected Stl Vibrio cholerae PCR Not Detected Stl Norovirus GI/GII PCR Detected A Hep Bs Antigen Negative Hep Bs Antibody GRAYZONE Hep B Core Total Ab Nonreactive Hepatitis C Ab (EIA) Nonreactive Discharge Plan Discharge Anticipated Discharge Date/Time: 06/04/25 09:49 Patient Disposition: Home, Self-Care Discharge Diagnosis: Diarrhea due to norovirus, DIVINA Referrals: Thierno Velasquez MD [Primary Care Provider, Internal Medicine] - 1 Week Discharge Medications: Continued omeprazole 20 mg capsule,delayed release(DR/EC) 20 mg PO DAILY@0630 PRN (Reason: Acid Reflux) lorazepam 1 mg tablet 1 tab PO BEDTIME diphenoxylate-atropine 2.5-0.025 mg tablet 2 tab PO TID tramadol 50 mg tablet 100 mg PO Q12H PRN (Reason: pain) calcitonin (salmon) 200 unit/actuation spray,non-aerosol 1 spray intranasal DAILY cholecalciferol (vitamin D3) [Vitamin D3] 25 mcg (1,000 unit) Tablet 25 mcg PO DAILY metoprolol succinate 50 mg tablet extended release 24 hr 50 mg PO DAILY Discharge Orders: Discharge Order (Routine); Ordered 06/04/25 Ordered By: Ezequiel [facility] Diet: Advance to usual diet Activity on Discharge: As tolerated Stand Alone Forms: Patient Portal Discharge page Print Language: [place] Care Plan Goals: recovery from diarrhea and norovirus Health Concerns: Noroviurs diarrhea, DIVINA and dehydration Plan of Treatment: Drink plenty of fluid Follow up with your Doctor in a week, discuss weight loss with your doctor Assessment: see Discharge Date/Time: 06/04/25 11:45
--- NOTE | 2025-06-04 10:50 | MHC.CM.PN ---
pt dcd home self care
[2025-06-05 20:58] LABS: Prot Elec - Albumin 2.7 g/dL (3.8-4.8); Prot Elec - Alpha1 0.2 g/dL (0.2-0.3); Prot Elec - Alpha2 0.6 g/dL (0.5-0.9); Prot Elec - Beta 1 0.2 g/dL (0.4-0.6); Prot Elec - Beta 2 0.3 g/dL (0.2-0.5); Prot Elec - Gamma 0.5 g/dL (0.8-1.7); Prot Elec - Total Protein 4.5 g/dL (6.1-8.1)
[2025-06-09 20:08] LABS: Calprotectin, Fecal 82 mcg/g
[2025-06-13 09:18] LABS: Anti Nuclear Antibody Screen POSITIVE (NEGATIVE); Anti Nuclear Antibody Titer 1:40 titer
== END 2025-06-04 11:45 | disposition home or self-care (01) | DRG 392 ==
LOC: HO.ED 17:51 → HO.EDOVER 21:07 → HO.S3 23:23
PROVIDERS: Internal Medicine Gastroenterology; Nurse Practitioner Family; Registered Nurse Emergency; Admitting Provider Physician Assistant; Emergency Provider Emergency Medicine; PCP Internal Medicine; Visit Provider Internal Medicine
DX: A08.11 Acute gastroenteropathy due to Norwalk agent (principal); N17.9 Acute kidney failure, unspecified; N18.32 Chronic kidney disease, stage 3b; I12.9 Hypertensive chronic kidney disease with stage 1 through stage 4 chronic kidney disease, or unspecified chronic kidney disease; D63.1 Anemia in chronic kidney disease; K58.0 Irritable bowel syndrome with diarrhea; Z79.899 Other long term (current) drug therapy
CPT/HCPCS: 36415; 74176; 80048; 80053; 80076; 81001; 81479; 82397; 82607; 82656; 82728; 82746; 82803; 83520; 83540; 83605; 83690; 83993; 84165; 85025; 86015; 86038; 86039; 86140; 86381; 86704; 86706; 86803; 87340; 87493; 87507; 88346; 88350; 99285; J0360; J1171; J2270; J2405; J7120

== ENCOUNTER → 2025-06-01 21:04 | Outpatient (BNV) | payer MEDICARE, SELFPAY | PROVIDERS: Admitting Provider Physician Assistant; Emergency Provider Emergency Medicine; PCP Internal Medicine; Visit Provider Student in an Organized Health Care Education/Training Program | DX: A08.11 Acute gastroenteropathy due to Norwalk agent (principal); N17.9 Acute kidney failure, unspecified | CPT/HCPCS: 99223; 99233 ==

== ENCOUNTER → 2025-06-01 21:04 | Outpatient (BNV) | payer MEDICARE, SELFPAY | PROVIDERS: Admitting Provider Physician Assistant; Emergency Provider Emergency Medicine; PCP Internal Medicine; Visit Provider Internal Medicine Gastroenterology | DX: R10.9 Unspecified abdominal pain (principal); K58.9 Irritable bowel syndrome, unspecified; R79.89 Other specified abnormal findings of blood chemistry | CPT/HCPCS: 99222 ==

== ENCOUNTER 2025-07-09 07:37 | Outpatient (REF) | payer MEDICARE, SELFPAY ==
--- OUTSIDE RECORDS SUMMARY | 2020-06-29 12:25 | XMS_ITS | Encounter Summary ---
Author Organization [facility] Address [address] [place] [id number] Phone Care Team Providers Care Formula Room Worker Name Role Phone Thierno Velasquez MD Primary Care Provider + Encounter Details Date Type Department Care Team (Late st Contact Info) Description 06/29/2020 12:25 PM EST Hospital Encounter [facility] [address] [place] [id number] Jus Ocasio PA [address] [place] [id number] [email or web address] Social History Tobacco Use Types Packs/Day Years Used Date Smoking Tobacco: Never Smokeless Tobacco: Never Education Answer Date Recorded Are you interested in more education? Not on fabien e 12/04/2022 Are you concerned about learning? Not on file 12/04/2022 No 12/04/2022 No 12/04/2022 Digital Access Answer Date Recorded No 01/05/2023 No 01/05/2023 Reliable internet access at home? Not on file 01/05/2023 Device with a working camera? Not on file Comments Unknown Sex and Gender Information Value Date Recorded Sex Assigned at Not on file Legal Sex Female 11:47 AM EST Gender Identity Not on file Sexual Orientation Not on file documented as of this encounter Plan of Treatment Not on file documented as of this encounter Procedures Procedure Name Priority Date/Time Associated Diagnosis Comments XR LUMBOSACRAL SPINE 4 OR MORE VIEWS Urgent/patient waiting 06/29/2020 12:57 PM EST Acute right-sided low back pain, unspecified whether sciatica present documented in this encounter Results * XR LUMBOSACRAL SPINE 4 OR MORE VIEWS (06/29/2020 12:57 PM EST) Anatomical Region Laterality Modality L-spine Radiographic Radha ging 06/29/2020 1:11 PM EST Impressions 06/29/2020 1:18 PM EST 1.Mild age indeterminate superior endplate compression deformity of the L2 vertebra. 2.No displaced fracture or traumatic malalignment. ATTESTATION: Zi Lundberg as teaching physician, have reviewed the images for this case and if necessary edited the report originally created by Kuldeep Cortez. Narrative 06/29/2020 1:18 PM EST Reason for exam (per EHR order): - S/P FALL [KNOWN DX]; fall x1wk ago against toilet seat, TTP at L3 area, eval for fx TECHNIQUE: Frontal, obliques and lateral radiographs of the lumbar spine. COMPARISON: None. FINDINGS: 5 lumbar-type nonrib-bearing vertebral bodies. Mild age-indeterminate superior endplate compression of the L2 vertebra. Intervertebral disc space heights are maintained. Mild multilevel degenerative changes evident as anterior osteophytes. Alignment is intact. Sacroiliac joints are intact. Atherosclerotic calcification of the aorta. Procedure Note Zi Rachel MD - 06/29/2020 Reason for exam (per EHR order): - S/P FALL [KNOWN DX]; fall x1wk agoagainst toilet seat, TTP at L3 area, eval for fx TECHNIQUE: Frontal, obliques and lateral radiographs of the lumbarspine. COMPARISON: None. FINDINGS: 5 lumbar-type nonrib-bearing vertebral bodies. Mild age-indeterminatesuperior endplate compression of the L2 vertebra. Intervertebral discspace heights are maintained. Mild multilevel degenerative changes evidentas anterior osteophytes. Alignment is intact. Sacroiliac joints areintact. Atherosclerotic calcification of the aorta. IMPRESSION: 1.Mild age indeterminate superior endplate compression deformity of the [id number]. 2.No displaced fracture or traumatic malalignment. ATTESTATION: Toño, Zi Rachel as teaching physician, have reviewed theimages for this case and if necessary edited the report originally createdby Kuldeep Cortez. us Jus REAVES IMG XR SPINE Final Resul t documented in this encounter Visit Diagnoses Not on filedocumented in this encounter Care Teams Formula Room Worker Relationship Specialty Start Date End Date Thierno Velasquez MD PCP - General Internal Medicine 06/29/20 documented as of this encounter Additional Source Comments The information contained in this document represents components of the legal health record. It is not the complete legal health record.[facility]
--- OUTSIDE RECORDS SUMMARY | 2020-06-29 12:30 | XMS_ITS | Encounter Summary ---
Author Organization [facility] Address [address] [place] [phone] Phone Care Team Providers Care Motorcycle Subassembler Name Role Phone Thierno Velasquez MD Primary Care Provider + Encounter Details Date Type Department Care Team (Late st Contact Info) Description 06/29/2020 12:30 PM EST Hospital Encounter [facility] [address] [place] [id number] Jus Ocasio PA [address] [place] [phone] [email or web address] Social History Tobacco Use Types Packs/Day [...] Name Priority Date/Time Associated Diagnosis Comments XR RIBS 3 OR MORE VIEWS WITH PA CHEST (RIGHT) Urgent/patient waiting 06/29/2020 12:56 PM EST Closed fracture of one rib of right side, initial encounter documented in this encounter Results * XR RIBS 3 OR MORE VIEWS WITH PA CHEST (RIGHT) (06/29/2020 12:56 PM EST) Anatomical Region Laterality Modality Chest Radiographic Radha ging 06/29/2020 1:01 PM EST Impressions 06/29/2020 1:10 PM EST Acute nondisplaced posterolateral 11th rib fracture. ATTESTATION: Zi Lundberg as teaching physician, have reviewed the images for this case and if necessary edited the report originally created by Kirt Reno. Narrative 06/29/2020 1:10 PM EST TECHNIQUE: XR RIBS 3 OR MORE VIEWS WITH PA CHEST (RIGHT) COMPARISON: None FINDINGS: A round metallic marker is noted overlying the posterior 11th rib. There is a nondisplaced fracture of the right posterolateral 11th rib with no evidence of callus formation. The lung is clear and fully expanded. Procedure Note Zi Rachel MD - 06/29/2020 TECHNIQUE: XR RIBS 3 OR MORE VIEWS WITH PA CHEST (RIGHT) COMPARISON: None FINDINGS: A round metallic marker is noted overlying the posterior 11th rib. Thereis a nondisplaced fracture of the right posterolateral 11th rib with noevidence of callus formation. The lung is clear and fully expanded. IMPRESSION: Acute nondisplaced posterolateral 11th rib fracture. ATTESTATION: Zi Lundberg as teaching physician, have reviewed theimages for this case and if necessary edited the report originally createdby Kirt Reno. Jus Ocasio PA IMG XR CHEST Final Resul t documented in this encounter Visit Diagnoses Not on filedocumented in this encounter Care Teams Motorcycle Subassembler Relationship Specialty Start Date End Date Thierno Velasquez MD PCP - General Internal Medicine 06/29/20 documented as of this encounter Additional Source Comments The information contained in this document represents components of the legal health record. It is not the complete legal health record.[facility]
--- OUTSIDE RECORDS SUMMARY | 2024-04-27 04:00 | XMS_ITS ---
Author Organization [facility] Address [address] [place] [phone] Care Team Providers Care Property Analyst Name Role Phone Ron LEE, Thierno Primary Care Provider UnavailJuan Cardenas [phone] REASON FOR VISIT Patient presents today for IBS Encounters Encounter Location Date Provider Diagnosis [facility] [address] [place] [phone] 04/27/2024 Juan Herbert Plan Of Treatment No Information Progress Notes * CABRERA JACOBO MDOB: [birth year] (70 yo F)Acc No.[id number]:04/27/2024 Progress Notes Patient: CABRERA PRESLEY Provider: Pancho Herbert MD :1955 A ge:69 Y S ex:Female Date:04/27/2024 Address:[address] [place], [place] [id number] Pcp:Thierno Velasquez MD Subjective: * Chief Complaints: * P atient presents today for IBS Billing Information: * Procedure Codes: * The named appointment provid er may or may not be the originator of this progress note, and it is not deemed complete until electronically signed by the appointment provider. Sign off status: Pending * Provider: Pancho Herbert MD Date: 0 04/27/2024 Generated for Lianei ng/Fajasong/eTransmitting on: 1 09/09/2024 07:40 AM EST
--- OUTSIDE RECORDS SUMMARY | 2024-06-26 09:00 | XMS_ITS ---
Author Organization [facility] Address [address] [place] [address] Care Team Providers Care Industrial Manufacturing Technician Name Role Phone Thierno Velasquez Primary Care Provider UnavailFern Matos Unavailable [phone] Hoang Yuen Unavailable [phone] REASON FOR VISIT r/s for sooner apt Encounters Encounter Location Date Provider Diagnosis [facility] [address] [place] [id number] 06/26/2024 Hoang Yuen Plan Of Treatment No Information Progress Notes * Jj JACOBO MDOB: [birth year] (70 yo F)Acc No.[id number]:06/26/2024 Progress Notes Patient: Jj PRESLEY Provider: Juanjo Yuen DPM :1955 A ge:69 Y S ex:Female Date:06/26/2024 Address:[address] [place], [place] [id number] Pcp:Thierno Velasquez Subjective: * Chief Complaints: * 1 . R/s for sooner apt. * Medical History: Objective: * Vitals: Assessment: Plan: * Treatment: * Images: * The named appointment provid er may or may not be the originator of this progress note, and it is not deemed complete until electronically signed by the appointment provider. Sign off status: Pending * Provider: Juanjo Yuen DPM Date: 08/26/2023 Generated for Christie moreau/Gilberto/eTransmitting on: 09/09/2024 07:41 AM EST
--- OUTSIDE RECORDS SUMMARY | 2024-07-24 04:15 | XMS_ITS ---
Author Organization [facility] Address [address] [place] [address] Care Team Providers Care Attorney Name Role Phone Thierno Velasquez Primary Care Provider Fern Mullins [phone] Encounters Encounter Location Date Provider Diagnosis [address] [address] 07/24/2024 Fern Anderson Plan Of Treatment No Information Progress Notes * Denzel JACOBOele MDOB: [birth year] (70 yo F)Acc No.[id number]:07/24/2024 Progress Note Patient: Jj PRESLEY Provider: Charles Anderson DPM :1955 A ge:69 Y S ex:Female Date:07/24/2024 Address:[address] [place], [place] [id number] Pcp:Thierno Velasquez Subjective: * Chief Complaints: * * Medical History: Objective: * Vitals: Assessment: Plan: * Treatment: * Images: * The named appointment provid er may or may not be the originator of this progress note, and it is not deemed complete until electronically signed by the appointment provider. Sign off status: Pending * Provider: Charles Anderson DPM Date: 09/24/2023 Generated for Christie moreau/Gilberto/eTransmitting on: 09/09/2024 07:40 AM EST
--- OUTSIDE RECORDS SUMMARY | 2024-07-27 11:00 | XMS_ITS ---
Author Organization [facility] Address [address] [place] [address] Care Team Providers Care Warehouse Team Leader Name Role Phone Thireno Velasquez Primary Care Provider Fern Mullins [phone] Encounters Encounter Location Date Provider Diagnosis [address] [address] 07/27/2024 Fern Anderson Plan Of Treatment No Information Progress Notes * Denzel JACOBOele MDOB: [birth year] (70 yo F)Acc No.[id number]:07/27/2024 Progress Note Patient: Jj PRESLEY Provider: Charles Anderson DPM :1955 A ge:69 Y S ex:Female Date:07/27/2024 Address:[address] [place], [place] [id number] Pcp:Thierno Velasquez Subjective: * Chief Complaints: * * Medical History: Objective: * Vitals: Assessment: Plan: * Treatment: * Images: * The named appointment provid er may or may not be the originator of this progress note, and it is not deemed complete until electronically signed by the appointment provider. Sign off status: Pending * Provider: Charles Anderson DPM Date: 09/27/2023 Generated for Christie moreau/Gilberto/eTransmitting on: 09/09/2024 07:40 AM EST
--- OUTSIDE RECORDS SUMMARY | 2024-09-07 05:45 | XMS_ITS ---
Author Organization [facility] Address [address] [place] [address] Care Team Providers Care Hand Button Splitter Name Role Phone Thierno Velasquez Primary Care Provider Fern Mullins [phone] Allergies Allergen (clinical drug ingredient) Drug/Non Drug Allergy documented on EMR Reaction Allergy Type Onset Date Status ibuprofen Advil kidney issues Drug Allergy Act samuel Aleve kidney issues Drug Allergy Act samuel sulfamethoxazole / trimethoprim Bactrim large rashes Drug Allergy Active Motrin kidney issues Drug Allergy Act samuel darvocet Unknown Drug Allergy Active Medications Medication SIG (Take, Route, Frequency, Duration) Notes Start Date End Date Status hydroCHLOROthiazide 25 MG 1 tablet Orall y Once a day Not-Taking Atenolol 25 MG 1 tablet Orally Once a day Not-Taking LORazepam 1 MG 1 tablet at bedtime as needed Orally Once a day Active Lomotil 2.5-0.025 MG 2 Orally 3 times a day Active Physical Therapy . .dx:achilles tendinitis right with need for us and iontophoresis . 2-3x/week; Duration: 3-4 weeks 01/15/2014 Not-Taking Metoprolol Tartrate 50 MG 1 tablet with food Orally Twice a day Active Encounters Encounter Location Date Provider Diagnosis [facility] [address] [place] [address] 09/07/2024 Fern Anderson Plan Of Treatment No Information Progress Notes * Jj JACOBO MDOB: [birth year] (70 yo F)Acc No.[id number]:09/07/2024 Progress Note Patient: Jj PRESLEY Provider: Charles Anderson DPM :1955 A ge:69 Y S ex:Female Date:09/07/2024 Address:[address] [facility] Pcp:Thierno Velasquez Subjective: * Chief Complaints: * * Medical History: H igh blood pressure, Chicken pox, Back pain, Covid-19. * Medications: T aking Metoprolol Tartrate 50 MG Tablet 1 tablet with food Orally Twice a day , Taking LORazepam 1 MG Tablet 1 tablet at bedtime as needed Orally Once a day , Taking Lomotil 2.5-0.025 MG Tablet 2 Orally 3 times a day , Not-Taking/PRN Physical Therapy . . .dx:achilles tendinitis right with need for us and iontophoresis . 2-3x/week , Not-Taking/PRN hydroCHLOROthiazide 25 MG Tablet 1 tablet Orally Once a day , Not-Taking/PRN Atenolol 25 MG Tablet 1 tablet Orally Once a day * Allergies: d arvocet, Advil: kidney issues, Aleve: kidney issues, Motrin: kidney issues, Bactrim: large rashes. Objective: * Vitals: Assessment: Plan: * Treatment: * Images: * The named appointment provid er may or may not be the originator of this progress note, and it is not deemed complete until electronically signed by the appointment provider. Sign off status: Pending * Provider: Charles Anderson DPM Date: 0 09/07/2024 Generated for Christie moreau/Gilberto/Nikky on: 09/09/2024 07:41 AM EST
--- OUTSIDE RECORDS SUMMARY | 2025-07-09 07:40 | XMS_ITS | Encounter Summary ---
Author Organization [facility], Address [address] [place] [address] Phone Care Team Providers Care Ships Equipment Engineer Name Role Phone Thierno Velasquez MD Primary Care Provider [phone] Encounter Details Date Type Department Care Team (Late Contact Info) Description 04/20/2024 Documentation Only [facility], [address] [place] [address] [place] [address] [place] [address] [phone] Social History Tobacco Use Types Packs/Day Years [...] Visit [facility] - [facility] [address] [place] [address] Jovan Jha MD [address] [place] [address] [place] [address] documented as of this encounter Visit Diagnoses Not on filedocumented in this encounter Care Teams Ships Equipment Engineer Relationship Specialty Start Date End Date Thierno Velasquez MD [facility] [place], [place] PCP - General 06/13/19 documented as of this encounter
--- OUTSIDE RECORDS SUMMARY | 2025-07-09 07:40 | XMS_ITS | Data Portability ---
Author Organization ID - [facility], Allergy Address [address] [place] [address] Care Team Providers Care Technical Assistant Name Role Phone LUCIA OLIVER Primary Care [...] None recorded. Imaging US, thyroid 024 025 [facility], [address], [place], [address], 13:30:03 Medication Orders None recorded. Patient TargetsNo targets recorded. Patient InstructionsNo instructions recorded. Reason for Referral None Reported. Results Created Date Observation Date Name Description Value Unit Range Abnormal Flag Note LastModifiedBy Organization Detail LastModifiedTime 05/31/20 24 03/07/2024 US, head + neck, soft tissu e No observ ation record ed. [email or web address] [facility] [address], [place], [address], 06/07/2024 14:33:22 Result Notes None recorded. Problems Name Problem SNOMED Code Status Onset Date Resolution Date Notes Provider Name and Address Organization Details Recorded Time Gastroeso phageal reflux disease without esophagit is 180791905 Active 2019 Esophagea l reflux NOS; Note: Date Diagnosed : 05/08/2020 2:21 PM (K21.9) Not Available [facility] 4 02:52:25 Allergic rhinitis caused by pollen 32398535 Active 2019 Allergic rhinitis due to pollen; Note: Date Diagnosed : 05/08/2020 2:21 PM (J30.1) Not Available [facility] 4 02:52:28 Cough 83461895 Active 2019 Cough; Note: Date Diagnosed : 05/08/2020 2:21 PM (R05) Not Available [facility] 4 02:52:27 Sensorine ural hearing loss 11773549 Active 2019 Sensorine ural hearing loss, unilatera l, left ear, with unrestric yeni hearing on the contralat eral side; Note: Date Diagnosed : 0 10:59 AM (H90.42) Not Available [facility] 4 02:52:27 Impacted cerumen of bilateral ears 14129343739 70044 Active 2021 Impacted cerumen, bilateral ; Note: Date Diagnosed : 09/29/2021 11:39 AM (H61.23) Not Available [facility] 4 02:52:29 Sensorine ural hearing loss of bilateral ears 121496932 Active 2021 Sensorine ural hearing loss, bilateral ; Note: Date Diagnosed : 09/29/2021 10:09 AM (H90.3) Note: Date Diagnosed : 09/29/2021 10:09 AM (H90.3) Not Available [facility] 4 01:11:15 Dizziness and giddiness 849951266 Active 2023 Dizziness and giddiness ; Note: Date Diagnosed : 11/16/2023 2:08 PM (R42) Not Available [facility] 4 02:52:25 Thyroid nodule 565525912 Active 2023 NATE ROD MD [address] [place] [address], [facility] [place], [address] , [facility] - [facility] 4 09:06:07 Problem Notes None recorded. Medical Equipment None Reported. Allergies Allergen ID Allergen Name Allergen Category Reaction Reaction Severity Criticality Documentation Date Start Date Code Code System Note Provider Name and Address Organization Details Recorded Time 665438 Acetamino phen / Propoxyph tasha medicatio n hives Not available Not available 12/21/2023 44241 RxNorm React ion: other react ion, Hives ; Not Available [facility] 4 01:19:08 Medications Name Sig [...] mg tablet 07/01 completed Medicati on ID: [id number] B rand Name: metronid azole Se nd Method: E-Prescr ibed Sub s Allowed: subs OK Medic ationGen ericName : metronid azole Not Available Not Available Not Available ciproflox acin 500 mg tablet 07/01 completed Medicati on ID: [id number] B rand Name: ciproflo xacin HCl Send [...] before meals 2020 active Medicati on ID: [id number] D uration Value: 30 Presc[address] bed By [...] mg tablet 06/28 completed Medicati on ID: [id number] B rand Name: hydrochl orothiaz clarisa Send [...] mg capsule 2019 active Medicati on ID: [id number] B rand Name: dicyclom ine Send Method: E-Prescr ibed Sub s Allowed: subs OK Medic ationGen ericName : dicyclom ine Not Available Not Available Not Available escitalop veena 10 mg tablet TAKE 1 TABLET BY MOUTH DAILY active Not Available Not Available No t Available metoprolo l tartrate 25 mg tablet 06/28 completed Medicati on ID: [id number] B rand Name: metoprol ol tartrate Send Method: E-Prescr ibed Sub s Allowed: subs OK Medic ationGen ericName : metoprol ol tartrate Not Available Not Available Not Available Lomotil active Not Available Not Avail able Not Available Vitals Date Recorded Body height Body mass index (BMI) Body weight Provider Name and Address Organization Details Last Updated DateTime 06/28/2024 172.72 cm 21.9 kg/m2 01589.3 g Naheed Geiger [facility] 06/28/2024 08:48:47 Social History None recorded. Functional Status None recorded. Mental Status None recorded. Family History Nothing Reported. Medical History No medical history recorded. Gynecological HistoryNo gynecological history recorded. Obstetrics History GPAL:G 0 P 0 0 0 0 Past Encounters Encounter ID Performer Location Encounter Start Date Encounter Closed Date Diagnosis/Indication Diagnosis SNOMED-CT Code Diagnosis ICD10 Code Diagnosis IMO Codes Diagnosis Note [id number] NATE ROD MD [facility] [address] [address] 06/28/2024 08:26:36 06/28/2024 09:09:59 Thyroid nodule 515645610 E04.1 Health Concerns Section Related Observation LastModified by Organization Detai ls LastModified Time None Recorded Concern Status LastModified by Organization Details LastModified Time None Recorded Advance Directives Directive None Recorded Payers Insurance Date Sequence Insurance Name Policy Number Policy Cabrales Covered Member ID Cabrales Member ID Guarantor Name 06/28/2024 1 [place] [employer] Jj Madison [id number] Jj Madison 07/26/2024 2 [place] [id number] Jj Madison [id number] Jj Madison Notes Date Note Type [...] #1: 0.4cm Tirads 5 NATE ROD MD [address] [place] [address], [place], [address], [place] - [facility] 06/28/2024 10:48:13 OBGyn Episode No OBEpisode recorded.
--- OUTSIDE RECORDS SUMMARY | 2025-07-09 07:40 | XMS_ITS | Clinical Summary ---
Author Organization [facility] Address [address] [place] [address] Phone Care Team Providers Care Journeyman Apprentice Electricians Name Role Phone Thierno Velasquez MD Primary Care Provider + Allergies Active [...] topic Medical Devices Not on file Insurance [facility] Member Subscriber Plan / Payer (Ef fective 2019-Present) Name:Jj Madison Relation to Subscriber:Self Name:Jj Maidson Payer ID:Not on file Type:O Address: [address] MEDEX SUPPLEMENT MEDICARE PART A & B [facility] HMO BLUE CROSS MEDEX SUPPLEMENT MEDICARE PART A & B [facility] HMO [facility] BL[facility] CROSS MEDEX SUPPLEMENT MEDICARE PART A & [place] [address] [place] [id number] [facility] BLUE CROSS MEDEX SUPPLEMENT MEDICARE PART A & B [facility] HMO MEDEX SUPPLEMENT MEDICARE PART A & B [facility] HMO [place] MEDEX SUPPLEMENT MEDICARE PART A & B Care Teams Journeyman Apprentice Electricians Relationship Specialty Start Date End Date Thierno Velasquez MD PCP - General Internal Medicine 06/29/20 Additional Source Comments The information contained in this document represents components of the legal health record. It is not the complete legal health record.[facility]
--- OUTSIDE RECORDS SUMMARY | 2025-07-09 07:40 | XMS_ITS | Encounter Summary ---
Author Organization [facility], Address [address] [place] [address] Phone Care Team Providers Care Transportation Attendant Name Role Phone Thierno Velasquez MD Primary Care Provider [phone] Encounter Details Date Type Department Care Team (Late st Contact Info) Description 09/19/2024 Documentation Only [facility], [address] [place] [address] Opal Vazquez [address] [place] [phone] Social History Tobacco Use Types Packs/Day Years [...] Visit [facility] - [facility] [address] [place] [address] Jovan Jha MD [address] [place] [address] [place] [address] documented as of this encounter Visit Diagnoses Not on filedocumented in this encounter Care Teams Transportation Attendant Relationship Specialty Start Date End Date Thierno Velasquez MD [facility] [place] PCP - General 06/13/19 documented as of this encounter
--- OUTSIDE RECORDS SUMMARY | 2025-07-09 07:40 | XMS_ITS | Encounter Summary ---
Author Organization [facility], Address [address] [place] [address] Phone Care Team Providers Care Trust Manager Assistant Name Role Phone Thierno Velasquez MD Primary Care Provider [phone] Encounter Details Date Type Department Care Team (Late st Contact Info) Description 09/19/2024 Documentation Only [facility], [address] [place] [address] Opal Vazquez [address] [place] [phone] Social History Tobacco Use Types Packs/Day Years [...] Visit [facility] - [facility] [address] [place] [address] Jovan Jha MD [address] [place] [address] [place] [address] documented as of this encounter Visit Diagnoses Not on filedocumented in this encounter Care Teams Trust Manager Assistant Relationship Specialty Start Date End Date Thierno Velasquez MD [facility] [place] PCP - General 06/13/19 documented as of this encounter
--- OUTSIDE RECORDS SUMMARY | 2025-07-09 07:40 | XMS_ITS | Clinical Summary ---
Author Organization [facility] Address [address] [place] [address] Phone Care Team Providers Care University Lecturer Name Role Phone Thierno Velasquez MD Primary Care Provider [phone] Encounters Date Type Department Care Team Description 06/12/2025 8:30 AM EST - 06/12/2025 11:59 PM EST Hospital Encounter [facility] [address] [phone] Encounter for screening mammogram for breast cancer Discharge Disposition: Home or Self Care from Last 3 Months Surgical History Surgery Date Site/Laterality Comments HYSTERECTOMY Family History Medical History Relation Name Comments Breast cancer Mother's Sister 1 Breast cancer Mother's Sister 2 Relation Name Status Comments Mother's Sister 1 Alive Mother's Sister 2 Alive Social History Tobacco Use Types Packs/Day Years Used Date Smoking Tobacco: Never Assessed Comments No Sex and Gender Information Value Date Recorded Sex Assigned at Not on file Legal Sex Female 11:39 PM EST Gender Identity Not on file Sexual Orientation Not on file Obstetrics History Para Term AB IAB SAB Ectopic Multiple Livin g Live Births 2 Last Filed Vital Signs Vital Sign Reading Time Taken Comments Blood Pressure - - Pulse - - Temperature - - Respiratory Rate - - Oxygen Saturation - - Inhaled Oxygen Concentration - - Weight 63.5 kg (140 lb) 06/12/2025 8:51 AM EST Height 172.7 cm (5' 8 ) 06/12/2025 8:51 AM EST Body Mass Index 21.29 06/12/2025 8:51 AM EST Plan of Treatment Upcoming Encounters Date Type Department Care Team (Late st Contact Info) Description 06/13/2026 9:00 AM EST Appointment [facility] [address] [address] Health Maintenance Due Date Last Done Comments Colorectal Cancer Screening: Colonoscopy 1955 Cholesterol Screening (Lipid Panel) 07/12/2022 Falls Risk Assessment 07/12/2022 Hepatitis C Screening 07/12/2022 Medicare Annual Wellness Visit 07/12/2022 Social Influencers of Health Screening 07/12/2022 Depression Screening 08/09/2024 COVID-19 Vaccine ( season) 2025 07/29/2021, 11/13/2020 Hypertension/CHF/CAD Annual BMP Blood Test 06/12/2025 03/30/2024, 06/29/2020 DTaP,Tdap,and Td Vaccines (2 - Td or Tdap) 08/09/2025 08/09/2015 Breast Cancer Screening 06/12/2027 06/12/20, 06/08/2024, 06/07/2023, Additional history exists RSV Immunization Adult Patients (1 - 1-dose 75+ series) 2031 Osteoporosis Screening (Bone Density Screening) 05/22/2031 05/22/2021 Zoster Vaccines Completed 07/27/2018, 05/09, 06/25/2016 Pneumococcal Vaccine: 50+ Years Completed 01/22/2023 Influenza Vaccine Completed 05/14/2025, , 06/09/2022, Additional history exists HIB Vaccines Aged Out No longer eligi [...] Procedure Name Priority Date/Time Associated Diagnosis Comments MG MAMMO DIGITAL SCREENING W BENJI BILAT Routine 06/12/2025 9:06 AM EST Encounter for screening mammogram for breast cancer STORM DEXA AXIAL SKELETON Routine 05/22/2021 2:06 PM EDT Other specified disorders of bone density and structure, multiple sites from Last 3 Months or Most Recently Relevant to Health Maintenance Results * MG Mammo Digital Screening w Benji bilat (06/12/2025 9:06 AM EST) Anatomical Region Laterality Modality Breast Bilateral Mammography 06/12/2025 10:5 1 AM EST Impressions 06/12/2025 10:52 AM EST Benign. BI-RADS CATEGORY: 1 - NEGATIVE RECOMMENDATION: Screening bilateral mammogram is recommended in 1 year. Mammo Location: [facility], [address] [place] [address], [address], . -------- FINAL REPORT -------- Dictated By: Wong Arita Dictated Date: 06/12/2025 10:51 ET Assigned Physician: Wong Arita Reviewed and Electronically Signed By: Wong Arita Signed Date: 06/12/2025 10:52 ET Workstation ID: [id number] Transcribed By: Self Edit Transcribed Date: 06/12/2025 10:51 ET Narrative 06/12/2025 10:52 AM EST CLINICAL: 70 years old, Female, routine annual exam. COMPARISON: 06/08/2024 and 06/07/2023. TECHNIQUE: Bilateral MLO and CC views were obtained digitally with 3-D mammogram (digital breast tomosynthesis). Computer-aided detection was utilized in evaluation of this exam (CAD). FINDINGS: No suspicious mass or architectural distortion. No suspicious calcification. There has been no significant change from prior exam(s). BREAST DENSITY: B - There are scattered areas of fibroglandular density. Procedure Note Wong Arita MD - 06/12/2025 CLINICAL: 70 years old, Female, routine annual exam. COMPARISON: 06/08/2024 and 06/07/2023. TECHNIQUE: Bilateral MLO and CC views were obtained digitally with 3-Dmammogram (digital breast tomosynthesis). Computer-aided detection wasutilized in evaluation of this exam (CAD). FINDINGS: No suspicious mass or architectural distortion. No suspiciouscalcification. There has been no significant change from prior exam(s). BREAST DENSITY: B - There are scattered areas of fibroglandular density. IMPRESSION: Benign. BI-RADS CATEGORY: 1 - NEGATIVE RECOMMENDATION: Screening bilateral mammogram is recommended in 1 year. Mammo Location: [facility], [address] [place] [address], [address], . -------- FINAL REPORT -------- Dictated By: Wong Arita Dictated Date: 06/12/2025 10:51 ET Assigned Physician: Wong Arita Reviewed and Electronically Signed By: Wong Arita Signed Date: 06/12/2025 10:52 ET Workstation ID: [id number] Transcribed By: Self Edit Transcribed Date: 06/12/2025 10:51 ET us Self Referral Sppl IMG BI PROCEDURES Final Resul t * STORM DEXA AXIAL SKELETON (05/22/2021 2:06 PM EDT) Anatomical Region Laterality Modality Mammography 05/22/2021 1:04 PM EDT Narrative 05/22/2021 2:06 PM EDT [facility] Diagnostic Imaging Department [address] [place] [address] [phone] Patient: CABRERA JACOBO D.O.B./Age/Sex: 1955 - 66 - F Unit#: [id number] Location/Status: SPDIMAM/REG CLI Mnemonic[facility] Physician: DANAY RIVERA MD [facility] Dexa Axial Skeleton - 05/22/21 - [facility] Dexa Axial Skeleton INDICATION: POSTMENOPAUSAL [...] FRAX estimate if patient has received treatment. [id number] Dictating Physician: AUDELIA PABLO MD Electronically Signed by: AUDELIA PABLO MD Dic Date/Time: 05/22/211404 Sign date/Time: 05/22/21 140 Procedure Note Audelia Pablo MD - 07/29/2022 [facility] Diagnostic Imaging Department [address] [place] [address] [id number] Patient: CABRERA JACOBO /Age/Sex: 1955 - 66 - F Unit#: [id number] Location/Status: SPDIMAM/REG CLI Mnemonic/Ordering Site: [facility] Ordering Physician: DANAY RIVERA MD [facility] Dexa Axial Skeleton - 05/22/21 - [facility] Dexa Axial Skeleton INDICATION: POSTMENOPAUSAL [...] prior exam there is been a statistically dufmpccutwp19.3% interval decrease in total mean hip bone mineral density The FRAX result suggests a 10 year probability of major osteoporoticfracture of 14.5 % and hip fracture of 1.5%. 10 year probability of osteoporotic fracture may be lower than FRAXestimate if patient has received treatment. [id number] Dictating Physician: AUDELIA PABLO MD Electronically Signed by: AUDELIA PABLO MD Dic Date/Time: 05/22/211404 Sign date/Time: 05/22/211405 us Danay Rivera MD IMG BI PROCEDURES Final Result from Last 3 Months or Most Recently Relevant to Health Maintenance Insurance MEDICARE MEDEX Care Teams University Lecturer Relationship Specialty Start Date End Date Thierno Velasquez MD [address] [place] [address] PCP - General Internal Medicine 06/12/24
--- OUTSIDE RECORDS SUMMARY | 2025-07-09 07:40 | XMS_ITS | Encounter Summary ---
Author Organization [facility], Address [address] [place] [address] Phone Care Team Providers Care Skirt Clipper Name Role Phone Thierno Velasquez MD Primary Care Provider [phone] Encounter Details Date Type Department Care Team (Late st Contact Info) Description 09/19/2024 Documentation Only [facility], [address] [place] [address] Opal Vazquez [address] [place] [phone] Social History Tobacco Use Types Packs/Day Years [...] Visit [facility] - [facility] [address] [place] [address] Jovan Jha MD [address] [place] [address] [place] [address] documented as of this encounter Visit Diagnoses Not on filedocumented in this encounter Care Teams Skirt Clipper Relationship Specialty Start Date End Date Thierno Velasquez MD [facility] [place] PCP - General 06/13/19 documented as of this encounter
--- OUTSIDE RECORDS SUMMARY | 2025-07-09 07:40 | XMS_ITS | Encounter Summary ---
Author Organization [facility], Address [address] [place] [address] Phone Care Team Providers Care Electronic Warfare Specialist Name Role Phone Thierno Velasquez MD Primary Care Provider [phone] Encounter Details Date Type Department Care Team (Late st Contact Info) Description 10/03/2024 Documentation Only [facility], [address] [place] [place] [address] Opal Vazquez [address] [place] [phone] Social History Tobacco Use Types Packs/Day Years [...] Visit [facility] - [facility] [address] [place] [address] Jovan Jha MD [address] [place] [address] [place] [address] documented as of this encounter Visit Diagnoses Not on filedocumented in this encounter Care Teams Electronic Warfare Specialist Relationship Specialty Start Date End Date Thierno Velasquez MD [facility] [place] PCP - General 06/13/19 documented as of this encounter
--- OUTSIDE RECORDS SUMMARY | 2025-07-09 07:40 | XMS_ITS | Encounter Summary ---
Author Organization [facility], Address [address] [place] [address] Phone Care Team Providers Care Abrasive Mixer Helper Name Role Phone Thierno Velasquez MD Primary Care Provider [phone] Encounter Details Date Type Department Care Team (Late st Contact Info) Description 10/03/2024 Documentation Only [facility], [address] [place] [address] Opal Vazquez [address] [place] [phone] Social History Tobacco Use Types Packs/Day Years [...] Visit [facility] - [facility] [address] [place] [address] Jovan Jha MD [address] [place] [address] [place] [address] documented as of this encounter Visit Diagnoses Not on filedocumented in this encounter Care Teams Abrasive Mixer Helper Relationship Specialty Start Date End Date Thierno Velasquez MD [facility] [place] PCP - General 06/13/19 documented as of this encounter
--- OUTSIDE RECORDS SUMMARY | 2025-07-09 07:40 | XMS_ITS | Patient Health Record ---
Author Organization [facility] Address [address] [place] [address] Care Team Providers Care Precision Aircraft Structure Assembler Name Role Phone Thierno Velasquez MD Primary Care Provider Juan Haq [phone] Allergies Allergen (clinical drug ingredient) Drug/Non Drug Allergy documented on EMR Reaction Allergy Type Onset Date Status amoxicillin / clavulanate Augmentin Unknown Drug Allergy Active Darvocet A500 Unknown Drug Allergy Act samuel Darvon Unknown Drug Allergy Active ibuprofen Ibuprofen kidney ds Drug Allergy Active Reason For Referral No Information Medications Medication SIG (Take, Route, Frequency, Duration) Notes Start Date End Date Status Diphenoxylate-Atropine 2.5-0.025 MG Tablet TAKE 2 TABLETS BY MOUTH THREE TIMES DAILY FOR DIARRHEA Orally Three times every day for diarrhea; Duration: 30 days 01/21/2025 Active Cholestyramine 4 GM/DOSE Powder 1 scoop Orally as needed for loose stools Not-Taking/VT N Lomotil 2.5-0.025 MG Tablet 2 Orally three times a day/prn Active Metoprolol Succinate ER 50 MG Tablet Extended Release 24 Hour 1 tablet Orally Once a day Active traMADol HCl 50 MG Tablet 1 tablet as needed Orally Once a day Active Dicyclomine HCl 10 MG Capsule 1-2 Orally Four times a day prn abdominal cramps or discomfort PRN Active Tylenol PRN Active LORazepam at night Active Omeprazole 20 MG Capsule Delayed Release 1 capsule 30 minutes before morning meal Orally Once a day Just uses it prn Active Immunizations Vaccine Route Administration Date Status Comme nts Influenza Unknown 05/09/2019 Administered Influenza Unknown 05/22/2020 Administered Influenza Unknown 05/31/2024 Administered Social History Social History Drugs/Alcohol: Social Info Question Answer Notes Alcohol Screen Did you have a drink containing alcohol in the past year? Yes How often did you have a drink containing alcohol in the past year? 2 to 3 times a week (3 points) How many drinks did you have on a typical day when you were drinking in the past year? 1 or 2 drinks (0 point) How often did you have 6 or more drinks on one occasion in the past year? 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 alcohol [...] Status Risk Notes Problem Diverticulitis of colon (971753925) Diverticulitis of large intestine without perforation or abscess without bleeding (K57.32) Active confirmed Problem Screening for malignant neoplasm of colon (990302825) Encounter for screening for malignant neoplasm of colon (Z12.11) Active confirmed Problem Irritable bowel syndrome with diarrhea (610747221) Irritable bowel syndrome with diarrhea (K58.0) Active confirmed Problem Diverticulitis (89788669) Diverticulitis (K57.92) Active confirmed Problem Elevated liver enzymes level (220664552) Elevated liver function tests (R79.89) Active confirmed Problem Elevated liver enzymes level (494173618) Elevated liver function tests (R94.5) Active confirmed Problem Left lower quadrant pain (433940134) Left lower quadrant abdominal pain (R10.32) Active confirmed Vital Signs Blood pressure diastolic 001 mm Hg 08/31/2024 Height 67.5 in 08/31/2024 Blood pressure systolic 001 mm Hg 08/31/2024 Weight 143 lbs 08/31/2024 BMI 22.06 kg/m2 08/31/2024 Encounters Encounter Location Date Provider Diagnosis [facility] [address] [place] [phone] 08/31/2024 Juan Herbert Irritable bowel syndrome with diarrhea K58.0 and Encounter for screening for malignant neoplasm of colon Z12.11 [facility] [address] [place] [phone] 01/19/2025 Juan Herbert [facility] [address] [place] [phone] 05/22/2025 Juan Herbert [facility] [address] [place] [phone] 06/04/2025 Juan Herbert Elevated liver function tests R94.5 Assessments Encounter Date Diagnosis (ICD Code) Assessment [...] to keep you advised of her progress. 06/04/2025 Elevated liver function tests (ICD-10 - R94.5) Plan Of Treatment Pending Test Test Name Order Date LIVER PROFILE 06/19/2020 LIVER PROFILE 05/12/2020 LIVER PROFILE 06/04/2025 CELIAC PANEL #10 02/16/2018 Future Test Test Name Order Date COLONOSCOPY 02/16/2018 Insurance Providers Payer Name Payer Address Payer Phone Subscriber Number Group Number Insured Name Patient Relationship to Insured Coverage Start Date Coverage End Date MEDICARE OF [place] [address] [place] [address] [id number] CABRERA JACOBO Self - patient is the insured [employer] CLAIMS [address] [place] [address] [id number] CABRERA JACOBO Self - patient is the insured Medical (General) History Medical History History ICD Code IBS with predominantly diarr hea--uses Lomotil TID--negative labs for celiac disease in 2006 and in 05/2020 Denies PA,DM,CVA,Lung disease,renal dise ase HTN Colonoscopy in 2006 was negative--normal biopsies from TI and colon Neg. colonoscopy in 04/2018--neg. colon b iopsies for microscopic colitis Very mild changes of possibl e Sigmoid diverticulitis on the CT scan in 04/2020 at [facility]-treated with outpt Augmentin with some improvement. She was subsequently admitted to [facility] in early May for left sided abdominal pain--her CT scan at that time was normal. She was treated with a brief course of antibiotics but did seem to improve with the addition of dicyclomine. Elevated LFT's in Fall 2019 during her admission at [facility]- AST was 222 and the ALT was [...] and anxiety Surgical History Surgery Date(Month/Year) NOÉ Squires Laparoscopy for endometriosis
--- OUTSIDE RECORDS SUMMARY | 2025-07-09 07:40 | XMS_ITS | Encounter Summary ---
Author Organization [facility], Address [address] [place] [address] Phone Care Team Providers Care Aviation Maintenance Instructor Name Role Phone Thierno Velasquez MD Primary Care Provider [phone] Encounter Details Date Type Department Care Team (Late st Contact Info) Description 10/03/2024 Documentation Only [facility], [address] [place] [address] Opal Vazquez [address] [place] [phone] Social History Tobacco Use Types Packs/Day Years [...] Visit [facility] - [facility] [place] [facility] [address] [place] [address] Jovan Jha MD [address] [place] [address] [place] [address] documented as of this encounter Visit Diagnoses Not on filedocumented in this encounter Care Teams Aviation Maintenance Instructor Relationship Specialty Start Date End Date Thierno Velasquez MD [facility] [place] PCP - General 06/13/19 documented as of this encounter
--- OUTSIDE RECORDS SUMMARY | 2025-07-09 07:40 | XMS_ITS | Clinical Summary ---
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 [phone] Health Maintenance Due Date Last Done Comments [...] on patient's age to complete this topic Insurance Medicare [facility] Care Teams Justice Court Judge Relationship Specialty Start Date End Date Thierno Velasquez MD [facility] [place] PCP - General 06/13/19
--- OUTSIDE RECORDS SUMMARY | 2025-07-09 07:40 | XMS_ITS | Encounter Summary ---
Author Organization [facility], Address [address] [place] [address] Phone Care Team Providers Care Commercial Lines Account Manager Name Role Phone Thierno Velasquez MD Primary Care Provider [phone] Encounter Details Date Type Department Care Team (Late st Contact Info) Description 09/19/2024 Documentation Only [facility], [address] [place] [address] Opal Vazquez [address] [place] [phone] Social History Tobacco Use Types Packs/Day Years [...] Visit [facility] - [facility] [place] [facility] [address] [place] [address] Jovan Jha MD [address] [place] [address] [place] [address] documented as of this encounter Visit Diagnoses Not on filedocumented in this encounter Care Teams Commercial Lines Account Manager Relationship Specialty Start Date End Date Thierno Velasquez MD [facility] [place] PCP - General 06/13/19 documented as of this encounter
--- OUTSIDE RECORDS SUMMARY | 2025-07-09 07:40 | XMS_ITS | Encounter Summary ---
Author Organization [facility], Address [address] [place] [address] Phone Care Team Providers Care Clerical Administrative Assistant Name Role Phone Thierno Velasquez MD Primary Care Provider [phone] Encounter Details Date Type Department Care Team (Late st Contact Info) Description 09/19/2024 Documentation Only [facility], [address] [place] [address] Opal Vazquez [address] [place] [phone] Social History Tobacco Use Types Packs/Day Years [...] Visit [facility] - [facility] [place] [facility] [address] [place] [address] Jovan Jha MD [address] [place] [address] [place] [address] documented as of this encounter Visit Diagnoses Not on filedocumented in this encounter Care Teams Clerical Administrative Assistant Relationship Specialty Start Date End Date Thierno Velasquez MD [facility] [place] PCP - General 06/13/19 documented as of this encounter
--- OUTSIDE RECORDS SUMMARY | 2025-07-09 07:41 | XMS_ITS | Encounter Summary ---
Author Organization [facility], Address [address] [place] [address] Phone Care Team Providers Care Food Quality Tester Name Role Phone Thierno Velasquez MD Primary Care Provider [phone] Encounter Details Date Type Department Care Team (Late Contact Info) Description 04/03/2024 Documentation Only [facility], [address] [address] Isa Villator[address] [place] [phone] Social History Tobacco Use Types Packs/Day Years [...] [facility] [place] [facility] [address] [place] [address] Jovan Jha MD [address] [place] [address] [place] [address] documented as of this encounter Visit Diagnoses Not on filedocumented in this encounter Care Teams Food Quality Tester Relationship Specialty Start Date End Date Thierno Velasquez MD [facility] [place] PCP - General 06/13/19 documented as of this encounter
--- OUTSIDE RECORDS SUMMARY | 2025-07-09 07:41 | XMS_ITS | Patient Health Record ---
Author Organization [facility] Address [address] [place] [address] Care Team Providers Care Oil Pumper Name Role Phone Thierno Velasquez Primary Care Provider Fern Mullins Unavailable [phone] Allergies Allergen (clinical drug ingredient) Drug/Non Drug [...] Twice a day Active Augmentin Active Nasal [place] Active hydroCHLOROthiazide 25 MG 1 tablet Orall [...] Disorder of joint of ankle and/or foot (233672260) Arthritis - Degenerative (719.97) Active confirmed Problem Acquired deformity of joint of big toe (disorder) (052732979) Hallux Limitus (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.8) Active confirmed Problem Achilles bursitis (264947046) Achilles Tendonitis Bursitis (726.71) Active confirmed Problem Pain in limb (96749102) Pain in Limb (729.5) Active confirmed Problem Acquired hammer toe of right foot (8982754544287156) Other hammer toe(s) (acquired), right foot (M20.41) Active confirmed Problem Localized, primary osteoarthritis of the ankle and/or foot (773826433) Arthritis of joint of lesser toe, right (M19.071) Active confirmed Vital Signs Blood pressure diastolic 70 mm Hg 11/27/2024 Height 5 ft 8 in in 11/27/2024 Blood pressure systolic 130 mm Hg 11/27/2024 Weight 144 lbs 11/27/2024 BMI 21.89 kg/m2 11/27/2024 Encounters Encounter Location Date Provider Diagnosis [address] [address] 11/27/2024 Fern Anderson Pain in right toe(s) M79.674 ; Other hammer toe(s) (acquired), right foot M20.41 ; Arthritis of joint of lesser toe, right M19.071 and Subluxation of metatarsophalangeal joint of toe, initial encounter S93.149A [address] [address] 07/24/2024 Fern Anderson [address] [address] 07/25/2024 Fern Anderson [address] [address] 09/06/2024 Fern Anderson [address] [address] 11/27/2024 Fern Anderson Assessments Encounter Date Diagnosis [...] X ray : Foot, right 3V 05/16/2024 [id number] Destruction, 1-14 07/30/2014 Insurance Providers Payer Name Payer Address Payer Phone Subscriber Number Group Number Insured Name Patient Relationship to Insured Coverage Start Date Coverage End Date Medicare [employer] [address] [place] [address] [id number] Jj Madison Self - patient is the insured [facility] [address] [place] [address] [phone] [id number] Jj Madison Self - patient is the insured Medical (General) History Medical History History ICD Code High blood pressure Chicken pox Back pain covid-19 Surgical History Surgery Date(Month/Year) appendectomy tonsillectomy hysterectomy section
--- OUTSIDE RECORDS SUMMARY | 2025-07-09 07:41 | XMS_ITS | Encounter Summary ---
Author Organization [facility], Address [address] [place] [address] Phone Care Team Providers Care Filling Room Operator Name Role Phone Thierno Velasquez MD Primary Care Provider [phone] Encounter Details Date Type Department Care Team (Late Contact Info) Description 02/16/2023 Documentation Only [facility], [address] [place] [phone] Jovan Jha MD [address] [place] [address] [place] [address] Social History Tobacco Use Types [...] Visit [facility] [place] [facility] [address] [place] [address] Jovan Jha MD [address] [place] [address] [place] [address] documented as of this encounter Visit Diagnoses Not on filedocumented in this encounter Care Teams Filling Room Operator Relationship Specialty Start Date End Date Thierno Velasquez MD [facility] [place] PCP - General 06/13/19 documented as of this encounter
[2025-07-09 09:10] LABS: Alanine Aminotransferase 29 U/L (0-31); Albumin Level 4.3 g/dL (3.5-5.0); Alkaline Phosphatase 143 U/L (39-117); Aspartate Amino Transferase 34 U/L (5-31); Total Protein 6.6 g/dL (6.5-8.0)
== END 2025-07-09 07:38 | disposition home or self-care (01) ==
LOC: HO.LAB 07:37
PROVIDERS: PCP Internal Medicine; Visit Provider Internal Medicine
DX: R94.5 Abnormal results of liver function studies (principal)
CPT/HCPCS: 36415; 80076